=== PATIENT | male | born 1965 | race Caucasian/White ===

== ENCOUNTER 2021-09-19 19:20 | Emergency (ER) | payer MEDICAID, SELFPAY ==
[2021-09-19 19:58] VITALS: BP 167/89; PULSE 63; RESP 18; TEMP 36.6; O2SAT 95
--- NOTE | 2021-09-19 20:08 | CTR_ITS ---
PROCEDURE INFORMATION: Exam: CT Head Without Contrast Exam date and time: 09/19/2021 8:55 PM Age: 56 years old Clinical indication: Pain; Headache; Additional info: AMS TECHNIQUE: Imaging protocol: Computed tomography of the head without contrast. Radiation optimization: All CT scans at this facility use at least one of these dose optimization techniques: automated exposure control; mA and/or kV adjustment per patient size (includes targeted exams where dose is matched to clinical indication); or iterative reconstruction. COMPARISON: No relevant prior studies available. RADIATION DOSE METRICS: Total DLP (mGy-cm): 1202.58 FINDINGS: Brain: Normal. No hemorrhage. Unremarkable white matter. No mass effect. Cerebral ventricles: No ventriculomegaly. Paranasal sinuses: Visualized sinuses are unremarkable. No fluid levels. Mastoid air cells: Visualized mastoid air cells are well aerated. Bones/joints: Unremarkable. No acute fracture. Soft tissues: Unremarkable. CT/CT head wo con* [id number] IMPRESSION: No acute intracranial abnormality.
--- NOTE | 2021-09-19 22:28 | W.ED.GENADLT ---
HPI - General Adult General: Chief complaint: General Medical Stated complaint: MEMORY LOSS Time Seen by Provider: 09/19/21 22:28 History of Present Illness: 56-year-old male patient comes in today with concerns of falling asleep while at the dinner table at the substance treatment center, [facility]. Patient is alert and talking within the emergency department. Patient ambulates without difficulty. Patient's speech is slightly slurred. Patient denies use of other medications besides what he is prescribed. Associated symptoms: Deny chest pain, dyspnea or headache(s) Review of Systems General: Reports: 10 or more systems reviewed and unremarkable except in HPI and below Card: Denies: chest pain Resp: Denies: dyspnea Neuro: Denies: headache(s) Physical Exam Const: COMMON NORMALS: alert HENMT: COMMON NORMALS: normocephalic HEAD & SCALP: normocephalic Neck/C-Spine: COMMON NORMALS: full ROM Resp: COMMON NORMALS: normal respiratory effort and clear to auscultation bilaterally AUSCULTATION: clear to auscultation bilaterally Cardio: COMMON NORMALS: regular rate and regular rhythm RATE: regular rate RHYTHM: regular rhythm Extremity: COMMON NORMALS: full ROM Neuro: SENSORIUM/ORIENTATION: Yes alert Course Vital Signs: Vital signs: Vital Signs Temperature 97.9 F 09/19/21 19:58 Pulse Rate 63 09/19/21 19:58 Respiratory Rate 18 09/19/21 19:58 Blood Pressure 167/89 09/19/21 19:58 Pulse Oximetry 95 09/19/21 19:58 [facility] - General Adult Medical Decision Making 56-year-old male patient comes in today for concerns of falling asleep at the table while eating at [facility]. On exam patient is alert and oriented x3. Patient moves all extremities. No focal neural deficits are noted. Respirations are even lungs are clear to auscultation. Vital signs are normal. Differential diagnosis includes intoxication, depression, substance use disorder. I suspect patient has used recently causing his altered behavior. Patient is more alert now and responsive and appropriate. Patient was discharged back to [facility]. Head CT done in the ER was unremarkable. Vital signs were normal. Lab Data Radiology Impressions Head CT 09/19/21 20:08 IMPRESSION: No acute intracranial abnormality. Discharge Plan Discharge Patient Disposition: Home Clinical Impression: Substance use disorder Condition: Stable Discharge Orders: Discharge ED (Routine); Ordered 09/19/21 Ordered By: Sunday Chiu Discharge Diet: Usual diet Discharge Activity: Increase activity as tolerated Patient Instructions: Polysubstance Use Disorder (ED) Activity Restrictions/Additional Instructions: Use only medications prescribed to you by your treatment facility. Home and rest. Drink plenty of fluids. Return to ER for new concerns Coding Level of Care Code ED Manufacturing Project Manager for Roseann Richard
[2021-09-19] MEDS: buprenorphine-naloxone 4-1 mg Film 1 EACH SUBLINGUAL (23:02)
[2021-09-19 23:05] VITALS: BP 154/77; PULSE 84; RESP 20; TEMP 36.5; O2SAT 94
== END 2021-09-19 23:05 | disposition home or self-care (01) ==
PROVIDERS: Emergency Provider Nurse Practitioner Family
DX: F19.10 Other psychoactive substance abuse, uncomplicated (principal)
CPT/HCPCS: 70450; 99284; J0573

== ENCOUNTER 2021-09-22 13:33 | Emergency (ER) | payer MEDICAID, SELFPAY ==
[2021-09-22 13:48] VITALS: BP 121/66; PULSE 71; RESP 16; TEMP 37.5; O2SAT 87; BMI 29.0
--- NOTE | 2021-09-22 13:59 | XRR_ITS ---
PROCEDURE INFORMATION: Exam: XR Chest Exam date and time: 09/22/2021 2:04 PM Age: 56 years old Clinical indication: Dyspnea and shortness of breath; Patient HX: Oxy sat 80% TECHNIQUE: Imaging protocol: Radiologic exam of the chest. Views: 1 view. Other technique: Frontal portable upright view of the chest. COMPARISON: No relevant prior studies available. FINDINGS: Lungs: The pulmonary vasculature is mildly congested. The lungs are clear bilaterally. Pleural spaces: No pleural effusion. No pneumothorax. Heart/Mediastinum: The heart is normal in size and contour. Bones/joints: No acute chest wall abnormality identified. XR/XR chest 1V portable [id number] IMPRESSION: Mild pulmonary vascular congestion.
--- NOTE | 2021-09-22 14:08 | CT_ITS ---
WS: [id number] CT CHEST ANGIOGRAPHY WITH REFORMATS HISTORY: prior meth use, possible pe TECHNIQUE: Contiguous axial images are obtained through the chest during arterial injection of intrav enous contrast. Images are reconstructed to evaluate the pulmonary arteries. MIP imaging also reviewe d. All CT scans at [facility] use at least one of these dose optimization techniques: automat ed exposure control; mA and/or kV adjustment per patient size (includes targeted exams where dose is matched to clinical indication); or iterative reconstruction. CONTRAST: Omnipaque 350; 95 mL IV. DLP: 526.27 mGy.cm COMPARISON: None available. Quality of this examination is limited by motion artifact. There are partial filling defects in the s egmental branches of the LEFT lower lobe. Some of this may be artifact secondary to breathing motion. Normal size thoracic aorta with mild atherosclerotic plaque and intimal thickening. There is extensive bilateral groundglass attenuation and ill-defined subcentimeter nodular opacificat ions. Some of these nodular opacifications are slightly spiculated the most significant nodular opaci fications in the RIGHT middle and RIGHT upper lobe. No effusions. RIGHT hilar lymph node measures 16 mm. There are smaller bilateral hilar lymph nodes. Small hiatal hernia. Hepatic steatosis. Mild thickening of the LEFT adrenal gland. CT/CT angio chest PE protcl [id number] IMPRESSION: 1. No central large pulmonary embolism. 2. Significant breathing artifact compromising this examination. 3. Subsegmental LEFT lower lobe nonocclusive emboli are suspected. Some of the se filling defects may impart be secondary to motion. 4. Indeterminate but enlarged RIGHT hilar lymph node measures 16 mm. 5. Diffuse extensive groundglass attenuation with a few spiculated small subce ntimeter opacifications greatest in the RIGHT upper and RIGHT middle lobes. Con health insurance agent diffuse pneumonitis. With the spiculated nodular opacifications septic em boli should be considered as a possible etiology.
--- NOTE | 2021-09-22 14:15 | W.ED.GENADLT ---
HPI - General Adult General: Chief complaint: Shortness of Breath/Dyspnea Stated complaint: Low O2 Time Seen by Provider: 09/22/21 13:59 History of Present Illness: Patient is a 56-year-old male with history of prior meth use, chronically on 3L of oxygen at home currently at [facility] presenting to the emergency room with concerns for low oxygen sat. [facility] to [facility] 87[facility] and was told to come to the emergency room. Patient tells me last month he was hospitalized at [place] for low oxygen level at which point time he had an oxygen reading in the 40s. Onset: unknown Duration:ongoing Location:[place] Severity:moderate Associated symptoms: Deny chest pain, dyspnea, nausea, rash, palpitations or vomiting Review of Systems Const: Denies: fever(s) or chills Eyes: Denies: change in vision ENMT: Denies: mouth pain Card: Denies: chest pain or palpitations Resp: Denies: dyspnea or non-productive cough GI: Denies: abdominal pain, nausea, vomiting or diarrhea : Denies: dysuria Musc: Denies: extremity pain Skin/Breast: Denies: rash or new lesions Neuro: Denies: weakness in extremities Psych: Reports: other (Normal mood) Angelo/Lymph: Denies: easy bruising PFSH ED PFSH: Medical History (Updated 09/22/21 @ 16:20 by Joaquín Al MD) Hypoxemia Methamphetamine abuse Social History (Updated 09/22/21 @ 17:25 by Joaquín Al MD) Smoking and tobacco status: current every day smoker Alcohol intake: former Physical Exam Const: COMMON NORMALS: alert HENMT: COMMON NORMALS: atraumatic HEAD & SCALP: atraumatic MOUTH: moist mucous membranes not abnormal Eye: COMMON NORMALS: EOMs intact bilaterally and conjunctivae normal CONJUNCTIVA: Yes conjunctivae normal Neck/C-Spine: COMMON NORMALS: full ROM and supple Resp: COMMON NORMALS: normal respiratory effort and clear to auscultation bilaterally AUSCULTATION: clear to auscultation bilaterally Cardio: COMMON NORMALS: regular rate RATE: regular rate GI: COMMON NORMALS: Soft to palpation and non-tender PALPATION: Yes Soft to palpation Extremity: COMMON NORMALS: full ROM Neuro: SENSORIUM/ORIENTATION: Yes alert MOTOR EXAM: No Abnormal motor strength present and Other motor observations present (no focal motor deficits) Psych: COMMON NORMALS: speech normal SPEECH: Yes normal speech MOOD & AFFECT: Yes euthymic mood Course Vital Signs: Vital signs: Vital Signs Temperature 99.5 F 09/22/21 13:48 Pulse Rate 76 09/22/21 15:27 Respiratory Rate 16 09/22/21 15:27 Blood Pressure 129/67 09/22/21 15:27 Pulse Oximetry 95 09/22/21 15:27 MDM - General Adult Medical Decision Making 56-year-old male with a history of prior meth use, currently on 3 L oxygen at baseline presenting to the emergency room for concerns of low O2 sat. Patient reports no respiratory distress. Patient is noted to be satting at 91 to 90% 2% on room air. Patient is noted have leukocytosis 19.6. Patient has a prior IV meth use. CTA chest showed possible nonocclusive pulmonary embolism. Patient received Lovenox. Given the elevated white count we will send blood cultures. Patient received vancomycin and cefepime for coverage empirically for septic pulmonary emboli Disposition: admisison Shortly after patient was admitted to the hospital, patient elects to leave AGAINST MEDICAL ADVICE. Patient tells me that he needs to go home and get a smoke. Patient refuses to stay in the hospital because we do not provide him with cigarettes. Patient tells me that he will come back after he has a smoke. Patient electing to leave AMA. Patient counseled regarding risks of leaving including severe morbidity, brain , hypoxia, arrythmia, , chest pain, or any other unwanted consequences of leaving against medical advice today. Patient verbalizes understanding of the risks and still wishes to leave AMA. Signed AMA paperwork. Patient advised that patient is welcome to return at any time. Was instructed that patient may come back if symptoms continue to persist and that emergent adverse conditions have not fully been ruled out. Patient is A&Ox3 and has capacity and is of sound mind to make decisions. Lab Data : 09/22/21 14:24 09/22/21 14:24 Radiology Impressions Chest X-Ray 09/22/21 13:59 IMPRESSION: Mild pulmonary vascular congestion. Chest CTA 09/22/21 14:08 IMPRESSION: 1. No central large pulmonary embolism. 2. Significant breathing artifact compromising this examination. 3. Subsegmental LEFT lower lobe nonocclusive emboli are suspected. Some of these filling defects may impart be secondary to motion. 4. Indeterminate but enlarged RIGHT hilar lymph node measures 16 mm. 5. Diffuse extensive groundglass attenuation with a few spiculated small subcentimeter opacifications greatest in the RIGHT upper and RIGHT middle lobes. Consider diffuse pneumonitis. With the spiculated nodular opacifications septic emboli should be considered as a possible etiology. Laboratory Results WBC 19.6 10^3/uL (4.0-10.0) H 09/22/21 14:24 RBC 4.60 10^6/uL (4.1-5.3) 09/22/21 14:24 Hgb 13.0 g/dL (11.7-16.6) 09/22/21 14:24 Hct 38.1 % (42.0-52.0) L 09/22/21 14:24 MCV 82.8 fl (80-94) 09/22/21 14:24 MCH 28.3 pg (28.0-34.0) 09/22/21 14:24 MCHC 34.1 g/dL (30.0-36.0) 09/22/21 14:24 RDW 15.8 % (12.1-15.1) H 09/22/21 14:24 Plt Count 432 10^3/cmm (130-400) H 09/22/21 14:24 MPV 8.6 fL (7.4-10.4) 09/22/21 14:24 Total Counted 100 (0-100) 09/22/21 14:24 Atypical Lymphs % 9.0 % (0-5) H 09/22/21 14:24 Absolute Neutrophils 13.7 10^3/cmm (1.4-6.5) H 09/22/21 14:24 Segmented Neutrophils 70 % 09/22/21 14:24 Abs Segm Neuts (Man) 13.7 10/cmm (1.6-7.1) H 09/22/21 14:24 Band Neutrophils 0.0 % 09/22/21 14:24 Abs Band Neuts (Man) 0.0 10^3/cmm (0.0-1.2) 09/22/21 14:24 Absolute Lymphocytes 4.9 10^3/cmm (1.2-3.4) H 09/22/21 14:24 Lymphocytes (Manual) 16 % 09/22/21 14:24 Monocytes (Manual) 4.0 % 09/22/21 14:24 Absolute Monocytes 0.8 10^3/cmm (0.1-0.6) H 09/22/21 14:24 Eosinophils (Manual) 1 % 09/22/21 14:24 Absolute Eosinophils 0.1 10^3/cmm (0.0-0.7) 09/22/21 14:24 Basophils (Manual) 0.0 % 09/22/21 14:24 Absolute Basophils 0.0 10^3/cmm (0.0-0.2) 09/22/21 14:24 Platelet Estimate Increased (Normal) 09/22/21 14:24 Sodium 137 mmol/L (136-145) 09/22/21 14:24 Potassium 4.4 mmol/L (3.5-5.1) 09/22/21 14:24 Chloride 99 mmol/L (98-107) 09/22/21 14:24 Carbon Dioxide 28 mmol/L (22-29) 09/22/21 14:24 Anion Gap 14.4 (5-19) 09/22/21 14:24 BUN 12 mg/dL (6-20) 09/22/21 14:24 Creatinine 0.8 mg/dL (0.7-1.2) 09/22/21 14:24 GFR Calculation 100.7 mL/min (90-130) 09/22/21 14:24 Glucose 105 mg/dL (65-115) 09/22/21 14:24 Calculated Osmolality 284 mOsm/kg (285-295) L 09/22/21 14:24 Calcium 8.7 mg/dL (8.5-10.5) 09/22/21 14:24 TSH 2.08 uIU/mL (0.27-4.20) 09/22/21 14:24 Urine Opiates Screen Negative ng/mL (Negative) 09/22/21 15:35 Ur Barbiturates Screen Negative ng/mL (Negative) 09/22/21 15:35 Ur Phencyclidine Scrn Negative ng/mL (Negative) 09/22/21 15:35 Ur Amphetamines Screen Negative ng/mL (Negative) 09/22/21 15:35 U Benzodiazepines Scrn Negative ng/mL (Negative) 09/22/21 15:35 Urine Cocaine Screen Negative ng/mL (Negative) 09/22/21 15:35 U Marijuana (THC) Screen Negative ng/mL (Negative) 09/22/21 15:35 Imaging Data Other Imaging: Radiologist's impression: [facility] [address] [place] [place] [address] CT Scan Report Signed Patient: Chriss Akers Unit #: [id number] : 1965 Age/Sex: 56 / M ADM Date: 09/22/21 Loc: ER Room/Bed: Attending Dr: Ordering Provider/Ordering MD: oJaquín Al MD Date of Service: 09/22/21 Procedure(s): CT angio chest PE protcl [id number] Accession Number(s): [id number] Report Number: [id number] WS: [id number] CT CHEST ANGIOGRAPHY WITH REFORMATS HISTORY: prior meth use, possible pe TECHNIQUE: Contiguous axial images are obtained through the chest during arterial injection of intravenous contrast. Images are reconstructed to evaluate the pulmonary arteries. MIP imaging also reviewed.? All CT scans at [facility] use at least one of these dose optimization techniques: automated exposure control; mA and/or kV adjustment per patient size (includes targeted exams where dose is matched to clinical indication); or iterative reconstruction. CONTRAST: Omnipaque 350; 95 mL IV. DLP: 526.27 mGy.cm COMPARISON: None available. Quality of this examination is limited by motion artifact. There are partial filling defects in the segmental branches of the LEFT lower lobe. Some of this may be artifact secondary to breathing motion. Normal size thoracic aorta with mild atherosclerotic plaque and intimal thickening. There is extensive bilateral groundglass attenuation and ill-defined subcentimeter nodular opacifications. Some of these nodular opacifications are slightly spiculated the most significant nodular opacifications in the RIGHT middle and RIGHT upper lobe. No effusions. RIGHT hilar lymph node measures 16 mm. There are smaller bilateral hilar lymph nodes. Small hiatal hernia. Hepatic steatosis. Mild thickening of the LEFT adrenal gland. CT/CT angio chest PE protcl [id number] IMPRESSION: ? 1.? No central large pulmonary embolism. 2.? Significant breathing artifact compromising this examination. 3.? Subsegmental LEFT lower lobe nonocclusive emboli are suspected. Some of these filling defects may impart be secondary to motion. 4.? Indeterminate but enlarged RIGHT hilar lymph node measures 16 mm. 5.? Diffuse extensive groundglass attenuation with a few spiculated small subcentimeter opacifications greatest in the RIGHT upper and RIGHT middle lobes. Consider diffuse pneumonitis. With the spiculated nodular opacifications septic emboli should be considered as a possible etiology. ? ? ? Dictated By: Codie Johnson DO Signed By: Codie Johnson DO Signed Date/Time: 09/22/21 1608 DD/ [address] [address] XRay Report Signed Patient: Chriss Akers Unit #: [id number] : 1965 Age/Sex: 56 / M ADM Date: 09/22/21 Loc: ER Room/Bed: Attending Dr: Ordering Provider/Ordering MD: Joaquín Al MD Date of Service: 09/22/21 Procedure(s): XR chest 1V portable [id number] Accession Number(s): [id number] Report Number: [id number] PROCEDURE INFORMATION: Exam: XR Chest Exam date and time: 09/22/2021 2:04 PM Age: 56 years old Clinical indication: Dyspnea and shortness of breath; Patient HX: Oxy sat 80% TECHNIQUE: Imaging protocol: Radiologic exam of the chest. Views: 1 view. Other technique: Frontal portable upright view of the chest. COMPARISON: No relevant prior studies available. FINDINGS: Lungs: The pulmonary vasculature is mildly congested. The lungs are clear bilaterally. Pleural spaces:? No pleural effusion. No pneumothorax. Heart/Mediastinum: The heart is normal in size and contour. Bones/joints: No acute chest wall abnormality identified. XR/XR chest 1V portable [id number] IMPRESSION: Mild pulmonary vascular congestion. ? Dictated By: Ganesh Caro MD Signed By: Ganesh Crao MD Signed Date/Time: 09/22/21 1503 DD/ 1404 Discharge Plan Discharge Clinical Impression: Hypoxemia, Pulmonary embolism Coding Level of Care Code ED Bank Clerk for Chg Fwd Exam Comprehensive
[2021-09-22 14:25] VITALS: O2SAT 95
[2021-09-22 14:41] LABS: Hematocrit 38.1 % (42.0-52.0); Mean Corpuscular HGB Conc 34.1 g/dL (30.0-36.0); Mean Corpuscular Hemoglobin 28.3 pg (28.0-34.0); Mean Corpuscular Volume 82.8 fl (80-94); Mean Platelet Volume 8.6 fL (7.4-10.4); Platelet Count 432 10^3/cmm (130-400); Red Cell Distribution Width 15.8 % (12.1-15.1); White Blood Count 19.6 10^3/uL (4.0-10.0)
[2021-09-22 14:57] LABS: Anion Gap 14.4 (5-19); Blood Urea Nitrogen 12 mg/dL (6-20); Calcium 8.7 mg/dL (8.5-10.5); Carbon Dioxide 28 mmol/L (22-29); Chloride 99 mmol/L (98-107); Glomerular Filtration Rate 100.7 mL/min (90-130); Glucose 105 mg/dL (65-115); Osmolality Calculated 284 mOsm/kg (285-295); Potassium 4.4 mmol/L (3.5-5.1); Sodium 137 mmol/L (136-145)
[2021-09-22] MEDS: iohexol 350 mg/mL 100 mL Btl IV (14:58)
[2021-09-22 15:27] VITALS: BP 129/67; PULSE 76; RESP 16; O2SAT 95
[2021-09-22 15:41] LABS: Absolute Eosinophils 0.1 10^3/cmm (0.0-0.7); Absolute Neutrophil 13.7 10^3/cmm (1.4-6.5); Absolute Segmented Neutrophil 13.7 10/cmm (1.6-7.1); Eosinophils 1 %; Lymphocytes 16 %; Lymphocytes Absolute 4.9 10^3/cmm (1.2-3.4); Monocytes Absolute 0.8 10^3/cmm (0.1-0.6); Platelet Estimate Increased (Normal); Segmented Neutrophils 70 %; Total Cells Counted 100 (0-100)
--- NOTE | 2021-09-22 16:10 | PM.MISC ---
Miscellaneous Note Purpose of Documentation: AMA Note: Chriss Akers is a 56 year old male with past medical history of substance use disorder presented to the hospital with hypoxemia. Work-up in ER showed pulmonary embolism with sepsis. Source unknown. Patient has bandemia elevated white count. He was given first dose of subcu Lovenox. He is currently from [facility] and was here with [facility] worker. I went to see patient bedside. But as soon as I told him that he would be getting admitted to the hospital patient stated that he could not stay and wanted to leave AMA. I went and discussed with Dr. Tejeda who spoke to patient. Patient initially was not told that he was going to be staying. Dr. Tejeda ER physician discussed with the patient and patient will be signing out AMA at this time. ER doc tried to reason with the patient but patient was absolutely adamant that he had to smoke and was going to leave AMA. He stated he will be back later to get admitted. He does understand that his oxygen is low and he has an infection going on and he understands that he would also if he left. Patient signed out AGAINST MEDICAL ADVICE.
--- NOTE | 2021-09-22 16:21 | PM.HP ---
Providers/Chief Complaint Chief Complaint: Low O2 History of Present Illness Chriss Akers is a 56 year old male Medications/Allergies Allergies Allergy/AdvReac Type Severity Reaction Status Date / Time No Known Allergies Allergy Verified 09/19/21 14:58 PFSH Acute PFSH: Medical History (Updated 09/22/21 @ 16:20 by Joaquín Al MD) Hypoxemia Methamphetamine abuse Social History (Updated 09/22/21 @ 16:20 by Joaquín Al MD) Smoking and tobacco status: former smoker Alcohol intake: former Substance/Drug Use: former Vitals/I&O/Wt Last Vital Signs Temp 99.5 F 09/22/21 13:48 Pulse 71 09/22/21 13:48 Resp 16 09/22/21 13:48 BP 121/66 09/22/21 13:48 Pulse Ox 95 09/22/21 14:25 Weight last 48 hrs Weight 81.647 kg Data : 09/22/21 14:24 09/22/21 14:24 Coding Level of Care Code Acute Mounter Flutes [employer] Piccolos for Roseann Richard
[2021-09-22 17:14] LABS: Amphetamines Screen Urine Negative (Negative); Barbiturates Screen Urine Negative (Negative); Benzodiazepines Screen Urine Negative (Negative); Cocaine Screen Urine Negative (Negative); Opiate Screen Urine Negative (Negative); PCP Screen Urine Negative (Negative); THC Screen Urine Negative (Negative)
[2021-09-22 17:24] LABS: Thyroid Stimulating Hormone 2.08 uIU/mL (0.27-4.20)
[2021-09-22 17:58] LABS: NT Pro B Type Natriuretic Pept 134 pg/mL (0-125); Procalcitonin 0.03 ng/mL (0-0.5)
--- NOTE | 2021-09-22 18:19 | P.HP_ITS ---
Providers/Chief Complaint Chief Complaint: Low O2 History of Present Illness Chriss Akers is a 56 year old male with past medical history of anxiety, depression, substance use disorder presented to the ER today with complaints that his oxygen was low. He is at [facility] at this time. He states he was in a different hospital at [facility] for a coma that he was in for 21 days. We will be obtaining records for that. He does have a history of COPD and is a smoker. Earlier today patient came in after being admitted decided to leave A. He then came back after smoking. He is getting readmitted now. He does endorse having a cough but not really bringing up any phlegm. Also reports having difficulty urinating at times as he is always had before. Other than this denies any chest pain, abdominal pain, constipation, diarrhea. He does complain some pain in his calves from time to time and shortness of breath from time to time as well. Otherwise review of systems is negative. Patient is 1/2 pack/day smoker, denies alcohol use, denies any other Drug use. ED course: On arrival blood pressure 129/67, respiratory 16, pulse 76, tem perature 99.5. Do note that patient is on propanolol 3 times daily. WBC count 19.6, placed on 3 L oxygen saturating 95%. On room air he was 88%. Patient noted to have pulmonary embolism nonconclusive. There is a high suspicion therefore he was placed on Lovenox. Blood cultures were obtained and he was given vancomycin and cefepime to cover for septic pulmonary emboli. Echo has been ordered. Medications/Allergies Home Medications Medication Instructions Recorded Confirmed Last Taken Type albuterol sulfate 90 mcg/actuation 2 puff INHALATION .Q4-6H PRN 09/22/21 09/22/21 Unknown History aerosol inhaler (ProAir HFA) aspirin 81 mg tablet,delayed 81 mg PO DAILY@06 09/22/21 09/22/21 09/22/21 History release baclofen 10 mg tablet 10 mg PO TID PRN 09/22/21 09/22/21 Unknown History benztropine 1 mg tablet 0.5 mg PO BID@06,09/22/21 09/22/21 09/22/21 History budesonide-formoterol HFA 80 2 puff INHALATION BID 09/22/21 09/22/21 Unknown History mcg-4.5 mcg/actuation aerosol inhaler (Symbicort) buprenorphine 2 mg-naloxone 0.5 mg See Rx Instructions .ROUTE .COMPLEX 09/22/21 09/22/21 09/22/21 History sublingual tablet diclofenac sodium 1 % topical gel 2 - 4 g TOPICAL BID PRN 09/22/21 09/22/21 Unknown History ergocalciferol (vitamin D2) 1,250 50,000 unit PO Q7D 09/22/21 09/22/21 09/18/21 History mcg (50,000 unit) capsule famotidine 40 mg tablet 40 mg PO DAILY@09/22/21 09/22/21 09/22/21 History gabapentin 400 mg capsule 400 mg PO TID@0600,1220,2100 09/22/21 09/22/21 09/22/21 History hydroxyzine HCl 25 mg tablet 25 mg PO Q6H PRN 09/22/21 09/22/21 09/22/21 History ibuprofen 800 mg tablet 800 mg PO DAILY@09/22/21 09/22/21 09/22/21 History nicotine (polacrilex) 4 mg buccal 16 mg PO PRN 09/22/21 09/22/21 09/22/21 History lozenge nicotine 21 mg/24 hr daily 1 patch TRANSDERMAL DAILY PRN 09/22/21 09/22/21 09/22/21 History transdermal patch ondansetron HCl 8 mg tablet 8 mg PO TID PRN 09/22/21 09/22/21 Unknown History penicillin V potassium 500 mg 500 mg PO QID 09/22/21 09/22/21 09/22/21 History tablet prazosin 2 mg capsule 2 mg PO BEDTIME@09/22/21 09/22/21 09/21/21 History propranolol 20 mg tablet 20 mg PO TID@0600,1220,2100 09/22/21 09/22/21 09/22/21 History Allergies Allergy/AdvReac Type Severity Reaction Status Date / Time No Known Allergies Allergy Verified 09/19/21 14:58 PFSH Acute PFSH: Medical History Hypoxemia Methamphetamine abuse Social History Smoking and tobacco status: current every day smoker Alcohol intake: former Vitals/I&O/Wt Last Vital Signs Temp 99.5 F 09/22/21 13:48 Pulse 76 09/22/21 15:27 Resp 16 09/22/21 15:27 BP 129/67 09/22/21 15:27 Pulse Ox 95 09/22/21 15:27 Weight last 48 hrs Weight 81.647 kg Physical Exam Narrative: General: Alert oriented x3, patient seen appearing quite hyper in the room. He would not sit down for even 1 minute. He kept walking around the room and getting up and sitting down over and over again. HEENT: Normocephalic, atraumatic, EOMI, breathing 3 L nasal cannula saturating 95%. Cardio: Regular rate rhythm, normal S1-S2, no murmurs Respiratory: Clear to auscultation bilaterally with diminished at bases, no crackles or gross rhonchi appreciated. GI: Abdomen soft, nontender, nondistended, bowel sounds +, obese rounded abdomen Behavior: Quite hyperactive. Rapid speech Extremities: Unable to check for peripheral pulses. Patient had his boots on. He would not sit still. Calves were mildly tender to palpation. Data : 09/22/21 14:24 09/22/21 14:24 A&P Assessment and plan (1) Hypoxemia: Status: Acute (2) Pulmonary embolism: Status: Acute (3) Leukocytosis: Status: Acute (4) Substance use disorder: Status: Acute (5) Hypoxemia: Status: Acute (6) Pulmonary embolism: Status: Acute Plan #Acute hypoxia secondary to pulmonary embolism #Sepsis secondary to unknown source #Difficulty urinating #Substance use disorder #COPD #Nicotine dependence #Leukocytosis and bandemia present - Initiate sepsis work-up, blood cultures, sputum gram stain culture, urine culture ? Check urine drug screen ? Cover with vancomycin and cefepime at this time ? Continue therapeutic Lovenox 80 twice daily ? Check echo ? Check venous Dopplers lower extremities to rule out DVT ? Continue Pulmicort 0.5 twice daily inhalation, DuoNeb every 4 hours as needed ? Nicotine patch and lozenges offered -Continue patient's Suboxone, hydroxyzine, gabapentin ? Continue rest of home medications. ? Monitor on telemetry I will request for records from [facility] for reviewing. Full code Due to prophylaxis: On therapeutic Lovenox Attestations Medical Necessity Statement*: He will cross 2 midnight stay for management and work-up of sepsis secondary to unknown source and management of pulmonary em bolism. Coding Level of Care Code Acute Irish Moss Operator for g Fwd Diagnoses Hypoxemia R09.02 Pulmonary embolism I26.99 Leukocytosis D72.829 Substance use disorder F19.90 Hypoxemia R09.02 Pulmonary embolism I26.99
--- NOTE | 2021-09-22 18:27 | USCV_ITS ---
Oswald Chriss Age: 56 Gender: M : 1965 Exam Date: 09/22/2021 21:35 Ordering Phys: Karo Christian MD Technologist: REHAN Exam Location[place] [facility] [place] Indication: pulmonary embolus. No history of cardiac intervention per patient BP: 148 / 80 HR: 86 Rhythm: Sinus Technical Quality: Adequate MEASUREMENTS (Male / Female) Normal Values 2D ECHO LV Diastolic Diameter PLAX 3.4 cm 4.2 - 5.9 / 3.9 - 5.3 cm LV Systolic Diameter PLAX 2.4 cm IVS Diastolic Thickness 1.8 cm 0.6 - 1.0 / 0.6 - 0.9 cm IVS Systolic Thickness 2.4 cm LVPW Diastolic Thickness 1.1 cm 0.6 - 1.0 / 0.6 - 0.9 cm LVPW Systolic Thickness 1.2 cm LVOT Diameter 2.2 cm LV Ejection Fraction 2D Teich 55.7 % LV Ejection Fraction MOD 2C 66.4 % LV Ejection Fraction 2C AL 68.3 % LA Diameter 3.4 cm LA Width 3.1 cm LA Height 4.3 cm RA Width 3.1 cm RA Height 4.3 cm Aorta at Sinotubular Diameter 2.8 cm IVC Diameter 1.6 cm M-MODE Aortic Annulus Diameter 3.3 cm LA Ao Ratio MM 1.1 MV E Point Septal Separation 0.3 cm DOPPLER AV Peak Velocity 175.0 cm/s LVOT Peak Velocity 145.0 cm/s AV Area Cont Eq vti 3.3 cm squared AV Area Cont Eq pk 3.1 cm squared MV Peak Velocity 136.0 cm/s MV Area PHT 3.6 cm squared Mitral E to A Ratio 1.1 MV E' Velocity 61.5 cm/s Mitral E to MV E' Ratio 11.4 Mitral E to LV E' Lateral Ratio 12.3 Mitral E to LV E' Septal Ratio 10.7 TR Peak Velocity 284.0 cm/s TR Peak Gradient 32.3 mmHg TV Peak E Velocity 51.0 cm/s Right Atrial Pressure 5.0 mmHg Pulmonary Artery Systolic Pressu 37.3 mmHg PV Peak Velocity 118.0 cm/s RV Acceleration Time 0.1 s RV Ejection Time 0.4 s RV AcT/ET 0.2 FINDINGS Left Ventricle Normal left ventricular size and systolic function, EF 69 %. Mild left ventricular hypertrophy. No regional wall motion abnormalities. Right Ventricle The right ventricle is normal in size and function. Right Atrium The right atrium is normal in size. Left Atrium Color-flow turbulence at the right atrial side of the interatrial septum, suggesting possible patent foramen ovale Mitral Valve No gross abnormalities noted Aortic Valve No gross abnormalities noted Tricuspid Valve Trace to mild tricuspid valve regurgitation. Pulmonic Valve No gross abnormalities noted Pericardium Normal pericardium without effusion. Aorta Normal ascending aorta dimension. IVC The inferior vena cava pulmonary and hepatic veins appear normal. CONCLUSIONS Normal left ventricular size and systolic function, EF 69 %. Mild left ventricular hypertrophy. No regional wall motion abnormalities. Possible patent foramen ovale with [id number]-pehwm shunt Trace to mild tricuspid valve regurgitation. Estimated pulmonary artery peak systolic pressure 37 mm of Hg. There are no intracardiac masses. There is no pericardial effusion. Consider AUTUMN, to better evaluate the interatrial septum and the PFO, if clinically indicated. Dr Shelly Gayle MD FACC (Electronically Signed) Final Date: 23 September 2021 08:16 S
--- NOTE | 2021-09-22 18:27 | USCV_ITS ---
Chriss Akers Age: 56 Gender: M : 1965 Exam Date: 09/22/2021 20:24 Ordering Phys: Karo Christian MD Technologist: REHAN [place] [facility] [place]: pulmonary embolus. No hx DVT per patient. HISTORY: pulmonary embolus. No hx DVT per patient. PROCEDURES: Venous duplex imaging was performed in bilateral lower extremities. The venous duplex Doppler examination of both lower extremities was performed in the standard fashion. The following venous structures were evaluated: common femoral vein, profunda vein, proximal portion of the greater saphenous vein, superficial femoral vein, and the popliteal vein. In addition, the posterior tibial and peroneal veins were evaluated. Serial compression, augmentation maneuvers, and spectral Doppler flow evaluation were performed. Bilaterally, the common femoral, superficial femoral, profunda femoral, popliteal, posterior tibial, greater saphenous veins, and the peroneal veoms were identified and interrogated in the standard fashion. These veins were found to be easily compressible with spontaneous blood flow. No evidence of thrombus noted. CONCLUSIONS No evidence of right lower extremity DVT. No evidence of left lower extremity DVT. Carl Rosario MD (Electronically Signed) Final Date: 23 September 2021 12:49 S
[2021-09-22 19:04] VITALS: BP 148/80; PULSE 86; RESP 18; TEMP 36.7; O2SAT 87
== END 2021-09-22 19:16 | disposition admitted as inpatient to this hospital (09) ==
PROVIDERS: Internal Medicine; Emergency Provider Emergency Medicine
DX: R09.02 Hypoxemia (principal); I26.99 Other pulmonary embolism without acute cor pulmonale; F17.210 Nicotine dependence, cigarettes, uncomplicated
CPT/HCPCS: 71045; 71275; 80048; 80306; 83880; 84145; 84443; 85007; 85027; 87086; 93306; 93970; 99285; Q9967

== ENCOUNTER 2021-09-22 17:26 | Inpatient (IN) | payer MEDICAID, SELFPAY ==
--- NOTE | 2021-09-22 17:48 | ED_ITS ---
HPI - General Adult General: Stated complaint: same reason Time Seen by Provider: 09/22/21 17:33 History of Present Illness: Patient is a 56-year-old male with a history of former meth use, chronic hypoxemia on 3 L oxygen presenting to the emergency room for concerns of hypoxemia. Earlier patient was seen evaluated emergency room was diagnosed with possible nonocclusive pulmonary embolism. In addition, patient was found to have leukocytosis with no prior for comparison. Patient de cided to go home so he could have a smoke. Patient's chose to sign out AMA earlier today and decided come back to the emergency room. Onset:unknown Duration:ongoing Location:home Severity:moderate Associated symptoms: Deny chest pain, dyspnea, nausea, rash, palpitations or vomiting Review of Systems Const: Denies: fever(s) or chills Eyes: Denies: change in vision ENMT: Denies: mouth pain Card: Denies: chest pain or palpitations Resp: Denies: dyspnea or non-productive cough GI: Denies: abdominal pain, nausea, vomiting or diarrhea : Denies: dysuria Musc: Denies: extremity pain Skin/Breast: Denies: rash or new lesions Neuro: Denies: weakness in extremities Psych: Reports: other (Normal mood) Angelo/Lymph: Denies: easy bruising PFSH ED PFSH: Medical History Hypoxemia Methamphetamine abuse Social History Smoking and tobacco status: current every day smoker Alcohol intake: former Physical Exam Const: COMMON NORMALS: alert HENMT: COMMON NORMALS: atraumatic HEAD & SCALP: atraumatic MOUTH: moist mucous membranes not abnormal Eye: COMMON NORMALS: EOMs intact bilaterally and conjunctivae normal CONJUNCTIVA: Yes conjunctivae normal Neck/C-Spine: COMMON NORMALS: full ROM and supple Resp: COMMON NORMALS: normal respiratory effort and clear to auscultation bilaterally AUSCULTATION: clear to auscultation bilaterally Cardio: COMMON NORMALS: regular rate RATE: regular rate GI: COMMON NORMALS: Soft to palpation and non-tender PALPATION: Yes Soft to palpation Extremity: COMMON NORMALS: full ROM Neuro: SENSORIUM/ORIENTATION: Yes alert MOTOR EXAM: No Abnormal motor strength present and Other motor observations present (no focal motor deficits) Psych: COMMON NORMALS: speech normal SPEECH: Yes normal speech MOOD & AFFECT: Yes euthymic mood MDM - General Adult Medical Decision Making 56-year-old male with a history of formal meth use, smoking, hypoxemia on 3 L oxygen presenting to the emergency room after he was diagnosed with nonocclusive segmental PE. Patient will be mated to hospital for further management this time. Patient is willing to stay this time. Discharge Plan Discharge Condition: Stable Prescriptions: No Action ibuprofen 800 mg tablet 800 mg PO DAILY@06 0RF Zofran 8 mg Tablet 8 mg PO TID PRN (Reason: Nausea And Vomiting) 0RF famotidine 40 mg tablet 40 mg PO DAILY@06 0RF gabapentin 400 mg Capsule 400 mg PO TID@0600,1220,2100 0RF penicillin V potassium 500 mg Tablet 500 mg PO QID 0RF Rx Instructions: @06,12,17,21 aspirin 81 mg tablet,delayed release (DR/EC) 81 mg PO DAILY@06 0RF baclofen 10 mg Tablet 10 mg PO TID PRN (Reason: Muscle Spasm) 0RF Rx Instructions: ON HOLD benztropine 1 mg Tablet 0.5 mg PO BID@,21 0RF nicotine 21 mg/24 hr Patch 24 Hour 1 patch TRANSDERMAL DAILY PRN (Reason: Smoking Cessation) 0RF hydroxyzine HCl 25 mg Tablet 25 mg PO Q6H PRN (Reason: Anxiety) 0RF ergocalciferol (vitamin D2) 1,250 mcg (50,000 unit) capsule 50,000 unit PO Q7D 0RF Rx Instructions: ON FRIDAYS ProAir HFA 90 mcg/actuation HFA aerosol inhaler 2 puff INHALATION .Q4-6H PRN (Reason: Shortness Of Breath) 0RF propranolol 20 mg Tablet 20 mg PO TID@0600,1220,2100 0RF prazosin 2 mg Capsule 2 mg PO BEDTIME@21 0RF buprenorphine-naloxone 2-0.5 mg Tablet, Sublingual See Rx Instructions .ROUTE .COMPLEX 0RF Rx Instructions: 1/2 TAB PO BID@,17 nicotine (polacrilex) 4 mg Lozenge 16 mg PO PRN 0RF Symbicort 80-4.5 mcg/actuation HFA aerosol inhaler 2 puff INHALATION BID 0RF Voltaren 1 % Gel 2 - 4 g TOPICAL BID PRN (Reason: Pain) 0RF Coding Level of Care Code ED Push Button Switch Assembler for Roseann Richard
--- NOTE | 2021-09-22 21:37 | PC.NURSE ---
Pt reports unable to recall if he took his home dose of suboxone 1-0.25 mg and if it is three times a day or two times a day. Pharmacy dose is 4-1 mg and unable to be cut into fourths. Dr. Vincent called to make aware. New order for suboxone 4-1 mg /2 film x1.
[2021-09-22] MEDS: gabapentin 400 mg Capsule PO (22:11)
[2021-09-22] MEDS: prazosin 1 mg Capsule 2 MG PO (22:11)
[2021-09-22] MEDS: benztropine 1 mg Tablet 0.5 MG PO (22:11)
[2021-09-22] MEDS: propranolol 20 mg Tablet PO (22:12)
[2021-09-22] MEDS: buprenorphine-naloxone 4-1 mg Film 0.5 EACH SUBLINGUAL (22:12)
[2021-09-22] MEDS: cefepime 1,000 MG in sodium chloride 0.9% (plus) 50 ML 100 MG IV (22:27)
--- NOTE | 2021-09-22 22:30 | PC.NURSE ---
When placing pt IV this shift pt became upset stating you're mean and you're a bitch show boating for your friend . This RN explained the IV was needed for IV antibiotics. Agreed for IV to be placed and medication to be given. Continues stating you're mean .
--- NOTE | 2021-09-22 23:30 | PC.NURSE ---
Pt noted to ambulating in the halls. Pt went into another's room and closed door. Pt exited room with RN redirecting. Pt educated that he cannot be going into other pt rooms or storage rooms. Pt continues to wander around in the [place]. Then removed fire extinguisher off of the wall. Security called to assist with redirecting pt to his room. Dr. Vincent made aware. New order for haldol 1 mg IM x1 now.
[2021-09-23] VITALS (8 sets, daily range): BP systolic 103–138; BP diastolic 65–89; PULSE 55–68; RESP 17–18; TEMP 36.6–36.9; O2SAT 88–98
[2021-09-23] MEDS: haloperidol inj 5 mg/mL INJ 1 mL 1 MG IM (00:23)
--- NOTE | 2021-09-23 00:23 | ECG_ITS ---
[facility] Test Date: 2021-09-23 Pat Name: Chriss Akers Department: Room: 279 Gender: Male It Desktop Support Specialist: : 1965 Requested By: Nicole Vincent Order Number: [id number] Tiburcio MD: Shelly Gayle M.D. Measurements Intervals [place] Rate: 63 P: 56 NM: 168 QRS: 65 QRSD: 95 T: 59 QT: 392 QTc: 402 Interpretive Statements SINUS RHYTHM POSSIBLE RIGHT VENTRICULAR CONDUCTION DELAY [RSR (QR) IN V1/V2] No previous ECG available for comparison Electronically Signed On 09-23-2021 23:44:50 CDT by Shelly Gayle M.D. [id number]
--- NOTE | 2021-09-23 00:28 | PC.NURSE ---
i reported low 02 88 to nurse
--- NOTE | 2021-09-23 00:32 | PC.NURSE ---
This RN applied oxygen to pt d/t sats 83% on room air. 2L NC and O2 sats increased to 91%. On 3L staying between 96%. Then pt removed his oxygen and began pacing around the room. This RN educated pt on the oxygen and the importance. Pt became agitated and yelled you don't have to hernandez me and you don't need to disrespect me like that . This RN apologized and educated pt. Pt stated you don't need to be so hernandez . Security at bedside as pt started gettting closer to this RN and yelling in the face. This RN stepped out of room. Pt continued to refuse oxygen at this time. rim roller operator, Graciela, at bedside.
--- NOTE | 2021-09-23 00:58 | PC.PHAR ---
Pharmacokinetic dosing service Date: 09/23/21 Time: 99 Objective: Patient: Chriss Akers Floor: 279-2 Age: 56 yo Serum creatinine: 0.8 mg/dL Height: 66.0 Inches Weight (kg): 85.275 Diagnosis: Relevant medical/social history: Cultures and sensitivities: Other labs: Assessment: IBW (kg): 63.80 Dosing wt(kg): 85.275 Estimated Creatinine clearance (ml/min): 95.3 CRCL method: Cockcroft and Gault using ibw(default). Drug selected: Vancomycin Loading dose (mg): 0 Vd (liters): 76.7 (factor used: 0.9 L/kg) Johann (hr-1): 0.083 Half life (hrs): 8.35 Recommended dose: 1500 mg Interval: 12 hrs Infusion time (hrs): 1.5 Predicted peak (mcg/mL): 29.2 Predicted trough (mcg/mL): 12.22 Total body weight is being used for vancomycin dosing. Renal function is stable [ ] /unstable [ ] Recommendations: Give Vancomycin 1500 mg q 12 hrs with an expected Cpeak of 29.2 mcg/ml and an expected Ctrough of 12.22 mcg/ml Renal dosing of other antibiotics (review renal dosing of other medications and list guidelines here): Thank you for the consult, will continue to follow. Signature: Myah Lopez [facility]
--- NOTE | 2021-09-23 03:51 | PC.NURSE ---
Pt exited his room without his shirt or gown and blood on his pants. gas torch brazier, Graciela, assisted pt back to his room where it was noted he pulled out his IV. Housekeeping made aware and pt cleansed. New IV started and tolerated well. Pt noted to have increased confusion. Pt turned off his own IV pump. Vancomycin restarted. Pharmacy made aware of late infusion. Noted to be okay d/t his first dose. After nurse exits room COMPUTER OPERATIONS MANAGER rounding and found pt standing at the end of his bed with his pants off. When asked what he was doing he stated can't you see, I'm using the bathroom . COMPUTER OPERATIONS MANAGER assisted pt into the restroom. Pt then proceeds to pull at IV tubing and broke it in half. Pt becoming a 1 on 1 for safety and to assist with keeping his oxygen in place. Dr. Vincent made aware.
[2021-09-23] MEDS: LORazepam 2 mg/mL INJ 1 mL 1 MG IVP ×2 (04:01→21:23)
[2021-09-23 04:06] LABS: Alanine Aminotransferase 9 U/L (0-41); Albumin Level 4.3 g/dL (3.5-5.2); Alkaline Phosphatase 103 IU/L (40-130); Anion Gap 14.9 (5-19); Aspartate Amino Transferase 11 U/L (0-40); Blood Urea Nitrogen 14 mg/dL (6-20); Calcium 9.4 mg/dL (8.5-10.5); Carbon Dioxide 27 mmol/L (22-29); Chloride 99 mmol/L (98-107); Globulin 2.6 g/dL (1.3-4.6); Glomerular Filtration Rate 117.5 mL/min (90-130); Glucose 97 mg/dL (65-115); Magnesium 2.2 mg/dL (1.7-2.3); Osmolality Calculated 284 mOsm/kg (285-295); Potassium 3.9 mmol/L (3.5-5.1); Sodium 137 mmol/L (136-145); Total Bilirubin 0.3 mg/dL (0.15-1.2); Total Protein 6.9 g/dL (6.6-8.7)
[2021-09-23 08:34] LABS: NT Pro B Type Natriuretic Pept 154 pg/mL (0-125)
[2021-09-23] MEDS: ibuprofen 800 mg tablet PO (09:46)
[2021-09-23] MEDS: benztropine 1 mg Tablet 0.5 MG PO ×2 (09:46→21:26)
[2021-09-23] MEDS: propranolol 20 mg Tablet PO ×3 (09:46→21:25)
[2021-09-23] MEDS: aspirin 81 mg EC Tablet PO (09:46)
[2021-09-23] MEDS: gabapentin 400 mg Capsule PO ×3 (09:46→21:25)
[2021-09-23] MEDS: cefepime 1,000 MG in sodium chloride 0.9% (plus) 50 ML 100 MG IV ×2 (09:47→21:27)
[2021-09-23 11:04] LABS: SARS Covid-2 Antigen Negative (Negative)
--- NOTE | 2021-09-23 11:18 | PM.PN ---
Subjective Subjective: This morning patient was very drowsy he received Haldol and Ativan because of his agitation last night, patient was walking with a wire extinguisher in his hand last night in the hallway He is requiring one-to-one supervision I am requesting records from [place] Requested COVID-19 test as well however antigen is negative He has been afebrile, I do not see any CBC from today Currently on 3 L of nasal cannula Vitals/I&O/Wt Last Vital Signs Temp 97.8 F 09/23/21 07:49 Pulse 62 09/23/21 07:49 Resp 17 09/23/21 07:49 BP 138/89 09/23/21 07:49 Pulse Ox 98 09/23/21 08:00 09/22/21 09/23/21 09/23/21 22:59 06:59 14:59 Intake Total 50 / 50 730 / 780 50 / 50 Balance 50 / 50 730 / 780 50 / 50 Weight last 48 hrs Weight 85.275 kg Physical Exam Narrative: Patient is very drowsy He is telling me that he is in [facility] I do not see any signs of stroke Pupils are dilated and symmetrical Able to follow commands to some extent Does not look dehydrated or fluid overload Abdomen is soft S1, S2 Currently on 3 L nasal cannula No active respiratory distress No signs of meningitis Data : 09/23/21 03:32 Micro: Microbiology 09/22/21 22:05 Blood Culture - Preliminary Blood SPECIMEN COLLECTED 09/22/21 22:10 Blood Culture - Preliminary Blood SPECIMEN COLLECTED A&P Assessment and plan (1) Hypoxemia: Status: Acute (2) Pulmonary embolism: Status: Acute (3) Leukocytosis: Status: Acute (4) Substance use disorder: Status: Acute (5) Hypoxemia: Status: Acute (6) Pulmonary embolism: Status: Acute Plan On admission there was concern for sepsis: He has been afebrile I do not have CBC from today Sepsis needs to be ruled out Continue IV antibiotics for now Hypoxia related to pulmonary embolism Currently on therapeutic Lovenox He is also getting treatment for possible community-acquired pneumonia Polysubstance abuse Check drug screen He gets Suboxone, will verify his medications We will follow-up with echo results Cultures are pending Delirium Likely related to polysubstance abuse and withdrawal He did receive Haldol and Ativan which made him drowsy this morning I am requesting records from [place] For now he is on Lovenox therapeutic regimen He can eat once he is more awake and alert He is full code He might need neuropsych evaluation Attestations Medical Necessity Statement*: Continue medical management Time Spent in Patient Care: 30 Coding Level of Care Code Acute Senior Informatica Etl Developer for Chg Fwd Diagnoses Hypoxemia R09.02 Pulmonary embolism I26.99 Leukocytosis D72.829 Substance use disorder F19.90 Hypoxemia R09.02 Pulmonary embolism I26.99
[2021-09-23] MEDS: enoxaparin 100 mg/mL Syringe 90 MG SUBCUT ×2 (11:28→21:35)
[2021-09-23 11:32] LABS: Basophils # 0.1 10^3/uL (0.0-0.1); Basophils % 0.8 %; Eosinophils # 0.4 10^3/uL (0.0-0.8); Eosinophils % 3.1 %; Hematocrit 36.2 % (42.0-52.0); Lymphocytes # 2.6 10^3/uL (0.8-4.8); Lymphocytes % 18.5 %; Mean Corpuscular HGB Conc 33.1 g/dL (30.0-36.0); Mean Corpuscular Hemoglobin 27.8 pg (28.0-34.0); Mean Platelet Volume 8.5 fL (7.4-10.4); Monocytes # 1.2 10^3/uL (0.2-0.9); Monocytes % 8.7 %; Neutrophils # 9.73 10^3/uL (1.8-7.7); Neutrophils % 68.5 %; Nucleated Red Blood Cells % 0 %; Platelet Count 362 10^3/cmm (130-400); Red Blood Count 4.31 10^6/uL (4.1-5.3); White Blood Count 14.2 10^3/uL (4.0-10.0)
[2021-09-23 12:15] LABS: Procalcitonin 0.03 ng/mL (0-0.5); Prolactin 60.33 ng/mL (4.0-15.2)
--- NOTE | 2021-09-23 12:24 | PC.OT ---
DISCHARGE OT ORDERS PER PHYSICIAN
--- NOTE | 2021-09-23 13:02 | PC.PT ---
Per Heart to Heart rounds, D/C PT orders.
[2021-09-23] MEDS: hyDROXYzine 25 mg Capsule PO (14:04)
[2021-09-23] MEDS: acetaminophen-codeine 300-30mg Tablet 1 TAB PO (15:21)
[2021-09-23] MEDS: buprenorphine-naloxone 4-1 mg Film 1 EACH SUBLINGUAL (18:06)
[2021-09-23 18:14] LABS: Amphetamines Screen Urine Negative (Negative); Barbiturates Screen Urine Negative (Negative); Benzodiazepines Screen Urine Negative (Negative); Cocaine Screen Urine Negative (Negative); Opiate Screen Urine Positive (Negative); PCP Screen Urine Negative (Negative); THC Screen Urine Negative (Negative)
--- NOTE | 2021-09-23 18:22 | CTR_ITS ---
PROCEDURE INFORMATION: Exam: CT Lumbar Spine Without Contrast Exam date and time: 09/23/2021 7:42 PM Age: 56 years old Clinical indication: Low back pain TECHNIQUE: Imaging protocol: Computed tomography of the lumbar spine without contrast. Radiation optimization: All CT scans at this facility use at least one of these dose optimization techniques: automated exposure control; mA and/or kV adjustment per patient size (includes targeted exams where dose is matched to clinical indication); or iterative reconstruction. COMPARISON: No relevant prior studies available. RADIATION DOSE METRICS: Total DLP (mGy-cm): 1575.3 FINDINGS: Bones/joints: No pars defect or acute fracture. Old minimal anterior wedging of T12. Alignment intact. Lobulated lytic mass in the left superior ilium having mostly thin sclerotic margins, an approximate length of 2.5 cm, greatest depth of 17 mm and greatest width of 10 mm; no expansion of the bone in the area of the mass or periosteal reaction along it. No mass in the other visualized bones. Discs/Spinal canal/Neural foramina: Narrowing of the T11-12 and L1-L2 discs. Calcification in a small left central focal disc protrusion at T11-12. Annular bulging at L1-L2 through L5-S1. No significant canal stenosis. No marked foraminal narrowing at any level. Liver: Left adrenal mass measuring about 2.2 cm in maximal diameter containing a density of 5 HU. No definite right adrenal mass. Stomach and bowel: Severe sigmoid diverticulosis. Vasculature: No aortic aneurysm. Atherosclerosis. Soft tissues: No acute finding. CT/CT lumbar spine wo con* [id number] IMPRESSION: 1. No acute bony disease. Old minimal T12 compression fracture. Multilevel degenerative disease detailed above. 2. Lobulated lytic mass in the left superior ilium, cause unclear. Consider a follow-up bone scan. 3. Severe sigmoid diverticulosis. 4. Approximately 2.2 cm left adrenal mass containing low density. No follow-up necessary. (Reference: Ta) COMMENTS: Consistent with the [employer]'s Incidental Findings Committee white paper (J Am Eloy Radiol 2017): Any incidental adrenal lesion less than 1 cm is likely benign. No follow-up imaging is recommended for these lesions per consensus recommendations based on imaging criteria. Further lab evaluation could be pursued if warranted based on clinical findings. REFERENCES: Ta PISANO, et al. Management of Incidental Adrenal Masses: A White Paper of the ACR Incidental Findings Committee. J Am Eloy Radiol. 2017;14(8):9430-6700.
[2021-09-23 20:08] LABS: Homocysteine 13.77
[2021-09-23] MEDS: OLANZapine 5 mg TABLET 2.5 MG PO (21:24)
[2021-09-24] VITALS (9 sets, daily range): BP systolic 117–142; BP diastolic 68–84; PULSE 52–68; RESP 18–20; TEMP 36.7–36.8; O2SAT 88–97
[2021-09-24 03:50] LABS: Basophils # 0.1 10^3/uL (0.0-0.1); Basophils % 0.9 %; Eosinophils # 0.6 10^3/uL (0.0-0.8); Eosinophils % 4.8 %; Hematocrit 36.8 % (42.0-52.0); Hemoglobin 11.7 g/dL (11.7-16.6); Lymphocytes # 3.5 10^3/uL (0.8-4.8); Mean Corpuscular HGB Conc 31.8 g/dL (30.0-36.0); Mean Corpuscular Hemoglobin 27.8 pg (28.0-34.0); Mean Corpuscular Volume 87.4 fl (80-94); Mean Platelet Volume 8.9 fL (7.4-10.4); Monocytes # 1.5 10^3/uL (0.2-0.9); Monocytes % 11.6 %; Neutrophils # 6.75 10^3/uL (1.8-7.7); Neutrophils % 54.1 %; Nucleated Red Blood Cells % 0 %; Platelet Count 369 10^3/cmm (130-400); Red Blood Count 4.21 10^6/uL (4.1-5.3); Red Cell Distribution Width 15.8 % (12.1-15.1); White Blood Count 12.5 10^3/uL (4.0-10.0)
[2021-09-24 04:09] LABS: Alanine Aminotransferase 9 U/L (0-41); Albumin Level 3.9 g/dL (3.5-5.2); Alkaline Phosphatase 90 IU/L (40-130); Anion Gap 13.1 (5-19); Aspartate Amino Transferase 11 U/L (0-40); Blood Urea Nitrogen 11 mg/dL (6-20); C Reactive Protein 94.4 mg/L (0.0-4.9); Calcium 8.6 mg/dL (8.5-10.5); Carbon Dioxide 27 mmol/L (22-29); Chloride 97 mmol/L (98-107); Globulin 3.1 g/dL (1.3-4.6); Glomerular Filtration Rate 117.5 mL/min (90-130); Glucose 123 mg/dL (65-115); Magnesium 2.1 mg/dL (1.7-2.3); Osmolality Calculated 277 mOsm/kg (285-295); Potassium 4.1 mmol/L (3.5-5.1); Sodium 133 mmol/L (136-145); Total Bilirubin 0.2 mg/dL (0.15-1.2)
[2021-09-24 04:13] LABS: Procalcitonin 0.03 ng/mL (0-0.5)
[2021-09-24] MEDS: benztropine 1 mg Tablet 0.5 MG PO ×2 (06:27→20:31)
[2021-09-24] MEDS: gabapentin 400 mg Capsule PO ×3 (06:27→20:30)
[2021-09-24] MEDS: ibuprofen 800 mg tablet PO (06:27)
[2021-09-24] MEDS: aspirin 81 mg EC Tablet PO (06:27)
[2021-09-24] MEDS: propranolol 20 mg Tablet PO ×3 (06:28→20:12)
[2021-09-24] MEDS: buprenorphine-naloxone 4-1 mg Film 1 EACH SUBLINGUAL ×2 (09:09→17:31)
[2021-09-24] MEDS: cefepime 1,000 MG in sodium chloride 0.9% (plus) 50 ML 100 MG IV ×2 (09:10→20:13)
[2021-09-24] MEDS: enoxaparin 100 mg/mL Syringe 90 MG SUBCUT ×2 (09:11→20:13)
--- NOTE | 2021-09-24 12:07 | P.PN_ITS ---
Subjective Subjective: Leukocytosis trending down T scan of lumbar area showed lytic lesion and compression fracture, I requested bone scan, this morning he wanted to leave AMA he was very frustrated with all the medical conditions that he was told this morning, with my second meeting he decided to stay in the hospital and finish his work-up Right now he is not showing typical signs of endocarditis My concern is related to underlying versus septic emboli I have added oxycodone 10 mg every 4 hours on top of his Suboxone [facility] might not be able to accept him because of his medical conditions which will create a big disposition challenge for us I requested COVID PCR, COVID antigen is negative Patient is getting PTSD stating that he was in [facility] and staying in the room is bringing up all the memories back, he is anxious to walk in the hallway however because of COVID PCR pending results, he is not able to do so for safety of our staff and other patients Vitals/I&O/Wt Last Vital Signs Temp 98.1 F 09/24/21 11:27 Pulse 64 09/24/21 11:27 Resp 18 09/24/21 11:27 BP 121/74 09/24/21 11:27 Pulse Ox 93 09/24/21 11:27 09/23/21 09/24/21 09/24/21 22:59 06:59 14:59 Intake Total 780 / 1550 730 / 2280 530 / 530 Balance 780 / 1550 730 / 2280 530 / 530 Weight last 48 hrs Weight 85.275 kg Physical Exam Narrative: Patient is not showing any signs of meningitis or encephalitis Tender spine No signs of cauda equina No signs of focal deficit Neuro, PERRLA Awake and alert Looks euvolemic S1, S2 Saturating well on room air Skin tattoos Seems anxious, Data : 09/24/21 03:23 09/24/21 03:23 Micro: Microbiology 09/22/21 22:05 Blood Culture - Preliminary Blood NEGATIVE TO DATE 09/22/21 22:10 Blood Culture - Preliminary Blood NEGATIVE TO DATE A&P Assessment and plan (1) Hypoxemia: Status: Acute (2) Pulmonary embolism: Status: Acute (3) Leukocytosis: Status: Acute (4) Substance use disorder: Status: Acute (5) Hypoxemia: Status: Acute (6) Lytic bone lesion of hip: Status: Acute (7) Compression fracture: Status: Acute Plan I I have reviewed records from [facility] He was at [facility] for about 5 to 6 days in behavioral health unit for suicidal ideation polysubstance abuse he was positive for methamphetamine c ocaine, opioids This time his drug screen has been negative Acute pulmonary embolism currently on therapeutic Lovenox which I am planning to switch to Eliquis at the time of discharge No signs of right heart strain He has been afebrile, leukocytosis trending down He has lytic lesion of the ischium, T12 compression fracture noted Does not have typical features of endocarditis, rule out malignancy with bone scan today Is lytic lesion could be just degenerative changes which are being picked up on CT scan Polysubstance abuse, [facility] I would not change his Suboxone dose however because of his compression fracture and lytic lesion I would add oxycodone for now Is very anxious, he wants to leave AMA I requested Dr. Jack to see him as well He does understand that if he leaves AMA he is putting himself at risk of worsening of his health Acute hypoxia: Resolved currently doing well on room air Agitation and anxiety related to polysubstance abuse Full code COVID PCR is pending Attestations Medical Necessity Statement*: Continue medical management Time Spent in Patient Care: 35 Coding Level of Care Code Acute Organizational Consultant for Roseann Richard Diagnoses Hypoxemia R09.02 Pulmonary embolism I26.99 Leukocytosis D72.829 Substance use disorder F19.90 Hypoxemia R09.02 Lytic bone lesion of hip M89.8X5 Compression fracture
[2021-09-24 12:36] LABS: Vancomycin Trough 10.9 ug/mL (10-15)
--- NOTE | 2021-09-24 12:55 | P.NPUHP_ITS ---
Providers/Chief Complaint Admitting Physician: Brown Maxwell MD Chief Complaint: same reason HPI NPU History of Present Illness Chriss Akers is a 56 year old male who presented to the emergency department with the following report: Stated complaint: same reason Time Seen by Provider: 09/22/21 17:33 History of Present Illness: Patient is a 56-year-old male with a history of former meth use, chronic hypoxemia on 3 L oxygen presenting to the emergency room for concerns of hypoxemia. Earlier patient was seen evaluated emergency room was diagnosed with possible nonocclusive pulmonary embolism. In addition, patient was found to have leukocytosis with no prior for comparison. Patient decided to go home so he could have a smoke. Patient's chose to sign out AMA earlier today and decided come back to the emergency room. Onset:unknown Duration:ongoing Location:home Severity:moderate Associated symptoms: Deny chest pain, dyspnea, nausea, rash, palpitations or vomiting. He reports that he presents secondary to breathing issues and suicidal ideation. He reports he just recently left the [facility] which he was in [facility] times for 10 years each. He reports he has been psychiatrically hospitalized a few times and denies receiving outpatient services. He reports a pack of cigarettes a day, denies alcohol, reports marijuana occasionally, endorses methamphetamine and denies any other illicit drug use. He has never been to a rehab and received a DUI in 1998. He reports he was at [facility] when he started having issues with his breathing and increased suicidal ideation which is how he presents to day. He reports he wants to leave as he feels information is being kept from him in regards to his health and what is going on. We discussed at length about addressing his medical issues and the safety concern that is presented given he is expressing suicidal ideation recently given there has been no change in his health conditions since he was admitted. 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 Psychiatric History: As above. Substance Abuse History: As above Family History: He denies mental health issues on either side of the family, addiction issues on his father?s side of the family and a suicide completion from his mother?s side of the family. Developmental History: He denies any issues with his or , learned to walk and talk and met his developmental standards on time, and denies any need for speech therapy, learning support, emotional support or special education classes. Psychosocial History: He reports his parents were together when he was born and remained together. He has 2 sisters and 2 brothers who are products of the same union. He described his childhood as great and denies any emotional, physical or sexual abuse. He reports truancy issues and was put in placement. He denies any other traumatic events. The highest grade he achieved was 11 th and he got his GED. He endorses being heterosexual with his longest relationship being 6 to 7 years. He has been once and , has 4 biological children, has never been in the and endorses being a voodoo. He currently lives at [facility]. Legal History: He reports he has been in skilled nursing 10 times and [facility] 3 times at least. Medical History: Please see treatment team note for full details. Meds NPU Home Medications Medication Instructions Recorded Confirmed Last Taken Type albuterol sulfate 90 mcg/actuation 2 puff INHALATION .Q4-6H PRN 09/22/21 09/23/21 Unknown History aerosol inhaler (ProAir HFA) aspirin 81 mg tablet,delayed 81 mg PO DAILY@06 09/22/21 09/23/21 09/22/21 History release baclofen 10 mg tablet 10 mg PO TID PRN 09/22/21 09/23/21 Unknown History benztropine 1 mg tablet 0.5 mg PO BID@06,09/22/21 09/23/21 09/22/21 History budesonide-formoterol HFA 80 2 puff INHALATION BID 09/22/21 09/23/21 Unknown History mcg-4.5 mcg/actuation aerosol inhaler (Symbicort) buprenorphine 2 mg-naloxone 0.5 mg See Rx Instructions .ROUTE .COMPLEX 09/22/21 09/23/21 09/22/21 History sublingual tablet diclofenac sodium 1 % topical gel 2 - 4 g TOPICAL BID PRN 09/22/21 09/23/21 Unknown History ergocalciferol (vitamin D2) 1,250 50,000 unit PO Q7D 09/22/21 09/23/21 09/18/21 History mcg (50,000 unit) capsule famotidine 40 mg tablet 40 mg PO DAILY@06 09/22/21 09/23/21 09/22/21 History gabapentin 400 mg capsule 400 mg PO TID@0600,1220,2100 09/22/21 09/23/21 09/22/21 History hydroxyzine HCl 25 mg tablet 25 mg PO Q6H PRN 09/22/21 09/23/21 09/22/21 History ibuprofen 800 mg tablet 800 mg PO DAILY@06 09/22/21 09/23/21 09/22/21 History nicotine (polacrilex) 4 mg buccal 16 mg PO PRN 09/22/21 09/23/21 09/22/21 History lozenge nicotine 21 mg/24 hr daily 1 patch TRANSDERMAL DAILY PRN 09/22/21 09/23/21 09/22/21 History transdermal patch ondansetron HCl 8 mg tablet 8 mg PO TID PRN 09/22/21 09/23/21 Unknown History penicillin V potassium 500 mg 500 mg PO QID 09/22/21 09/23/21 09/22/21 History tablet prazosin 2 mg capsule 2 mg PO BEDTIME@09/22/21 09/23/21 09/21/21 History propranolol 20 mg tablet 20 mg PO TID@0600,1220,2100 09/22/21 09/23/21 09/22/21 History Allergies Allergy/AdvReac Type Severity Reaction Status Date / Time No Known Allergies Allergy Verified 09/23/21 07:16 PFS NPU PFSH: Medical History Hypoxemia Methamphetamine abuse Social History Smoking and tobacco status: current every day smoker Alcohol intake: former Mental Status Exam MSE Comments: Cooperative with exam in no acute distress. Speech was normal rate and volume. Mood described as depressed, affect is congruent. Thought proce ss, organized. Thought content: patient denies suicidal or homicidal ideation, endorses paranoia but no delusions noted, and endorses auditory and visual hallucinations. Attention and concentration are intact and memory appeared reliable but none were formally tested. He is alert and oriented three times. Insight and judgment are limited. Impulse control is limited. Vitals/I&O/Wt Last Vital Signs Temp 98.1 F 09/24/21 11:27 Pulse 64 09/24/21 11:27 Resp 18 09/24/21 11:27 BP 121/74 09/24/21 11:27 Pulse Ox 93 09/24/21 11:27 09/23/21 09/24/21 09/24/21 22:59 06:59 14:59 Intake Total 780 / 1550 730 / 2280 530 / 530 Balance 780 / 1550 730 / 2280 530 / 530 Weight last 48 hrs Weight 85.275 kg Data NPU : 09/25/21 07:49 09/25/21 07:49 Micro: Microbiology 09/22/21 22:05 Blood Culture - Preliminary Blood NEGATIVE TO DATE 09/22/21 22:10 Blood Culture - Preliminary Blood NEGATIVE TO DATE Microbiology 09/22/21 22:05 Blood Blood Culture - Preliminary NEGATIVE TO DATE 09/22/21 22:10 Blood Blood Culture - Preliminary NEGATIVE TO DATE A&P Assessment and plan (1) Compression fracture: Status: Acute (2) Lytic bone lesion of hip: Status: Acute (3) Hypoxemia: Status: Acute (4) Pulmonary embolism: Status: Acute (5) Leukocytosis: Status: Acute (6) Substance use disorder: Status: Acute (7) Hypoxemia: Status: Acute (8) Pulmonary embolism: Status: Acute (9) Methamphetamine use disorder, severe: Status: Acute (10) Adjustment disorder with mixed disturbance of emotions and conduct: Status: Acute (11) Depression: Status: Acute Plan This is a 56-year-old white male with a long history of addiction, institutionalization and recent suicidality as he identified that he was starting to feel strange at the inpatient rehab he was attending. 1. Continue current medication. Patient seems to be overly impacted by the opiates? Likely need to be decreased. 2. Encourage sober living treatment after discharge at the highest level of care to which he is willing to commit, hopefully returning to [facility]. 3. He may need to come to the NPU for a couple of days prior to discharge depending on when he is medically cleared. 4. Given his suicidal statements if he refuses treatment or attempt to leave he should be placed on a 96-hour hold. Attestations NPU Medical Necessity Statement*: Inpatient hospitalization is medically necessary and the clinically appropriate intervention at this time. We will monitor medication to make changes as indicated. Patient will be in the hospital for over two midnights. Likely length of stay 3 to 5 days. Coding Level of Care Code Acute Fuel System Maintenance Supervisor for Chg Fwd Diagnoses Compression fracture Lytic bone lesion of hip M89.8X5 Hypoxemia R09.02 Pulmonary embolism I26.99 Leukocytosis D72.829 Substance use disorder F19.90 Hypoxemia R09.02 Pulmonary embolism I26.99 Methamphetamine use disorder, severe F15.20 Adjustment disorder with mixed disturbance of emotions and conduct F43.25 Depression F32.A
--- NOTE | 2021-09-24 14:45 | PC.NURSE ---
pt initially refused all meds unless it was suboxone. pt currently accepted the gabapentin and propranolol.
[2021-09-24 17:52] LABS: Quest SARS-CoV-2 RNA NOT DETECTED (NOT DETECTED)
[2021-09-24] MEDS: OLANZapine 5 mg TABLET 2.5 MG PO (20:12)
[2021-09-24] MEDS: LORazepam 2 mg/mL INJ 1 mL 1 MG IVP (20:12)
[2021-09-24] MEDS: oxyCODONE 5 mg IR Tab/Cap 10 MG PO (20:12)
--- NOTE | 2021-09-24 21:27 | PC.NURSE ---
Patient resting in bed with eyes closed presently with even, non-labored respirations observed. Patient remains 1:1 due to impulsive behaviour and wandering the halls with 1:1 at side. Will continue to monitor.
[2021-09-25] VITALS (8 sets, daily range): BP systolic 125–144; BP diastolic 73–82; PULSE 51–65; RESP 13–20; TEMP 36.6–36.9; O2SAT 90–93; BMI 28.4
--- NOTE | 2021-09-25 00:43 | PC.NURSE ---
Patient resting after two previous nights without sleep wandering the halls. No disruptive behaviour this night. Will continue to monitor.
[2021-09-25] MEDS: benztropine 1 mg Tablet 0.5 MG PO ×2 (04:36→20:16)
[2021-09-25] MEDS: propranolol 20 mg Tablet PO ×3 (04:36→20:17)
[2021-09-25] MEDS: ibuprofen 800 mg tablet PO (04:37)
[2021-09-25] MEDS: gabapentin 400 mg Capsule PO ×3 (04:37→20:17)
[2021-09-25] MEDS: aspirin 81 mg EC Tablet PO (04:37)
[2021-09-25] MEDS: oxyCODONE 5 mg IR Tab/Cap 10 MG PO ×2 (04:40→15:59)
--- NOTE | 2021-09-25 04:50 | PC.NURSE ---
Patient awake at this time. Mostly cooperative asking for coffee which was provided. Patient rested well this night. Requested pain medication which was administered as ordered and documented. Will continue to flavia.
[2021-09-25 08:04] LABS: Basophils # 0.1 10^3/uL (0.0-0.1); Basophils % 1.3 %; Eosinophils # 0.6 10^3/uL (0.0-0.8); Eosinophils % 5.4 %; Hematocrit 40.1 % (42.0-52.0); Lymphocytes # 3.8 10^3/uL (0.8-4.8); Lymphocytes % 34.1 %; Mean Corpuscular HGB Conc 32.4 g/dL (30.0-36.0); Mean Corpuscular Hemoglobin 27.8 pg (28.0-34.0); Mean Corpuscular Volume 85.9 fl (80-94); Monocytes # 1.3 10^3/uL (0.2-0.9); Monocytes % 11.9 %; Neutrophils # 5.21 10^3/uL (1.8-7.7); Neutrophils % 46.8 %; Nucleated Red Blood Cells % 0 %; Platelet Count 415 10^3/cmm (130-400); Red Blood Count 4.67 10^6/uL (4.1-5.3); Red Cell Distribution Width 15.4 % (12.1-15.1); White Blood Count 11.1 10^3/uL (4.0-10.0)
--- NOTE | 2021-09-25 08:13 | NM_ITS ---
WS: [id number] NUCLEAR MEDICINE WHOLE BODY BONE SCAN HISTORY: Lytic lesion seen on recent CT in the LEFT ilium. COMPARISON: Lumbar spine CT 09/23/2021 TECHNIQUE: The patient was injected with 27.4 mCi of Technetium 99m HDP and serial whole-body scintig tiffany have been performed with anterior and posterior images. The LEFT ilium is normal. No evidence for increased uptake or photopenic defect. The spine and ribs a re normal. Normal soft tissue uptake and renal uptake. There are mild areas of increased uptake withi n the AC joints and involving the knees, ankles and feet from osteoarthritis. RIGHT knee arthroplasty . Increased uptake in the maxilla and mandible probably due to odontogenic disease. NM/NM bone scan whole body* [id number] IMPRESSION: 1. No evidence for metastatic bone disease. The LEFT ilium is negative. No inc reased uptake to correspond to the lytic lesion on recent lumbar spine CT. 2. Multi joint osteoarthritis.
[2021-09-25 08:26] LABS: Alanine Aminotransferase 13 U/L (0-41); Albumin Level 4.3 g/dL (3.5-5.2); Alkaline Phosphatase 104 IU/L (40-130); Anion Gap 13.2 (5-19); Aspartate Amino Transferase 17 U/L (0-40); Blood Urea Nitrogen 9 mg/dL (6-20); Calcium 9.2 mg/dL (8.5-10.5); Carbon Dioxide 30 mmol/L (22-29); Chloride 97 mmol/L (98-107); Glomerular Filtration Rate 100.7 mL/min (90-130); Glucose 129 mg/dL (65-115); Magnesium 2.3 mg/dL (1.7-2.3); Osmolality Calculated 282 mOsm/kg (285-295); Potassium 4.2 mmol/L (3.5-5.1); Sodium 136 mmol/L (136-145); Total Bilirubin 0.2 mg/dL (0.15-1.2); Total Protein 7.3 g/dL (6.6-8.7)
[2021-09-25] MEDS: buprenorphine-naloxone 4-1 mg Film 1 EACH SUBLINGUAL ×2 (09:34→18:04)
[2021-09-25] MEDS: enoxaparin 100 mg/mL Syringe 90 MG SUBCUT (09:35)
--- NOTE | 2021-09-25 12:39 | PM.PN ---
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 antibiotics Vitals/I&O/Wt Last Vital Signs Temp 97.9 F 09/25/21 11:08 Pulse 51 L 09/25/21 11:08 Resp 13 09/25/21 11:08 BP 125/79 09/25/21 11:08 Pulse Ox 90 09/25/21 11:08 09/24/21 09/25/21 09/25/21 22:59 06:59 14:59 Intake Total 410 / 1420 360 / 360 Balance 410 / 1420 360 / 360 Physical Exam Narrative: Patient is on room air No active complaints Akathisia Nonfocal neuro exam Multiple skin tattoos No audible stridor or wheezing Euvolemic Pleasant and cooperative Soft abdomen No new focal deficit He is awake alert oriented to time place and person Data : 09/25/21 07:49 09/25/21 07:49 A&P Assessment and plan (1) Depression: Status: Acute (2) Adjustment disorder with mixed disturbance of emotions and conduct: Status: Acute (3) Methamphetamine use disorder, severe: Status: Acute (4) Compression fracture: Status: Acute (5) Lytic bone lesion of hip: Status: Acute (6) Hypoxemia: Status: Acute (7) Pulmonary embolism: Status: Acute (8) Leukocytosis: Status: Acute (9) Substance use disorder: Status: Acute (10) Hypoxemia: Status: Acute (11) Pulmonary embolism: Status: Acute Plan Acute hypoxia related to pulm embolism Resolved Currently on room air No signs of endocarditis He has PFO No signs of stroke No signs of DVT Leukocytosis improved, he remained afebrile Lytic lesion on his spine on CT scan, requested bone scan to rule out infectious nidus versus metastatic lesion I will switch him to Eliquis today No signs of right heart strain Hemodynamically stable He does show signs of akathisia Appreciate Dr. Jack's recommendation If [facility] not able to accept him back he will go to Neuropsych Unit on doxycycline, Augmentin 10-day regimen and Eliquis 10 twice daily for 7 days and then 5 mg twice daily onwards Full code COVID PCR negative He will need repeat CT scan of his chest after 3 months Attestations Medical Necessity Statement*: Awaiting bone scan, might go to NPU today Time Spent in Patient Care: 30 Coding Level of Care Code Acute Automotive Customer Experience Advisor for Chg Fwd Diagnoses Depression F32.A Adjustment disorder with mixed disturbance of emotions and conduct F43.25 Methamphetamine use disorder, severe F15.20 Compression fracture Lytic bone lesion of hip M89.8X5 Hypoxemia R09.02 Pulmonary embolism I26.99 Leukocytosis D72.829 Substance use disorder F19.90 Hypoxemia R09.02 Pulmonary embolism I26.99
[2021-09-25] MEDS: acetaminophen 325 mg Tablet 650 MG PO (15:58)
[2021-09-25] MEDS: nicotine 4 mg lozenge MUCOUS MEM ×3 (15:59→20:18)
[2021-09-25] MEDS: haloperidol 5 mg Tablet PO (16:12)
[2021-09-25 16:23] LABS: Anti-Nuclear Antibody Screen NEGATIVE (NEGATIVE)
--- NOTE | 2021-09-25 17:03 | P.NPUPN_ITS ---
Subjective NPU Subjective: Patient presents today reporting that he called [facility] directly in the did not indicate that he could not return which was not my understanding based on what the transferring physician from [facility] had learned. We discussed that we will likely have to wait till Tuesday to get clarity on this issue. Additionally we discussed the fact that his opiate load will need to be decreased regardless to return to [facility] and for his own wellbeing. At this point he did not have any resistance to a plan for stabilizing him on the neuropsychiatric unit and either returning him to [facility] that is possible or exploring other options with the treatment team on Tuesday. Mental Status Exam MSE Comments: This is an overweight white male in hospital scrubs with limited grooming and eye contact. No abnormal movements except for psychomotor retardation. Cooperative with exam in no acute distress. Speech was slightly decreased rate and volume. Mood described as okay today, affect is congruent. Thought process, organized. Thought content: patient denies suicidal or homicidal ideation, he endorses paranoia but no delusions noted, and he endorses auditory and visual hallucinations. Attention and concentration are intact and memory appeared reliable but none were formally tested. He is alert and oriented three times. Insight and judgment are limited. Impulse control is limited. Vitals/I&O/Wt Last Vital Signs Temp 98.4 F 09/25/21 15:28 Pulse 52 L 09/25/21 15:28 Resp 16 09/25/21 15:59 BP 128/82 09/25/21 15:28 Pulse Ox 93 09/25/21 15:59 09/25/21 09/25/21 09/25/21 06:59 14:59 22:59 Intake Total 360 / 360 Balance 360 / 360 Weight last 48 hrs Weight 79.832 kg Data NPU : 09/25/21 07:49 09/25/21 07:49 A&P Assessment and plan (1) Depression: Status: Acute (2) Adjustment disorder with mixed disturbance of emotions and conduct: Status: Acute (3) Methamphetamine use disorder, severe: Status: Acute Plan This is a 56-year-old white male with a long history of addiction, institutionalization and recent suicidality as he identified that he was star ting to feel strange at the inpatient rehab he was attending. 1.? Continue current medication.? Patient seems to be overly impacted by the opiates? Likely need to be decreased. Will discuss with hospitalist in the morning. 2. Encourage individual, group and milieu therapy. 3. Continue every 15-minute checks for safety. 4.? Encourage sober living treatment after discharge at the highest level of care to which he is willing to commit, hopefully returning to [facility]. 5.? Given his suicidal statements if he refuses treatment or attempt to leave he should be placed on a 96-hour hold. Attestations NPU Medical Necessity Statement*: Inpatient hospitalization is medically necessary and the clinically appropriate intervention at this time. We will monitor medication to make changes as indicated. Patient will be in the hospital for over two midnights. Likely length of stay 3 to 5 days. Coding Level of Care Code Acute Table Keeper for Roseann Richard Diagnoses Depression F32.A Adjustment disorder with mixed disturbance of emotions and conduct F43.25 Methamphetamine use disorder, severe F15.20
[2021-09-25] MEDS: doxycycline 100 mg Tablet PO (18:03)
[2021-09-25] MEDS: amoxicillin-clav 875-125 mg Tablet 1 TAB PO (18:03)
[2021-09-25] MEDS: diphenhydrAMINE 50 mg Capsule PO (18:04)
[2021-09-25] MEDS: apixaban 5 mg Tablet 10 MG PO (20:16)
[2021-09-25] MEDS: OLANZapine 5 mg TABLET 2.5 MG PO (20:17)
[2021-09-26] VITALS (8 sets, daily range): BP systolic 116–166; BP diastolic 69–94; PULSE 55–82; RESP 16–20; TEMP 36.4–36.9; O2SAT 90–96
[2021-09-26] MEDS: propranolol 20 mg Tablet PO ×3 (06:11→20:09)
[2021-09-26] MEDS: gabapentin 400 mg Capsule PO ×3 (06:11→20:09)
[2021-09-26] MEDS: benztropine 1 mg Tablet 0.5 MG PO ×2 (06:11→20:09)
[2021-09-26] MEDS: OLANZapine 5 mg ODT PO ×2 (06:16→18:43)
[2021-09-26] MEDS: nicotine 4 mg lozenge MUCOUS MEM ×7 (06:16→19:51)
[2021-09-26] MEDS: oxyCODONE 5 mg IR Tab/Cap 10 MG PO ×2 (06:19→14:09)
[2021-09-26 08:11] LABS: Basophils # 0.2 10^3/uL (0.0-0.1); Basophils % 1.4 %; Eosinophils # 0.8 10^3/uL (0.0-0.8); Eosinophils % 6.7 %; Hematocrit 41.4 % (42.0-52.0); Hemoglobin 13.8 g/dL (11.7-16.6); Lymphocytes # 3.4 10^3/uL (0.8-4.8); Lymphocytes % 29.3 %; Mean Corpuscular HGB Conc 33.3 g/dL (30.0-36.0); Mean Corpuscular Hemoglobin 27.5 pg (28.0-34.0); Mean Corpuscular Volume 82.6 fl (80-94); Mean Platelet Volume 8.9 fL (7.4-10.4); Monocytes # 1.3 10^3/uL (0.2-0.9); Monocytes % 11.2 %; Neutrophils # 5.94 10^3/uL (1.8-7.7); Nucleated Red Blood Cells % 0 %; Platelet Count 498 10^3/cmm (130-400); Red Blood Count 5.01 10^6/uL (4.1-5.3); Red Cell Distribution Width 15.1 % (12.1-15.1); White Blood Count 11.6 10^3/uL (4.0-10.0)
[2021-09-26] MEDS: doxycycline 100 mg Tablet PO ×2 (08:12→17:23)
[2021-09-26] MEDS: apixaban 5 mg Tablet 10 MG PO ×2 (08:12→20:09)
[2021-09-26] MEDS: amoxicillin-clav 875-125 mg Tablet 1 TAB PO ×2 (08:12→17:23)
[2021-09-26] MEDS: baclofen 10 mg Tablet PO ×2 (08:12→20:09)
[2021-09-26] MEDS: buprenorphine-naloxone 4-1 mg Film 1 EACH SUBLINGUAL ×2 (08:13→17:24)
[2021-09-26] MEDS: acetaminophen 325 mg Tablet 650 MG PO ×2 (09:12→17:23)
[2021-09-26] MEDS: hyDROXYzine 25 mg Capsule 50 MG PO ×2 (09:13→18:43)
--- NOTE | 2021-09-26 10:26 | P.NPUPN_ITS ---
Subjective NPU Subjective: Patient presents today reporting that he is optimistic that he will be able to return to currently but is in agreement that we need to get him stabilized prior to going. He reports that he does feel a little brighter today we discussed the impact of decreasing his opiate load. He reports that his recovery support at home and that he acknowledges that he might have been slightly overmedicated. We agreed to a plan to identify if he is able to be returned to [facility] on Tuesday versus exploring other discharge options Mental Status Exam MSE Comments: This is an overweight white male in hospital scrubs with limited grooming and eye contact.? No abnormal movements except for mild psychomotor retardation.? Cooperative with exam in no acute distress. Speech was slightly decreased rate and volume. Mood described as a little better, affect is congruent. Thought process, organized. Thought content: patient denies suicidal or homicidal ideation, he endorses decreasing paranoia but no delusions noted, and he endorses less prominent auditory and visual hallucinations. Attention and concentration are intact and memory appeared reliable but none were formally tested. He is alert and oriented three times. Insight and judgment are limited. Impulse control is limited. Vitals/I&O/Wt Last Vital Signs Temp 98.4 F 09/25/21 15:34 Pulse 55 L 09/25/21 20:07 Resp 16 09/26/21 06:19 BP 134/82 09/25/21 20:07 Pulse Ox 94 09/26/21 06:19 09/25/21 09/25/21 09/26/21 14:59 22:59 06:59 Intake Total 360 / 360 Balance 360 / 360 Weight last 48 hrs Weight 79.832 kg Data NPU : 09/25/21 07:49 09/25/21 07:49 A&P Assessment and plan (1) Depression: Status: Acute (2) Adjustment disorder with mixed disturbance of emotions and conduct: Status: Acute (3) Methamphetamine use disorder, severe: Status: Acute Plan This is a 56-year-old white male with a long history of addiction, institutionalization and recent suicidality as he identified that he was starting to feel strange at the inpatient rehab he was attending. 1.? Continue current medication.? Decreased opiates in half and will continue to monitor for ongoing need for treatment. 2.? Encourage individual, group and milieu therapy. 3.? Continue every 15-minute checks for safety. 4.? Encourage sober living treatment after discharge at the highest level of care to which he is willing to commit, hopefully returning to [facility]. Attestations NPU Medical Necessity Statement*: Inpatient hospitalization is medically necessary and the clinically appropriate intervention at this time. We will monitor medication to make changes as indicated. Likely length of stay 2-4 days. Coding Level of Care Code Acute Medical Coding Specialist for Roseann Emersond Diagnoses Depression F32.A Adjustment disorder with mixed disturbance of emotions and conduct F43.25 Methamphetamine use disorder, severe F15.20
[2021-09-26] MEDS: ipratropium-albuterol 3 mL Neb INHALATION (12:19)
--- NOTE | 2021-09-26 14:35 | PC.RESP ---
nursing called to evaluate pt sats. pt was 92% upon arrival, sitting up, no resp dx noted.
[2021-09-26] MEDS: OLANZapine 5 mg TABLET 2.5 MG PO (20:09)
[2021-09-27 01:55] VITALS: RESP 18; O2SAT 96
[2021-09-27] MEDS: OLANZapine 5 mg ODT PO ×2 (01:55→16:44)
[2021-09-27] MEDS: oxyCODONE 5 mg IR Tab/Cap 10 MG PO ×3 (01:55→20:49)
[2021-09-27 06:00] VITALS: BP 111/60; PULSE 60; RESP 18; TEMP 36.8; O2SAT 93
[2021-09-27] MEDS: propranolol 20 mg Tablet PO ×3 (06:15→20:10)
[2021-09-27] MEDS: benztropine 1 mg Tablet 0.5 MG PO ×2 (06:15→20:09)
[2021-09-27] MEDS: gabapentin 400 mg Capsule PO ×3 (06:15→20:10)
[2021-09-27] MEDS: acetaminophen 325 mg Tablet 650 MG PO ×3 (06:58→16:44)
--- NOTE | 2021-09-27 07:53 | P.NPUPN_ITS ---
Subjective NPU Subjective: Patient presents today responding quite well to the reduction in the opioid load he has been taking. His face is much less tense and he was very cordial and cooperative. We discussed his goal to return to [facility] and we will work with treatment team in the morning to get a better understanding of what their expectations were of him to he will be considered for readmission. He reported eating and sleeping little better and we continue to report that he would not make any other pain medicine interventions but we would refer him at discharge. Mental Status Exam MSE Comments: This is an overweight white male in hospital scrubs with limited grooming and eye contact.? No abnormal movements except for mild psychomotor retardation.? Cooperative with exam in no acute distress. Speech was slightly decreased rate and volume. Mood described as better, affect is congruent and brighter Thought process, organized. Thought content: patient denies suicidal or homicidal ideation, he endorses decreasing paranoia but no delusions noted, and he endorses less prominent auditory and visual hallucinations. Attention and concentration are intact and memory appeared reliable but none were formally tested. He is alert and oriented three times. Insight and judgment are limited. Impulse control is limited. Vitals/I&O/Wt Last Vital Signs Temp 97.6 F 09/26/21 19:31 Pulse 55 L 09/26/21 19:31 Resp 18 09/27/21 01:55 BP 116/69 09/26/21 19:31 Pulse Ox 96 09/27/21 01:55 Weight last 48 hrs Weight 89.086 kg Weight 79.832 kg Data NPU : 09/26/21 07:53 09/25/21 07:49 A&P Assessment and plan (1) Depression: Status: Acute (2) Adjustment disorder with mixed disturbance of emotions and conduct: Status: Acute (3) Methamphetamine use disorder, severe: Status: Acute (4) Compression fracture: Status: Acute Plan This is a 56-year-old white male with a long history of addiction, institutionalization and recent suicidality as he identified that he was starting to feel strange at the inpatient rehab he was attending. 1.? Continue current medication.? Decreased opiates in half and will continue to monitor for ongoing need for treatment. 2.? Encourage individual, group and milieu therapy. 3.? Continue every 15-minute checks for safety. 4.? Encourage sober living treatment after discharge at the highest level of care to which he is willing to commit, hopefully returning to [facility]. Attestations NPU Medical Necessity Statement*: Inpatient hospitalization is medically necessary and the clinically appropriate intervention at this time. We will monitor medication to make changes as indicated. Likely length of stay 1-3 days. Coding Level of Care Code Acute Quantity Surveyor for Roseann Fwd Diagnoses Depression F32.A Adjustment disorder with mixed disturbance of emotions and conduct F43.25 Methamphetamine use disorder, severe F15.20 Compression fracture
[2021-09-27] MEDS: nicotine 4 mg lozenge MUCOUS MEM ×7 (08:10→20:09)
[2021-09-27] MEDS: buprenorphine-naloxone 4-1 mg Film 1 EACH SUBLINGUAL ×2 (08:10→18:03)
[2021-09-27] MEDS: doxycycline 100 mg Tablet PO ×2 (08:10→18:03)
[2021-09-27] MEDS: baclofen 10 mg Tablet PO ×2 (08:10→16:44)
[2021-09-27] MEDS: amoxicillin-clav 875-125 mg Tablet 1 TAB PO ×2 (08:10→18:03)
--- NOTE | 2021-09-27 09:15 | PC.NURSE ---
PT DENIES PAIN, STATES HE TOOK HIS PAIN MEDS THIS AM. PT STATES HE SLEPT WELL. DENIES SI/HI AND AVH AT THIS TIME. 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 SUPPORT VOICED.
[2021-09-27 09:58] VITALS: RESP 14; O2SAT 92
[2021-09-27] MEDS: apixaban 5 mg Tablet 10 MG PO ×2 (11:34→20:10)
[2021-09-27 14:00] VITALS: BP 133/76; PULSE 79; RESP 18; TEMP 36.9; O2SAT 96
[2021-09-27 19:52] VITALS: BP 119/70; PULSE 68; RESP 18; TEMP 37; O2SAT 93
[2021-09-27] MEDS: OLANZapine 5 mg TABLET 2.5 MG PO (20:09)
[2021-09-27] MEDS: trazodone 50 mg Tablet PO (20:10)
[2021-09-27 20:49] VITALS: RESP 18
[2021-09-28] VITALS (10 sets, daily range): BP systolic 120–137; BP diastolic 79–83; PULSE 61–73; RESP 16–18; TEMP 36.9–37.1; O2SAT 91–97
[2021-09-28] MEDS: propranolol 20 mg Tablet PO ×3 (05:51→20:00)
[2021-09-28] MEDS: gabapentin 400 mg Capsule PO ×3 (05:51→20:00)
[2021-09-28] MEDS: oxyCODONE 5 mg IR Tab/Cap 10 MG PO ×3 (05:52→20:00)
[2021-09-28] MEDS: benztropine 1 mg Tablet 0.5 MG PO ×2 (05:52→20:00)
[2021-09-28] MEDS: nicotine 4 mg lozenge MUCOUS MEM ×5 (07:04→16:16)
[2021-09-28] MEDS: doxycycline 100 mg Tablet PO ×2 (08:40→17:53)
[2021-09-28] MEDS: amoxicillin-clav 875-125 mg Tablet 1 TAB PO ×2 (08:40→17:53)
[2021-09-28] MEDS: apixaban 5 mg Tablet 10 MG PO (08:40)
[2021-09-28] MEDS: buprenorphine-naloxone 4-1 mg Film 1 EACH SUBLINGUAL ×2 (08:41→17:53)
[2021-09-28] MEDS: ipratropium-albuterol 3 mL Neb INHALATION ×2 (10:43→15:57)
--- NOTE | 2021-09-28 16:19 | W.PM.NPUPNS ---
Subjective NPU Subjective: Patient presents today with patient having met for first time by this physician. He reports good motivation to return to [facility] and admitted needing to have his medication readjusted. He reports no side effects from the opioid reduction and reports his mood and energy have been improving. He reports no feelings of hopelessness. Staff reports patient has been redirectable. Mental Status Exam MSE Comments: This is an overweight white male in hospital scrubs with limited grooming and eye contact.? No abnormal movements noted today..? Cooperative with exam in no acute distress. Speech was normal in regards to rate and volume. Mood described as better, affect is congruent and brighter.Thought process: linear and organized. Thought content: patient denies suicidal or homicidal ideation,no delusional thinking and no paranoia, and he endorses less prominent auditory and visual hallucinations. Attention and concentration are intact and memory appeared reliable but none were formally tested. He is alert and oriented three times. Insight and judgment are limited. Impulse control is limited. Vitals/I&O/Wt Last Vital Signs Temp 98.8 F 09/28/21 14:00 Pulse 71 09/28/21 16:06 Resp 18 09/28/21 16:00 BP 120/80 09/28/21 14:00 Pulse Ox 97 09/28/21 16:00 Weight last 48 hrs Weight 89.086 kg Data NPU : 09/26/21 07:53 09/25/21 07:49 Micro: Microbiology 09/22/21 22:05 Blood Culture - Final Blood NO GROWTH AFTER 5 DAYS 09/22/21 22:10 Blood Culture - Final Blood NO GROWTH AFTER 5 DAYS Microbiology 09/22/21 22:05 Blood Blood Culture - Final NO GROWTH AFTER 5 DAYS 09/22/21 22:10 Blood Blood Culture - Final NO GROWTH AFTER 5 DAYS A&P Assessment and plan (1) Depression: Status: Acute (2) Adjustment disorder with mixed disturbance of emotions and conduct: Status: Acute (3) Methamphetamine use disorder, severe: Status: Acute (4) Compression fracture: Status: Acute (5) Lytic bone lesion of hip: Status: Acute (6) Hypoxemia: Status: Acute (7) Pulmonary embolism: Status: Acute (8) Leukocytosis: Status: Acute (9) Hypoxemia: Status: Acute (10) Pulmonary embolism: Status: Acute Plan This is a 56-year-old white male with a long history of addiction, institutionalization and recent suicidality as he identified that he was starting to feel strange at the inpatient rehab he was attending. 1.? Continue current medication.? Decreased opiates again with plan to have patient sent to [facility] for continuation of substance abuse treatment. D/C zyprexa 2.5mg routine. 2.? Encourage individual, group and milieu therapy. 3.? Continue every 15-minute checks for safety. 4.? Encourage sober living treatment after discharge at the highest level of care to which he is willing to commit, Attestations NPU Medical Necessity Statement*: Inpatient hospitalization is medically necessary and the clinically appropriate intervention at this time. We will monitor medication to make changes as indicated. Likely length of stay 1-3 days. Coding Level of Care Code Established Pt Acute Pad Machine Offbearer for Roseann Richard Patient Type Established History Problem Focused Exam Problem Focused Medical Decision Making Straight Forward Diagnoses Depression F32.A Adjustment disorder with mixed disturbance of emotions and conduct F43.25 Methamphetamine use disorder, severe F15.20 Compression fracture Lytic bone lesion of hip M89.8X5 Hypoxemia R09.02 Pulmonary embolism I26.99 Leukocytosis D72.829 Hypoxemia R09.02 Pulmonary embolism I26.99
[2021-09-28] MEDS: nicotine 2 mg Gum BUCCAL ×3 (18:21→22:53)
[2021-09-28] MEDS: diphenhydrAMINE 50 mg Capsule PO (20:02)
[2021-09-28] MEDS: OLANZapine 5 mg ODT PO (21:16)
[2021-09-28] MEDS: baclofen 10 mg Tablet PO (21:16)
[2021-09-29] MEDS: nicotine 2 mg Gum BUCCAL ×3 (04:32→10:24)
[2021-09-29] MEDS: gabapentin 400 mg Capsule PO ×3 (05:14→19:54)
[2021-09-29] MEDS: benztropine 1 mg Tablet 0.5 MG PO ×2 (05:14→19:55)
[2021-09-29] MEDS: propranolol 20 mg Tablet PO ×3 (05:15→19:54)
[2021-09-29 05:17] VITALS: RESP 20
[2021-09-29] MEDS: oxyCODONE 5 mg IR Tab/Cap 10 MG PO (05:17)
[2021-09-29 06:00] VITALS: BP 127/72; PULSE 67; RESP 20; TEMP 37; O2SAT 94
[2021-09-29] MEDS: calcium carbonate 500 mg Chew Tablet 1000 MG PO ×2 (06:10→12:58)
[2021-09-29] MEDS: baclofen 10 mg Tablet PO ×3 (08:09→22:03)
[2021-09-29] MEDS: doxycycline 100 mg Tablet PO ×2 (08:09→17:02)
[2021-09-29] MEDS: buprenorphine-naloxone 4-1 mg Film 1 EACH SUBLINGUAL ×2 (08:10→17:03)
[2021-09-29] MEDS: amoxicillin-clav 875-125 mg Tablet 1 TAB PO ×2 (08:10→17:02)
[2021-09-29] MEDS: acetaminophen 325 mg Tablet 650 MG PO (10:24)
[2021-09-29] MEDS: hyDROXYzine 25 mg Capsule PO (11:42)
[2021-09-29] MEDS: nicotine 4 mg lozenge MUCOUS MEM ×6 (12:41→23:56)
[2021-09-29 13:05] VITALS: BP 142/80; PULSE 80; RESP 17; TEMP 36.6; O2SAT 92
--- NOTE | 2021-09-29 18:12 | P.NPUPN_ITS ---
Subjective NPU Subjective: Patient presents today and reports that he is looking forward to transfer to the rehabilitation facility. He reports no cravings for opiates, although he received an opiate medication one time for pain. He was informed that he would require no pain medications with opiates in it for 24 hours prior to admission back to [facility]. He continues to be demanding to staff but redirectable. He reports no thoughts of hurting himself or others. He reports no feelings of hopelessness. ? Mental Status Exam MSE Comments: This is an overweight white male in hospital scrubs with limited grooming and eye contact.? No abnormal movements noted today..? Cooperative with exam in no acute distress. Speech was normal in regards to? rate and volume. Mood described as better, affect is congruent and brighter. Thought process: linear and organized. Thought content: patient denies suicidal or homicidal ideation,no delusional thinking and no paranoia, and no auditory or visual hallucinations. Attention and concentration are intact and memory appeared reliable but none were formally tested. He is alert and oriented three times. Insight and judgment are limited. Impulse control is limited. Vitals/I&O/Wt Last Vital Signs Temp 98 F 09/29/21 13:05 Pulse 80 09/29/21 13:05 Resp 17 09/29/21 13:05 BP 142/80 09/29/21 13:05 Pulse Ox 92 09/29/21 13:05 Data NPU : 09/26/21 07:53 09/25/21 07:49 A&P Assessment and plan (1) Depression: Status: Acute (2) Adjustment disorder with mixed disturbance of emotions and conduct: Status: Acute (3) Methamphetamine use disorder, severe: Status: Acute Plan This is a 56-year-old white male with a long history of addiction, institution alization and recent suicidality as he identified that he was starting to feel strange at the inpatient rehab he was attending. 1.? Continue current medication.? Discontinue opiates today other than suboxone with plan to have patient sent to [facility] for continuation of substance abuse treatment.? Discharge tommorow. 2.? Encourage individual, group and milieu therapy. 3.? Continue every 15-minute checks for safety. 4.? Encourage sober living treatment after discharge at the highest level of care to which he is willing to commit, Attestations NPU Medical Necessity Statement*: continued inpatient hospitalization for 1-2 days with likely discharge tommorow directly to [facility]. Coding Level of Care Code Established Pt Acute Marketing Research Analyst for Greyg Fwrichard Patient Type Established History Problem Focused Exam Problem Focused Medical Decision Making Straight Forward Diagnoses Depression F32.A Adjustment disorder with mixed disturbance of emotions and conduct F43.25 Methamphetamine use disorder, severe F15.20
[2021-09-29 20:00] VITALS: BP 118/61; PULSE 81; RESP 20; TEMP 37.1; O2SAT 96
[2021-09-29] MEDS: trazodone 50 mg Tablet PO (23:45)
[2021-09-29] MEDS: hyDROXYzine 25 mg Capsule 50 MG PO (23:55)
[2021-09-30 06:00] VITALS: BP 108/68; PULSE 53; RESP 18; TEMP 36.8; O2SAT 93
[2021-09-30] MEDS: propranolol 20 mg Tablet PO (06:55)
[2021-09-30] MEDS: nicotine 4 mg lozenge MUCOUS MEM ×2 (06:55→08:41)
[2021-09-30] MEDS: gabapentin 400 mg Capsule PO (06:55)
[2021-09-30] MEDS: benztropine 1 mg Tablet 0.5 MG PO (07:04)
--- NOTE | 2021-09-30 08:31 | PC.NURSE ---
IN HALLWAY CONTINUES TO YELL AND BE INTRUSIVE. DENIES SI/HI AND AVH AT THIS TIME. PT REPORTS PAIN 8/10 ALL OVER. PT STATES HE TOOK HIS PAIN MEDICATION, SO HE BELIEVES HIS PAIN IS IMPROVING. PT IS AWAITING DC TO GO TO [facility]. ALL QUESTIONS ANSWERED AND SUPPORT VOICED.
[2021-09-30 08:39] VITALS: BP 108/68; PULSE 53; RESP 18; TEMP 36.8; O2SAT 93
[2021-09-30] MEDS: doxycycline 100 mg Tablet PO (08:41)
[2021-09-30] MEDS: calcium carbonate 500 mg Chew Tablet 1000 MG PO (08:41)
[2021-09-30] MEDS: baclofen 10 mg Tablet PO (08:42)
[2021-09-30] MEDS: buprenorphine-naloxone 4-1 mg Film 1 EACH SUBLINGUAL (08:42)
[2021-09-30] MEDS: pantoprazole DR 40 mg Tablet PO (08:42)
[2021-09-30] MEDS: amoxicillin-clav 875-125 mg Tablet 1 TAB PO (08:42)
--- NOTE | 2021-09-30 09:58 | PC.NURSE ---
UP AT NURSES STATION, CONTINUES TO BE IMPULSIVE AND INTRUSIVE. PT YELLING AND CUSSING AT STAFF WANTING TO LEAVE WHEN IN FACT HE IS WAITING FOR A RIDE FROM [facility]. SUPPORT VOICED.
--- NOTE | 2021-09-30 11:14 | PC.NURSE ---
PT CONTINUES TO YELL AND COMPLAIN THAT STAFF DID NOT GIVE HIS PHONE BACK. PT DID NOT HAVE A PHONE INVENTORIED ON HIS PROPERTY LIST. PT WAS EXPLAINED THIS FACT SEVERAL TIMES. PT ADMIT FROM ER THEN MED SURG. NPU DIRECTOR IS PHYSICALLY GOING TO ER AND MED SURG TO SEE IF HIS PHONE WAS LEFT THERE. PT WAS NOTIFIED THAT DIRECTOR WAS LOOKING FOR HIS PHONE. PT REFUSED TO SIGN BELONGINGS LIST EVEN THOUGH PTS PHONE WAS NEVER INVENTORIED. PT STATES ALL HIS BELONGINGS ARE HERE EXCEPT FOR PHONE. THIS NURSE EDUCATED PT THAT THE NPU HAVE GIVEN HIM EVERYTHING HE CAME IN WITH TO OUR UNIT. THAT WE NEVER HAD A PHONE FOR HIM. PT CONTINUES TO WAIT FOR RIDE BUT HAS BEEN DISCHARGED FROM NPU AT THIS TIME. ALL DISCHARGE TEACHING COMPLETED, ALL QUESTIONS ANSWERED AND SUPPORT VOICED.
--- NOTE | 2021-09-30 11:27 | PC.NURSE ---
PT PHONE PT DID SIGN PROPERTY LIST STATING HE RECEIVED ALL HIS BELONGINGS. WHEN PT RIDE GOT HERE [facility] STAFF STATED HIS PHONE WAS AT THEIR FACILITY. PT CALMED AND LEFT FACILTIY AT 1127 AM
--- NOTE | 2021-09-30 15:10 | P.NPUDS_ITS ---
Diagnoses at Discharge Discharge Diagnosis (1) Depression: Status: Acute (2) Adjustment disorder with mixed disturbance of emotions and conduct: Status: Acute (3) Methamphetamine use disorder, severe: Status: Acute (4) Compression fracture: Status: Acute Permanent problem details: t12 (5) Lytic bone lesion of hip: Status: Acute (6) Hypoxemia: Status: Acute (7) Pulmonary embolism: Status: Acute (8) Leukocytosis: Status: Acute (9) Hypoxemia: Status: Inactive (10) Pulmonary embolism: Status: Inactive Reason for Visit Reason for Visit: altered mental status Brief History: Chriss Akers is a 56 year old male who presented to the emergency department with the following report: Stated complaint: same reason Time Seen by Provider: 09/22/21 17:33 History of Present Illness:?? Patient is a 56-year-old male with a history of former meth use, chronic hypoxemia on 3 L oxygen presenting to the emergency room for concerns of hyp oxemia.? Earlier patient was seen evaluated emergency room was diagnosed with possible nonocclusive pulmonary embolism.? In addition, patient was found to have leukocytosis with no prior for comparison.? Patient decided to go home so he could have a smoke.? Patient's chose to sign out AMA earlier today and decided come back to the emergency room. Onset:unknown Duration:ongoing Location:home Severity:moderate Associated symptoms: Deny chest pain, dyspnea, nausea, rash, palpitations or vomiting. He reports that he presents secondary to breathing issues and suicidal ideation. He reports he just recently left the prison which he was in 3 times for 10 years each. He reports he has been psychiatrically hospitalized a few times and denies receiving outpatient services. He reports a pack of cigarettes a day, denies alcohol, reports marijuana occasionally, endorses methamphetamine and denies any other illicit drug use. He has never been to a rehab and received a DUI in 1998. He reports he was at [facility] when he started having issues with his breathing and increased suicidal ideation which is how he presents today. He reports he wants to leave as he feels information is being kept from him in regards to his health and what is going on. We discussed at length about addressing his medical issues and the safety concern that is presented given he is expressing suicidal ideation recently given there has been no change in his health conditions since he was admitted. He reports he has not been on suboxone manager long term care and had an opiate use problem when he was younger. Psychiatric History: As above. Substance Abuse History: As above Family History: He denies mental health issues on either side of the family, addiction issues on his father?s side of the family and a suicide completion from his mother?s side of the family. Developmental History: He denies any issues with his or , learned to walk and talk and met his developmental standards on time, and denies any need for speech therapy, learning support, emotional support or special education classes. Psychosocial History: He reports his parents were together when he was born and remained together. He has 2 sisters and 2 brothers who are products of the same union. He described his childhood as great and denies any emotional, physical or sexual abuse. He reports truancy issues and was put in placement. He denies any other traumatic events. The highest grade he achieved was 11 th and he got his GED. He endorses being heterosexual with his longest relationship being 6 to 7 years. He has been once and , has 4 biological children, has never been in the and endorses being a denominational. He currently lives at [facility]. Legal History: He reports he has been in [facility] 10 times and prison 3 times at least. Medical History: Please see treatment team note for full details. Hospital Course Hospital Course During the hospitalization, patient had routine laboratory studies which were within normal limits except for few outliers. Additionally there was a general medical evaluation which was also within normal limits and revealed no new acute processes. Discharge Summary: At the time of discharge, lethality was denied and psychosis was resolving. Mood and anxiety were well managed. Patient endorsed a plan to avoid all drugs of abuse and follow-up with the aftercare recommendations of the treatment team. Patient was evaluated and deemed to be absent credible lethality, and had achieved the maximum benefit from an inpatient hospitalization, so was discharged. He was tapered off his medications on the NPU and showed improvement in regards to mental status with plan to return to the [facility] directly from NPU. Mental Status Exam MSE Comments: This is an overweight white male in hospital scrubs with limited grooming and eye contact.? No abnormal movements noted today..? Cooperative with exam in no acute distress. Speech was normal in regards to? rate and volume. Mood described as better, affect is congruent and brighter.? Thought process: linear and organized. Thought content: patient denies suicidal or homicidal ideation,no delusional thinking and no paranoia, and no auditory or visual hallucinations. ? Attention and concentration are intact and memory appeared reliable but none were formally tested. He is alert and oriented three times. Insight and judgment are limited. Impulse control is limited. Discharge Data Studies Completed and Pending: Completed Studies During Hospitalization Category Date Time Status CT lumbar spine w o con* [id number] Routi ne Cat Scan 09/23/21 18:22 Completed NM bone scan whol e body* [id number] Rout ine Nuc Med 09/25/21 08:13 Completed Radiology Impressions Lumbar Spine CT 09/23/21 18:22 IMPRESSION: 1. No acute bony disease. Old minimal T12 compression fracture. Multilevel degenerative disease detailed above. 2. Lobulated lytic mass in the left superior ilium, cause unclear. Consider a follow-up bone scan. 3. Severe sigmoid diverticulosis. 4. Approximately 2.2 cm left adrenal mass containing low density. No follow-up necessary. (Reference: Ta) COMMENTS: Consistent with the [employer]'s Incidental Findings Committee white paper (J Am Eloy Radiol 2017): Any incidental adrenal lesion less than 1 cm is likely benign. No follow-up imaging is recommended for these lesions per consensus recommendations based on imaging criteria. Further lab evaluation could be pursued if warranted based on clinical findings. REFERENCES: Ta PISANO, et al. Management of Incidental Adrenal Masses: A White Paper of the ACR Incidental Findings Committee. J Am Eloy Radiol. 2017;14(8):5764-3572. Bone Scan Nuclear Medicine 09/25/21 08:13 IMPRESSION: 1. No evidence for metastatic bone disease. The LEFT ilium is negative. No increased uptake to correspond to the lytic lesion on recent lumbar spine CT. 2. Multi joint osteoarthritis. Laboratory Results WBC 11.6 10^3/uL (4.0 -10.0) H 09/26/21 07:53 RBC 5.01 10^6/uL (4.1 -5.3) 09/26/21 07:53 Hgb 13.8 g/dL (11.7-1 6.6) 09/26/21 07:53 Hct 41.4 % (42.0-52.0 ) L 09/26/21 07:53 MCV 82.6 fl (80-94) 09/26/21 07:53 MCH 27.5 pg (28.0-34. 0) L 09/26/21 07:53 MCHC 33.3 g/dL (30.0-3 6.0) 09/26/21 07:53 RDW 15.1 % (12.1-15.1 ) 09/26/21 07:53 Plt Count 498 10^3/cmm (130 -400) H 09/26/21 07:53 MPV 8.9 fL (7.4-10.4) 09/26/21 07:53 Neut % (Auto) 51.0 % 09/26/21 07:53 Lymph % (Auto) 29.3 % 09/26/21 07:53 Redwood % (Auto) 11.2 % 09/26/21 07:53 Eos % (Auto) 6.7 % 09/26/21 07:53 Baso % (Auto) 1.4 % 09/26/21 07:53 Neut # (Auto) 5.94 10^3/uL (1.8 -7.7) 09/26/21 07:53 Lymph # (Auto) 3.4 10^3/uL (0.8- 4.8) 09/26/21 07:53 Redwood # (Auto) 1.3 10^3/uL (0.2- 0.9) H 09/26/21 07:53 Eos # (Auto) 0.8 10^3/uL (0.0- 0.8) 09/26/21 07:53 Baso # (Auto) 0.2 10^3/uL (0.0- 0.1) H 09/26/21 07:53 Nucleated RBC % (a uto) 0 % 09/26/21 07:53 Nucleated RBCs # 0.0 /100WBC 09/26/21 07:53 Sodium 136 mmol/L (136-1 45) 09/25/21 07:49 Potassium 4.2 mmol/L (3.5-5 .1) 09/25/21 07:49 Chloride 97 mmol/L (98-107 ) L 09/25/21 07:49 Carbon Dioxide 30 mmol/L (22-29) H 09/25/21 07:49 Anion Gap 13.2 (5-19) 09/25/21 07:49 BUN 9 mg/dL (6-20) 09/25/21 07:49 Creatinine 0.8 mg/dL (0.7-1. 2) 09/25/21 07:49 GFR Calculation 100.7 mL/min (90- 130) 09/25/21 07:49 Glucose 129 mg/dL (65-115 ) H 09/25/21 07:49 Calculated Osmolal ity 282 mOsm/kg (285- 295) L 09/25/21 07:49 Calcium 9.2 mg/dL (8.5-10 .5) 09/25/21 07:49 Magnesium 2.3 mg/dL (1.7-2. 3) 09/25/21 07:49 Total Bilirubin 0.2 mg/dL (0.15-1 .2) 09/25/21 07:49 AST 17 U/L (0-40) 09/25/21 07:49 ALT 13 U/L (0-41) 09/25/21 07:49 Alkaline Phosphata se 104 IU/L (40-130) 09/25/21 07:49 C-Reactive Protein 94.4 mg/L (0.0-4. 9) H 09/24/21 03:23 NT-Pro-B Natriuret Pep 154 pg/mL (0-125) H 09/23/21 03:32 Total Protein 7.3 g/dL (6.6-8.7 ) 09/25/21 07:49 Albumin 4.3 g/dL (3.5-5.2 ) 09/25/21 07:49 Globulin 3.0 g/dL (1.3-4.6 ) 09/25/21 07:49 Homocysteine 13.77 09/23/21 03:32 Procalcitonin 0.03 ng/mL (0-0.5 ) 09/24/21 03:23 Prolactin 60.33 ng/mL (4.0- 15.2) H 09/23/21 03:32 Vancomycin Trough 10.9 ug/mL (10-15 ) 09/24/21 11:42 Urine Opiates Scre en Positive ng/mL (N egative) H 09/23/21 16:15 Ur Barbiturates Sc reen Negative ng/mL (N egative) 09/23/21 16:15 Ur Phencyclidine S crn Negative ng/mL (N egative) 09/23/21 16:15 Ur Amphetamines Sc reen Negative ng/mL (N egative) 09/23/21 16:15 U Benzodiazepines Scrn Negative ng/mL (N egative) 09/23/21 16:15 Urine Cocaine Scre en Negative ng/mL (N egative) 09/23/21 16:15 U Marijuana (THC) Screen Negative ng/mL (N egative) 09/23/21 16:15 DANYA Screen Negative (NEGATI VE) 09/24/21 03:23 SARS-CoV-2 RNA (RT -PCR) Not detected (NO T DETECTED) 09/23/21 00:35 SARS-CoV-2 Ag (Rap id) Negative (Negati ve) 09/23/21 09:50 Vitals: Last Vital Signs Temp 98 F 09/29/21 13:05 Pulse 80 09/29/21 13:05 Resp 17 09/29/21 13:05 BP 142/80 09/29/21 13:05 Pulse Ox 92 09/29/21 13:05 Discharge Plan Discharge Patient Disposition: Home Condition: Stable Prescriptions: New amoxicillin-pot clavulanate 875-125 mg Tablet 1 tab PO BID Qty: 6 0RF gabapentin 400 mg Capsule 400 mg PO TID@0600,1220,2100 Qty: 90 0RF doxycycline monohydrate 100 mg Tablet 100 mg PO BID Qty: 6 0RF pantoprazole 40 mg Tablet,Delayed Release (Dr/Ec) 40 mg PO DAILY Qty: 30 1RF Continued ibuprofen 800 mg tablet 800 mg PO DAILY@06 0RF gabapentin 400 mg Capsule 400 mg PO TID@0600,1220,2100 0RF aspirin 81 mg tablet,delayed release (DR/EC) 81 mg PO DAILY@06 0RF baclofen 10 mg Tablet 10 mg PO TID PRN (Reason: Muscle Spasm) 0RF Rx Instructions: ON HOLD benztropine 1 mg Tablet 0.5 mg PO BID@,21 0RF nicotine 21 mg/24 hr Patch 24 Hour 1 patch TRANSDERMAL DAILY PRN (Reason: Smoking Cessation) 0RF hydroxyzine HCl 25 mg Tablet 25 mg PO Q6H PRN (Reason: Anxiety) 0RF ergocalciferol (vitamin D2) 1,250 mcg (50,000 unit) capsule 50,000 unit PO Q7D 0RF Rx Instructions: ON FRIDAYS albuterol sulfate [ProAir HFA] 90 mcg/actuation HFA aerosol inhaler 2 puff INHALATION .Q4-6H PRN (Reason: copd) 0RF propranolol 20 mg Tablet 20 mg PO TID@0600,1220,2100 0RF prazosin 2 mg Capsule 2 mg PO BEDTIME@21 0RF buprenorphine-naloxone 2-0.5 mg Tablet, Sublingual See Rx Instructions .ROUTE .COMPLEX 0RF Rx Instructions: 1/2 TAB PO BID@06,17 nicotine (polacrilex) 4 mg Lozenge 16 mg PO PRN 0RF budesonide-formoterol [Symbicort] 80-4.5 mcg/actuation HFA aerosol inhaler 2 puff INHALATION BID 0RF diclofenac sodium 1 % Gel 2 - 4 g TOPICAL BID PRN (Reason: Pain) 0RF Discontinued ondansetron HCl [Zofran] 8 mg Tablet 8 mg PO TID PRN (Reason: Nausea And Vomiting) 0RF famotidine 40 mg tablet 40 mg PO DAILY@06 0RF penicillin V potassium 500 mg Tablet 500 mg PO QID 0RF Rx Instructions: @06,12,17,21 Discharge Orders: Discharge Order (Routine); Ordered 09/30/21 Ordered By: Mohsen Moreno Referrals: [facility] [Other] [facility] [Outside] - 09/30/21 Discharge Diet: Usual diet Discharge Activity: Resume usual activity Patient Instructions: Pulmonary Embolism (DC), Depression (DC), Methamphetamine Use Disorder (DC), Opioid Safety Discharge Attestations NPU Time Spent in Discharge Care*: less than 30 min Coding Level of Care Code Established Pt Acute Chg FW DC note Patient Type Established History Problem Focused Exam Problem Focused Medical Decision Making Straight Forward Diagnoses Depression F32.A Adjustment disorder with mixed disturbance of emotions and conduct F43.25 Methamphetamine use disorder, severe F15.20 Compression fracture Lytic bone lesion of hip M89.8X5 Hypoxemia R09.02 Pulmonary embolism I26.99 Leukocytosis D72.829 Hypoxemia R09.02 Pulmonary embolism I26.99
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
== END 2021-09-30 11:19 | disposition home or self-care (01) | DRG 176 ==
LOC: ER 18:24 → MEDSURG 18:27 → NP 09-25 15:09
PROVIDERS: Internal Medicine; Student in an Organized Health Care Education/Training Program; Admitting Provider Internal Medicine; Emergency Provider Emergency Medicine; Visit Provider Internal Medicine
DX: I26.99 Other pulmonary embolism without acute cor pulmonale (principal); F15.20 Other stimulant dependence, uncomplicated; R45.851 Suicidal ideations; R09.02 Hypoxemia; Z99.81 Dependence on supplemental oxygen; F17.200 Nicotine dependence, unspecified, uncomplicated; F43.10 Post-traumatic stress disorder, unspecified; M89.9 Disorder of bone, unspecified; F43.25 Adjustment disorder with mixed disturbance of emotions and conduct; F32.A Depression, unspecified; S22.080S Wedge compression fracture of T11-T12 vertebra, sequela; X58.XXXS Exposure to other specified factors, sequela; Z79.82 Long term (current) use of aspirin; Z79.51 Long term (current) use of inhaled steroids
CPT/HCPCS: 36415; 72131; 78306; 80053; 80202; 80306; 83090; 83735; 83880; 84145; 84146; 85025; 86038; 86140; 87040; 87426; 87635; 93005; 94640; 96372; 97150; 97161; 97165; 99285; A9561; J0573; J0692; J1630; J1650; J2060; J3370; J7050; Q0163

== ENCOUNTER → 2021-12-10 16:30 | Outpatient (BNVA) | payer MEDICAID, SELFPAY | PROVIDERS: PCP Family Medicine; Visit Provider Family Medicine | DX: Z96.651 Presence of right artificial knee joint (principal); M54.9 Dorsalgia, unspecified; G89.29 Other chronic pain; M25.569 Pain in unspecified knee; F15.21 Other stimulant dependence, in remission; F43.25 Adjustment disorder with mixed disturbance of emotions and conduct; J44.9 Chronic obstructive pulmonary disease, unspecified; M21.612 Bunion of left foot; I26.99 Other pulmonary embolism without acute cor pulmonale; Z87.891 Personal history of nicotine dependence; F32.A Depression, unspecified; G47.00 Insomnia, unspecified | CPT/HCPCS: 80053; 80061; 85025 ==

== ENCOUNTER 2022-03-23 19:22 | Emergency (ER) | payer MEDICAID, SELFPAY ==
[2022-03-23 19:33] VITALS: BP 125/72; PULSE 81; RESP 16; TEMP 36.7; O2SAT 94
--- NOTE | 2022-03-23 20:19 | W.ED.DENTAL ---
HPI - Dental/Oral General: Chief complaint: Dental/Oral Stated complaint: tooth pain Time Seen by Provider: 03/23/22 19:28 History of Present Illness: Patient is in today for dental pain. He reports that 2 days ago he started having dental pain on his lower jaw tooth. He reports he has had pain off and on for a couple of weeks but he grinds his teeth really bad and thinks he may have fractured the tooth. He cannot get into dental until the end of April but he is on a cancellation list. He reports that the pain worsened today significantly. He denies any fever, chills, nausea, vomiting Review of Systems Const: Denies: chills or body aches ENMT: Reports: dental pain Card: Denies: chest pain or palpitations Resp: Denies: dyspnea, productive cough or non-productive cough GI: Denies: abdominal pain, nausea or vomiting : Denies: flank pain, difficulty urinating or dysuria PFSH ED PFSH: Medical History Bipolar disorder Cervicalgia Chronic recurrent major depressive disorder Heroin use disorder, severe, in early remission History of antisocial personality disorder Hypertension Hypertriglyceridemia Hypoxemia Insomnia Methamphetamine abuse Methamphetamine use disorder, moderate, in early remission Night terror Pain in a tooth or teeth Psychiatric care Pulmonary embolism Schizoaffective disorder, depressive type Tobacco use disorder Tooth abscess Surgical History History of knee replacement procedure of right knee History of umbilical hernia repair Family History Father CAD (coronary artery disease) Cancer stomach Stroke Mother Cancer lung Diabetes Denies family history of Clotting disorder Dementia Hyperlipidemia Chronic kidney disease (CKD) Anesthesia complication Bleeding disorder Lung disease Hypertension Social History Smoking and tobacco status: current some day smoker (vape, attempting to quit cigarettes) cigarettes [ Other cigarette details: 1PPD x 40yrs. 40PY, 1/4 PPD as of 02/02] and e-cigarettes E-Cigarette Details: vaporizer device Quit status (tobacco): has tried quititng Alcohol intake: former Desire information about alcohol rehabilitation?: No Counseling given: No Desire information about substance/drug rehabilitation?: No Counseling given: No Adopted: No Caregiver/support person: No Lives independently: Yes Household members: none Marital status: Single service: No Current occupational status: disabled History of recent travel: No Current gender identity: Male Special zhang needs: No Agree to transfusion: Yes Physical Exam Const: COMMON NORMALS: no acute distress, patient oriented x3 and alert HENMT: TEETH & GINGIVA: Yes abnormal tooth and associated gingiva, Yes gingiva abnormal edematous and tender and Yes poor dentition TEETH & GINGIVA IMAGES: 1. OTHER: Front lower right tooth with gingival erythema and edema and tenderness to palpation. No definitive drainable abscess appreciated. Patient has nicotine pouch held against the gingiva because he said it actually helps with the pressure. Neck/C-Spine: COMMON NORMALS: no JVD Resp: COMMON NORMALS: normal respiratory effort, No use of accessory muscles and clear to auscultation bilaterally AUSCULTATION: clear to auscultation bilaterally Cardio: COMMON NORMALS: no JVD, regular rate, regular rhythm, S1 normal heart sound present and S2 normal heart sound present RATE: regular rate RHYTHM: regular rhythm HEART SOUNDS: S1 normal heart sound present and S2 normal heart sound present Neuro: COMMON NORMALS: patient oriented x3, moves all extremities and no focal motor deficits SENSORIUM/ORIENTATION: Yes alert Course Vital Signs: Vital signs: Vital Signs Temperature 98.0 F 03/23/22 19:33 Pulse Rate 81 03/23/22 19:33 Respiratory Rate 16 03/23/22 19:33 Blood Pressure 125/72 03/23/22 19:33 Pulse Oximetry 94 03/23/22 19:33 MDM - Dental/Oral Medical Decision Making Dental pain versus dental abscess Cover patient for dental abscess with antibiotic and 1 dose of Toradol given in here today. Patient has tolerated Toradol in the past. Advised him of conservative management at home. Make sure that he keeps his follow-up appointment with dental. Return to the ER as needed for new or worsening symptoms. Discharge Plan Discharge Patient Disposition: Home Clinical Impression: Abscess, dental Condition: Stable Prescriptions: New amoxicillin 875 mg tablet 875 mg PO BID 10 Days Qty: 20 0RF No Action buprenorphine-naloxone 2-0.5 mg tablet, sublingual 1.5 tab sublingual DAILY amoxicillin 875 mg tablet 875 mg PO BID Qty: 20 0RF ibuprofen 600 mg tablet 600 mg PO Q8H PRN (Reason: pain) Qty: 30 0RF polyethylene glycol 3350 [Miralax] 17 gram powder in packet 17 g PO TID Qty: 24 1RF albuterol sulfate [ProAir HFA] 90 mcg/actuation HFA aerosol inhaler 2 puff INHALATION .Q4-6H PRN (Reason: copd) Qty: 8.5 1RF budesonide-formoterol [Symbicort] 80-4.5 mcg/actuation HFA aerosol inhaler 2 puff INHALATION BID Qty: 10.2 2RF buspirone 7.5 mg tablet 7.5 mg PO BID Qty: 60 1RF prazosin 2 mg capsule 2 mg PO BEDTIME@21 Qty: 30 1RF hydroxyzine HCl 25 mg tablet 25 mg PO Q6H PRN (Reason: Anxiety) Qty: 60 1RF bupropion HCl [Wellbutrin XL] 150 mg tablet extended release 24 hr 150 mg PO QAM Qty: 30 1RF benztropine 1 mg tablet 0.5 mg PO BID@06,21 Qty: 60 1RF nicotine (polacrilex) 4 mg lozenge 16 mg PO PRN Qty: 108 2RF risperidone 1 mg tablet 1.5 mg PO BID 30 Days Qty: 90 3RF atorvastatin [Lipitor] 40 mg tablet 40 mg PO DAILY Qty: 90 1RF pantoprazole 40 mg tablet,delayed release (DR/EC) 40 mg PO DAILY Qty: 30 1RF Eliquis 5 mg tablet 5 mg PO BID Qty: 180 1RF propranolol 20 mg tablet See Rx Instructions .ROUTE .COMPLEX Qty: 90 2RF Dose Instruction: TAKE ONE TABLET BY MOUTH THREE TIMES A DAY, ONE TABLET AT 6AM, ONE TABLET AT 12PM, ONE TABLET AT 9PM Rx Instructions: TAKE ONE TABLET BY MOUTH THREE TIMES A DAY, ONE TABLET AT 6AM, ONE TABLET AT 12PM, ONE TABLET AT 9PM diclofenac sodium 1 % Gel 2 - 4 g TOPICAL BID PRN (Reason: Pain) Discharge Orders: Discharge ED (Routine); Ordered 03/23/22 Ordered By: Birgit Martinez Referrals: Lew Guzman MD [Primary Care Provider] - Discharge Diet: Usual diet Discharge Activity: Resume usual activity Patient Instructions: Dental Abscess (ED) Activity Restrictions/Additional Instructions: Take antibiotics as directed. Follow-up with dental. Return to the ER as needed for new or worsening symptoms. I recommend not using the nicotine patch especially in the area of concern as this restricts blood flow to that area which is necessary for healing. Coding Level of Care Code ED Clinical Psychologist Licensed for Roseann Fwrichard Exam Detailed
[2022-03-23] MEDS: amoxicillin 500 mg Capsule 875 MG PO (20:32)
[2022-03-23] MEDS: ketorolac 30 mg/mL INJ IM (20:33)
== END 2022-03-23 20:38 | disposition home or self-care (01) ==
PROVIDERS: Emergency Provider Nurse Practitioner Family; PCP Family Medicine
DX: K04.7 Periapical abscess without sinus (principal); Z79.01 Long term (current) use of anticoagulants; F17.210 Nicotine dependence, cigarettes, uncomplicated; F17.290 Nicotine dependence, other tobacco product, uncomplicated; I10 Essential (primary) hypertension
CPT/HCPCS: 96372; 99284; J1885

== ENCOUNTER → 2022-04-05 13:38 | Outpatient (BNVA) | payer MEDICAID, SELFPAY | PROVIDERS: PCP Family Medicine; Visit Provider Psychiatry & Neurology Psychiatry | DX: F15.21 Other stimulant dependence, in remission (principal); F11.21 Opioid dependence, in remission | CPT/HCPCS: 80307 ==

== ENCOUNTER 2022-04-20 10:54 | Inpatient (IN) | payer MEDICAID, SELFPAY ==
[2022-04-20] VITALS (7 sets, daily range): BP systolic 124–155; BP diastolic 67–87; PULSE 58–78; RESP 16–20; TEMP 36.5–36.8; O2SAT 94–97; BMI 33.3
--- NOTE | 2022-04-20 11:20 | ED.C_ITS ---
HPI - Psych General: Chief Complaint: Psychiatric Symptoms Stated Complaint: SI Time Seen by Provider: 04/20/22 11:20 History of Present Illness: Mr. Akers is a 57-year-old gentleman with remote history of substance abuse, history of PE on anticoagulation, COPD, possibly schizoaffective disorder presented to the emergency department for suicidal ideation with a plan. He does have a history of depression and has been on medications however over the past few days reports that they do not seem to help. He feels depressed and increasingly hopeless. He walked downstairs earlier and saw a rope and thought of hanging himself. He does have a history of suicide attempt by hanging. Overall course of symptoms has worsened. Intensity is moderate to severe. He notes hopelessness and anxiety. No other specific changes in health, exacerbating, or alleviating factors identified. Onset (ago): day(s) Duration: getting worse History of same: Yes Relieving factors: none Exacerbating factors: none Associated psychiatric symptoms: depression and suicidal ideation If self harm: admits thoughts of self harm and has plan Review of Systems General: Reports: 10 or more systems reviewed and unremarkable except in HPI and below PFSH ED PFSH: Medical History Bipolar disorder Cervicalgia Chronic recurrent major depressive disorder Heroin use disorder, severe, in early remission History of antisocial personality disorder Hypertension Hypertriglyceridemia Hypoxemia Insomnia Methamphetamine abuse Methamphetamine use disorder, moderate, in early remission Night terror Pain in a tooth or teeth Psychiatric care Pulmonary embolism Schizoaffective disorder, depressive type Tobacco use disorder Tooth abscess Surgical History History of knee replacement procedure of right knee History of umbilical hernia repair Family History Father CAD (coronary artery disease) Cancer stomach Stroke Mother Cancer lung Diabetes Denies family history of Clotting disorder Dementia Hyperlipidemia Chronic kidney disease (CKD) Anesthesia complication Bleeding disorder Lung disease Hypertension Social History (Updated 04/28/22 @ 10:52 by Yashira Smith LPN) Smoking and tobacco status: current some day smoker (vape, attempting to quit cigarettes) cigarettes [ Other cigarette details: 1PPD x 40yrs. 40PY, 4 PPD as of 04/2022] and e-cigarettes E-Cigarette Details: vaporizer device Quit status (tobacco): has tried quititng Alcohol intake: former Desire information about alcohol rehabilitation?: No Counseling given: No Desire information about substance/drug rehabilitation?: No Counseling given: No Adopted: No Caregiver/support person: No Lives independently: Yes Household members: none Marital status: Single service: No Current occupational status: disabled History of recent travel: No Current gender identity: Male Special zhang needs: No Agree to transfusion: Yes Physical Exam Const: COMMON NORMALS: alert GENERAL APPEARANCE: cooperative and well developed HENMT: COMMON NORMALS: normocephalic and atraumatic HEAD & SCALP: normocephalic and atraumatic Eye: COMMON NORMALS: conjunctivae normal CONJUNCTIVA: Yes conjunctivae normal SCLERA: sclerae normal Neck/C-Spine: COMMON NORMALS: supple GENERAL: Yes trachea midline Resp: COMMON NORMALS: clear to auscultation bilaterally EFFORT & INSPECTION: Yes able to speak in complete sentences AUSCULTATION: clear to auscultation bilaterally Cardio: COMMON NORMALS: regular rate and regular rhythm RATE: regular rate RHYTHM: regular rhythm GI: COMMON NORMALS: Soft to palpation PALPATION: Yes Soft to palpation and No Tenderness to palpation present (GI) Extremity: GENERAL: Yes normal exam except as noted and No edema Neuro: COMMON NORMALS: moves all extremities SENSORIUM/ORIENTATION: Yes alert and No Orientation impaired Psych: COMMON NORMALS: mental status grossly normal and Normal thought process present MOOD & AFFECT: Yes depressed mood and Yes anxious THOUGHT PROCESS: Normal thought process present Course Vital Signs: Vital signs: Vital Signs Temperature 97.5 F L 04/23/22 14:31 Pulse Rate 64 04/23/22 14:31 Respiratory Rate 18 04/23/22 14:31 Blood Pressure 106/67 04/23/22 14:31 Pulse Oximetry 95 04/23/22 14:31 Oxygen Delivery Me thod 04/23/22 14:00 [facility] - Psych Medical Decision Making 57-year-old gentleman with history of depression and other psychiatric disorder presenting to the emergency department for worsening depression with suicidal ideation. He endorses a plan to hang himself. He feels hopeless and like he has a burden on others. Appears depressed on exam. He is nontoxic and cooperative. He is somewhat anxious and p.o. Ativan for anxiolysis given. EKG notable for sinus rhythm, normal axis and intervals, no STEMI. Labs with leukocytosis though in the absence of infectious symptoms this is nonspecific and likely not clinically significant, normal hemoglobin. Metabolic panel without derangement. TSH normal. Toxic ingestions and urine drug screen are negative. No evidence of urinary tract infection. Rapid viral testing negative. Given severity of symptoms as well as history and suicidal ideation with a plan patient requires inpatient management of psychiatric concerns. Based on ED evaluation at this point there is no obvious condition that would preclude the patient from inpatient management psychiatric concerns/symptoms. Initially we did not have inpatient adult psychiatric beds at our facility however a bed became available due to discharges and we will admit him to our facility. The results of ED evaluation were discussed with the patient including plan for admission due to requirement for level of care not available if discharged to prevent significant worsening/deterioration. Patient agreeable with plan. Discussed with psychiatry service who was agreeable to admit patient. Medical Records I reviewed the patient's medical records. Lab Data I reviewed the patient's lab results. 04/20/22 11:55 04/20/22 11:55 Laboratory Results WBC 15.1 10^3/uL (4.0-10.0) H 04/20/22 11:55 RBC 4.95 10^6/uL (4.1-5.3) 04/20/22 11:55 Hgb 13.9 g/dL (11.7-16.6) 04/20/22 11:55 Hct 42.0 % (42.0-52.0) 04/20/22 11:55 MCV 84.8 fl (80-94) 04/20/22 11:55 MCH 28.1 pg (28.0-34.0) 04/20/22 11:55 MCHC 33.1 g/dL (30.0-36.0) 04/20/22 11:55 RDW 13.7 % (12.1-15.1) 04/20/22 11:55 Plt Count 436 10^3/cmm (130-400) H 04/20/22 11:55 MPV 8.4 fL (7.4-10.4) 04/20/22 11:55 Neut % (Auto) 73.9 % 04/20/22 11:55 Lymph % (Auto) 15.0 % 04/20/22 11:55 [place] % (Auto) 7.2 % 04/20/22 11:55 Eos % (Auto) 2.4 % 04/20/22 11:55 Baso % (Auto) 1.0 % 04/20/22 11:55 Neut # (Auto) 11.13 10^3/uL (1.8-7.7) H 04/20/22 11:55 Lymph # (Auto) 2.3 10^3/uL (0.8-4.8) 04/20/22 11:55 [place] # (Auto) 1.1 10^3/uL (0.2-0.9) H 04/20/22 11:55 Eos # (Auto) 0.4 10^3/uL (0.0-0.8) 04/20/22 11:55 Baso # (Auto) 0.2 10^3/uL (0.0-0.1) H 04/20/22 11:55 Nucleated RBC % (auto) 0 % 04/20/22 11:55 Nucleated RBCs # 0.0 /100WBC 04/20/22 11:55 Sodium 136 mmol/L (136-145) 04/20/22 11:55 Potassium 4.5 mmol/L (3.5-5.1) 04/20/22 11:55 Chloride 99 mmol/L (98-107) 04/20/22 11:55 Carbon Dioxide 26 mmol/L (22-29) 04/20/22 11:55 Anion Gap 15.5 (5-19) 04/20/22 11:55 BUN 11 mg/dL (6-20) 04/20/22 11:55 Creatinine 0.8 mg/dL (0.7-1.2) 04/20/22 11:55 GFR Calculation 100.4 mL/min (90-130) 04/20/22 11:55 Glucose 109 mg/dL (65-115) 04/20/22 11:55 Calculated Osmolality 282 mOsm/kg (285-295) L 04/20/22 11:55 Calcium 9.3 mg/dL (8.5-10.5) 04/20/22 11:55 Total Bilirubin 0.2 mg/dL (0.15-1.2) 04/20/22 11:55 AST 15 U/L (0-40) 04/20/22 11:55 ALT 17 U/L (0-41) 04/20/22 11:55 Alkaline Phosphatase 129 U/L (40-130) 04/20/22 11:55 Total Protein 7.5 g/dL (6.6-8.7) 04/20/22 11:55 Albumin 4.6 g/dL (3.5-5.2) 04/20/22 11:55 Globulin 2.9 g/dL (1.3-4.6) 04/20/22 11:55 TSH 1.68 uIU/mL (0.27-4.20) 04/20/22 11:55 Urine Color Yellow (Yellow) 04/20/22 12:15 Urine Appearance Clear (CLEAR) 04/20/22 12:15 Urine pH 6 (5-7) 04/20/22 12:15 Ur Specific [place] 1.015 (1.005-1.030) 04/20/22 12:15 Urine Protein Neg (Negative) 04/20/22 12:15 Urine Glucose (UA) Norm (Normal) 04/20/22 12:15 Urine Ketones Negative (Negative) 04/20/22 12:15 Urine Blood Trace (Negative) H 04/20/22 12:15 Urine Nitrate Negative (Negative) 04/20/22 12:15 Urine Bilirubin Neg (Negative) 04/20/22 12:15 Urine Urobilinogen 1 mg/dL (Negative) H 04/20/22 12:15 Ur Leukocyte Esterase Negative (Negative) 04/20/22 12:15 Urine RBC 0-4 /hpf (0-2) H 04/20/22 12:15 Urine WBC 0-4 /hpf (0-5) H 04/20/22 12:15 Ur Squamous Epith Cells 0-4 /hpf (0-5) H 04/20/22 12:15 Amorphous Sediment Not Reportable 04/20/22 12:15 Urine Bacteria None /hpf (NONE) 04/20/22 12:15 Urine Mucus Trace /hpf 04/20/22 12:15 Salicylates < 0.3 mg/dL (3-10) L 04/20/22 11:55 Urine Opiates Screen Negative ng/mL (Negative) 04/20/22 12:15 Acetaminophen < 5.0 ug/mL (10-30) L 04/20/22 11:55 Ur Barbiturates Screen Negative ng/mL (Negative) 04/20/22 12:15 Ur Phencyclidine Scrn Negative ng/mL (Negative) 04/20/22 12:15 Ur Amphetamines Screen Negative ng/mL (Negative) 04/20/22 12:15 U Benzodiazepines Scrn Negative ng/mL (Negative) 04/20/22 12:15 Urine Cocaine Screen Negative ng/mL (Negative) 04/20/22 12:15 U Marijuana (THC) Screen Negative ng/mL (Negative) 04/20/22 12:15 Ethyl Alcohol < 10 mg/dL (0-10) 04/20/22 11:55 Influenza Type A Ag negative (Negative) 04/20/22 11:49 Influenza Type B Ag negative (Negative) 04/20/22 11:49 SARS-CoV-2 Ag (Rapid) negative (Negative) 04/20/22 11:49 Discharge Plan Discharge Patient Disposition: Admitted As Inpatient Admit Provider: Maximiliano Jack Clinical Impression: Suicidal ideation, Depression Condition: Stable Discharge Diet: Regular Discharge Activity: Resume usual activity Coding Level of Care Code ED Adult Remedial Education Instructor for Roseann Richard
[2022-04-20] MEDS: LORazepam 0.5 mg Tablet PO (11:56)
[2022-04-20 12:11] LABS: Basophils # 0.2 10^3/uL (0.0-0.1); Eosinophils # 0.4 10^3/uL (0.0-0.8); Eosinophils % 2.4 %; Hemoglobin 13.9 g/dL (11.7-16.6); Lymphocytes # 2.3 10^3/uL (0.8-4.8); Mean Corpuscular HGB Conc 33.1 g/dL (30.0-36.0); Mean Corpuscular Hemoglobin 28.1 pg (28.0-34.0); Mean Corpuscular Volume 84.8 fl (80-94); Mean Platelet Volume 8.4 fL (7.4-10.4); Monocytes # 1.1 10^3/uL (0.2-0.9); Monocytes % 7.2 %; Neutrophils # 11.13 10^3/uL (1.8-7.7); Neutrophils % 73.9 %; Nucleated Red Blood Cells % 0 %; Platelet Count 436 10^3/cmm (130-400); Red Blood Count 4.95 10^6/uL (4.1-5.3); Red Cell Distribution Width 13.7 % (12.1-15.1); White Blood Count 15.1 10^3/uL (4.0-10.0)
[2022-04-20 12:35] LABS: Alanine Aminotransferase 17 U/L (0-41); Albumin Level 4.6 g/dL (3.5-5.2); Alkaline Phosphatase 129 U/L (40-130); Anion Gap 15.5 (5-19); Aspartate Amino Transferase 15 U/L (0-40); Blood Urea Nitrogen 11 mg/dL (6-20); Calcium 9.3 mg/dL (8.5-10.5); Carbon Dioxide 26 mmol/L (22-29); Chloride 99 mmol/L (98-107); Globulin 2.9 g/dL (1.3-4.6); Glomerular Filtration Rate 100.4 mL/min (90-130); Glucose 109 mg/dL (65-115); Osmolality Calculated 282 mOsm/kg (285-295); Potassium 4.5 mmol/L (3.5-5.1); Sodium 136 mmol/L (136-145); Thyroid Stimulating Hormone 1.68 uIU/mL (0.27-4.20); Total Bilirubin 0.2 mg/dL (0.15-1.2); Total Protein 7.5 g/dL (6.6-8.7)
--- NOTE | 2022-04-20 12:35 | ECG_ITS ---
[facility] Test Date: 2022-04-20 Pat Name: Chriss Akers Department: Room: Gender: Male Storeperson: : 1965 Requested By: Allan Howard Order Number: [id number] Dey MD: Macario Wang M.D. Measurements Intervals [place] Rate: 55 P: 45 HI: 198 QRS: 62 QRSD: 97 T: 55 QT: 405 QTc: 390 Interpretive Statements SINUS BRADYCARDIA Compared to ECG 09/23/2021 01:01:26 Sinus rhythm no longer present Electronically Signed On 04-20-2022 18:09:03 CHINESE HERBALIST by Macario Wang M.D. [id number]
[2022-04-20 12:36] LABS: Acetaminophen < 5.0 ug/mL (10-30); Alcohol Level < 10 mg/dL (0-10); Salicylate < 0.3 mg/dL (3-10)
[2022-04-20 12:51] LABS: Amphetamines Screen Urine Negative (Negative); Barbiturates Screen Urine Negative (Negative); Benzodiazepines Screen Urine Negative (Negative); Cocaine Screen Urine Negative (Negative); Opiate Screen Urine Negative (Negative); PCP Screen Urine Negative (Negative); THC Screen Urine Negative (Negative)
[2022-04-20 13:02] LABS: Influenza A by IFA negative (Negative); Influenza B by IFA negative (Negative); SARS Covid-2 Antigen negative (Negative)
[2022-04-20 13:08] LABS: Add Urine Microscopic? YES; Bilirubin Urine Neg (Negative); Blood Urine Trace (Negative); Glucose Urine UA Norm (Normal); Ketones Urine Negative (Negative); Leukocyte Esterase Urine Negative (Negative); Nitrate Urine Negative (Negative); Protein Urine Neg (Negative); Specific Gravity, Urine 1.015 (1.005-1.030); Urine Appearance Clear (CLEAR); Urine Color Yellow (Yellow); Urobilinogen Urine 1 mg/dL (Negative); pH Urine 6 (5-7)
[2022-04-20 13:09] LABS: Mucus Urine TRACE /hpf; RBC Urine 0-4 /hpf (0-2); Squamous Epithelial Cell Urine 0-4 /hpf (0-5); WBC Urine 0-4 /hpf (0-5)
[2022-04-20 13:10] LABS: Add Urine Culture? No
[2022-04-20] MEDS: LORazepam 1 mg Tablet PO (14:43)
[2022-04-20] MEDS: nicotine 4 mg lozenge MUCOUS MEM ×2 (17:21→21:43)
[2022-04-20] MEDS: ibuprofen 600 mg Tablet PO (18:28)
[2022-04-20] MEDS: risperiDONE 1 mg Tablet 1.5 MG PO (18:28)
[2022-04-20] MEDS: apixaban 5 mg Tablet PO (18:28)
[2022-04-20] MEDS: benztropine 1 mg Tablet 0.5 MG PO (20:30)
[2022-04-20] MEDS: propranolol 20 mg Tablet PO (20:31)
[2022-04-20] MEDS: prazosin 1 mg Capsule 2 MG PO (20:31)
[2022-04-20] MEDS: trazodone 50 mg Tablet PO ×2 (20:31→21:43)
[2022-04-20] MEDS: albuterol 2.5 mg/3 mL Neb NEBULIZER (20:50)
[2022-04-20] MEDS: budesonide 0.5 mg/2 mL Neb INHALATION (20:51)
[2022-04-20] MEDS: cetylpyridinium Lozenge 1 EACH MUCOUS MEM (21:20)
[2022-04-21] VITALS (7 sets, daily range): BP systolic 119–144; BP diastolic 70–83; PULSE 61–75; RESP 18–20; TEMP 36.4–36.7; O2SAT 93–97
[2022-04-21] MEDS: nicotine 4 mg lozenge MUCOUS MEM ×7 (01:04→20:50)
--- NOTE | 2022-04-21 02:48 | PC.NURSE ---
at approximately 0100, pt woke up and attempted leave the unit, it appeared as if the he was sleep walking, RN discussed with pt it was early in the morning, he was calm and cooperative, and returned to sleep, no distress noted. charge nurse notified.
[2022-04-21] MEDS: benztropine 1 mg Tablet 0.5 MG PO ×3 (06:49→20:41)
[2022-04-21] MEDS: buPROPion XL (24 HR) 300 mg Tablet PO ×2 (06:50→07:56)
[2022-04-21] MEDS: risperiDONE 1 mg Tablet 1.5 MG PO ×2 (07:56→17:08)
[2022-04-21] MEDS: pantoprazole DR 40 mg Tablet PO (07:58)
[2022-04-21] MEDS: apixaban 5 mg Tablet PO ×2 (07:58→17:09)
[2022-04-21] MEDS: cetylpyridinium Lozenge 1 EACH MUCOUS MEM (07:58)
[2022-04-21] MEDS: atorvastatin 40 mg Tablet PO (07:59)
[2022-04-21] MEDS: polyethylene glycol 3350 Pkt 17 gm PO (08:00)
[2022-04-21] MEDS: propranolol 20 mg Tablet PO ×3 (08:00→20:42)
--- NOTE | 2022-04-21 08:10 | PC.NURSE ---
Alert and aware of surroundings. Denies SI/HI, AVH. Request medication early this morning. Meds given except Suboxone. No c/o pain or discomfort.
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
[2022-04-21] MEDS: buprenorphine-naloxone 4-1 mg Film 2 EACH SUBLINGUAL (09:10)
[2022-04-21] MEDS: albuterol 2.5 mg/3 mL Neb NEBULIZER ×3 (10:08→19:58)
[2022-04-21] MEDS: budesonide 0.5 mg/2 mL Neb INHALATION ×2 (10:09→19:38)
--- NOTE | 2022-04-21 10:10 | W.PM.NPUH&PS ---
Providers/Chief Complaint Admitting Physician: Maximiliano Jack MD Primary Care Provider: Lew Guzman MD Chief Complaint: SI HPI NPU History of Present Illness Chriss Akers is a 57 year old male who presented to the emergency department with the following report: Chief Complaint: Psychiatric Symptoms Stated Complaint: SI Time Seen by Provider: 04/20/22 11:20 History of Present Illness: Mr. Akers is a 57-year-old gentleman with remote history of substance abuse, history of PE on anticoagulation, COPD, possibly schizoaffective disorder presented to the emergency department for suicidal ideation with a plan. He does have a history of depression and has been on medications however over the past few days reports that they do not seem to help. He feels depressed and increasingly hopeless. He walked downstairs earlier and saw a rope and thought of hanging himself. He does have a history of suicide attempt by hanging. Overall course of symptoms has worsened. Intensity is moderate to severe. He notes hopelessness and anxiety. No other specific changes in health, exacerbating, or alleviating factors identified. Onset (ago): day(s) Duration: getting worse History of same: Yes Relieving factors: none Exacerbating factors: none Associated psychiatric symptoms: depression and suicidal ideation If self harm: admits thoughts of self harm and has plan. He was admitted to the neuropsychiatric unit for definitive treatment of those issues. He presents today much like he did the last hospitalization reporting fairly mundane issues being problematic. He is currently staying at [facility] and reports that things are okay there. He reports that he has some guys there that he can hang out with that are nice. And he gets along with other people. He reports that he feels like he is being easily stressed and overwhelmed. Reports is been impacted from losses that he has had. He reports that he is looking for employment but has not been successful. He reports that he was on his way to what he thought was a job he was getting only to be told that he did not even have an interview like he had believed. He reports that that really sent him reeling and he started getting caught up in his negative thoughts. He reports that he has been doing well from the standpoint of his recovery and that that has not been an issue. We discussed the risk benefits and alternatives of increasing his BuSpar to 10 mg p.o. 3 times daily and he understood and agreed to proceed as is documented in this note. We also discussed the possibility of increasing his Risperdal prior to discharge. An excerpt of his last inpatient note is included below for context and history. Per his 09/24/2021 [facility] inpatient psychiatric evaluation: History of Present Illness Chriss Akers is a 56 year old male who presented to the emergency department with the following report: Stated complaint: same reason Time Seen by Provider: 09/22/21 17:33 History of Present Illness:?? Patient is a 56-year-old male with a history of former meth use, chronic hypoxemia on 3 L oxygen presenting to the emergency room for concerns of hypoxemia.? Earlier patient was seen evaluated emergency room was diagnosed with possible nonocclusive pulmonary embolism.? In addition, patient was found to have leukocytosis with no prior for comparison.? Patient decided to go home so he could have a smoke.? Patient's chose to sign out AMA earlier today and decided come back to the emergency room. Onset:unknown Duration:ongoing Location:home Severity:moderate Associated symptoms: Deny chest pain, dyspnea, nausea, rash, palpitations or vomiting. He reports that he presents secondary to breathing issues and suicidal ideation. He reports he just recently left the group home which he was in 3 times for 10 years each. He reports he has been psychiatrically hospitalized a few times and denies receiving outpatient services. He reports a pack of cigarettes a day, denies alcohol, reports marijuana occasionally, endorses methamphetamine and denies any other illicit drug use. He has never been to a rehab and received a DUI in 1998. He reports he was at [facility] when he started having issues with his breathing and increased suicidal ideation which is how he presents today. He reports he wants to leave as he feels information is being kept from him in regards to his health and what is going on. We discussed at length about addressing his medical issues and the safety concern that is presented given he is expressing suicidal ideation recently given there has been no change in his health conditions since he was admitted. 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 Psychiatric History: As above. Substance Abuse History: As above Family History: He denies mental health issues on either side of the family, addiction issues on his father?s side of the family and a suicide completion from his mother?s side of the family. Developmental History: He denies any issues with his or , learned to walk and talk and met his developmental standards on time, and denies any need for speech therapy, learning support, emotional support or special education classes. Psychosocial History: He reports his parents were together when he was born and remained together. He has 2 sisters and 2 brothers who are products of the same union. He described his childhood as great and denies any emotional, physical or sexual abuse. He reports truancy issues and was put in placement. He denies any other traumatic events. The highest grade he achieved was 11 th and he got his GED. He endorses being heterosexual with his longest relationship being 6 to 7 years. He has been once and , has 4 biological children, has never been in the and endorses being a jewish. He currently lives at [facility]. Legal History: He reports he has been in half-way 10 times and group home 3 times at least. Medical History: Please see treatment team note for full details. Meds NPU Home Medications Medication Instructions Recorded Confirmed Last Taken Type diclofenac sodium 1 % topical gel 2 - 4 g topical BID PRN Pain 09/22/21 04/20/22 Unknown History atorvastatin 40 mg tablet (Lipitor) 40 mg PO DAILY #90 tabs 12/14/21 04/20/22 04/19/22 Rx apixaban 5 mg tablet (Eliquis) 5 mg PO BID #180 tabs 12/25/21 04/20/22 04/20/22 Rx budesonide-formoterol HFA 80 2 puff inhalation BID #10.2 grams 01/25/22 04/20/22 04/20/22 Rx mcg-4.5 mcg/actuation aerosol inhaler (Symbicort) nicotine (polacrilex) 4 mg buccal 16 mg PO PRN #108 ea 02/12/22 04/20/22 Unknown Rx lozenge risperidone 1 mg tablet 1.5 mg PO BID 30 days #90 tabs 02/12/22 04/20/22 04/20/22 Rx hydroxyzine HCl 25 mg tablet 25 mg PO Q6H PRN Anxiety #60 tabs 02/24/22 04/20/22 Unknown Rx ibuprofen 600 mg tablet 600 mg PO Q8H PRN pain #30 tabs 03/11/22 04/20/22 Unknown Rx albuterol sulfate 90 mcg/actuation 2 puff inhalation .Q4-6H PRN copd 03/26/22 04/20/22 Unknown Rx aerosol inhaler (ProAir HFA) #8.5 grams benztropine 1 mg tablet 0.5 mg PO BID@06,21 #60 tabs 04/05/22 04/20/22 04/20/22 Rx buprenorphine 8 mg-naloxone 2 mg 1 tab sublingual DAILY #30 tabs 04/05/22 04/20/22 04/20/22 Rx sublingual tablet buspirone 7.5 mg tablet 7.5 mg PO BID #60 tabs 04/05/22 04/20/22 04/20/22 Rx prazosin 2 mg capsule 2 mg PO BEDTIME@21 #30 caps 04/05/22 04/20/22 04/19/22 Rx bupropion HCl 300 mg 24 hr tablet, 300 mg PO QAM #30 tabs 04/14/22 04/20/22 04/20/22 Rx extended release (Wellbutrin XL) omeprazole 40 mg capsule,delayed 40 mg PO DAILY 04/20/22 04/20/22 04/20/22 History release polyethylene glycol 3350 17 gram 17 g PO TID PRN Constipation 04/20/22 04/20/22 Unknown History oral powder packet (Miralax) propranolol 20 mg tablet 20 mg PO TID 04/20/22 04/20/22 04/20/22 History Allergies Allergy/AdvReac Type Severity Reaction Status Date / Time No Known Allergies Allergy Verified 04/12/22 10:17 PFS NPU PFSH: Medical History Bipolar disorder Cervicalgia Chronic recurrent major depressive disorder Heroin use disorder, severe, in early remission History of antisocial personality disorder Hypertension Hypertriglyceridemia Hypoxemia Insomnia Methamphetamine abuse Methamphetamine use disorder, moderate, in early remission Night terror Pain in a tooth or teeth Psychiatric care Pulmonary embolism Schizoaffective disorder, depressive type Tobacco use disorder Tooth abscess Surgical History History of knee replacement procedure of right knee History of umbilical hernia repair Family History Father CAD (coronary artery disease) Cancer stomach Stroke Mother Cancer lung Diabetes Denies family history of Clotting disorder Dementia Hyperlipidemia Chronic kidney disease (CKD) Anesthesia complication Bleeding disorder Lung disease Hypertension Social History Smoking and tobacco status: current some day smoker (vape, attempting to quit cigarettes) cigarettes [ Other cigarette details: 1PPD x 40yrs. 40PY, 1/4 PPD as of 02/02] and e-cigarettes E-Cigarette Details: vaporizer device Quit status (tobacco): has tried quititng Alcohol intake: former Desire information about alcohol rehabilitation?: No Counseling given: No Desire information about substance/drug rehabilitation?: No Counseling given: No Adopted: No Caregiver/support person: No Lives independently: Yes Household members: none Marital status: Single service: No Current occupational status: disabled History of recent travel: No Current gender identity: Male Special zhang needs: No Agree to transfusion: Yes Mental Status Exam MSE Comments: This is an overweight older white male looking older than his stated age in hospital scrubs with adequate grooming and eye contact. No abnormal movements except for mild psychomotor retardation. Cooperative with exam in no acute distress. Speech was decreased rate and volume. Mood described as depressed and overwhelmed, affect is congruent. Thought process, organized. Thought content: patient denies current suicidal or homicidal ideation, endorses paranoia but no delusions noted, and endorses auditory and visual hallucinations, but did not appear to be attending to internal stimuli. Attention and concentration are intact and memory appeared mostly reliable but none were formally tested. He is alert and oriented three times. Insight and judgment are limited. Impulse control is limited. Vitals/I&O/Wt Last Vital Signs Temp 97.5 F L 04/21/22 06:00 Pulse 75 04/21/22 10:09 Resp 18 04/21/22 10:09 BP 128/83 04/21/22 06:00 Pulse Ox 96 04/21/22 10:09 O2 Del Method 04/21/22 10:09 Weight last 48 hrs Weight 90.718 kg Data NPU 04/20/22 11:55 04/20/22 11:55 A&P Assessment and plan (1) Compression fracture: (2) Lytic bone lesion of hip: (3) Hypoxemia: (4) Pulmonary embolism: (5) Leukocytosis: (6) Substance use disorder: (7) Hypoxemia: (8) Pulmonary embolism: (9) Methamphetamine use disorder, severe: (10) Adjustment disorder with mixed disturbance of emotions and conduct: (11) Depression: Plan This is a 57-year-old white male with a long history of addiction, institutionalization and recent suicidality recent inpatient hospitalization and recent rehab stint but currently struggling with psychosocial stressors. 1. Continue current medication. Increased BuSpar to 10 mg p.o. 3 times daily and consider increasing Risperdal. 2. Encourage, group and milieu therapies. 3. Continue every 15 minute checks for safety. 4. Encourage sober living treatment after discharge at the highest level of care to which he is willing to commit. Involuntary Hold Information 96 Hour Hold: 96 Hour Involuntary Admission: No Attestations NPU Medical Necessity Statement*: Inpatient hospitalization is medically necessary and the clinically appropriate intervention at this time. We will monitor medication to make changes as indicated. Patient will be in the hospital for over two midnights. Likely length of stay 3 to 5 days. Coding Level of Care Code Acute Code for [facility] Diagnoses Compression fracture Lytic bone lesion of hip M89.8X5 Hypoxemia R09.02 Pulmonary embolism I26.99 Leukocytosis D72.829 Substance use disorder F19.90 Hypoxemia R09.02 Pulmonary embolism I26.99 Methamphetamine use disorder, severe F15.20 Adjustment disorder with mixed disturbance of emotions and conduct F43.25 Depression F32.A
[2022-04-21] MEDS: pneumococcal (23 valent) SDV 0.5 mL IM (13:46)
[2022-04-21] MEDS: acetaminophen 325 mg Tablet 650 MG PO ×2 (16:07→20:42)
[2022-04-21] MEDS: BuSPIRONE 10 mg Tablet PO (17:09)
[2022-04-21] MEDS: prazosin 1 mg Capsule 2 MG PO (20:42)
[2022-04-21] MEDS: trazodone 50 mg Tablet PO ×2 (21:04→22:21)
[2022-04-22] MEDS: cetylpyridinium Lozenge 1 EACH MUCOUS MEM ×3 (01:26→20:32)
[2022-04-22] MEDS: buprenorphine-naloxone 4-1 mg Film 2 EACH SUBLINGUAL (08:38)
[2022-04-22] MEDS: pantoprazole DR 40 mg Tablet PO (08:39)
[2022-04-22] MEDS: BuSPIRONE 10 mg Tablet PO ×3 (08:39→20:34)
[2022-04-22] MEDS: risperiDONE 1 mg Tablet 1.5 MG PO (08:39)
[2022-04-22] MEDS: atorvastatin 40 mg Tablet PO (08:39)
[2022-04-22] MEDS: buPROPion XL (24 HR) 300 mg Tablet PO (08:39)
[2022-04-22] MEDS: benztropine 1 mg Tablet 0.5 MG PO ×2 (08:39→20:32)
[2022-04-22] MEDS: propranolol 20 mg Tablet PO ×3 (08:39→20:33)
[2022-04-22] MEDS: apixaban 5 mg Tablet PO ×2 (08:39→17:38)
[2022-04-22] MEDS: budesonide 0.5 mg/2 mL Neb INHALATION ×2 (08:52→19:42)
[2022-04-22] MEDS: albuterol 2.5 mg/3 mL Neb NEBULIZER ×3 (08:52→19:42)
[2022-04-22 08:54] VITALS: PULSE 74; RESP 18; O2SAT 94
[2022-04-22] MEDS: hyDROXYzine 25 mg Capsule 50 MG PO (09:09)
[2022-04-22] MEDS: OLANZapine 5 mg ODT PO (09:09)
[2022-04-22] MEDS: nicotine 4 mg lozenge MUCOUS MEM ×5 (09:18→21:10)
[2022-04-22 11:50] VITALS: PULSE 72; RESP 18; O2SAT 91
[2022-04-22 14:00] VITALS: BP 109/72; PULSE 63; RESP 18; TEMP 36.6; O2SAT 92
--- NOTE | 2022-04-22 15:19 | W.PM.NPUPNS ---
Subjective NPU Subjective: Patient presented today reporting that he was having depression and was just up and down. He cannot really articulate whether this was in essence mood swings or whether he felt it was depression. He had been alluding to leaving yesterday but that thinking appears to be fleeting. We discussed the risk benefits and alternatives of increasing his Risperdal to 2 mg p.o. twice daily, continuing his BuSpar to 10 mg p.o. 3 times daily and increasing his Wellbutrin to 450 mg p.o. every morning and he understood and agreed to proceed as is documented in this note. Mental Status Exam MSE Comments: This is an overweight older white male looking older than his stated age in hospital scrubs with adequate grooming and eye contact. No abnormal movements except for mild psychomotor retardation. Cooperative with exam in no acute distress. Speech was decreased rate and volume. Mood described as depressed, affect is euthymic. Thought process, organized. Thought content: patient denies current suicidal or homicidal ideation, endorses paranoia but no delusions noted, and endorses auditory and visual hallucinations, but did not appear to be attending to internal stimuli. Attention and concentration are intact and memory appeared mostly reliable but none were formally tested. He is alert and oriented three times. Insight and judgment are limited. Impulse control is limited. Vitals/I&O/Wt Last Vital Signs Temp 98 F 04/22/22 14:00 Pulse 63 04/22/22 14:00 Resp 18 04/22/22 14:00 BP 109/72 04/22/22 14:00 Pulse Ox 92 04/22/22 14:00 O2 Del Method 04/22/22 14:00 Data NPU 04/20/22 11:55 04/20/22 11:55 A&P Assessment and plan (1) Compression fracture: (2) Lytic bone lesion of hip: (3) Hypoxemia: (4) Pulmonary embolism: (5) Leukocytosis: (6) Substance use disorder: (7) Hypoxemia: (8) Pulmonary embolism: (9) Methamphetamine use disorder, severe: (10) Adjustment disorder with mixed disturbance of emotions and conduct: (11) Depression: Plan This is a 57-year-old white male with a long history of addiction, institutionalization and recent suicidality recent inpatient hospitalization and recent rehab stint but currently struggling with psychosocial stressors. 1. Continue current medication. Increased BuSpar to 10 mg p.o. 3 times daily, increase Wellbutrin XL to 450 mg p.o. daily and increase Risperdal to 2 mg p.o. twice daily. 2. Encourage, group and milieu therapies. 3. Continue every 15 minute checks for safety. 4. Encourage sober living treatment after discharge at the highest level of care to which he is willing to commit. 5. Some concerns for malingering versus cognitive limitations/intellectual disability. Involuntary Hold Information 96 Hour Hold: 96 Hour Involuntary Admission: No Attestations NPU Medical Necessity Statement*: Inpatient hospitalization is medically necessary and the clinically appropriate intervention at this time. We will monitor medication to make changes as indicated. Likely length of stay 2-4 days. Coding Level of Care Code [facility] Diagnoses Compression fracture Lytic bone lesion of hip M89.8X5 Hypoxemia R09.02 Pulmonary embolism I26.99 Leukocytosis D72.829 Substance use disorder F19.90 Hypoxemia R09.02 Pulmonary embolism I26.99 Methamphetamine use disorder, severe F15.20 Adjustment disorder with mixed disturbance of emotions and conduct F43.25 Depression F32.A
[2022-04-22] MEDS: risperiDONE 1 mg Tablet 2 MG PO (17:38)
[2022-04-22] MEDS: magnesium hydroxide 30 mL UDC PO (18:24)
[2022-04-22 19:44] VITALS: PULSE 60; RESP 16; O2SAT 95
[2022-04-22] MEDS: trazodone 50 mg Tablet PO (20:32)
[2022-04-22] MEDS: prazosin 1 mg Capsule 2 MG PO (20:33)
[2022-04-22 21:29] VITALS: BP 108/64; PULSE 64; RESP 18; TEMP 36.6; O2SAT 94
[2022-04-23] MEDS: nicotine 4 mg lozenge MUCOUS MEM ×4 (05:25→13:18)
[2022-04-23 06:00] VITALS: BP 130/79; PULSE 62; RESP 18; TEMP 36.8; O2SAT 96
[2022-04-23] MEDS: guaiFENesin-dextromethorphan UDC 10 mL PO (06:49)
[2022-04-23] MEDS: risperiDONE 1 mg Tablet 2 MG PO (08:30)
--- NOTE | 2022-04-23 08:30 | PC.NURSE ---
Pt receiving Eliquis. Discussed importance of monitoring for unusual bruising and bleeding. Pt reports he's noticed sometimes things take longer to stop bleeding. Pt encouraged to monitor this and report it to his physician. Pt verbalized his understanding.
[2022-04-23] MEDS: propranolol 20 mg Tablet PO ×2 (08:31→14:48)
[2022-04-23] MEDS: buPROPion XL (24 HR) 150 mg Tablet 450 MG PO (08:31)
[2022-04-23] MEDS: pantoprazole DR 40 mg Tablet PO (08:31)
[2022-04-23] MEDS: apixaban 5 mg Tablet PO (08:31)
[2022-04-23] MEDS: atorvastatin 40 mg Tablet PO (08:32)
[2022-04-23] MEDS: benztropine 1 mg Tablet 0.5 MG PO (08:32)
[2022-04-23] MEDS: buprenorphine-naloxone 4-1 mg Film 2 EACH SUBLINGUAL (08:32)
[2022-04-23] MEDS: BuSPIRONE 10 mg Tablet PO ×2 (08:36→14:48)
[2022-04-23] MEDS: budesonide 0.5 mg/2 mL Neb INHALATION (09:53)
[2022-04-23] MEDS: albuterol 2.5 mg/3 mL Neb NEBULIZER ×2 (09:53→11:46)
[2022-04-23 09:56] VITALS: PULSE 62; RESP 18; O2SAT 94
[2022-04-23 11:49] VITALS: PULSE 68; RESP 18; O2SAT 94
[2022-04-23 11:54] VITALS: PULSE 57
[2022-04-23] MEDS: ibuprofen 600 mg Tablet PO (12:28)
--- NOTE | 2022-04-23 13:58 | W.PM.NPUDCS ---
Diagnoses at Discharge Discharge Diagnosis (1) Compression fracture: Status: Acute Permanent problem details: t12 (2) Lytic bone lesion of hip: Status: Resolved (3) Hypoxemia: Status: Resolved (4) Pulmonary embolism: Status: Resolved (5) Leukocytosis: Status: Resolved (6) Substance use disorder: Status: Inactive (7) Hypoxemia: Status: Inactive (8) Pulmonary embolism: Status: Inactive (9) Methamphetamine use disorder, severe: Status: Resolved (10) Adjustment disorder with mixed disturbance of emotions and conduct: Status: Acute (11) Depression: Status: Acute Reason for Visit Reason for Visit: SI Brief History: History of Present Illness Chriss Akers is a 57 year old male who presented to the emergency department with the following report: Chief Complaint: Psychiatric Symptoms Stated Complaint: SI Time Seen by Provider: 04/20/22 11:20 History of Present Illness:?? Mr. Akers is a 57-year-old gentleman with remote history of substance abuse, history of PE on anticoagulation, COPD, possibly schizoaffective disorder presented to the emergency department for suicidal ideation with a plan.? He does have a history of depression and has been on medications however over the past few days reports that they do not seem to help.? He feels depressed and increasingly hopeless.? He walked downstairs earlier and saw a rope and thought of hanging himself.? He does have a history of suicide attempt by hanging.? Overall course of symptoms has worsened.? Intensity is moderate to severe.? He notes hopelessness and anxiety.? No other specific changes in health, exacerbating, or alleviating factors identified. Onset (ago): day(s) Duration: getting worse History of same: Yes Relieving factors: none Exacerbating factors: none Associated psychiatric symptoms: depression and suicidal ideation If self harm: admits thoughts of self harm and has plan. He was admitted to the neuropsychiatric unit for definitive treatment of those issues.? He presents today much like he did the last hospitalization reporting fairly mundane issues being problematic.? He is currently staying at [facility] and reports that things are okay there.? He reports that he has some guys there that he can hang out with that are nice.? And he gets along with other people.? He reports that he feels like he is being easily stressed and overwhelmed.? Reports is been impacted from losses that he has had.? He reports that he is looking for employment but has not been successful.? He reports that he was on his way to what he thought was a job he was getting only to be told that he did not even have an interview like he had believed.? He reports that that really sent him reeling and he started getting caught up in his negative thoughts.? He reports that he has been doing well from the standpoint of his recovery and that that has not been an issue.? We discussed the risk benefits and alternatives of increasing his BuSpar to 10 mg p.o. 3 times daily and he understood and agreed to proceed as is documented in this note.? We also discussed the possibility of increasing his Risperdal prior to discharge.? An excerpt of his last inpatient note is included below for context and history. Per his 09/24/2021 [facility] inpatient psychiatric evaluation: History of Present Illness Chriss Akers is a 56 year old male who presented to the emergency department with the following report: Stated complaint: same reason Time Seen by Provider: 09/22/21 17:33 History of Present Illness:?? Patient is a 56-year-old male with a history of former meth use, chronic hypoxemia on 3 L oxygen presenting to the emergency room for concerns of hypoxemia.? Earlier patient was seen evaluated emergency room was diagnosed with possible nonocclusive pulmonary embolism.? In addition, patient was found to have leukocytosis with no prior for comparison.? Patient decided to go home so he could have a smoke.? Patient's chose to sign out AMA earlier today and decided come back to the emergency room. Onset:unknown Duration:ongoing Location:home Severity:moderate Associated symptoms: Deny chest pain, dyspnea, nausea, rash, palpitations or vomiting. He reports that he presents secondary to breathing issues and suicidal ideation. He reports he just recently [facility] the [facility] which [facility] in [facility] times for 10 years each. He reports he has been psychiatrically hospitalized a few times and denies receiving outpatient services. He reports a pack of cigarettes a day, denies alcohol, reports marijuana occasionally, endorses methamphetamine and denies any other illicit drug use. He has never been to a rehab and received a DUI in 1998. He reports he was at [facility] when he started having issues with his breathing and increased suicidal ideation which is how he presents today. He reports he wants to leave as he feels information is being kept from him in regards to his health and what is going on. We discussed at length about addressing his medical issues and the safety concern that is presented given he is expressing suicidal ideation recently given there has been no change in his health conditions since he was admitted. He reports he has not been on suboxone pen[facility] and had an opiate use problem when he was younger. Psychiatric History: As above. Substance Abuse History: As above Family History: He denies mental health issues on either side of the family, addiction issues on his father?s side of the family and a suicide completion from his mother?s side of the family. Developmental History: He denies any issues with his or , learned to walk and talk and met his developmental standards on time, and denies any need for speech therapy, learning support, emotional support or special education classes. Psychosocial History: He reports his parents were together when he was born and remained together. He has 2 sisters and 2 brothers who are products of the same union. He described his childhood as great and denies any emotional, physical or sexual abuse. He reports truancy issues and was put in placement. He denies any other traumatic events. The highest grade he achieved was 11 th and he got his GED. He endorses being heterosexual with his longest relationship being 6 to 7 years. He has been once and , has 4 biological children, has never been in the and endorses being a anglican. He currently lives at [facility]. Legal History: He reports he has been in [facility] 10 times and [facility] 3 times at least. Medical History: Please see treatment team note for full details. Hospital Course Hospital Course He quickly acclimated to the individual, group and milieu therapies provided.? He reported having a setback that kind of led to him taking a step back. We increased his medications, specifically increasing BuSpar to 10 mg p.o. 3 times daily, Wellbutrin XL to 450 mg p.o. every morning and Risperdal to 2 mg p.o. twice daily. He had modest improvement and was able to contract for safety outside of the hospital prior to discharge.? During the hospitalization, patient had routine laboratory studies which were within normal limits except for few outliers.? Additionally there was a general medical evaluation which was also within normal limits and revealed no new acute processes. Discharge Summary: At the time of discharge, patient denied psychosis or lethality.? Mood and anxiety were well managed.? Patient endorsed a plan to avoid all drugs of abuse and follow-up with the aftercare recommendations of the treatment team.? Patient was evaluated and deemed to be absent credible lethality, and had achieved the maximum benefit from an inpatient hospitalization, so was discharged. Involuntary Hold Information 96 Hour Hold: 96 Hour Involuntary Admission: No Mental Status Exam MSE Comments: This is an overweight older white male looking older than his stated age in hospital scrubs with adequate grooming and eye contact. No abnormal movements except for mild psychomotor retardation. Cooperative with exam in no acute distress. Speech was more normal rate and volume. Mood described as better, affect is euthymic. Thought process, organized. Thought content: patient denies current suicidal or homicidal ideation, endorses being paranoia but no delusions noted, and denied auditory and visual hallucinations, and did not appear to be attending to internal stimuli. Attention and concentration are intact and memory appeared mostly reliable but none were formally tested. He is alert and oriented three times. Insight and judgment are limited, but improving. Impulse control is limited. Discharge Data Studies Completed and Pending: Laboratory Results WBC 15.1 10^3/uL (4.0 -10.0) H 04/20/22 11:55 RBC 4.95 10^6/uL (4.1 -5.3) 04/20/22 11:55 Hgb 13.9 g/dL (11.7-1 6.6) 04/20/22 11:55 Hct 42.0 % (42.0-52.0 ) 04/20/22 11:55 MCV 84.8 fl (80-94) 04/20/22 11:55 MCH 28.1 pg (28.0-34. 0) 04/20/22 11:55 MCHC 33.1 g/dL (30.0-3 6.0) 04/20/22 11:55 RDW 13.7 % (12.1-15.1 ) 04/20/22 11:55 Plt Count 436 10^3/cmm (130 -400) H 04/20/22 11:55 MPV 8.4 fL (7.4-10.4) 04/20/22 11:55 Neut % (Auto) 73.9 % 04/20/22 11:55 Lymph % (Auto) 15.0 % 04/20/22 11:55 Geary % (Auto) 7.2 % 04/20/22 11:55 Eos % (Auto) 2.4 % 04/20/22 11:55 Baso % (Auto) 1.0 % 04/20/22 11:55 Neut # (Auto) 11.13 10^3/uL (1. 8-7.7) H 04/20/22 11:55 Lymph # (Auto) 2.3 10^3/uL (0.8- 4.8) 04/20/22 11:55 Geary # (Auto) 1.1 10^3/uL (0.2- 0.9) H 04/20/22 11:55 Eos # (Auto) 0.4 10^3/uL (0.0- 0.8) 04/20/22 11:55 Baso # (Auto) 0.2 10^3/uL (0.0- 0.1) H 04/20/22 11:55 Nucleated RBC % (a uto) 0 % 04/20/22 11:55 Nucleated RBCs # 0.0 /100WBC 04/20/22 11:55 Sodium 136 mmol/L (136-1 45) 04/20/22 11:55 Potassium 4.5 mmol/L (3.5-5 .1) 04/20/22 11:55 Chloride 99 mmol/L (98-107 ) 04/20/22 11:55 Carbon Dioxide 26 mmol/L (22-29) 04/20/22 11:55 Anion Gap 15.5 (5-19) 04/20/22 11:55 BUN 11 mg/dL (6-20) 04/20/22 11:55 Creatinine 0.8 mg/dL (0.7-1. 2) 04/20/22 11:55 GFR Calculation 100.4 mL/min (90- 130) 04/20/22 11:55 Glucose 109 mg/dL (65-115 ) 04/20/22 11:55 Calculated Osmolal ity 282 mOsm/kg (285- 295) L 04/20/22 11:55 Calcium 9.3 mg/dL (8.5-10 .5) 04/20/22 11:55 Total Bilirubin 0.2 mg/dL (0.15-1 .2) 04/20/22 11:55 AST 15 U/L (0-40) 04/20/22 11:55 ALT 17 U/L (0-41) 04/20/22 11:55 Alkaline Phosphata se 129 U/L (40-130) 04/20/22 11:55 Total Protein 7.5 g/dL (6.6-8.7 ) 04/20/22 11:55 Albumin 4.6 g/dL (3.5-5.2 ) 04/20/22 11:55 Globulin 2.9 g/dL (1.3-4.6 ) 04/20/22 11:55 TSH 1.68 uIU/mL (0.27 -4.20) 04/20/22 11:55 Urine Color Yellow (Yellow) 04/20/22 12:15 Urine Appearance Clear (CLEAR) 04/20/22 12:15 Urine pH 6 (5-7) 04/20/22 12:15 Ur Specific Gravit y 1.015 (1.005-1.0 30) 04/20/22 12:15 Urine Protein Neg (Negative) 04/20/22 12:15 Urine Glucose (UA) Norm (Normal) 04/20/22 12:15 Urine Ketones Negative (Negati ve) 04/20/22 12:15 Urine Blood Trace (Negative) H 04/20/22 12:15 Urine Nitrate Negative (Negati ve) 04/20/22 12:15 Urine Bilirubin Neg (Negative) 04/20/22 12:15 Urine Urobilinogen 1 mg/dL (Negative ) H 04/20/22 12:15 Ur Leukocyte Angelita ase Negative (Negati ve) 04/20/22 12:15 Urine RBC 0-4 /hpf (0-2) H 04/20/22 12:15 Urine WBC 0-4 /hpf (0-5) H 04/20/22 12:15 Ur Squamous Epith Cells 0-4 /hpf (0-5) H 04/20/22 12:15 Amorphous Sediment Not Reportable 04/20/22 12:15 Urine Bacteria None /hpf (NONE) 04/20/22 12:15 Urine Mucus Trace /hpf 04/20/22 12:15 Salicylates < 0.3 mg/dL (3-10 ) L 04/20/22 11:55 Urine Opiates Scre en Negative ng/mL (N egative) 04/20/22 12:15 Acetaminophen < 5.0 ug/mL (10-3 0) L 04/20/22 11:55 Ur Barbiturates Sc reen Negative ng/mL (N egative) 04/20/22 12:15 Ur Phencyclidine S crn Negative ng/mL (N egative) 04/20/22 12:15 Ur Amphetamines Sc reen Negative ng/mL (N egative) 04/20/22 12:15 U Benzodiazepines Scrn Negative ng/mL (N egative) 04/20/22 12:15 Urine Cocaine Scre en Negative ng/mL (N egative) 04/20/22 12:15 U Marijuana (THC) Screen Negative ng/mL (N egative) 04/20/22 12:15 Ethyl Alcohol < 10 mg/dL (0-10) 04/20/22 11:55 Influenza Type A A g negative (Negati ve) 04/20/22 11:49 Influenza Type B A g negative (Negati ve) 04/20/22 11:49 SARS-CoV-2 Ag (Rap id) negative (Negati ve) 04/20/22 11:49 Vitals: Last Vital Signs Temp 98.3 F 04/23/22 06:00 Pulse 57 L 04/23/22 11:54 Resp 18 04/23/22 11:49 BP 130/79 04/23/22 06:00 Pulse Ox 94 04/23/22 11:49 O2 Del Method 04/23/22 11:49 Discharge Plan Discharge Patient Disposition: Home Condition: Stable Prescriptions: New bupropion HCl 150 mg Tablet Extended Release 24 Hr 450 mg PO DAILY@08 30 Days Qty: 90 1RF buspirone 10 mg Tablet 10 mg PO TID 30 Days Qty: 90 1RF risperidone 1 mg Tablet 2 mg PO BID 30 Days Qty: 120 1RF trazodone 50 mg Tablet 50 mg PO BEDTIME PRN (Reason: Sleep) 30 Days Qty: 30 1RF Continued buprenorphine-naloxone 8-2 mg tablet, sublingual 1 tab sublingual DAILY Qty: 30 1RF prazosin 2 mg capsule 2 mg PO BEDTIME@21 Qty: 30 2RF benztropine 1 mg tablet 0.5 mg PO BID@ Qty: 60 2RF ibuprofen 600 mg tablet 600 mg PO Q8H PRN (Reason: pain) Qty: 30 0RF hydroxyzine HCl 25 mg tablet 25 mg PO Q6H PRN (Reason: Anxiety) Qty: 60 1RF atorvastatin [Lipitor] 40 mg tablet 40 mg PO DAILY Qty: 90 1RF Eliquis 5 mg tablet 5 mg PO BID Qty: 180 1RF albuterol sulfate [ProAir HFA] 90 mcg/actuation HFA aerosol inhaler 2 puff INHALATION .Q4-6H PRN (Reason: copd) Qty: 8.5 1RF diclofenac sodium 1 % Gel 2 - 4 g TOPICAL BID PRN (Reason: Pain) Miralax 17 gram powder in packet 17 g PO TID PRN (Reason: Constipation) propranolol 20 mg tablet 20 mg PO TID omeprazole 40 mg Capsule,Delayed Release(Dr/Ec) 40 mg PO DAILY Discontinued buspirone 7.5 mg tablet 7.5 mg PO BID Qty: 60 2RF risperidone 1 mg tablet 1.5 mg PO BID 30 Days Qty: 90 3RF bupropion HCl [Wellbutrin XL] 300 mg tablet extended release 24 hr 300 mg PO QAM Qty: 30 2RF No Action divalproex [Depakote ER] 500 mg tablet extended release 24 hr 500 mg PO .HS Qty: 30 1RF budesonide-formoterol [Symbicort] 80-4.5 mcg/actuation HFA aerosol inhaler See Rx Instructions .ROUTE .COMPLEX Qty: 10.2 2RF Dose Instruction: INHALE 2 PUFFS TWO TIMES A DAY Rx Instructions: INHALE 2 PUFFS TWO TIMES A DAY nicotine (polacrilex) 4 mg lozenge See Rx Instructions .ROUTE .COMPLEX Qty: 144 2RF Dose Instruction: TAKE 4 LOZENGES BY MOUTH NEEDED Rx Instructions: TAKE 4 LOZENGES BY MOUTH NEEDED Discharge Orders: Discharge Order (Routine); Ordered 04/23/22 Ordered By: Maximiliano Jack Referrals: Brandon Costa MD [Physician] - 04/26/22 12:45 pm ( Follow up.) Lew Guzman MD [Primary Care Provider] - 04/28/22 10:45 am (Follow up) Discharge Diet: Regular Discharge Activity: Resume usual activity Patient Instructions: Bipolar Disorder (DC), Opioid Safety Discharge Attestations NPU Time Spent in Discharge Care*: less than 30 min Specific Discharge Activities: Specific discharge activities: educating patient, discussing with case management social worker/social workers/dc planners, documenting/other paperwork and evaluating patient/reviewing data Coding Level of Care Code Acute Chg FW DC note Diagnoses Compression fracture Lytic bone lesion of hip M89.8X5 Hypoxemia R09.02 Pulmonary embolism I26.99 Leukocytosis D72.829 Substance use disorder F19.90 Hypoxemia R09.02 Pulmonary embolism I26.99 Methamphetamine use disorder, severe F15.20 Adjustment disorder with mixed disturbance of emotions and conduct F43.25 Depression F32.A
[2022-04-23 14:00] VITALS: BP 106/67; PULSE 64; RESP 18; TEMP 36.4; O2SAT 95
[2022-04-23 14:31] VITALS: BP 106/67; PULSE 64; RESP 18; TEMP 36.4; O2SAT 95
== END 2022-04-23 14:54 | disposition home or self-care (01) | DRG 885 ==
LOC: ER 15:46 → NP 23:19
PROVIDERS: Physician Assistant; Admitting Provider Psychiatry & Neurology Psychiatry; Emergency Provider Emergency Medicine; PCP Family Medicine; Visit Provider Psychiatry & Neurology Psychiatry
DX: F25.1 Schizoaffective disorder, depressive type (principal); R45.851 Suicidal ideations; Z86.711 Personal history of pulmonary embolism; J44.9 Chronic obstructive pulmonary disease, unspecified; F11.91 Opioid use, unspecified, in remission; F15.10 Other stimulant abuse, uncomplicated; I10 Essential (primary) hypertension; E78.1 Pure hyperglyceridemia; F17.290 Nicotine dependence, other tobacco product, uncomplicated; F43.25 Adjustment disorder with mixed disturbance of emotions and conduct; Z79.01 Long term (current) use of anticoagulants; Z79.51 Long term (current) use of inhaled steroids
CPT/HCPCS: 36415; 80053; 80306; 80307; 81001; 84443; 85025; 87426; 87804; 90471; 90686; 90732; 93005; 94640; 97150; 97165; 99238; 99285; J0573; J7613; J7626

== ENCOUNTER → 2022-04-26 13:34 | Outpatient (BNVA) | payer MEDICAID, SELFPAY | PROVIDERS: PCP Family Medicine; Visit Provider Psychiatry & Neurology Psychiatry | DX: F15.21 Other stimulant dependence, in remission (principal); Z86.59 Personal history of other mental and behavioral disorders; F11.21 Opioid dependence, in remission; F25.1 Schizoaffective disorder, depressive type | CPT/HCPCS: 80307 ==

== ENCOUNTER 2022-05-10 17:04 | Emergency (ER) | payer MEDICAID, SELFPAY ==
[2022-05-10 17:28] VITALS: BP 141/80; PULSE 59; TEMP 37.2; O2SAT 96
--- NOTE | 2022-05-10 17:29 | PC.NURSE ---
pt stated after triage assessment that he has chest pain rating 8/10 that has been for several months.
[2022-05-10 18:29] LABS: Basophils # 0.2 10^3/uL (0.0-0.1); Basophils % 1.2 %; Eosinophils # 0.5 10^3/uL (0.0-0.8); Eosinophils % 3.7 %; Hematocrit 38.2 % (42.0-52.0); Hemoglobin 12.7 g/dL (11.7-16.6); Mean Corpuscular HGB Conc 33.2 g/dL (30.0-36.0); Mean Corpuscular Hemoglobin 28.3 pg (28.0-34.0); Mean Corpuscular Volume 85.3 fl (80-94); Mean Platelet Volume 8.6 fL (7.4-10.4); Neutrophils # 7.81 10^3/uL (1.8-7.7); Neutrophils % 62.7 %; Nucleated Red Blood Cells % 0 %; Platelet Count 448 10^3/cmm (130-400); Red Blood Count 4.48 10^6/uL (4.1-5.3); Red Cell Distribution Width 13.4 % (12.1-15.1); White Blood Count 12.5 10^3/uL (4.0-10.0)
--- NOTE | 2022-05-10 18:37 | W.ED.PSYCHS ---
HPI - Psych General: Chief Complaint: Psychiatric Symptoms Stated Complaint: MHE Time Seen by Provider: 05/10/22 17:57 Source: patient Mode of arrival: ambulatory Limitations: no limitations History of Present Illness: 57-year-old male has a history of schizoaffective disorder he states he has been hearing and seeing some things he states has been taking his meds he denies any suicidal or homicidal ideations. He does not appear to be under the influence currently. He is answering all my questions appropriately. Associated symptoms: Reports auditory hallucinations and visual hallucinations Review of Systems Const: Denies: fever(s), chills, body aches or change in appetite Eyes: Denies: blurry vision or eye discomfort ENMT: Denies: throat pain or dental pain Card: Denies: chest pain Resp: Denies: dyspnea GI: Denies: abdominal pain, nausea, vomiting or diarrhea : Denies: dysuria Musc: Denies: neck pain or back pain Skin/Breast: Denies: rash Neuro: Denies: headache(s) Psych: Reports: paranoia, visual hallucinations and auditory hallucinations Angelo/Lymph: Denies: easy bruising All/Imm: Denies: urticaria PFSH ED PFSH: Medical History Bipolar disorder Cervicalgia Chronic recurrent major depressive disorder Heroin use disorder, severe, in early remission History of antisocial personality disorder Hypertension Hypertriglyceridemia Hypoxemia Insomnia Methamphetamine abuse Methamphetamine use disorder, moderate, in early remission Night terror Pain in a tooth or teeth Psychiatric care Pulmonary embolism Schizoaffective disorder, depressive type Tobacco use disorder Tooth abscess Surgical History History of knee replacement procedure of right knee History of umbilical hernia repair Family History Father CAD (coronary artery disease) Cancer stomach Stroke Mother Cancer lung Diabetes Denies family history of Clotting disorder Dementia Hyperlipidemia Chronic kidney disease (CKD) Anesthesia complication Bleeding disorder Lung disease Hypertension Social History Smoking and tobacco status: current some day smoker (vape, attempting to quit cigarettes) cigarettes [ Other cigarette details: 1PPD x 40yrs. 40PY, 4 PPD as of 04/2022] and e-cigarettes E-Cigarette Details: vaporizer device Quit status (tobacco): has tried quititng Alcohol intake: former Desire information about alcohol rehabilitation?: No Counseling given: No Desire information about substance/drug rehabilitation?: No Counseling given: No Adopted: No Caregiver/support person: No Lives independently: Yes Household members: none Marital status: Single service: No Current occupational status: disabled Current gender identity: Male Special zhang needs: No Agree to transfusion: Yes Physical Exam Const: COMMON NORMALS: no acute distress, patient oriented x3 and healthy appearing HENMT: COMMON NORMALS: normocephalic and atraumatic HEAD & SCALP: normocephalic and atraumatic Eye: COMMON NORMALS: Equal, round and reactive pupils present and EOMs intact bilaterally PUPIL: Yes Equal, round and reactive pupils present Neck/C-Spine: COMMON NORMALS: full ROM and supple Chest: COMMONS NORMALS: normal inspection of the chest and normal palpation of entire chest wall Resp: COMMON NORMALS: normal respiratory effort, No retractions, No use of accessory muscles and clear to auscultation bilaterally AUSCULTATION: clear to auscultation bilaterally Cardio: COMMON NORMALS: regular rate, regular rhythm and No murmurs present (Cardio) RATE: regular rate RHYTHM: regular rhythm GI: COMMON NORMALS: Normal to inspection, nondistended, normoactive bowel sounds present, Soft to palpation, non-tender and no masses PALPATION: Yes Soft to palpation Extremity: COMMON NORMALS: normal to inspection and full ROM Neuro: COMMON NORMALS: patient oriented x3, moves all extremities and no focal motor deficits Psych: COMMON NORMALS: mental status grossly normal, Normal thought process present and cooperative THOUGHT PROCESS: Normal thought process present THOUGHT CONTENT: Yes Hallucination(s) present Skin: COMMON NORMALS: no rashes or lesions noted and no wounds GENERAL SKIN EXAM: no rashes or lesions noted Course Vital Signs: Vital signs: Vital Signs Temperature 99 F 05/10/22 17:28 Pulse Rate 59 L 05/10/22 17:28 Blood Pressure 141/80 05/10/22 17:28 Pulse Oximetry 96 05/10/22 17:28 Oxygen Delivery Me thod 05/10/22 17:28 MDM - Psych Medical Decision Making Patient presents with hallucinations he is well-appearing here he is able answer my questions appropriate does not seem acutely psychotic he is not suicidal homicidal I patient evaluated with Dr. Jack who feels he is stable for discharge patient is requesting discharge at this time he originally went to be admitted voluntarily but changed his mind I do not believe he is a threat to himself Dr. Jack agrees he is to follow-up with [facility] return if worsening. Lab Data 05/10/22 18:19 05/10/22 18:19 Laboratory Results WBC 12.5 10^3/uL (4.0-10.0) H 05/10/22 18:19 RBC 4.48 10^6/uL (4.1-5.3) 05/10/22 18:19 Hgb 12.7 g/dL (11.7-16.6) 05/10/22 18:19 Hct 38.2 % (42.0-52.0) L 05/10/22 18:19 MCV 85.3 fl (80-94) 05/10/22 18:19 MCH 28.3 pg (28.0-34.0) 05/10/22 18:19 MCHC 33.2 g/dL (30.0-36.0) 05/10/22 18:19 RDW 13.4 % (12.1-15.1) 05/10/22 18:19 Plt Count 448 10^3/cmm (130-400) H 05/10/22 18:19 MPV 8.6 fL (7.4-10.4) 05/10/22 18:19 Neut % (Auto) 62.7 % 05/10/22 18:19 Lymph % (Auto) 24.0 % 05/10/22 18:19 [place] % (Auto) 8.0 % 05/10/22 18:19 Eos % (Auto) 3.7 % 05/10/22 18:19 Baso % (Auto) 1.2 % 05/10/22 18:19 Neut # (Auto) 7.81 10^3/uL (1.8-7.7) H 05/10/22 18:19 Lymph # (Auto) 3.0 10^3/uL (0.8-4.8) 05/10/22 18:19 [place] # (Auto) 1.0 10^3/uL (0.2-0.9) H 05/10/22 18:19 Eos # (Auto) 0.5 10^3/uL (0.0-0.8) 05/10/22 18:19 Baso # (Auto) 0.2 10^3/uL (0.0-0.1) H 05/10/22 18:19 Nucleated RBC % (auto) 0 % 05/10/22 18:19 Nucleated RBCs # 0.0 /100WBC 05/10/22 18:19 PT 15.10 SECONDS (12.1-14.9) H 05/10/22 18:19 INR 1.15 (0.8-1.2) 05/10/22 18:19 Sodium 133 mmol/L (136-145) L 05/10/22 18:19 Potassium 4.6 mmol/L (3.5-5.1) 05/10/22 18:19 Chloride 95 mmol/L (98-107) L 05/10/22 18:19 Carbon Dioxide 27 mmol/L (22-29) 05/10/22 18:19 Anion Gap 15.6 (5-19) 05/10/22 18:19 BUN 15 mg/dL (6-20) 05/10/22 18:19 Creatinine 0.8 mg/dL (0.7-1.2) 05/10/22 18:19 GFR Calculation 100.4 mL/min (90-130) 05/10/22 18:19 Glucose 118 mg/dL (65-115) H 05/10/22 18:19 Calculated Osmolality 278 mOsm/kg (285-295) L 05/10/22 18:19 Calcium 9.4 mg/dL (8.5-10.5) 05/10/22 18:19 Total Bilirubin 0.4 mg/dL (0.15-1.2) 05/10/22 18:19 AST 13 U/L (0-40) 05/10/22 18:19 ALT 9 U/L (0-41) 05/10/22 18:19 Alkaline Phosphatase 125 U/L (40-130) 05/10/22 18:19 Total Protein 7.7 g/dL (6.6-8.7) 05/10/22 18:19 Albumin 4.3 g/dL (3.5-5.2) 05/10/22 18:19 Globulin 3.4 g/dL (1.3-4.6) 05/10/22 18:19 Salicylates 0.4 mg/dL (3-10) L 05/10/22 18:19 Urine Opiates Screen Negative ng/mL (Negative) 05/10/22 18:30 Acetaminophen < 5.0 ug/mL (10-30) L 05/10/22 18:19 Ur Barbiturates Screen Negative ng/mL (Negative) 05/10/22 18:30 Ur Phencyclidine Scrn Negative ng/mL (Negative) 05/10/22 18:30 Ur Amphetamines Screen Negative ng/mL (Negative) 05/10/22 18:30 U Benzodiazepines Scrn Negative ng/mL (Negative) 05/10/22 18:30 Urine Cocaine Screen Negative ng/mL (Negative) 05/10/22 18:30 U Marijuana (THC) Screen Negative ng/mL (Negative) 05/10/22 18:30 Ethyl Alcohol < 10 mg/dL (0-10) 05/10/22 18:19 Discharge Plan Discharge Patient Disposition: Home Clinical Impression: Hallucinations Condition: Stable Prescriptions: No Action buprenorphine-naloxone 8-2 mg tablet, sublingual 1 tab sublingual DAILY Qty: 30 1RF prazosin 2 mg capsule 2 mg PO BEDTIME@21 Qty: 30 2RF benztropine 1 mg tablet 0.5 mg PO BID@06,21 Qty: 60 2RF ibuprofen 600 mg tablet 600 mg PO Q8H PRN (Reason: pain) Qty: 30 0RF hydroxyzine HCl 25 mg tablet 25 mg PO Q6H PRN (Reason: Anxiety) Qty: 60 1RF divalproex [Depakote ER] 500 mg tablet extended release 24 hr 500 mg PO .HS Qty: 30 1RF atorvastatin [Lipitor] 40 mg tablet 40 mg PO DAILY Qty: 90 1RF Eliquis 5 mg tablet 5 mg PO BID Qty: 180 1RF albuterol sulfate [ProAir HFA] 90 mcg/actuation HFA aerosol inhaler 2 puff INHALATION .Q4-6H PRN (Reason: copd) Qty: 8.5 1RF budesonide-formoterol [Symbicort] 80-4.5 mcg/actuation HFA aerosol inhaler See Rx Instructions .ROUTE .COMPLEX Qty: 10.2 2RF Dose Instruction: INHALE 2 PUFFS TWO TIMES A DAY Rx Instructions: INHALE 2 PUFFS TWO TIMES A DAY nicotine (polacrilex) 4 mg lozenge See Rx Instructions .ROUTE .COMPLEX Qty: 144 2RF Dose Instruction: TAKE 4 LOZENGES BY MOUTH NEEDED Rx Instructions: TAKE 4 LOZENGES BY MOUTH NEEDED diclofenac sodium 1 % Gel 2 - 4 g TOPICAL BID PRN (Reason: Pain) Miralax 17 gram powder in packet 17 g PO TID PRN (Reason: Constipation) propranolol 20 mg tablet 20 mg PO TID omeprazole 40 mg Capsule,Delayed Release(Dr/Ec) 40 mg PO DAILY bupropion HCl 150 mg Tablet Extended Release 24 Hr 450 mg PO DAILY@08 30 Days Qty: 90 1RF buspirone 10 mg Tablet 10 mg PO TID 30 Days Qty: 90 1RF risperidone 1 mg Tablet 2 mg PO BID 30 Days Qty: 120 1RF trazodone 50 mg Tablet 50 mg PO BEDTIME PRN (Reason: Sleep) 30 Days Qty: 30 1RF Discharge Orders: Discharge ED (Routine); Ordered 05/10/22 Ordered By: Rolf Garcia Referrals: Lew Guzman MD [Primary Care Provider] - Discharge Diet: Advance as tolerated Discharge Activity: Resume usual activity Patient Instructions: Hallucinations (ED) Coding Level of Care Code ED [employer] for Roseann Richard
[2022-05-10 18:41] LABS: INR 1.15 (0.8-1.2)
[2022-05-10 18:47] LABS: Alanine Aminotransferase 9 U/L (0-41); Albumin Level 4.3 g/dL (3.5-5.2); Alkaline Phosphatase 125 U/L (40-130); Anion Gap 15.6 (5-19); Aspartate Amino Transferase 13 U/L (0-40); Blood Urea Nitrogen 15 mg/dL (6-20); Calcium 9.4 mg/dL (8.5-10.5); Carbon Dioxide 27 mmol/L (22-29); Chloride 95 mmol/L (98-107); Globulin 3.4 g/dL (1.3-4.6); Glomerular Filtration Rate 100.4 mL/min (90-130); Glucose 118 mg/dL (65-115); Osmolality Calculated 278 mOsm/kg (285-295); Potassium 4.6 mmol/L (3.5-5.1); Salicylate 0.4 mg/dL (3-10); Sodium 133 mmol/L (136-145); Total Bilirubin 0.4 mg/dL (0.15-1.2); Total Protein 7.7 g/dL (6.6-8.7)
[2022-05-10 18:48] LABS: Amphetamines Screen Urine Negative (Negative); Barbiturates Screen Urine Negative (Negative); Benzodiazepines Screen Urine Negative (Negative); Cocaine Screen Urine Negative (Negative); Opiate Screen Urine Negative (Negative); PCP Screen Urine Negative (Negative); THC Screen Urine Negative (Negative)
[2022-05-10 18:48] LABS: Acetaminophen < 5.0 ug/mL (10-30); Alcohol Level < 10 mg/dL (0-10)
[2022-05-10] MEDS: haloperidol 5 mg Tablet PO (18:53)
[2022-05-10] MEDS: LORazepam 1 mg Tablet PO (18:53)
== END 2022-05-10 20:52 | disposition home or self-care (01) ==
PROVIDERS: Emergency Provider Emergency Medicine; PCP Family Medicine
DX: R44.0 Auditory hallucinations (principal); R44.1 Visual hallucinations; Z79.01 Long term (current) use of anticoagulants; F17.210 Nicotine dependence, cigarettes, uncomplicated; F17.290 Nicotine dependence, other tobacco product, uncomplicated; I10 Essential (primary) hypertension
CPT/HCPCS: 36415; 80053; 80164; 80306; 80307; 85025; 85610; 99285

== ENCOUNTER 2022-05-10 22:11 | Inpatient (IN) | payer MEDICAID, SELFPAY ==
[2022-05-10 22:19] VITALS: BP 122/68; PULSE 73; RESP 16; TEMP 37.1; O2SAT 94; BMI 33.3
--- NOTE | 2022-05-10 22:35 | CTR_ITS ---
PROCEDURE INFORMATION: Exam: CT Head Without Contrast Exam date and time: 05/10/2022 11:25 PM Age: 57 years old Clinical indication: Altered mental status/memory loss; Confusion or disorientation; Patient HX: From assisted care facility for increasing confusion. History of schizoaffective disorder. ; Additional info: AMS TECHNIQUE: Imaging protocol: Computed tomography of the head without contrast. Radiation optimization: All CT scans at this facility use at least one of these dose optimization techniques: automated exposure control; mA and/or kV adjustment per patient size (includes targeted exams where dose is matched to clinical indication); or iterative reconstruction. REPORTING DATA: Count of CT and Cardiac NM exams in prior 12 months: This patient has received 3 known CTs and 0 known cardiac nuclear medicine studies in the 12 months prior to the current study. COMPARISON: CT head wo con* [id number] 09/19/2021 8:55 PM RADIATION DOSE METRICS: Total DLP (mGy-cm): 1077.28 FINDINGS: Brain: Normal. No hemorrhage. Unremarkable white matter. No mass effect. Cerebral ventricles: No ventriculomegaly. Paranasal sinuses: Mucosal thickening in the ethmoid and sphenoid sinuses. Mastoid air cells: Visualized mastoid air cells are well aerated. Bones/joints: Unremarkable. No acute fracture. Soft tissues: Unremarkable. CT/CT head wo con* [id number] IMPRESSION: No acute intracranial abnormality.
--- NOTE | 2022-05-10 22:47 | XRR_ITS ---
PROCEDURE INFORMATION: Exam: XR Chest Exam date and time: 05/10/2022 11:21 PM Age: 57 years old Clinical indication: Other: AMS TECHNIQUE: Imaging protocol: Radiologic exam of the chest. Views: 1 view. COMPARISON: CR XR chest 1V portable [id number] 09/22/2021 2:04 PM FINDINGS: Lungs: Unremarkable. No consolidation. Pleural spaces: Unremarkable. No pleural effusion. No pneumothorax. Heart/Mediastinum: Unremarkable. No cardiomegaly. Bones/joints: Unremarkable. XR/XR chest 1V portable [id number] IMPRESSION: No acute findings.
--- NOTE | 2022-05-10 23:56 | ED_ITS ---
HPI - Altered Mental Status General: Chief Complaint: Altered Mental Status Stated Complaint: AMS Time Seen by Provider: 05/10/22 22:46 Source: patient Mode of arrival: ambulatory Limitations: no limitations History of Present Illness: 57-year-old male seen earlier Present hallucinations he is in a sober living center is cleared by psych and he did not want to be admitted he went back to sober living center had brought him back up. He states that he has been talking to cats that are not there and is worsened hallucinations patient now does agree that he would be admitted and is able answer my questions appropriately but does have hallucinations here. Associated symptoms: Reports visual hallucinations Review of Systems Const: Denies: fever(s), chills, body aches or change in appetite Eyes: Denies: blurry vision or eye discomfort ENMT: Denies: throat pain or dental pain Card: Denies: chest pain Resp: Denies: dyspnea GI: Denies: abdominal pain, nausea, vomiting or diarrhea : Denies: dysuria Musc: Denies: neck pain or back pain Skin/Breast: Denies: rash Neuro: Denies: headache(s) Psych: Reports: visual hallucinations Angelo/Lymph: Denies: easy bruising All/Imm: Denies: urticaria PFSH ED PFSH: Medical History Bipolar disorder Cervicalgia Chronic recurrent major depressive disorder Heroin use disorder, severe, in early remission History of antisocial personality disorder Hypertension Hypertriglyceridemia Hypoxemia Insomnia Methamphetamine abuse Methamphetamine use disorder, moderate, in early remission Night terror Pain in a tooth or teeth Psychiatric care Pulmonary embolism Schizoaffective disorder, depressive type Tobacco use disorder Tooth abscess Surgical History History of knee replacement procedure of right knee History of umbilical hernia repair Family History Father CAD (coronary artery disease) Cancer stomach Stroke Mother Cancer lung Diabetes Denies family history of Clotting disorder Dementia Hyperlipidemia Chronic kidney disease (CKD) Anesthesia complication Bleeding disorder Lung disease Hypertension Social History Smoking and tobacco status: current some day smoker (vape, attempting to quit cigarettes) cigarettes [ Other cigarette details: 1PPD x 40yrs. 40PY, 4 PPD as of 04/2022] and e-cigarettes E-Cigarette Details: vaporizer device Quit status (tobacco): has tried quititng Alcohol intake: former Desire information about alcohol rehabilitation?: No Counseling given: No Desire information about substance/drug rehabilitation?: No Counseling given: No Adopted: No Caregiver/support person: No Lives independently: Yes Household members: none Marital status: Single service: No Current occupational status: disabled Current gender identity: Male Special zhang needs: No Agree to transfusion: Yes Physical Exam Const: COMMON NORMALS: no acute distress, average body habitus and patient oriented x3 HENMT: COMMON NORMALS: normocephalic HEAD & SCALP: normocephalic Eye: COMMON NORMALS: conjunctivae normal CONJUNCTIVA: Yes conjunctivae normal Neck/C-Spine: COMMON NORMALS: full ROM Chest: COMMONS NORMALS: normal inspection of the chest Resp: COMMON NORMALS: normal respiratory effort Cardio: COMMON NORMALS: regular rate and regular rhythm RATE: regular rate RHYTHM: regular rhythm GI: INSPECTION: Yes normal to inspection Extremity: COMMON NORMALS: normal to inspection Neuro: COMMON NORMALS: patient oriented x3 CRANIAL NERVES: Yes CN normal except as noted GAIT: Yes Normal gait present MOTOR EXAM: 5/5 motor strength present throughout Psych: COMMON NORMALS: speech normal SPEECH: Yes normal speech THOUGHT CONTENT: No Suicidality present, No Homicidality present and Yes Hallucination(s) present Skin: COMMON NORMALS: no rashes or lesions noted GENERAL SKIN EXAM: no rashes or lesions noted Course Vital Signs: Vital signs: Vital Signs Temperature 98.7 F 05/10/22 22:19 Pulse Rate 73 05/10/22 22:19 Respiratory Rate 16 05/10/22 22:19 Blood Pressure 122/68 05/10/22 22:19 Pulse Oximetry 94 05/10/22 22:19 Oxygen Delivery Me thod 05/10/22 22:19 MDM - Altered Mental Status Medical Decision Making Patient presents here with hallucinations he is now voluntarily wanting to be admitted he is seeing things patient placed on a 96-hour hold I spoke to Dr. Jack will admit at this time. He is medically cleared. Lab Data Radiology Impressions Head CT 05/10/22 22:35 IMPRESSION: No acute intracranial abnormality. Chest X-Ray 05/10/22 22:47 IMPRESSION: No acute findings. Laboratory Results Urine Color Yellow (Yellow) 05/10/22 22:47 Urine Appearance Clear (CLEAR) 05/10/22 22:47 Urine pH 7 (5-7) 05/10/22 22:47 Ur Specific [place] 1.010 (1.005-1.030) 05/10/22 22:47 Urine Protein Neg (Negative) 05/10/22 22:47 Urine Glucose (UA) Norm (Normal) 05/10/22 22:47 Urine Ketones Negative (Negative) 05/10/22 22:47 Urine Blood 2+ (Negative) H 05/10/22 22:47 Urine Nitrate Negative (Negative) 05/10/22 22:47 Urine Bilirubin Neg (Negative) 05/10/22 22:47 Urine Urobilinogen Norm mg/dL (Negative) 05/10/22 22:47 Ur Leukocyte Esterase Negative (Negative) 05/10/22 22:47 Amorphous Sediment Not Reportable 05/10/22 22:47 Discharge Plan Discharge Patient Disposition: Admitted As Inpatient Clinical Impression: Hallucinations Condition: Stable Prescriptions: No Action buprenorphine-naloxone 8-2 mg tablet, sublingual 1 tab sublingual DAILY Qty: 30 1RF prazosin 2 mg capsule 2 mg PO BEDTIME@21 Qty: 30 2RF benztropine 1 mg tablet 0.5 mg PO BID@06,21 Qty: 60 2RF ibuprofen 600 mg tablet 600 mg PO Q8H PRN (Reason: pain) Qty: 30 0RF hydroxyzine HCl 25 mg tablet 25 mg PO Q6H PRN (Reason: Anxiety) Qty: 60 1RF divalproex [Depakote ER] 500 mg tablet extended release 24 hr 500 mg PO .HS Qty: 30 1RF atorvastatin [Lipitor] 40 mg tablet 40 mg PO DAILY Qty: 90 1RF Eliquis 5 mg tablet 5 mg PO BID Qty: 180 1RF albuterol sulfate [ProAir HFA] 90 mcg/actuation HFA aerosol inhaler 2 puff INHALATION .Q4-6H PRN (Reason: copd) Qty: 8.5 1RF budesonide-formoterol [Symbicort] 80-4.5 mcg/actuation HFA aerosol inhaler See Rx Instructions .ROUTE .COMPLEX Qty: 10.2 2RF Dose Instruction: INHALE 2 PUFFS TWO TIMES A DAY Rx Instructions: INHALE 2 PUFFS TWO TIMES A DAY nicotine (polacrilex) 4 mg lozenge See Rx Instructions .ROUTE .COMPLEX Qty: 144 2RF Dose Instruction: TAKE 4 LOZENGES BY MOUTH NEEDED Rx Instructions: TAKE 4 LOZENGES BY MOUTH NEEDED diclofenac sodium 1 % Gel 2 - 4 g TOPICAL BID PRN (Reason: Pain) Miralax 17 gram powder in packet 17 g PO TID PRN (Reason: Constipation) propranolol 20 mg tablet 20 mg PO TID omeprazole 40 mg Capsule,Delayed Release(Dr/Ec) 40 mg PO DAILY bupropion HCl 150 mg Tablet Extended Release 24 Hr 450 mg PO DAILY@08 30 Days Qty: 90 1RF buspirone 10 mg Tablet 10 mg PO TID 30 Days Qty: 90 1RF risperidone 1 mg Tablet 2 mg PO BID 30 Days Qty: 120 1RF trazodone 50 mg Tablet 50 mg PO BEDTIME PRN (Reason: Sleep) 30 Days Qty: 30 1RF Referrals: Lew Guzman MD [Primary Care Provider] - Coding Level of Care Code ED [employer] for Roseann Richard
[2022-05-11 00:13] LABS: Add Urine Microscopic? YES; Bilirubin Urine Neg (Negative); Blood Urine 2+ (Negative); Glucose Urine UA Norm (Normal); Ketones Urine Negative (Negative); Leukocyte Esterase Urine Negative (Negative); Nitrate Urine Negative (Negative); Protein Urine Neg (Negative); Urine Appearance Clear (CLEAR); Urine Color Yellow (Yellow); Urobilinogen Urine Norm (Negative); pH Urine 7 (5-7)
[2022-05-11 00:24] LABS: RBC Urine 0-4 /hpf (0-2); Squamous Epithelial Cell Urine 0-4 /hpf (0-5); WBC Urine 0-4 /hpf (0-5)
--- NOTE | 2022-05-11 00:55 | PC.NURSE ---
Copy of 96 HH paper served to pt by this RN and Security. Rights reviewed with pt, all questions answered.
[2022-05-11 00:58] VITALS: BP 145/75; PULSE 58; RESP 18; TEMP 37; O2SAT 94
--- NOTE | 2022-05-11 01:00 | PC.NURSE ---
57yr.old male admitted to room#155-1. Arrived to unit via w/c accompanied by ED staff and security. Patient is involuntary and was given his rights in ED by household appliance installer. Reviewed involuntary status with patient again when he arrived to unit. All questions answered. Patient anxious during assessment. Denied thoughts of SI/HI. Did endorse AVH. Stated he was seeing life forms that keep popping up and telling him to just do it. Rates anxiety and depression at a 10/10. No c/o pain. Skin assessment completed with no issues noted and no contraband found. Unit rules and expectations reviewed and voiced understanding. Patient given food and escorted to room.
[2022-05-11] MEDS: OLANZapine 5 mg ODT PO (01:48)
[2022-05-11] MEDS: trazodone 50 mg Tablet PO (01:48)
--- NOTE | 2022-05-11 01:50 | PC.NURSE ---
Patient pacing halls and talking loudly. Patient then went to room and was noted to be moving table around in room loudly. Asked patient what he was doing and patient stated I got to get these animals rounded up. Attempted to orientate patient to reality but patient continued to be loud and was talking nonsensical. PRN zyprexa given for psychosis and trazodone given to promote rest.
[2022-05-11] MEDS: hyDROXYzine 25 mg Capsule 50 MG PO (04:37)
--- NOTE | 2022-05-11 04:37 | PC.NURSE ---
Patient continued to be up and down and attempting to wander in other patient's room. Redirected back to his room. Approximately 10 minutes later patient was found in another patient's room laying in an empty bed. Staff removed patient from room and reorientated him to his room. Patient stated he was sorry and was confused. Stated I thought that was my room. That's where I've been staying. Patient had stayed in that room previously on last hospitalization several weeks ago. Patient then approached nurse's station and stated he needed something to help with his nerves. Rated anxiety off the charts prn vistaril given at that time.
--- NOTE | 2022-05-11 05:33 | PC.NURSE ---
Resting quietly in bed with eyes closed at this time. No further behaviors noted.
[2022-05-11] MEDS: benztropine 1 mg Tablet 0.5 MG PO ×2 (06:44→20:23)
--- NOTE | 2022-05-11 07:30 | W.PM.NPUH&PS ---
Providers/Chief Complaint Admitting Physician: Maximiliano Jack MD Primary Care Provider: Lew Guzman MD Chief Complaint: AMS HPI NPU History of Present Illness Chriss Akers is a 57 year old male who presented to the emergency department with the following report: Chief Complaint: Altered Mental Status Stated Complaint: AMS Time Seen by Provider: 05/10/22 22:46 Source: patient Mode of arrival: ambulatory Limitations: no limitations History of Present Illness: 57-year-old male seen earlier Present hallucinations he is in a sober living center is cleared by psych and he did not want to be admitted he went back to sober living [facility] had brought him back up. He states that he has been talking to cats that are not there and is worsened hallucinations patient now does agree that he would be admitted and is able answer my questions appropriately but does have hallucinations here. Associated symptoms: Reports visual hallucinations He was admitted to the neuropsychiatric unit for definitive treatment of those issues. He presents today unlike previous admissions. Previously he has presented very goal-directed and with concerns for malingering often. Today he presents confused and a very poor historian. Much of his comments are partial thoughts merged with different partial thoughts that started 1 direction and ended in another and with almost no clarity as to what he is thinking or talking about. He will say something and then followed up with the you know what I need and there is $0.00 and what he is saying. Screen is negative and there are no clear signs of infection but he certainly appears delirious. He had been discharged from the emergency department initially and the level of confusion was noted at his supportive residence he situation leading to them sending him back with concerns of intoxication or something else. He reports taking his medication but it is unclear at this level of confusion if he could have been taking his medication appropriately or if he is getting enough assistance that that would have been the case. Per his 04/23/2022 [facility] inpatient discharge summary: Discharge Diagnosis (1) Compression fracture: Status: Acute Permanent problem details: t12 (2) Lytic bone lesion of hip: Status: Resolved (3) Hypoxemia: Status: Resolved (4) Pulmonary embolism: Status: Resolved (5) Leukocytosis: Status: Resolved (6) Substance use disorder: Status: Inactive (7) Hypoxemia: Status: Inactive (8) Pulmonary embolism: Status: Inactive (9) Methamphetamine use disorder, severe: Status: Resolved (10) Adjustment disorder with mixed disturbance of emotions and conduct: Status: Acute (11) Depression: Status: Acute Reason for Visit Reason for Visit: SI Brief History: History of Present Illness Chriss Akers is a 57 year old male who presented to the emergency department with the following report: Chief Complaint: Psychiatric Symptoms Stated Complaint: SI Time Seen by Provider: 04/20/22 11:20 History of Present Illness: Mr. Akers is a 57-year-old gentleman with remote history of substance abuse, history of PE on anticoagulation, COPD, possibly schizoaffective disorder presented to the emergency department for suicidal ideation with a plan. He does have a history of depression and has been on medications however over the past few days reports that they do not seem to help. He feels depressed and increasingly hopeless. He walked downstairs earlier and saw a rope and thought of hanging himself. He does have a history of suicide attempt by hanging. Overall course of symptoms has worsened. Intensity is moderate to severe. He notes hopelessness and anxiety. No other specific changes in health, exacerbating, or alleviating factors identified. Onset (ago): day(s) Duration: getting worse History of same: Yes Relieving factors: none Exacerbating factors: none Associated psychiatric symptoms: depression and suicidal ideation If self harm: admits thoughts of self harm and has plan. He was admitted to the neuropsychiatric unit for definitive treatment of those issues. He presents today much like he did the last hospitalization reporting fairly mundane issues being problematic. He is currently staying at [facility] and reports that things are okay there. He reports that he has some guys there that he can hang out with that are nice. And he gets along with other people. He reports that he feels like he is being easily stressed and overwhelmed. Reports is been impacted from losses that he has had. He reports that he is looking for employment but has not been successful. He reports that he was on his way to what he thought was a job he was getting only to be told that he did not even have an interview like he had believed. He reports that that really sent him reeling and he started getting caught up in his negative thoughts. He reports that he has been doing well from the standpoint of his recovery and that that has not been an issue. We discussed the risk benefits and alternatives of increasing his BuSpar to 10 mg p.o. 3 times daily and he understood and agreed to proceed as is documented in this note. We also discussed the possibility of increasing his Risperdal prior to discharge. An excerpt of his last inpatient note is included below for context and history. Per his 09/24/2021 [facility] inpatient psychiatric evaluation: History of Present Illness Chriss Akers is a 56 year old male who presented to the emergency department with the following report: Stated complaint: same reason Time Seen by Provider: 09/22/21 17:33 History of Present Illness: Patient is a 56-year-old male with a history of former meth use, chronic hypoxemia on 3 L oxygen presenting to the emergency room for concerns of hypoxemia. Earlier patient was seen evaluated emergency room was diagnosed with possible nonocclusive pulmonary embolism. In addition, patient was found to have leukocytosis with no prior for comparison. Patient decided to go home so he could have a smoke. Patient's chose to sign out AMA earlier today and decided come back to the emergency room. Onset:unknown Duration:ongoing Location:home Severity:moderate Associated symptoms: Deny chest pain, dyspnea, nausea, rash, palpitations or vomiting. He reports that he presents secondary to breathing issues and suicidal ideation. He reports he just recently left the senior care which he was in 3 times for 10 years each. He reports he has been psychiatrically hospitalized a few times and denies receiving outpatient services. He reports a pack of cigarettes a day, denies alcohol, reports marijuana occasionally, endorses methamphetamine and denies any other illicit drug use. He has never been to a rehab and received a DUI in 1998. He reports he was at [facility] when he started having issues with his breathing and increased suicidal ideation which is how he presents today. He reports he wants to leave as he feels information is being kept from him in regards to his health and what is going on. We discussed at length about addressing his medical issues and the safety concern that is presented given he is expressing suicidal ideation recently given there has been no change in his health conditions since he was admitted. He reports he has not been on suboxone mcc and had an opiate use problem when he was younger. Psychiatric History: As above. Substance Abuse History: As above Family History: He denies mental health issues on either side of the family, addiction issues on his father?s side of the family and a suicide completion from his mother?s side of the family. Developmental History: He denies any issues with his or , learned to walk and talk and met his developmental standards on time, and denies any need for speech therapy, learning support, emotional support or special education classes. Psychosocial History: He reports his parents were together when he was born and remained together. He has 2 sisters and 2 brothers who are products of the same union. He described his childhood as great and denies any emotional, physical or sexual abuse. He reports truancy issues and was put in placement. He denies any other traumatic events. The highest grade he achieved was 11 th and he got his GED. He endorses being heterosexual with his longest relationship being 6 to 7 years. He has been once and , has 4 biological children, has never been in the and endorses being a mosque. He currently lives at [facility]. Legal History: He reports he has been in [facility] 10 times and senior care 3 times at least. Medical History: Please see treatment team note for full details. Hospital Course Hospital Course He quickly acclimated to the individual, group and milieu therapies provided. He reported having a setback that kind of led to him taking a step back. We increased his medications, specifically increasing BuSpar to 10 mg p.o. 3 times daily, Wellbutrin XL to 450 mg p.o. every morning and Risperdal to 2 mg p.o. twice daily. He had modest improvement and was able to contract for safety outside of the hospital prior to discharge. During the hospitalization, patient had routine laboratory studies which were within normal limits except for few outliers. Additionally there was a general medical evaluation which was also within normal limits and revealed no new acute processes. Discharge Summary: At the time of discharge, patient denied psychosis or lethality. Mood and anxiety were well managed. Patient endorsed a plan to avoid all drugs of abuse and follow-up with the aftercare recommendations of the treatment team. Patient was evaluated and deemed to be absent credible lethality, and had achieved the maximum benefit from an inpatient hospitalization, so was discharged. Meds NPU Home Medications Medication Instructions Recorded Confirmed Last Taken Type diclofenac sodium 1 % topical gel 2 - 4 g topical BID PRN Pain 09/22/21 05/11/22 Unknown History atorvastatin 40 mg tablet (Lipitor) 40 mg PO DAILY #90 tabs 10/06/0205/11/22 04/19/22 Rx apixaban 5 mg tablet (Eliquis) 5 mg PO BID #180 tabs 12/25/21 05/11/22 04/20/22 Rx hydroxyzine HCl 25 mg tablet 25 mg PO Q6H PRN Anxiety #60 tabs 02/24/22 05/11/22 Unknown Rx ibuprofen 600 mg tablet 600 mg PO Q8H PRN pain #30 tabs 03/11/22 05/11/22 Unknown Rx benztropine 1 mg tablet 0.5 mg PO BID@ #60 tabs 04/05/22 05/11/22 04/20/22 Rx buprenorphine 8 mg-naloxone 2 mg 1 tab sublingual DAILY #30 tabs 04/05/22 05/11/22 04/20/22 Rx sublingual tablet prazosin 2 mg capsule 2 mg PO BEDTIME@21 #30 caps 04/05/22 05/11/22 04/19/22 Rx omeprazole 40 mg capsule,delayed 40 mg PO DAILY 04/20/22 05/11/22 04/20/22 History release polyethylene glycol 3350 17 gram 17 g PO TID PRN Constipation 04/20/22 05/11/22 Unknown History oral powder packet (Miralax) propranolol 20 mg tablet 20 mg PO TID 04/20/22 05/11/22 04/20/22 History bupropion HCl 150 mg 24 hr tablet, 450 mg PO DAILY@08 30 days #90 tabs 04/23/22 05/11/22 Unknown Rx extended release buspirone 10 mg tablet 10 mg PO TID 30 days #90 tabs 04/23/22 05/11/22 Unknown Rx risperidone 1 mg tablet 2 mg PO BID 30 days #120 tabs 04/23/22 05/11/22 Unknown Rx trazodone 50 mg tablet 50 mg PO BEDTIME PRN Sleep 30 days 04/23/22 05/11/22 Unknown Rx #30 tabs budesonide-formoterol HFA 80 See Rx Instructions .Route 04/26/22 05/11/22 Unknown Rx mcg-4.5 mcg/actuation aerosol .COMPLEX #10.2 grams inhaler (Symbicort) nicotine (polacrilex) 4 mg buccal See Rx Instructions .Route 04/26/22 05/11/22 Unknown Rx lozenge .COMPLEX #144 irvin albuterol sulfate 90 mcg/actuation 2 puff inhalation Q4H PRN 05/11/22 05/11/22 Unknown History aerosol inhaler Shortness Of Breath Or Wheezing Allergies Allergy/AdvReac Type Severity Reaction Status Date / Time No Known Allergies Allergy Verified 04/28/22 10:36 PFSH NPU PFSH: Medical History Bipolar disorder Cervicalgia Chronic recurrent major depressive disorder Heroin use disorder, severe, in early remission History of antisocial personality disorder Hypertension Hypertriglyceridemia Hypoxemia Insomnia Methamphetamine abuse Methamphetamine use disorder, moderate, in early remission Night terror Pain in a tooth or teeth Psychiatric care Pulmonary embolism Schizoaffective disorder, depressive type Tobacco use disorder Tooth abscess Surgical History History of knee replacement procedure of right knee History of umbilical hernia repair Family History Father CAD (coronary artery disease) Cancer stomach Stroke Mother Cancer lung Diabetes Denies family history of Clotting disorder Dementia Hyperlipidemia Chronic kidney disease (CKD) Anesthesia complication Bleeding disorder Lung disease Hypertension Social History Smoking and tobacco status: current some day smoker (vape, attempting to quit cigarettes) cigarettes [ Other cigarette details: 1PPD x 40yrs. 40PY, 4 PPD as of 04/2022] and e-cigarettes E-Cigarette Details: vaporizer device Quit status (tobacco): has tried quititng Alcohol intake: former Desire information about alcohol rehabilitation?: No Counseling given: No Desire information about substance/drug rehabilitation?: No Counseling given: No Adopted: No Caregiver/support person: No Lives independently: Yes Household members: none Marital status: Single service: No Current occupational status: disabled Current gender identity: Male Special zhang needs: No Agree to transfusion: Yes Mental Status Exam MSE Comments: This is an overweight older white male looking older than his stated age in hospital scrubs with adequate grooming and eye contact. No abnormal movements except for mild psychomotor retardation. Cooperative with exam in no acute distress. Speech was mostly normal rate and volume with mild slurring. Mood described as okay, affect is confused. Thought process, disorganized. Thought content: patient denies current suicidal or homicidal ideation, he did not answer questions regarding delusions or hallucinations but did not appear to have delusions and did not appear to be attending to internal stimuli. Attention and concentration are impaired and memory appeared unreliable but none were formally tested. He is alert and oriented and at times place. Insight and impulse control are impaired. Vitals/I&O/Wt Last Vital Signs Temp 98.6 F 05/11/22 00:58 Pulse 58 L 05/11/22 00:58 Resp 18 05/11/22 00:58 BP 145/75 05/11/22 00:58 Pulse Ox 94 05/11/22 00:58 O2 Del Method 05/11/22 00:58 Weight last 48 hrs Weight 90.718 kg Data NPU 05/12/22 18:58 05/12/22 18:58 A&P Assessment and plan (1) Compression fracture: (2) Lytic bone lesion of hip: (3) Hypoxemia: (4) Pulmonary embolism: (5) Leukocytosis: (6) Substance use disorder: (7) Hypoxemia: (8) Pulmonary embolism: (9) Methamphetamine use disorder, severe: (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 1. Continue current medication. 2. Encourage, group and milieu therapies. 3. Continue every 15 minute checks for safety. 4. Encourage sober living treatment after discharge at the highest level of care to which he is willing to commit. 5. Some previous concerns for malingering versus cognitive limitations/intellectual disability. But he seems somewhat delirious. We will evaluate. Involuntary Hold Information 96 Hour Hold: 96 Hour Involuntary Admission: Yes Attestations NPU Medical Necessity Statement*: Inpatient hospitalization is medically necessary and the clinically appropriate intervention at this time. We will monitor medication to make changes as indicated. Patient will be in the hospital for over two midnights. Likely length of stay 4-6 days. Coding Level of Care Code Acute Code for [facility] Fwd Diagnoses Compression fracture Lytic bone lesion of hip M89.8X5 Hypoxemia R09.02 Pulmonary embolism I26.99 Leukocytosis D72.829 Substance use disorder F19.90 Hypoxemia R09.02 Pulmonary embolism I26.99 Methamphetamine use disorder, severe F15.20 Adjustment disorder with mixed disturbance of emotions and conduct F43.25 Depression F32.A Altered mental status R41.82
[2022-05-11] MEDS: nicotine 4 mg lozenge MUCOUS MEM ×5 (08:00→20:22)
[2022-05-11] MEDS: buPROPion XL (24 HR) 150 mg Tablet 450 MG PO (08:40)
[2022-05-11] MEDS: BuSPIRONE 10 mg Tablet PO ×3 (08:42→20:23)
[2022-05-11] MEDS: risperiDONE 1 mg Tablet 2 MG PO ×2 (08:42→18:10)
[2022-05-11] MEDS: atorvastatin 40 mg Tablet PO (08:43)
[2022-05-11] MEDS: pantoprazole DR 40 mg Tablet PO (08:43)
[2022-05-11] MEDS: propranolol 20 mg Tablet PO ×3 (08:43→20:22)
[2022-05-11] MEDS: apixaban 5 mg Tablet PO ×2 (08:43→18:11)
[2022-05-11] MEDS: nicotine 2 mg Gum BUCCAL (10:53)
[2022-05-11] MEDS: buprenorphine-naloxone 4-1 mg Film 2 EACH SUBLINGUAL (13:09)
[2022-05-11 14:00] VITALS: BP 128/78; PULSE 64; RESP 17; TEMP 36.9; O2SAT 91
[2022-05-11 14:40] VITALS: PULSE 70; RESP 18; O2SAT 96
[2022-05-11 15:18] LABS: Basophils # 0.1 10^3/uL (0.0-0.1); Basophils % 1.3 %; Eosinophils # 0.4 10^3/uL (0.0-0.8); Eosinophils % 3.5 %; Hematocrit 40.7 % (42.0-52.0); Hemoglobin 13.4 g/dL (11.7-16.6); Lymphocytes # 3.2 10^3/uL (0.8-4.8); Mean Corpuscular HGB Conc 32.9 g/dL (30.0-36.0); Mean Corpuscular Hemoglobin 27.7 pg (28.0-34.0); Mean Corpuscular Volume 84.3 fl (80-94); Mean Platelet Volume 8.5 fL (7.4-10.4); Monocytes % 9.3 %; Neutrophils # 5.97 10^3/uL (1.8-7.7); Neutrophils % 55.5 %; Nucleated Red Blood Cells % 0 %; Platelet Count 495 10^3/cmm (130-400); Red Blood Count 4.83 10^6/uL (4.1-5.3); Red Cell Distribution Width 13.2 % (12.1-15.1); White Blood Count 10.8 10^3/uL (4.0-10.0)
[2022-05-11 15:43] LABS: Anion Gap 17.7 (5-19); Carbon Dioxide 26 mmol/L (22-29); Chloride 96 mmol/L (98-107); Potassium 4.7 mmol/L (3.5-5.1); Sodium 135 mmol/L (136-145)
[2022-05-11 19:56] VITALS: PULSE 70; RESP 18; O2SAT 93
[2022-05-11] MEDS: budesonide 0.5 mg/2 mL Neb INHALATION (19:56)
[2022-05-11 20:16] VITALS: BP 120/76; PULSE 83; RESP 20; TEMP 36.7; O2SAT 97
[2022-05-11] MEDS: prazosin 1 mg Capsule 2 MG PO (20:22)
[2022-05-12] MEDS: nicotine 4 mg lozenge MUCOUS MEM ×6 (02:03→19:27)
[2022-05-12 06:00] VITALS: BP 114/79; PULSE 72; RESP 18; TEMP 36.7; O2SAT 95
[2022-05-12] MEDS: benztropine 1 mg Tablet 0.5 MG PO ×2 (06:27→20:13)
[2022-05-12] MEDS: pantoprazole DR 40 mg Tablet PO (08:38)
[2022-05-12] MEDS: risperiDONE 1 mg Tablet 2 MG PO ×2 (08:38→17:23)
[2022-05-12] MEDS: buPROPion XL (24 HR) 150 mg Tablet 450 MG PO (08:38)
[2022-05-12] MEDS: BuSPIRONE 10 mg Tablet PO ×3 (08:38→20:13)
[2022-05-12] MEDS: atorvastatin 40 mg Tablet PO (08:38)
[2022-05-12] MEDS: propranolol 20 mg Tablet PO ×3 (08:39→20:13)
[2022-05-12] MEDS: apixaban 5 mg Tablet PO ×2 (08:39→17:23)
[2022-05-12] MEDS: buprenorphine-naloxone 4-1 mg Film 2 EACH SUBLINGUAL (08:39)
[2022-05-12] MEDS: polyethylene glycol 3350 Pkt 17 gm PO (10:16)
[2022-05-12] MEDS: hyDROXYzine 25 mg Capsule 50 MG PO ×2 (10:16→20:12)
[2022-05-12] MEDS: budesonide 0.5 mg/2 mL Neb INHALATION (10:28)
[2022-05-12 10:32] VITALS: PULSE 59; RESP 18; O2SAT 94
--- NOTE | 2022-05-12 12:53 | W.PM.NPUPNS ---
Subjective NPU Subjective: Patient presented today essentially unchanged from yesterday but continuing to seem odd and confused compared to his normal presentation. We discussed rechecking labs which he did not really seem to understand the concerns and continued to talk about leaving or running to the store and strange things identifying that he has 0 insight into the actual situation in which he finds himself. No new or clear complaints. Mental Status Exam MSE Comments: This is an overweight older white male looking older than his stated age in hospital scrubs with adequate grooming and eye contact. No abnormal movements except for mild psychomotor retardation. Cooperative with exam in no acute distress. Speech was mostly normal rate and volume with mild slurring. Mood described as okay, affect is confused. Thought process, disorganized. Thought content: patient denies current suicidal or homicidal ideation, he did not answer questions regarding delusions or hallucinations but did not appear to have delusions and did not appear to be attending to internal stimuli. Attention and concentration are impaired and memory appeared unreliable but none were formally tested. He is alert and oriented and at times place. Insight and impulse control are impaired. Vitals/I&O/Wt Last Vital Signs Temp 98.0 F 05/12/22 06:00 Pulse 72 05/12/22 06:00 Resp 18 05/12/22 06:00 BP 114/79 05/12/22 06:00 Pulse Ox 95 05/12/22 06:00 O2 Del Method 05/12/22 06:00 Data NPU 05/12/22 18:58 05/12/22 18:58 A&P Assessment and plan (1) Compression fracture: (2) Lytic bone lesion of hip: (3) Hypoxemia: (4) Pulmonary embolism: (5) Leukocytosis: (6) Substance use disorder: (7) Hypoxemia: (8) Pulmonary embolism: (9) Methamphetamine use disorder, severe: (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 1. Continue current medication. 2. Encourage, group and milieu therapies. 3. Continue every 15 minute checks for safety. 4. Encourage sober living treatment after discharge at the highest level of care to which he is willing to commit. 5. Some previous concerns for malingering versus cognitive limitations/intellectual disability. 6. He seems somewhat delirious. We will evaluate, recheck labs and consider hospitalist consult in the morning. Involuntary Hold Information 96 Hour Hold: 96 Hour Involuntary Admission: Yes Attestations NPU Medical Necessity Statement*: Inpatient hospitalization is medically necessary and the clinically appropriate intervention at this time. We will monitor medication to make changes as indicated. Likely length of stay 4-6 days. Coding Level of Care Code Acute Code for [facility] Fwd Diagnoses Compression fracture Lytic bone lesion of hip M89.8X5 Hypoxemia R09.02 Pulmonary embolism I26.99 Leukocytosis D72.829 Substance use disorder F19.90 Hypoxemia R09.02 Pulmonary embolism I26.99 Methamphetamine use disorder, severe F15.20 Adjustment disorder with mixed disturbance of emotions and conduct F43.25 Depression F32.A Altered mental status R41.82
[2022-05-12 14:00] VITALS: BP 130/62; PULSE 64; RESP 16; TEMP 36.4; O2SAT 94
[2022-05-12 16:51] LABS: Amphetamines Screen Urine Negative (Negative); Barbiturates Screen Urine Negative (Negative); Benzodiazepines Screen Urine Negative (Negative); Cocaine Screen Urine Negative (Negative); Opiate Screen Urine Negative (Negative); PCP Screen Urine Negative (Negative); THC Screen Urine Negative (Negative)
[2022-05-12] MEDS: OLANZapine 5 mg ODT PO (17:23)
[2022-05-12 19:09] LABS: Basophils # 0.2 10^3/uL (0.0-0.1); Basophils % 1.3 %; Eosinophils # 0.5 10^3/uL (0.0-0.8); Eosinophils % 4.5 %; Hematocrit 39.4 % (42.0-52.0); Lymphocytes # 3.7 10^3/uL (0.8-4.8); Lymphocytes % 32.9 %; Mean Corpuscular Hemoglobin 27.8 pg (28.0-34.0); Mean Corpuscular Volume 84.2 fl (80-94); Mean Platelet Volume 8.7 fL (7.4-10.4); Monocytes # 1.1 10^3/uL (0.2-0.9); Monocytes % 9.5 %; Neutrophils # 5.78 10^3/uL (1.8-7.7); Neutrophils % 51.4 %; Nucleated Red Blood Cells % 0 %; Platelet Count 482 10^3/cmm (130-400); Red Blood Count 4.68 10^6/uL (4.1-5.3); Red Cell Distribution Width 13.2 % (12.1-15.1); White Blood Count 11.3 10^3/uL (4.0-10.0)
[2022-05-12 19:25] LABS: Ammonia 28 umol/L (16-60)
[2022-05-12 19:26] LABS: Alanine Aminotransferase 9 U/L (0-41); Albumin Level 4.5 g/dL (3.5-5.2); Alkaline Phosphatase 119 U/L (40-130); Anion Gap 15.4 (5-19); Aspartate Amino Transferase 13 U/L (0-40); Blood Urea Nitrogen 14 mg/dL (6-20); Calcium 9.2 mg/dL (8.5-10.5); Carbon Dioxide 27 mmol/L (22-29); Chloride 95 mmol/L (98-107); Globulin 3.1 g/dL (1.3-4.6); Glomerular Filtration Rate 100.4 mL/min (90-130); Glucose 134 mg/dL (65-115); Osmolality Calculated 278 mOsm/kg (285-295); Potassium 4.4 mmol/L (3.5-5.1); Sodium 133 mmol/L (136-145); Total Bilirubin 0.3 mg/dL (0.15-1.2); Total Protein 7.6 g/dL (6.6-8.7)
[2022-05-12] MEDS: trazodone 50 mg Tablet PO (20:13)
[2022-05-12] MEDS: prazosin 1 mg Capsule 2 MG PO (20:14)
[2022-05-12 22:00] VITALS: BP 114/74; PULSE 70; RESP 16; TEMP 36.6; O2SAT 93
[2022-05-13 06:00] VITALS: BP 116/78; PULSE 62; RESP 16; TEMP 36.8; O2SAT 90
[2022-05-13] MEDS: ibuprofen 600 mg Tablet PO ×2 (06:06→12:12)
[2022-05-13] MEDS: benztropine 1 mg Tablet 0.5 MG PO ×2 (06:06→21:19)
[2022-05-13] MEDS: nicotine 4 mg lozenge MUCOUS MEM ×6 (06:07→20:25)
[2022-05-13 08:00] VITALS: PULSE 72; RESP 18; O2SAT 93
[2022-05-13] MEDS: budesonide 0.5 mg/2 mL Neb INHALATION (08:01)
[2022-05-13 08:06] VITALS: PULSE 78
[2022-05-13] MEDS: risperiDONE 1 mg Tablet 2 MG PO ×2 (09:07→17:46)
[2022-05-13] MEDS: buPROPion XL (24 HR) 150 mg Tablet 450 MG PO (09:08)
[2022-05-13] MEDS: pantoprazole DR 40 mg Tablet PO (09:08)
[2022-05-13] MEDS: apixaban 5 mg Tablet PO ×2 (09:08→17:45)
[2022-05-13] MEDS: propranolol 20 mg Tablet PO ×3 (09:08→21:19)
[2022-05-13] MEDS: atorvastatin 40 mg Tablet PO (09:09)
[2022-05-13] MEDS: BuSPIRONE 10 mg Tablet PO ×3 (09:09→21:19)
[2022-05-13] MEDS: buprenorphine-naloxone 4-1 mg Film 2 EACH SUBLINGUAL (09:10)
--- NOTE | 2022-05-13 13:32 | P.CONIM_ITS ---
Providers/Reason For Consult Consulting Physician/Specialty*: Dr Jack psychiatry Reason for Consult*: New AMS, possible delirium, leukocytosis Attending Physician: Maximiliano Jack MD Primary Care Provider: Lew Guzman MD History of Present Illness History of Present Illness Pleasant 57-year-old gentleman reporting worsening depression also recently has had some hallucinations he is currently admitted and managed on neuropsychiatric unit, with noted mild leukocytosis but concern arose regarding possibility of delirium contributing to his symptoms. On presentation he was noted to be acting almost like intoxicated, with mild speech slurring, and some confusional episodes where he was surprised after walking through a door that he was not in an elevator. He tells me he has been having chest congestion for about a week or 2 with cough productive of sticky yellow sputum. He tells me otherwise he has been okay on review of systems, but has had worsening depression. He does state that he has had hallucinations seeing a cat which was not there. He tells me that last time he used amphetamine was 6-7 months ago. He does not drink alcohol and does not use any other illicit drugs. He states one of his outpatient medications may have been changed recently but he does not remember which one. Review of Systems Const: Denies: fever(s), chills or body aches ENMT: Denies: throat pain Card: Denies: chest pain, edema or pre-syncope Resp: Reports: dyspnea, productive cough and change in phlegm color; Denies: hemoptysis GI: Denies: abdominal pain, nausea, vomiting, diarrhea, constipation, hematochezia or melena : Denies: flank pain, difficulty urinating, urinary frequency or hematuria Musc: Denies: back pain Skin/Breast: Denies: rash or new lesions Neuro: Denies: headache(s), numbness in extremities, weakness in extremities, dizziness or seizure-like activity Endo: Denies: polyuria All/Imm: Denies: urticaria Medications/Allergies Home Medications Medication Instructions Recorded Confirmed Last Taken Type diclofenac sodium 1 % topical gel 2 - 4 g topical BID PRN Pain 09/22/21 05/11/22 Unknown History atorvastatin 40 mg tablet (Lipitor) 40 mg PO DAILY #90 tabs 12/14/21 05/11/22 04/19/22 Rx apixaban 5 mg tablet (Eliquis) 5 mg PO BID #180 tabs 12/25/21 05/11/22 04/20/22 Rx hydroxyzine HCl 25 mg tablet 25 mg PO Q6H PRN Anxiety #60 tabs 02/24/22 05/11/22 Unknown Rx ibuprofen 600 mg tablet 600 mg PO Q8H PRN pain #30 tabs 03/11/22 05/11/22 Unknown Rx benztropine 1 mg tablet 0.5 mg PO BID@, #60 tabs 04/05/22 05/11/22 04/20/22 Rx buprenorphine 8 mg-naloxone 2 mg 1 tab sublingual DAILY #30 tabs 04/05/22 05/11/22 04/20/22 Rx sublingual tablet prazosin 2 mg capsule 2 mg PO BEDTIME@21 #30 caps 04/05/22 05/11/22 04/19/22 Rx omeprazole 40 mg capsule,delayed 40 mg PO DAILY 04/20/22 05/11/22 04/20/22 History release polyethylene glycol 3350 17 gram 17 g PO TID PRN Constipation 04/20/22 05/11/22 Unknown History oral powder packet (Miralax) propranolol 20 mg tablet 20 mg PO TID 04/20/22 05/11/22 04/20/22 History bupropion HCl 150 mg 24 hr tablet, 450 mg PO DAILY@08 30 days #90 tabs 04/23/22 05/11/22 Unknown Rx extended release buspirone 10 mg tablet 10 mg PO TID 30 days #90 tabs 04/23/22 05/11/22 Unknown Rx risperidone 1 mg tablet 2 mg PO BID 30 days #120 tabs 04/23/22 05/11/22 Unknown Rx trazodone 50 mg tablet 50 mg PO BEDTIME PRN Sleep 30 days 04/23/22 05/11/22 Unknown Rx #30 tabs budesonide-formoterol HFA 80 See Rx Instructions .Route 04/26/22 05/11/22 Unknown Rx mcg-4.5 mcg/actuation aerosol .COMPLEX #10.2 grams inhaler (Symbicort) nicotine (polacrilex) 4 mg buccal See Rx Instructions .Route 04/26/22 05/11/22 Unknown Rx lozenge .COMPLEX #144 irvin albuterol sulfate 90 mcg/actuation 2 puff inhalation Q4H PRN 05/11/22 05/11/22 Unknown History aerosol inhaler Shortness Of Breath Or Wheezing Allergies Allergy/AdvReac Type Severity Reaction Status Date / Time No Known Allergies Allergy Verified 04/28/22 10:36 Current Medications Generic Name Dose Route Start Last Admin Trade Name Freq PRN Reason Stop Dose Admin Apixaban 5 mg 05/11/22 09:00 05/13/22 09:08 Apixaban 5 Mg Tablet PO 5 mg BID EDDIE Administration Atorvastatin Calcium 40 mg 05/11/22 09:00 05/13/22 09:09 Atorvastatin 40 Mg Tablet PO 40 mg DAILY EDDIE Administration Benztropine Mesylate 0.5 mg 05/11/22 06:00 05/13/22 06:06 Benztropine 1 Mg Tablet PO 0.5 mg BID@ EDDIE Administration Budesonide 0.5 mg 05/11/22 08:00 05/13/22 08:01 Budesonide 0.5 Mg/2 Ml Neb INHALATION 0.5 mg BID.RESPIRATORY EDDIE Administration Buprenorphine/Naloxone 2 each 05/11/22 13:00 05/13/22 09:10 Buprenorphine-Naloxone 4-1 Mg Film SUBLINGUAL 2 each DAILY EDDIE Administration Bupropion HCl 450 mg 05/11/22 08:00 05/13/22 09:08 Bupropion Xl (24 Hr) 150 Mg Tablet PO 450 mg DAILY@08 EDDIE Administration Buspirone HCl 10 mg 05/11/22 09:00 05/13/22 09:09 Buspirone 10 Mg Tablet PO 10 mg TID EDDIE Administration Hydroxyzine Pamoate 50 mg 05/11/22 00:58 05/12/22 20:12 Hydroxyzine 25 Mg Capsule PO 50 mg Q6H PRN Administration ANXIETY Ibuprofen 600 mg 05/11/22 01:33 05/13/22 12:12 Ibuprofen 600 Mg Tablet PO 600 mg Q8H PRN Administration pain Nicotine Polacrilex 2 mg 05/11/22 00:58 05/11/22 10:53 Nicotine 2 Mg Gum BUCCAL 2 mg Q2H PRN Administration NICOTINE WITHDRAWAL Nicotine Polacrilex 4 mg 05/11/22 01:45 05/13/22 11:53 Nicotine 4 Mg Lozenge MUCOUS MEM 4 mg PRN PRN Administration NICOTINE CRAVINGS Olanzapine 5 mg 05/11/22 00:58 05/12/22 17:23 Olanzapine 5 Mg Odt PO 5 mg Q4H PRN Administration Agitation/Psychosis Pantoprazole Sodium 40 mg 05/11/22 09:00 05/13/22 09:[address] 40 Mg Tablet PO 40 mg DAILY EDDIE Administration Polyethylene Glycol 17 gm 05/11/22 01:33 05/12/22 10:16 Polyethylene Glycol 3350 Pkt 17 Gm PO 17 gm TID PRN Administration Constipation Prazosin HCl 2 mg 05/11/22 21:00 05/12/22 20:14 Prazosin 1 Mg Capsule PO 2 mg BEDTIME@21 EDDIE Administration Propranolol HCl 20 mg 05/11/22 09:00 05/13/22 09:08 Propranolol 20 Mg Tablet PO 20 mg TID EDDIE Administration Risperidone 2 mg 05/11/22 09:00 05/13/22 09:07 Risperidone 1 Mg Tablet PO 2 mg BID EDDIE Administration PFSH Acute PFSH: Medical History Bipolar disorder Cervicalgia Chronic recurrent major depressive disorder Heroin use disorder, severe, in early remission History of antisocial personality disorder Hypertension Hypertriglyceridemia Hypoxemia Insomnia Methamphetamine abuse Methamphetamine use disorder, moderate, in early remission Night terror Pain in a tooth or teeth Psychiatric care Pulmonary embolism Schizoaffective disorder, depressive type Tobacco use disorder Tooth abscess Surgical History History of knee replacement procedure of right knee History of umbilical hernia repair Family History Father CAD (coronary artery disease) Cancer stomach Stroke Mother Cancer lung Diabetes Denies family history of Clotting disorder Dementia Hyperlipidemia Chronic kidney disease (CKD) Anesthesia complication Bleeding disorder Lung disease Hypertension Social History Smoking and tobacco status: current some day smoker (vape, attempting to quit cigarettes) cigarettes [ Other cigarette details: 1PPD x 40yrs. 40PY, 4 PPD as of 04/2022] and e-cigarettes E-Cigarette Details: vaporizer device Quit status (tobacco): has tried quititng Alcohol intake: former Desire information about alcohol rehabilitation?: No Counseling given: No Desire information about substance/drug rehabilitation?: No Counseling given: No Adopted: No Caregiver/support person: No Lives independently: Yes Household members: none Marital status: Single service: No Current occupational status: disabled Current gender identity: Male Special zhang needs: No Agree to transfusion: Yes Vitals/I&O/Wt Last Vital Signs Temp 98.2 F 05/13/22 06:00 Pulse 78 05/13/22 08:06 Resp 18 05/13/22 08:00 BP 116/78 05/13/22 06:00 Pulse Ox 93 05/13/22 08:00 O2 Del Method 05/13/22 08:00 Physical Exam Narrative: Up ambulating shirtless in the room, brushing his teeth. Const: COMMON NORMALS: patient oriented x3 and alert GENERAL APPEARANCE: cooperative ORIENTATION/CONSCIOUSNESS: Yes awake HENMT: COMMON NORMALS: oropharynx normal Neck/C-Spine: COMMON NORMALS: no JVD Resp: COMMON NORMALS: normal respiratory effort and clear to auscultation bilaterally AUSCULTATION: clear to auscultation bilaterally Cardio: COMMON NORMALS: no JVD, regular rhythm, S1 normal heart sound present, S2 normal heart sound present and No murmurs present (Cardio) RHYTHM: regular rhythm HEART SOUNDS: S1 normal heart sound present and S2 normal heart sound present GI: COMMON NORMALS: Normal to inspection, nondistended, normoactive bowel so unds present, Soft to palpation and non-tender PALPATION: Yes Soft to pal pation Extremity: COMMON NORMALS: no joint enlargement and no pedal edema Neuro: COMMON NORMALS: patient oriented x3 and moves all extremities SENSORIUM/ORIENTATION: Yes alert Skin: COMMON NORMALS: no rashes or lesions noted NARRATIVE SKIN EXAM: Tattoo GENERAL SKIN EXAM: no rashes or lesions noted Data 05/12/22 18:58 05/12/22 18:58 A&P Assessment and plan (1) Depression: Continue management as per psychiatry. (2) Adjustment disorder with mixed disturbance of emotions and conduct: Continue management as per podiatry. (3) Altered mental status: Worsening depression, does have history of psychiatric illness, however, hallucinations, slurred speech, alteration are new and out of the usual for him. Concern for possible additional delirium. Discussed with psychiatry. Psychiatry and ER physician note reviewed. Noted leukocytosis 11.3, although this appears to be somewhat persistent. Chest x-ray on presentation unremarkable, as was UA. Requesting repeat UA, bladder scan. He does report a chest cold and congestion with cough productive of sticky yellow sputum which she has been going through. We will additionally assess with respiratory viral panel, and discussed with him also will request a sputum culture. Empirically started on doxycycline as discussed with him, however, doubt that this would cause alteration of mental status to the degree seen or cause hallucinations. I do not see any history of liver cirrhosis, he does not drink alcohol. We considered possibility of withdrawal from amphetamines as well, although he states has not had any in the last 6-7 months. This is not likely. UDS reviewed as well. Would consider possibility of medication effects including anticholinergic effect from benztropine, or benztropine adverse effect which itself can cause hallucinations. Consider decreasing the medication or weaning off and discontinuing if symptoms are persistent. Additionally would avoid further hydroxyzine and limit any other medications that may contribute to anticholinergic effect. (4) Hallucinations: As above (5) Leukocytosis: Possibly secondary to acute bronchitis. Respiratory viral panel, sputum cultures requested as above. Doxycycline empirically for now. Follow-up CBC requested. (6) Acute bronchitis: Respiratory viral panel, sputum cultures requested as above. Doxycycline empirically for now. Albuterol as needed. Encourage smoking cessation. Follow-up with PCP. (7) Methamphetamine use disorder, moderate, in early remission: Continue to encourage abstinence. Plan History of PE on anticoagulation Other chronic medical problems. Consult Attestations Medical Necessity Statement: Continue assessment and management for underlying psychiatric issue. Additional assessment of leukocytosis and possible contribution of delirium from secondary causes. Diagnoses Depression F32.A Adjustment disorder with mixed disturbance of emotions and conduct F43.25 Altered mental status R41.82 Hallucinations R44.3 Leukocytosis D72.829 Acute bronchitis J20.9 Methamphetamine use disorder, moderate, in early remission F15.21
[2022-05-13 14:00] VITALS: BP 108/73; PULSE 55; RESP 16; TEMP 36.7; O2SAT 96
--- NOTE | 2022-05-13 16:28 | P.NPUPN_ITS ---
Subjective NPU Subjective: Patient presented today reporting that he was feeling pretty good. He continued to have confusion and altered mental status. He did have his hospitalist consult and additional lab work was requested. We discussed that we would await and work with the hospitalist on possible explanations for his delirium. He participated in the conversation but was still somewhat confused about the situation. He was agreeable to remain and we discussed that his 96- hour hold is up on Tuesday. Mental Status Exam MSE Comments: This is an overweight older white male looking older than his stated age in hospital scrubs with adequate grooming and eye contact. No abnormal movements except for mild psychomotor retardation. Cooperative with exam in no acute distress. Speech was mostly normal rate and volume with mild slurring. Mood described as okay, affect is confused. Thought process, disorganized. Thought content: patient denies current suicidal or homicidal ideation, he did not answer questions regarding delusions or hallucinations but did not appear to have delusions and did not appear to be attending to internal stimuli. Attention and concentration are impaired and memory appeared unreliable but none were formally tested. He is alert and oriented and at times place. Insight and impulse control are impaired. Vitals/I&O/Wt Last Vital Signs Temp 98.1 F 05/13/22 14:00 Pulse 55 L 05/13/22 14:00 Resp 16 05/13/22 14:00 BP 108/73 05/13/22 14:00 Pulse Ox 96 05/13/22 14:00 O2 Del Method 05/13/22 08:00 Data NPU 05/12/22 18:58 05/12/22 18:58 A&P Assessment and plan (1) Compression fracture: (2) Lytic bone lesion of hip: (3) Hypoxemia: (4) Pulmonary embolism: (5) Leukocytosis: (6) Substance use disorder: (7) Hypoxemia: (8) Pulmonary embolism: (9) Methamphetamine use disorder, severe: (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 1. Continue current medication. 2. Encourage, group and milieu therapies. 3. Continue every 15 minute checks for safety. 4. Encourage sober living treatment after discharge at the highest level of care to which he is willing to commit. 5. Some previous concerns for malingering versus cognitive limitations/intellectual disability. 6. Appreciate hospitalist consult will monitor and make changes as indicated based on recommendations. Involuntary Hold Information 96 Hour Hold: 96 Hour Involuntary Admission: Yes Attestations NPU Medical Necessity Statement*: Inpatient hospitalization is medically necessary and the clinically appropriate intervention at this time. We will monitor medication to make changes as indicated. Likely length of stay 4-6 days. Coding Level of Care Code Acute Code for Chg Fwd Diagnoses Compression fracture Lytic bone lesion of hip M89.8X5 Hypoxemia R09.02 Pulmonary embolism I26.99 Leukocytosis D72.829 Substance use disorder F19.90 Hypoxemia R09.02 Pulmonary embolism I26.99 Methamphetamine use disorder, severe F15.20 Adjustment disorder with mixed disturbance of emotions and conduct F43.25 Depression F32.A Altered mental status R41.82
[2022-05-13] MEDS: doxycycline 100 mg Tablet PO (17:46)
[2022-05-13] MEDS: prazosin 1 mg Capsule 2 MG PO (21:19)
[2022-05-13 22:00] VITALS: BP 111/76; PULSE 63; RESP 16; TEMP 36.7; O2SAT 96
[2022-05-14] MEDS: OLANZapine 5 mg ODT PO ×3 (00:02→20:58)
[2022-05-14] MEDS: cetylpyridinium Lozenge 1 EACH MUCOUS MEM (03:05)
[2022-05-14] MEDS: guaiFENesin-dextromethorphan UDC 10 mL PO ×2 (03:05→20:59)
[2022-05-14] MEDS: trazodone 50 mg Tablet PO ×2 (03:05→20:57)
[2022-05-14 06:00] VITALS: RESP 18
[2022-05-14 08:00] VITALS: PULSE 81; RESP 16; O2SAT 94
[2022-05-14 08:39] LABS: Basophils # 0.1 10^3/uL (0.0-0.1); Basophils % 0.7 %; Eosinophils # 0.5 10^3/uL (0.0-0.8); Eosinophils % 2.5 %; Hematocrit 40.8 % (42.0-52.0); Hemoglobin 13.7 g/dL (11.7-16.6); Lymphocytes # 2.4 10^3/uL (0.8-4.8); Lymphocytes % 12.2 %; Mean Corpuscular HGB Conc 33.6 g/dL (30.0-36.0); Mean Corpuscular Hemoglobin 28.1 pg (28.0-34.0); Mean Corpuscular Volume 83.8 fl (80-94); Mean Platelet Volume 8.8 fL (7.4-10.4); Monocytes # 1.3 10^3/uL (0.2-0.9); Monocytes % 6.6 %; Neutrophils # 15.22 10^3/uL (1.8-7.7); Neutrophils % 77.6 %; Nucleated Red Blood Cells % 0 %; Platelet Count 484 10^3/cmm (130-400); Red Blood Count 4.87 10^6/uL (4.1-5.3); Red Cell Distribution Width 13.2 % (12.1-15.1); White Blood Count 19.6 10^3/uL (4.0-10.0)
[2022-05-14] MEDS: budesonide 0.5 mg/2 mL Neb INHALATION (08:46)
--- NOTE | 2022-05-14 10:54 | CT_ITS ---
WS: [id number] LDCT LUNG CANCER SCREENING HISTORY: lung cancer screening TECHNIQUE: Axial imaging performed from the apices to 1 cm below the costophrenic angles. Coronal and sagittal reformats are submitted with axial MIP series. All CT scans at [facility] use at least one of these dose optimization techniques: automated exposure control; mA and/or kV adjustment per patient size (includes targeted exams where dose is matched to clinical indication); or iterativ e reconstruction. DLP: 81.47 mGy.cm DIvol: Mean CTDIvol: 1.60 (mGy) COMPARISON: CT angiogram 09/22/2021 Diagnostic quality: Mild motion and breathing artifact. Lungs: Hyperinflated lungs. Mild chronic interstitial thickening in the periphery. Overall the aerati on has improved since 09/22/2021. Previously described nodules have nearly completely resolved. Patchy opacifications and nodularity at the RIGHT lung base persists but improved. Largest nodule measures 6 mm. Mild tree-in-bud airspace disease RIGHT lower lobe. No endobronchial lesions. Heart: Normal size heart with no pericardial effusion.. Other findings: Mild atherosclerosis aorta. No adenopathy. Small hiatal hernia. No adrenal mass. CT/CT lung screening [id number] IMPRESSION: LUNG-RADS: 3-Probably Benign FOLLOW UP: 6 Month LDCT OTHER FINDINGS (S MODIFIER): None.
[2022-05-14] MEDS: buPROPion XL (24 HR) 150 mg Tablet 450 MG PO (11:22)
[2022-05-14] MEDS: atorvastatin 40 mg Tablet PO (11:23)
[2022-05-14] MEDS: BuSPIRONE 10 mg Tablet PO ×3 (11:23→20:56)
[2022-05-14] MEDS: risperiDONE 1 mg Tablet 2 MG PO ×2 (11:23→17:53)
[2022-05-14] MEDS: doxycycline 100 mg Tablet PO ×2 (11:23→17:54)
[2022-05-14] MEDS: pantoprazole DR 40 mg Tablet PO (11:23)
[2022-05-14] MEDS: apixaban 5 mg Tablet PO ×2 (11:24→17:54)
[2022-05-14] MEDS: buprenorphine-naloxone 4-1 mg Film 2 EACH SUBLINGUAL (11:24)
[2022-05-14] MEDS: benztropine 1 mg Tablet 0.5 MG PO ×2 (11:25→20:58)
[2022-05-14] MEDS: propranolol 20 mg Tablet PO ×3 (11:41→20:56)
[2022-05-14] MEDS: nicotine 4 mg lozenge MUCOUS MEM ×4 (11:41→20:56)
[2022-05-14] MEDS: albuterol 2.5 mg/3 mL Neb INHALATION (12:02)
[2022-05-14 12:03] VITALS: PULSE 86; RESP 18; O2SAT 94
[2022-05-14 14:00] VITALS: BP 131/79; PULSE 76; RESP 18; TEMP 37; O2SAT 91
--- NOTE | 2022-05-14 15:13 | W.PM.NPUPNS ---
Subjective NPU Subjective: Patient presented today reporting that he is doing okay. He seems a little less confused as he did the day prior. But he continues to have some confusion and behavior divergent from previous couple of admissions. Hospitalist consult and follow-up labs continue to have elevated white count of unknown etiology. CT scan performed appears unremarkable without significant change from previous CT scans. We discussed that we will continue to evaluate the possibility of a primary medical condition creating this altered mental status but given addiction history very possible this is a sequela from methamphetamine use. Mental Status Exam MSE Comments: This is an overweight older white male looking older than his stated age in hospital scrubs with adequate grooming and eye contact. No abnormal movements except for mild psychomotor retardation. Cooperative with exam in no acute distress. Speech was mostly normal rate and volume with mild slurring/speaking like tongue is heavy. Mood described as okay, affect is confused. Thought process, disorganized. Thought content: patient denies current suicidal or homicidal ideation, he did not answer questions regarding delusions or hallucinations but did not appear to have delusions and did not appear to be attending to internal stimuli. Attention and concentration are improving some and memory appeared unreliable but none were formally tested. He is alert and oriented to self and at times place. Insight, judgment and impulse control are impaired. Vitals/I&O/Wt Last Vital Signs Temp 98.1 F 05/13/22 22:00 Pulse 63 05/13/22 22:00 Resp 18 05/14/22 06:00 BP 111/76 05/13/22 22:00 Pulse Ox 96 05/13/22 22:00 O2 Del Method 05/13/22 22:00 Data NPU 05/12/22 18:58 05/12/22 18:58 A&P Assessment and plan (1) Compression fracture: (2) Lytic bone lesion of hip: (3) Hypoxemia: (4) Pulmonary embolism: (5) Leukocytosis: (6) Substance use disorder: (7) Hypoxemia: (8) Pulmonary embolism: (9) Methamphetamine use disorder, severe: (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 1. Continue current medication. 2. Encourage, group and milieu therapies. 3. Continue every 15 minute checks for safety. 4. Encourage sober living treatment after discharge at the highest level of care to which he is willing to commit. 5. Some previous concerns for malingering versus cognitive limitations/intellectual disability. 6. Appreciate hospitalist consult will monitor and make changes as indicated based on recommendations. Involuntary Hold Information 96 Hour Hold: 96 Hour Involuntary Admission: Yes Attestations NPU Medical Necessity Statement*: Inpatient hospitalization is medically necessary and the clinically appropriate intervention at this time. We will monitor medication to make changes as indicated. Likely length of stay 4-6 days. Coding Level of Care Code Acute Code for g Fwd Diagnoses Compression fracture Lytic bone lesion of hip M89.8X5 Hypoxemia R09.02 Pulmonary embolism I26.99 Leukocytosis D72.829 Substance use disorder F19.90 Hypoxemia R09.02 Pulmonary embolism I26.99 Methamphetamine use disorder, severe F15.20 Adjustment disorder with mixed disturbance of emotions and conduct F43.25 Depression F32.A Altered mental status R41.82
--- NOTE | 2022-05-14 15:27 | PC.NURSE ---
PRN MED PT GIVEN 5MG ZYPREXA FOR STATED ANXIETY, WILL CONTINUE TO MONITOR.
[2022-05-14] MEDS: acetaminophen 325 mg Tablet 650 MG PO (16:32)
[2022-05-14] MEDS: hyDROXYzine 25 mg Capsule 50 MG PO ×2 (16:33→20:58)
[2022-05-14] MEDS: prazosin 1 mg Capsule 2 MG PO (20:56)
[2022-05-14] MEDS: ibuprofen 600 mg Tablet PO (20:57)
[2022-05-14 22:00] VITALS: BP 112/73; PULSE 73; RESP 15; TEMP 36.6; O2SAT 93
--- NOTE | 2022-05-14 22:48 | PM.PN ---
Subjective Subjective: Reports he is doing okay. No additional symptoms. He is coughing up phlegm chunks . Still having hallucinations. Vitals/I&O/Wt Last Vital Signs Temp 98.6 F 05/14/22 14:00 Pulse 76 05/14/22 14:00 Resp 18 05/14/22 14:00 BP 131/79 05/14/22 14:00 Pulse Ox 91 05/14/22 14:00 O2 Del Method 05/14/22 12:03 Weight last 48 hrs Weight 86.806 kg Physical Exam Const: COMMON NORMALS: patient oriented x3 and alert GENERAL APPEARANCE: cooperative ORIENTATION/CONSCIOUSNESS: Yes awake Neck/C-Spine: COMMON NORMALS: no JVD Cardio: COMMON NORMALS: no JVD Neuro: COMMON NORMALS: patient oriented x3 and moves all extremities SENSORIUM/ORIENTATION: Yes alert Data 05/14/22 08:04 05/12/22 18:58 Micro: Microbiology 05/12/22 15:11 Urine Culture - Preliminary Urine,Clean Catch A&P Assessment and plan (1) Depression: Continue management as per psychiatry. (2) Adjustment disorder with mixed disturbance of emotions and conduct: Continue management as per psychiatry. (3) Altered mental status: Leukocytosis with worsening today. Still pending UA. He denies trouble urinating. He is coughing up large amounts of phlegm. Continue doxycycline. Noted screening CT lung, mild chronic interstitial thickening in the periphery. Previously described nodules have nearly completely resolved. Patchy opacification and nodularity at the right lung base persists but improved. Largest nodule measures 6 mm. Mild tree-in-bud airspace disease right lower lobe. No endobronchial lesions. Aspiration precautions. We will ask speech therapy to assess him. Again doubt degree of possible pneumonia is responsible for his hallucinations. Would consider possibility of medication effects including anticholinergic effect from benztropine, or benztropine adverse effect which itself can cause hallucinations. Consider decreasing the medication or weaning off and discontinuing if symptoms are persistent. Additionally would avoid further hydroxyzine and limit any other medications that may contribute to anticholinergic effect. I do not see any history of liver cirrhosis, he does not drink alcohol. We considered possibility of withdrawal from amphetamines as well, although he states has not had any in the last 6-7 months. This is not likely. UDS reviewed as well. (4) Hallucinations: As above (5) Leukocytosis: As above. Follow-up CBC requested. Follow-up UA, urine culture. We will additionally request blood culture. (6) Acute bronchitis: Respiratory viral panel, sputum cultures requested as above. Doxycycline empirically for now. Albuterol as needed. Encourage smoking cessation. Follow-up with PCP. (7) Methamphetamine use disorder, moderate, in early remission: Continue to encourage abstinence. Plan History of PE on anticoagulation. Other chronic medical problems. Attestations Medical Necessity Statement*: Continue admission on neuropsychiatric unit. Diagnoses Depression F32.A Adjustment disorder with mixed disturbance of emotions and conduct F43.25 Altered mental status R41.82 Hallucinations R44.3 Leukocytosis D72.829 Acute bronchitis J20.9 Methamphetamine use disorder, moderate, in early remission F15.21
[2022-05-15 06:00] VITALS: RESP 18
[2022-05-15] MEDS: nicotine 4 mg lozenge MUCOUS MEM ×8 (06:47→21:05)
[2022-05-15] MEDS: budesonide 0.5 mg/2 mL Neb INHALATION ×2 (07:37→20:44)
[2022-05-15 07:38] VITALS: PULSE 62; RESP 16; O2SAT 95
[2022-05-15 08:34] LABS: Basophils # 0.1 10^3/uL (0.0-0.1); Basophils % 0.9 %; Eosinophils # 0.5 10^3/uL (0.0-0.8); Eosinophils % 3.2 %; Hematocrit 40.2 % (42.0-52.0); Hemoglobin 13.1 g/dL (11.7-16.6); Lymphocytes # 2.5 10^3/uL (0.8-4.8); Lymphocytes % 17.6 %; Mean Corpuscular HGB Conc 32.6 g/dL (30.0-36.0); Mean Corpuscular Hemoglobin 27.7 pg (28.0-34.0); Mean Platelet Volume 8.7 fL (7.4-10.4); Monocytes # 1.1 10^3/uL (0.2-0.9); Monocytes % 8.2 %; Neutrophils % 69.7 %; Nucleated Red Blood Cells % 0 %; Platelet Count 442 10^3/cmm (130-400); Red Blood Count 4.73 10^6/uL (4.1-5.3); Red Cell Distribution Width 13.2 % (12.1-15.1); White Blood Count 13.9 10^3/uL (4.0-10.0)
[2022-05-15] MEDS: buprenorphine-naloxone 4-1 mg Film 2 EACH SUBLINGUAL (08:44)
[2022-05-15] MEDS: buPROPion XL (24 HR) 150 mg Tablet 450 MG PO (08:44)
[2022-05-15] MEDS: apixaban 5 mg Tablet PO ×2 (08:45→17:43)
[2022-05-15] MEDS: pantoprazole DR 40 mg Tablet PO (08:45)
[2022-05-15] MEDS: risperiDONE 1 mg Tablet 2 MG PO ×2 (08:45→17:43)
[2022-05-15] MEDS: cetylpyridinium Lozenge 1 EACH MUCOUS MEM ×3 (08:45→20:07)
[2022-05-15] MEDS: atorvastatin 40 mg Tablet PO (08:45)
[2022-05-15] MEDS: guaiFENesin-dextromethorphan UDC 10 mL PO ×2 (08:45→18:13)
[2022-05-15] MEDS: propranolol 20 mg Tablet PO ×3 (08:45→20:22)
[2022-05-15] MEDS: doxycycline 100 mg Tablet PO ×2 (08:45→17:43)
[2022-05-15] MEDS: BuSPIRONE 10 mg Tablet PO ×3 (08:45→20:22)
[2022-05-15] MEDS: benztropine 1 mg Tablet 0.5 MG PO ×2 (08:46→20:23)
--- NOTE | 2022-05-15 09:32 | P.NPUPN_ITS ---
Subjective NPU Subjective: Patient presented today continuing to show slow and subtle improvement in his altered mental status. We discussed his continued elevated white count and agreed to recheck a UA. He is not having any symptoms that are significant in any area to explain the continued elevated white count. Hosp italist evaluation has also not identified any clear indicator for that or the altered mental status. He continues to deny any recent drug use but we discussed the fact that withdrawal from methamphetamine could cause this delirious picture. Otherwise she denies any changes or difficulties. Mental Status Exam MSE Comments: This is an overweight older white male looking older than his stated age in hospital scrubs with adequate grooming and eye contact. No abnormal movements except for mild psychomotor retardation. Cooperative with exam in no acute distress. Speech was mostly normal rate and volume with mild slurring/speaking like tongue is heavy that seems to be improving slowly ever so slightly. Mood described as okay, affect is less confused. Thought process, more organized. Thought content: patient denies current suicidal or homicidal ideation, there were no delusions reported or noted and he denied any auditory or visual hallucinations and did not appear to have delusions and did not appear to be attending to internal stimuli. Attention and concentration are improving some and memory seeming more reliable but none were formally tested. He is alert and oriented to self and at times place. Insight, judgment and impulse control are improving. Vitals/I&O/Wt Last Vital Signs Temp 97.8 F 05/14/22 22:00 Pulse 62 05/15/22 07:38 Resp 16 05/15/22 07:38 BP 112/73 05/14/22 22:00 Pulse Ox 95 05/15/22 07:38 O2 Del Method 05/15/22 07:38 Weight last 48 hrs Weight 86.806 kg Data NPU 05/15/22 08:15 05/12/22 18:58 Micro: Microbiology 05/15/22 08:19 Blood Culture - Preliminary Blood SPECIMEN COLLECTED 05/15/22 08:15 Blood Culture - Preliminary Blood SPECIMEN COLLECTED 05/12/22 15:11 Urine Culture - Preliminary Urine,Clean Catch Microbiology 05/15/22 08:19 Blood Blood Culture - Preliminary SPECIMEN COLLECTED 05/15/22 08:15 Blood Blood Culture - Preliminary SPECIMEN COLLECTED 05/12/22 15:11 Urine,Clean Catch Urine Culture - Preliminary A&P Assessment and plan (1) Compression fracture: (2) Lytic bone lesion of hip: (3) Hypoxemia: (4) Pulmonary embolism: (5) Leukocytosis: (6) Substance use disorder: (7) Hypoxemia: (8) Pulmonary embolism: (9) Methamphetamine use disorder, severe: (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 1. Continue current medication. 2. Encourage, group and milieu therapies. 3. Continue every 15 minute checks for safety. 4. Encourage sober living treatment after discharge at the highest level of care to which he is willing to commit. 5. Some previous concerns for malingering versus cognitive limitations/inte llectual disability. 6. Appreciate hospitalist consult will monitor and make changes as indicated based on recommendations. Involuntary Hold Information 96 Hour Hold: 96 Hour Involuntary Admission: Yes Attestations NPU Medical Necessity Statement*: Inpatient hospitalization is medically necessary and the clinically appropriate intervention at this time. We will monitor medication to make changes as indicated. Likely length of stay 4-6 days. Coding Level of Care Code Acute Code for [facility] Fwd Diagnoses Compression fracture Lytic bone lesion of hip M89.8X5 Hypoxemia R09.02 Pulmonary embolism I26.99 Leukocytosis D72.829 Substance use disorder F19.90 Hypoxemia R09.02 Pulmonary embolism I26.99 Methamphetamine use disorder, severe F15.20 Adjustment disorder with mixed disturbance of emotions and conduct F43.25 Depression F32.A Altered mental status R41.82
[2022-05-15 14:00] VITALS: BP 102/68; PULSE 66; RESP 17; TEMP 36.7; O2SAT 95
[2022-05-15] MEDS: acetaminophen 325 mg Tablet 650 MG PO (20:06)
[2022-05-15] MEDS: trazodone 50 mg Tablet PO (20:07)
[2022-05-15] MEDS: OLANZapine 5 mg ODT PO (20:07)
[2022-05-15] MEDS: prazosin 1 mg Capsule 2 MG PO (20:23)
[2022-05-15 20:27] VITALS: BP 118/75; PULSE 67; RESP 18; TEMP 37.2; O2SAT 94
[2022-05-15 20:45] VITALS: PULSE 67; RESP 18; O2SAT 94
--- NOTE | 2022-05-15 21:11 | P.PN_ITS ---
Subjective Subjective: Reports cough is improving by 40%. Still seeing things which are not there, sometimes feels like someone is walking by him, but when he turns around there is nobody there. Vitals/I&O/Wt Last Vital Signs Temp 98.9 F 05/15/22 20:27 Pulse 67 05/15/22 20:45 Resp 18 05/15/22 20:45 BP 118/75 05/15/22 20:27 Pulse Ox 94 05/15/22 20:45 O2 Del Method 05/15/22 20:45 Weight last 48 hrs Weight 86.806 kg Physical Exam Narrative: Up ambulating shirtless Const: COMMON NORMALS: patient oriented x3 and alert GENERAL APPEARANCE: cooperative ORIENTATION/CONSCIOUSNESS: Yes awake HENMT: COMMON NORMALS: oropharynx normal Neck/C-Spine: COMMON NORMALS: no JVD Resp: COMMON NORMALS: normal respiratory effort AUSCULTATION: other (Coarse breath sounds.) Cardio: COMMON NORMALS: no JVD, regular rhythm, S1 normal heart sound present, S2 normal heart sound present and No murmurs present (Cardio) RHYTHM: regular rhythm HEART SOUNDS: S1 normal heart sound present and S2 normal heart sound present GI: COMMON NORMALS: Normal to inspection, nondistended, normoactive bowel soun ds present, Soft to palpation and non-tender PALPATION: Yes Soft to palpation Extremity: COMMON NORMALS: no joint enlargement and no pedal edema Neuro: COMMON NORMALS: patient oriented x3 and moves all extremities SENSORIUM/ORIENTATION: Yes alert Skin: COMMON NORMALS: no rashes or lesions noted NARRATIVE SKIN EXAM: Tattoo GENERAL SKIN EXAM: no rashes or lesions noted Data 05/15/22 08:15 05/12/22 18:58 Micro: Microbiology 05/14/22 13:05 Gram Stain - Final Sputum - Expectorated Sputum Sputum Culture - Preliminary 05/12/22 15:11 Urine Culture - Final Urine,Clean Catch 05/15/22 08:19 Blood Culture - Preliminary Blood SPECIMEN COLLECTED 05/15/22 08:15 Blood Culture - Preliminary Blood SPECIMEN COLLECTED A&P Assessment and plan (1) Depression: Continue management as per psychiatry. (2) Adjustment disorder with mixed disturbance of emotions and conduct: Continue management as per psychiatry. (3) Altered mental status: Leukocytosis noted improved. Follow-up additional CBC. UA from admission reviewed, not suggestive of UTI. Repeat UA requested. He denies trouble urinating. Discussed swallow evaluation with speech, diet has been adjusted. Requesting barium swallow. Adequate medicine as he is coughing up large amounts of phlegm. Continue doxycycline. Discussed with him screening CT lung, mild chronic interstitial thickening in the periphery. Previously described nodules have nearly completely resolved. Patchy opacification and nodularity at the right lung base persists but improved. Largest nodule measures 6 mm. Mild tree-in-bud airspace disease right lower lobe. No endobronchial lesions. Should follow-up with PCP. Aspiration precautions. Again doubt degree of possible pneumonia is responsible for his hallucinations. Limit medications that may contribute to encephalopathy especially anticholinergic effect from benztropine, or benztropine adverse effect which itself can cause hallucinations. Consider decreasing the medication or weaning off and discontinuing if symptoms are persistent. Additionally would avoid further hydroxyzine and limit any other medications that may contribute to anticholinergic effect. I do not see any history of liver cirrhosis, he does not drink alcohol. We considered possibility of withdrawal from amphetamines as well, although he states has not had any in the last 6-7 months. This is not likely. UDS reviewed as well. (4) Hallucinations: As above (5) Leukocytosis: As above. Follow-up CBC requested. Follow-up UA, urine culture. We will additionally request blood culture. (6) Acute bronchitis: Sputum cultures requested as above. Doxycycline empirically for now. Albuterol as needed. Encourage smoking cessation. Follow-up with PCP. (7) Methamphetamine use disorder, moderate, in early remission: Continue to encourage abstinence. Plan History of PE on anticoagulation. Other chronic medical problems. Attestations Medical Necessity Statement*: Continue admission for asthma and management of bronchitis, possible aspiration pneumonia, acute encephalopathy, continued management with regards to psychiatric issues, medication adjustment. Diagnoses Depression F32.A Adjustment disorder with mixed disturbance of emotions and conduct F43.25 Altered mental status R41.82 Hallucinations R44.3 Leukocytosis D72.829 Acute bronchitis J20.9 Methamphetamine use disorder, moderate, in early remission F15.21
[2022-05-15] MEDS: guaiFENesin 600 mg Tablet PO (21:48)
[2022-05-16 05:56] VITALS: BP 131/76; PULSE 47; RESP 16; TEMP 36.9; O2SAT 92
[2022-05-16 08:00] VITALS: PULSE 71; RESP 16; O2SAT 95
[2022-05-16] MEDS: BuSPIRONE 10 mg Tablet PO ×3 (08:43→20:21)
[2022-05-16] MEDS: guaiFENesin 600 mg Tablet PO ×2 (08:43→17:56)
[2022-05-16] MEDS: doxycycline 100 mg Tablet PO ×2 (08:43→17:56)
[2022-05-16] MEDS: pantoprazole DR 40 mg Tablet PO (08:43)
[2022-05-16] MEDS: buPROPion XL (24 HR) 150 mg Tablet 450 MG PO (08:43)
[2022-05-16] MEDS: buprenorphine-naloxone 4-1 mg Film 2 EACH SUBLINGUAL (08:43)
[2022-05-16] MEDS: apixaban 5 mg Tablet PO ×2 (08:43→17:56)
[2022-05-16] MEDS: risperiDONE 1 mg Tablet 2 MG PO ×2 (08:43→17:56)
[2022-05-16] MEDS: propranolol 20 mg Tablet PO ×3 (08:43→20:21)
[2022-05-16] MEDS: nicotine 4 mg lozenge MUCOUS MEM ×6 (08:43→20:20)
[2022-05-16] MEDS: atorvastatin 40 mg Tablet PO (08:45)
[2022-05-16] MEDS: ibuprofen 600 mg Tablet PO (08:48)
[2022-05-16] MEDS: budesonide 0.5 mg/2 mL Neb INHALATION ×2 (09:29→20:27)
[2022-05-16 09:39] LABS: Basophils # 0.1 10^3/uL (0.0-0.1); Basophils % 1.1 %; Eosinophils # 0.5 10^3/uL (0.0-0.8); Eosinophils % 3.8 %; Hematocrit 39.4 % (42.0-52.0); Hemoglobin 12.7 g/dL (11.7-16.6); Lymphocytes # 2.4 10^3/uL (0.8-4.8); Lymphocytes % 20.2 %; Mean Corpuscular HGB Conc 32.2 g/dL (30.0-36.0); Mean Corpuscular Hemoglobin 27.9 pg (28.0-34.0); Mean Corpuscular Volume 86.4 fl (80-94); Mean Platelet Volume 8.7 fL (7.4-10.4); Monocytes # 0.8 10^3/uL (0.2-0.9); Neutrophils # 7.91 10^3/uL (1.8-7.7); Neutrophils % 67.5 %; Nucleated Red Blood Cells % 0 %; Platelet Count 421 10^3/cmm (130-400); Red Blood Count 4.56 10^6/uL (4.1-5.3); Red Cell Distribution Width 13.5 % (12.1-15.1); White Blood Count 11.7 10^3/uL (4.0-10.0)
--- NOTE | 2022-05-16 10:07 | W.PM.NPUPNS ---
Subjective NPU Subjective: Patient presented today reporting that he is doing fine. We continued to discuss his physical health and the investigations into his elevated white count. We discussed that his UA result which he apparently just turned in this morning are not in yet. He continues to report feeling a little better and is clearly not confused or disorganized as he was at admission. We discussed that we have no answer as to what caused it and he continued to deny drug use but we discussed that it is the most likely culprit given his history and presentation. Mental Status Exam MSE Comments: This is an overweight older white male looking older than his stated age in hospital scrubs with adequate grooming and eye contact. No abnormal movements except for mild psychomotor retardation. Cooperative with exam in no acute distress. Speech was mostly normal rate and volume with mild slurring/speaking like tongue is heavy that seems to be improving slowly ever so slightly. Mood described as a little better, affect is less confused. Thought process, more organized. Thought content: patient denies current suicidal or homicidal ideation, there were no delusions reported or noted and he denied any auditory or visual hallucinations and did not appear to have delusions and did not appear to be attending to internal stimuli. Attention and concentration are improving some and memory seeming more reliable but none were formally tested. He is alert and oriented to self and at times place. Insight, judgment and impulse control are improving. Vitals/I&O/Wt Last Vital Signs Temp 98.5 F 05/16/22 05:56 Pulse 71 05/16/22 08:00 Resp 16 05/16/22 08:00 BP 131/76 05/16/22 05:56 Pulse Ox 95 05/16/22 08:00 O2 Del Method 05/16/22 08:00 Weight last 48 hrs Weight 85.548 kg Weight 86.806 kg Data NPU 05/16/22 09:30 05/12/22 18:58 Micro: Microbiology 05/15/22 08:19 Blood Culture - Preliminary Blood NEGATIVE TO DATE 05/15/22 08:15 Blood Culture - Preliminary Blood NEGATIVE TO DATE 05/14/22 13:05 Gram Stain - Final Sputum - Expectorated Sputum Sputum Culture - Preliminary 05/12/22 15:11 Urine Culture - Final Urine,Clean Catch Microbiology 05/15/22 08:19 Blood Blood Culture - Preliminary NEGATIVE TO DATE 05/15/22 08:15 Blood Blood Culture - Preliminary NEGATIVE TO DATE 05/14/22 13:05 Sputum - Expectorated Sputum Gram Stain - Final 05/14/22 13:05 Sputum - Expectorated Sputum Sputum Culture - Preliminary 05/12/22 15:11 Urine,Clean Catch Urine Culture - Final A&P Assessment and plan (1) Compression fracture: (2) Lytic bone lesion of hip: (3) Hypoxemia: (4) Pulmonary embolism: (5) Leukocytosis: (6) Substance use disorder: (7) Hypoxemia: (8) Pulmonary embolism: (9) Methamphetamine use disorder, severe: (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 1. Continue current medication. 2. Encourage, group and milieu therapies. 3. Continue every 15 minute checks for safety. 4. Encourage sober living treatment after discharge at the highest level of care to which he is willing to commit. 5. Some previous concerns for malingering versus cognitive limitations/intellectual disability. 6. Appreciate hospitalist consult will monitor and make changes as indicated based on recommendations. Involuntary Hold Information 96 Hour Hold: 96 Hour Involuntary Admission: Yes Attestations NPU Medical Necessity Statement*: Inpatient hospitalization is medically necessary and the clinically appropriate intervention at this time. We will monitor medication to make changes as indicated. Likely length of stay 3-5 days. Coding Level of Care Code Acute Code for [facility] Fwd Diagnoses Compression fracture Lytic bone lesion of hip M89.8X5 Hypoxemia R09.02 Pulmonary embolism I26.99 Leukocytosis D72.829 Substance use disorder F19.90 Hypoxemia R09.02 Pulmonary embolism I26.99 Methamphetamine use disorder, severe F15.20 Adjustment disorder with mixed disturbance of emotions and conduct F43.25 Depression F32.A Altered mental status R41.82
[2022-05-16] MEDS: cetylpyridinium Lozenge 1 EACH MUCOUS MEM ×3 (10:14→18:11)
[2022-05-16] MEDS: guaiFENesin-dextromethorphan UDC 10 mL PO (10:14)
[2022-05-16] MEDS: magnesium hydroxide 30 mL UDC PO ×2 (10:30→18:42)
[2022-05-16 12:34] LABS: Add Urine Microscopic? NO; Charge for UA Resulting for Rev
[2022-05-16 12:37] LABS: Bilirubin Urine Neg (Negative); Blood Urine Neg (Negative); Glucose Urine UA Norm (Normal); Ketones Urine Negative (Negative); Leukocyte Esterase Urine Negative (Negative); Nitrate Urine Negative (Negative); Protein Urine Neg (Negative); Urine Appearance Clear (CLEAR); Urine Color Yellow (Yellow); Urobilinogen Urine Norm (Negative); pH Urine 7 (5-7)
[2022-05-16 13:36] VITALS: BP 108/67; PULSE 64; RESP 18; TEMP 36.4; O2SAT 95
[2022-05-16] MEDS: OLANZapine 5 mg ODT PO (17:00)
[2022-05-16] MEDS: haloperidol 5 mg Tablet PO (18:04)
--- NOTE | 2022-05-16 18:07 | PC.NURSE ---
PRN General Repair Mechanic Patient states he can't sit still for feeling like he's crawling out of his skin. Patient pacing hallway and won't leave nurses' station. Haldol 5mg PO administered.
[2022-05-16 20:00] VITALS: PULSE 57; RESP 18; O2SAT 98
[2022-05-16 20:15] VITALS: BP 116/77; PULSE 57; RESP 18; TEMP 36.6; O2SAT 98
[2022-05-16] MEDS: prazosin 1 mg Capsule 2 MG PO (20:21)
[2022-05-16] MEDS: trazodone 50 mg Tablet PO (20:43)
--- NOTE | 2022-05-16 20:45 | PC.NURSE ---
Patient requesting medication to promote rest. PRN trazodone given as ordered. Patient went to room after administration.
--- NOTE | 2022-05-17 03:50 | PC.NURSE ---
Patient has been resting quietly during night. No signs of distress noted.
[2022-05-17 06:00] VITALS: BP 138/79; PULSE 45; RESP 16; TEMP 36.8; O2SAT 94
--- NOTE | 2022-05-17 06:15 | PC.NURSE ---
Patient requested prn pain medication for c/o lower back pain. Tylenol given as ordered. Encouraged patient to go back to room and lay down until medication was effective.
[2022-05-17] MEDS: nicotine 4 mg lozenge MUCOUS MEM ×7 (06:18→19:49)
[2022-05-17] MEDS: acetaminophen 325 mg Tablet 650 MG PO ×2 (06:18→15:43)
[2022-05-17] MEDS: buPROPion XL (24 HR) 150 mg Tablet 450 MG PO (07:40)
[2022-05-17] MEDS: ibuprofen 600 mg Tablet PO (07:41)
[2022-05-17] MEDS: BuSPIRONE 10 mg Tablet PO ×3 (07:42→19:46)
[2022-05-17] MEDS: apixaban 5 mg Tablet PO ×2 (07:42→18:05)
[2022-05-17] MEDS: atorvastatin 40 mg Tablet PO (07:42)
[2022-05-17] MEDS: pantoprazole DR 40 mg Tablet PO (07:43)
[2022-05-17] MEDS: doxycycline 100 mg Tablet PO (07:43)
[2022-05-17] MEDS: buprenorphine-naloxone 4-1 mg Film 2 EACH SUBLINGUAL (07:43)
[2022-05-17] MEDS: propranolol 20 mg Tablet PO ×3 (07:43→19:46)
[2022-05-17] MEDS: risperiDONE 1 mg Tablet 2 MG PO ×2 (07:44→18:05)
[2022-05-17] MEDS: guaiFENesin 600 mg Tablet PO ×2 (07:44→18:05)
[2022-05-17] MEDS: magnesium hydroxide 30 mL UDC PO (07:48)
[2022-05-17 08:00] VITALS: PULSE 60; RESP 16; O2SAT 97
[2022-05-17] MEDS: budesonide 0.5 mg/2 mL Neb INHALATION (08:37)
--- NOTE | 2022-05-17 09:44 | PC.NURSE ---
PT STATES SEEING WHISPS OF PEOPLE IN HIS PERIPHERAL VISION. BUT THAT IS NORMAL DENIES AUDITORY OR SI/HI IDEATION.
[2022-05-17] MEDS: cetylpyridinium Lozenge 1 EACH MUCOUS MEM ×4 (10:56→19:46)
--- NOTE | 2022-05-17 11:50 | P.NPUPN_ITS ---
Subjective NPU Subjective: Patient presented today reporting that he is feeling better. He is also looking the part with less tongue-tied conversation. Staff reports and less confusion. We discussed his lab results which though continued white count elevation and no clear signs of inflammation or infection noted. He met with the hospitalist again today and expressed understanding their interpretation of his situation. He expressed interest in discharge and we discussed the possibility of discharge in the next 48 hours as we work with the social work team on the logistics. Mental Status Exam MSE Comments: This is an overweight older white male looking older than his stated age in hospital scrubs with adequate grooming and eye contact. No abnormal movements except for mild psychomotor retardation. Cooperative with exam in no acute distress. Speech was mostly normal rate and volume with mild slurring/speaking like tongue is heavy that seems to be improving. Mood described as better, affect is congruent and. Thought process, more organized. Thought content: patient denies current suicidal or homicidal ideation, there were no delusions reported or noted and he denied any auditory or visual hallucinations and did not appear to have delusions and did not appear to be attending to internal stimuli. Attention and concentration are improving and memory seeming more reliable but none were formally tested. He is alert and oriented x3. Insight, judgment and impulse control are improving. Vitals/I&O/Wt Last Vital Signs Temp 98.3 F 05/17/22 06:00 Pulse 60 05/17/22 08:00 Resp 16 05/17/22 08:00 BP 138/79 05/17/22 06:00 Pulse Ox 97 05/17/22 08:00 O2 Del Method 05/17/22 08:00 05/16/22 05/17/22 05/17/22 22:59 06:59 14:59 Intake Total 900 / 900 Balance 900 / 900 Weight last 48 hrs Weight 85.548 kg Data NPU 05/16/22 09:30 05/12/22 18:58 Micro: Microbiology 05/16/22 08:10 Urine Culture - Preliminary Urine,Clean Catch 05/14/22 13:05 Gram Stain - Final Sputum - Expectorated Sputum Sputum Culture - Final Strep agalactiae - (group b) 05/15/22 08:19 Blood Culture - Preliminary Blood NEGATIVE TO DATE 05/15/22 08:15 Blood Culture - Preliminary Blood NEGATIVE TO DATE Microbiology 05/16/22 08:10 Urine,Clean Catch Urine Culture - Preliminary 05/14/22 13:05 Sputum - Expectorated Sputum Gram Stain - Final 05/14/22 13:05 Sputum - Expectorated Sputum Sputum Culture - Final Strep agalactiae - (group b) 05/15/22 08:19 Blood Blood Culture - Preliminary NEGATIVE TO DATE 05/15/22 08:15 Blood Blood Culture - Preliminary NEGATIVE TO DATE A&P Assessment and plan (1) Compression fracture: (2) Lytic bone lesion of hip: (3) Hypoxemia: (4) Pulmonary embolism: (5) Leukocytosis: (6) Substance use disorder: (7) Hypoxemia: (8) Pulmonary embolism: (9) Methamphetamine use disorder, severe: (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 1. Continue current medication. 2. Encourage, group and milieu therapies. 3. Continue every 15 minute checks for safety. 4. Encourage sober living treatment after discharge at the highest level of care to which he is willing to commit. 5. Some previous concerns for malingering versus cognitive limitations/intellectual disability. 6. Appreciate hospitalist consult will monitor and make changes as indicated based on recommendations. Involuntary Hold Information 96 Hour Hold: 96 Hour Involuntary Admission: Yes Attestations NPU Medical Necessity Statement*: Inpatient hospitalization is medically necessary and the clinically appropriate intervention at this time. We will monitor medication to make changes as indicated. Likely length of stay 1-3 days. Coding Level of Care Code Acute Code for [facility] Fwd Diagnoses Compression fracture Lytic bone lesion of hip M89.8X5 Hypoxemia R09.02 Pulmonary embolism I26.99 Leukocytosis D72.829 Substance use disorder F19.90 Hypoxemia R09.02 Pulmonary embolism I26.99 Methamphetamine use disorder, severe F15.20 Adjustment disorder with mixed disturbance of emotions and conduct F43.25 Depression F32.A Altered mental status R41.82
[2022-05-17] MEDS: OLANZapine 5 mg ODT PO ×2 (12:10→16:32)
--- NOTE | 2022-05-17 12:44 | PC.NURSE ---
pt came to nurses station requesting medication for pain informed pt that it was to early to administer another dose of ibuprofen but that he had tylenol available to him. pt refused.
[2022-05-17 14:00] VITALS: BP 99/64; PULSE 64; RESP 12; TEMP 36.7; O2SAT 94
[2022-05-17] MEDS: bisacodyl 5 mg Tablet 10 MG PO (14:51)
[2022-05-17] MEDS: haloperidol 5 mg Tablet PO (14:51)
--- NOTE | 2022-05-17 14:52 | PC.NURSE ---
PRN Digital Account Manager: Patient visibly shaking and states he is having trouble sitting still and concentrating. Upon further inquiry he stated he is starting to feel overwhelmed about patients being moved beds due to behaviors. Other patients have been having multiple behaviors this morning and it is beginning to make him all the more anxious. Patient given zyprexa 5mg ODT at 1210. Patient received haldol at 1451 as he stated the zyprexa did not seem to be helping
--- NOTE | 2022-05-17 16:07 | PM.PN ---
Subjective Subjective: Patient was seen this morning, he is standing at the nurses station, asking for more food, he has to popcorn bags in hand, he tells me he is eating okay, no difficulty swallowing, no coughing, no shortness of breath, his only complaint is when he is going to go home Vitals/I&O/Wt Last Vital Signs Temp 98.3 F 05/17/22 06:00 Pulse 60 05/17/22 08:00 Resp 16 05/17/22 08:00 BP 138/79 05/17/22 06:00 Pulse Ox 97 05/17/22 08:00 O2 Del Method 05/17/22 08:00 05/17/22 05/17/22 05/17/22 06:59 14:59 22:59 Intake Total 900 / 900 Balance 900 / 900 Weight last 48 hrs Weight 85.548 kg Physical Exam Const: COMMON NORMALS: no acute distress Resp: COMMON NORMALS: normal respiratory effort, No retractions, No use of accessory muscles and clear to auscultation bilaterally AUSCULTATION: clear to auscultation bilaterally Cardio: COMMON NORMALS: regular rate, regular rhythm, S1 normal heart sound present and S2 normal heart sound present RATE: regular rate RHYTHM: regular rhythm HEART SOUNDS: S1 normal heart sound present and S2 normal heart sound present GI: COMMON NORMALS: Normal to inspection, nondistended, normoactive bowel sounds present and non-tender Extremity: COMMON NORMALS: no pedal edema Psych: COMMON NORMALS: mental status grossly normal Data 05/16/22 09:30 05/12/22 18:58 Micro: Microbiology 05/16/22 08:10 Urine Culture - Preliminary Urine,Clean Catch 05/14/22 13:05 Gram Stain - Final Sputum - Expectorated Sputum Sputum Culture - Final Strep agalactiae - (group b) A&P Assessment and plan (1) Depression: Continue management as per psychiatry. (2) Adjustment disorder with mixed disturbance of emotions and conduct: Continue management as per psychiatry. (3) Altered mental status: Resolved, doing significantly better according to nursing staff with medication adjustment Leukocytosis monitor, UA, urine culture negative so far Discussed swallow evaluation with speech, diet has been adjusted. No swallowing difficulties monitor Adequate medicine as he is coughing up large amounts of phlegm. Continue doxycycline. Discussed with him screening CT lung, mild chronic interstitial thickening in the periphery. Previously described nodules have nearly completely resolved. Patchy opacification and nodularity at the right lung base persists but improved. Largest nodule measures 6 mm. Mild tree-in-bud airspace disease right lower lobe. No endobronchial lesions. Should follow-up with PCP. Again doubt degree of possible pneumonia is responsible for his hallucinations. Limit medications that may contribute to encephalopathy especially anticholinergic effect from benztropine, or benztropine adverse effect which itself can cause hallucinations. Consider decreasing the medication or weaning off and discontinuing if symptoms are persistent. Additionally would avoid further hydroxyzine and limit any other medications that may contribute to anticholinergic effect. I do not see any history of liver cirrhosis, he does not drink alcohol. We considered possibility of withdrawal from amphetamines as well, although he states has not had any in the last 6-7 months. This is not likely. UDS reviewed as well. (4) Hallucinations: As above (5) Leukocytosis: As above. Follow-up CBC requested. Follow-up UA, urine culture. We will additionally request blood culture. (6) Acute bronchitis: Sputum cultures requested as above. Stop doxycycline. Albuterol as needed. Encourage smoking cessation. Follow-up with PCP. (7) Methamphetamine use disorder, moderate, in early remission: Continue to encourage abstinence. Plan History of PE on anticoagulation. Other chronic medical problems. Attestations Medical Necessity Statement*: Patient requires hospitalization for inpatient psychiatric admission Coding Level of Care Code Acute Code for g Fwd Diagnoses Depression F32.A Adjustment disorder with mixed disturbance of emotions and conduct F43.25 Altered mental status R41.82 Hallucinations R44.3 Leukocytosis D72.829 Acute bronchitis J20.9 Methamphetamine use disorder, moderate, in early remission F15.21
[2022-05-17] MEDS: prazosin 1 mg Capsule 2 MG PO (19:45)
[2022-05-17] MEDS: trazodone 50 mg Tablet PO (19:49)
--- NOTE | 2022-05-17 19:50 | PC.NURSE ---
Patient requesting PRN for sleep. Trazodone given as ordered. Patient returned to room.
[2022-05-17 20:00] VITALS: PULSE 63; RESP 16; O2SAT 94
[2022-05-17] MEDS: guaiFENesin-dextromethorphan UDC 10 mL PO (20:34)
[2022-05-17 21:03] VITALS: BP 108/66; PULSE 63; RESP 16; TEMP 36.9; O2SAT 94
--- NOTE | 2022-05-18 02:26 | PC.NURSE ---
Patient has been resting quietly this shift. No signs of distress noted.
[2022-05-18] MEDS: nicotine 4 mg lozenge MUCOUS MEM ×3 (07:06→13:30)
[2022-05-18] MEDS: ibuprofen 600 mg Tablet PO (07:06)
[2022-05-18] MEDS: buPROPion XL (24 HR) 150 mg Tablet 450 MG PO (08:51)
[2022-05-18] MEDS: buprenorphine-naloxone 4-1 mg Film 2 EACH SUBLINGUAL (08:51)
[2022-05-18] MEDS: apixaban 5 mg Tablet PO (08:52)
[2022-05-18] MEDS: pantoprazole DR 40 mg Tablet PO (08:52)
[2022-05-18] MEDS: risperiDONE 1 mg Tablet 2 MG PO (08:52)
[2022-05-18] MEDS: guaiFENesin 600 mg Tablet PO (08:52)
[2022-05-18] MEDS: BuSPIRONE 10 mg Tablet PO (08:52)
[2022-05-18] MEDS: propranolol 20 mg Tablet PO (08:52)
[2022-05-18] MEDS: atorvastatin 40 mg Tablet PO (09:03)
[2022-05-18 09:06] VITALS: PULSE 68; RESP 16; O2SAT 94
[2022-05-18] MEDS: budesonide 0.5 mg/2 mL Neb INHALATION (09:06)
[2022-05-18] MEDS: magnesium hydroxide 30 mL UDC PO (09:17)
--- NOTE | 2022-05-18 11:27 | W.PM.NPUDCS ---
Diagnoses at Discharge Discharge Diagnosis (1) Compression fracture: Status: Resolved Permanent problem details: t12 (2) Lytic bone lesion of hip: Status: Resolved (3) Hypoxemia: Status: Resolved (4) Pulmonary embolism: Status: Resolved (5) Leukocytosis: Status: Resolved (6) Substance use disorder: Status: Inactive (7) Hypoxemia: Status: Inactive (8) Pulmonary embolism: Status: Inactive (9) Methamphetamine use disorder, severe: Status: Resolved (10) Adjustment disorder with mixed disturbance of emotions and conduct: Status: Acute (11) Depression: Status: Acute (12) Altered mental status: Status: Resolved Reason for Visit Reason for Visit: AMS Brief History: History of Present Illness Chriss Akers is a 57 year old male who presented to the emergency department with the following report: Chief Complaint: Altered Mental Status Stated Complaint: AMS Time Seen by Provider: 05/10/22 22:46 Source: patient Mode of arrival: ambulatory Limitations: no limitations History of Present Illness:?? 57-year-old male seen earlier Present hallucinations he is in a sober living center is cleared by psych and he did not want to be admitted he went back to [facility] had brought him back up.? He states that he has been talking to cats that are not there and is worsened hallucinations patient now does agree that he would be admitted and is able answer my questions appropriately but does have hallucinations here. Associated symptoms: Reports visual hallucinations He was admitted to the neuropsychiatric unit for definitive treatment of those issues.? He presents today unlike previous admissions.? Previously he has presented very goal-directed and with concerns for malingering often.? Today he presents confused and a very poor historian.? Much of his comments are partial thoughts merged with different partial thoughts that started 1 direction and ended in another and with almost no clarity as to what he is thinking or talking about.? He will say something and then followed up with the you know what I need and there is $0.00 and what he is saying.? Screen is negative and there are no clear signs of infection but he certainly appears delirious.? He had been discharged from the emergency department initially and the level of confusion was noted at his supportive residence he situation leading to them sending him back with concerns of intoxication or something else.? He reports taking his medication but it is unclear at this level of confusion if he could have been taking his medication appropriately or if he is getting enough assistance that that would have been the case. Per his 04/23/2022 [facility] inpatient discharge summary: Discharge Diagnosis (1) Compression fracture: ? ? ? Status: Acute ? ? ? Permanent problem details: t12 (2) Lytic bone lesion of hip: ? ? ? Status: Resolved (3) Hypoxemia: ? ? ? Status: Resolved (4) Pulmonary embolism: ? ? ? Status: Resolved (5) Leukocytosis: ? ? ? Status: Resolved (6) Substance use disorder: ? ? ? Status: Inactive (7) Hypoxemia: ? ? ? Status: Inactive (8) Pulmonary embolism: ? ? ? Status: Inactive (9) Methamphetamine use disorder, severe: ? ? ? Status: Resolved (10) Adjustment disorder with mixed disturbance of emotions and conduct: ? ? ? Status: Acute (11) Depression: ? ? ? Status: Acute Reason for Visit Reason for Visit:?? SI? Brief History: History of Present Illness Chriss Akers is a 57 year old male who presented to the emergency department with the following report: Chief Complaint: Psychiatric Symptoms Stated Complaint: SI Time Seen by Provider: 04/20/22 11:20 History of Present Illness:?? Mr. Akers is a 57-year-old gentleman with remote history of substance abuse, history of PE on anticoagulation, COPD, possibly schizoaffective disorder presented to the emergency department for suicidal ideation with a plan.? He does have a history of depression and has been on medications however over the past few days reports that they do not seem to help.? He feels depressed and increasingly hopeless.? He walked downstairs earlier and saw a rope and thought of hanging himself.? He does have a history of suicide attempt by hanging.? Overall course of symptoms has worsened.? Intensity is moderate to severe.? He notes hopelessness and anxiety.? No other specific changes in health, exacerbating, or alleviating factors identified. Onset (ago): day(s) Duration: getting worse History of same: Yes Relieving factors: none Exacerbating factors: none Associated psychiatric symptoms: depression and suicidal ideation If self harm: admits thoughts of self harm and has plan. He was admitted to the neuropsychiatric unit for definitive treatment of those issues.? He presents today much like he did the last hospitalization reporting fairly mundane issues being problematic.? He is [place] staying at [place] and reports that things are okay there.? He reports that he has some guys there that he can hang out with that are nice.? And he gets along with other people.? He reports that he feels like he is being easily stressed and overwhelmed.? Reports is been impacted from losses that he has had.? He reports that he is looking for employment but has not been successful.? He reports that he was on his way to what he thought was a job he was getting only to be told that he did not even have an interview like he had believed.? He reports that that really sent him reeling and he started getting caught up in his negative thoughts.? He reports that he has been doing well from the standpoint of his recovery and that that has not been an issue.? We discussed the risk benefits and alternatives of increasing his BuSpar to 10 mg p.o. 3 times daily and he understood and agreed to proceed as is documented in this note.? We also discussed the possibility of increasing his Risperdal prior to discharge.? An excerpt of his last inpatient note is included below for context and history. Per his 09/24/2021 [facility] inpatient psychiatric evaluation: History of Present Illness Chriss Akers is a 56 year old male who presented to the emergency department with the following report: Stated complaint: same reason Time Seen by Provider: 09/22/21 17:33 History of Present Illness:?? Patient is a 56-year-old male with a history of former meth use, chronic hypoxemia on 3 L oxygen presenting to the emergency room for concerns of hypoxemia.? Earlier patient was seen evaluated emergency room was diagnosed with possible nonocclusive pulmonary embolism.? In addition, patient was found to have leukocytosis with no prior for comparison.? Patient decided to go home so he could have a smoke.? Patient's chose to sign out AMA earlier today and decided come back to the emergency room. Onset:unknown Duration:ongoing Location:home Severity:moderate Associated symptoms: Deny chest pain, dyspnea, nausea, rash, palpitations or vomiting. He reports that he presents secondary to breathing issues and suicidal ideation. He reports he just recently left the long term which he was in 3 times for 10 years each. He reports he has been psychiatrically hospitalized a few times and denies receiving outpatient services. He reports a pack of cigarettes a day, denies alcohol, reports marijuana occasionally, endorses methamphetamine and denies any other illicit drug use. He has never been to a rehab and received a DUI in 1998. He reports he was at [facility] when he started having issues with his breathing and increased suicidal ideation which is how he presents today. He reports he wants to leave as he feels information is being kept from him in regards to his health and what is going on. We discussed at length about addressing his medical issues and the safety concern that is presented given he is expressing suicidal ideation recently given there has been no change in his health conditions since he was admitted. He reports he has not been on suboxone correction and had an opiate use problem when he was younger. Psychiatric History: As above. Substance Abuse History: As above Family History: He denies mental health issues on either side of the family, addiction issues on his father?s side of the family and a suicide completion from his mother?s side of the family. Developmental History: He denies any issues with his or , learned to walk and talk and met his developmental standards on time, and denies any need for speech therapy, learning support, emotional support or special education classes. Psychosocial History: He reports his parents were together when he was born and remained together. He has 2 sisters and 2 brothers who are products of the same union. He described his childhood as great and denies any emotional, physical or sexual abuse. He reports truancy issues and was put in placement. He denies any other traumatic events. The highest grade he achieved was 11 th and he got his GED. He endorses being heterosexual with his longest relationship being 6 to 7 years. He has been once and , has 4 biological children, has never been in the and endorses being a christianity. He currently lives at [facility]. Legal History: He reports he has been in [facility] 10 times and long term 3 times at least. Medical History: Please see treatment team note for full details. Hospital Course Hospital Course He quickly acclimated to the individual, group and milieu therapies provided.? He reported having a setback that kind of led to him taking a step back.? We increased his medications, specifically increasing BuSpar to 10 mg p.o. 3 times daily, Wellbutrin XL to 450 mg p.o. every morning and Risperdal to 2 mg p.o. twice daily.? He had modest improvement and was able to contract for safety outside of the hospital prior to discharge.? During the hospitalization, patient had routine laboratory studies which were within normal limits except for few outliers.? Additionally there was a general medical evaluation which was also within normal limits and revealed no new acute processes. Discharge Summary: At the time of discharge, patient denied psychosis or lethality.? Mood and anxiety were well managed.? Patient endorsed a plan to avoid all drugs of abuse and follow-up with the aftercare recommendations of the treatment team.? Patient was evaluated and deemed to be absent credible lethality, and had achieved the maximum benefit from an inpatient hospitalization, so was discharged. Hospital Course Hospital Course He quickly acclimated to the individual, group and milieu therapies provided.? He presented with a slightly altered. Hospitalist consult to determine if his elevated white count had any nidus. Nothing was discovered. We continued his home medications and he had significant improvement and was able to contract for safety outside of the hospital prior to discharge.? During the hospitalization, patient had routine laboratory studies which were within normal limits except for few outliers with elevated white count was investigated by hospitalist.? Additionally there was a general medical evaluation which was also within normal limits and revealed no new acute processes. Discharge Summary: At the time of discharge, patient denied psychosis or lethality.? Mood and anxiety were well managed.? Patient endorsed a plan to avoid all drugs of abuse and follow-up with the aftercare recommendations of the treatment team.? Patient was evaluated and deemed to be absent credible lethality, and had achieved the maximum benefit from an inpatient hospitalization, so was discharged. Involuntary Hold Information 96 Hour Hold: 96 Hour Involuntary Admission: Yes Mental Status Exam MSE Comments: This is an overweight older white male looking older than his stated age in hospital scrubs with adequate grooming and eye contact. No abnormal movements except for mild psychomotor retardation. Cooperative with exam in no acute distress. Speech was mostly normal rate and volume with mild slurring/speaking like tongue is heavy that seems to be improving. Mood described as better, affect is congruent and. Thought process, more organized. Thought content: patient denies current suicidal or homicidal ideation, there were no delusions reported or noted and he denied any auditory or visual hallucinations and did not appear to have delusions and did not appear to be attending to internal stimuli. Attention and concentration are improving and memory seeming more reliable but none were formally tested. He is alert and oriented x3. Insight, judgment and impulse control are improving. Discharge Data Studies Completed and Pending: Completed Studies During Hospitalization Category Date Time Status CT head wo con* [id number] 0450 Stat Cat Scan 05/10/22 22:[address] lung screening [id number] Routine Exams 05/14/22 10:54 Completed CXRP [XR chest 1V portable [id number]] S tat Exams 05/10/22 22:47 Completed Pending at discharge Category Date Time Status Blood Culture AM LABS Lab 05/15/22 08:19 Results Radiology Impressions Head CT 05/10/22 22:35 IMPRESSION: No acute intracranial abnormality. Chest X-Ray 05/10/22 22:47 IMPRESSION: No acute findings. CT Lung 05/14/22 10:54 IMPRESSION: LUNG-RADS: 3-Probably Benign FOLLOW UP: 6 Month LDCT OTHER FINDINGS (S MODIFIER): None. Laboratory Results WBC 11.7 10^3/uL (4.0 -10.0) H 05/16/22 09:30 RBC 4.56 10^6/uL (4.1 -5.3) 05/16/22 09:30 Hgb 12.7 g/dL (11.7-1 6.6) 05/16/22 09:30 Hct 39.4 % (42.0-52.0 ) L 05/16/22 09:30 MCV 86.4 fl (80-94) 05/16/22 09:30 MCH 27.9 pg (28.0-34. 0) L 05/16/22 09:30 MCHC 32.2 g/dL (30.0-3 6.0) 05/16/22 09:30 RDW 13.5 % (12.1-15.1 ) 05/16/22 09:30 Plt Count 421 10^3/cmm (130 -400) H 05/16/22 09:30 MPV 8.7 fL (7.4-10.4) 05/16/22 09:30 Neut % (Auto) 67.5 % 05/16/22 09:30 Lymph % (Auto) 20.2 % 05/16/22 09:30 [place] % (Auto) 7.0 % 05/16/22 09:30 Eos % (Auto) 3.8 % 05/16/22 09:30 Baso % (Auto) 1.1 % 05/16/22 09:30 Neut # (Auto) 7.91 10^3/uL (1.8 -7.7) H 05/16/22 09:30 Lymph # (Auto) 2.4 10^3/uL (0.8- 4.8) 05/16/22 09:30 [place] # (Auto) 0.8 10^3/uL (0.2- 0.9) 05/16/22 09:30 Eos # (Auto) 0.5 10^3/uL (0.0- 0.8) 05/16/22 09:30 Baso # (Auto) 0.1 10^3/uL (0.0- 0.1) 05/16/22 09:30 Nucleated RBC % (a uto) 0 % 05/16/22 09:30 Nucleated RBCs # 0.0 /100WBC 05/16/22 09:30 Sodium 133 mmol/L (136-1 45) L 05/12/22 18:58 Potassium 4.4 mmol/L (3.5-5 .1) 05/12/22 18:58 Chloride 95 mmol/L (98-107 ) L 05/12/22 18:58 Carbon Dioxide 27 mmol/L (22-29) 05/12/22 18:58 Anion Gap 15.4 (5-19) 05/12/22 18:58 BUN 14 mg/dL (6-20) 05/12/22 18:58 Creatinine 0.8 mg/dL (0.7-1. 2) 05/12/22 18:58 GFR Calculation 100.4 mL/min (90- 130) 05/12/22 18:58 Glucose 134 mg/dL (65-115 ) H 05/12/22 18:58 Calculated Osmolal ity 278 mOsm/kg (285- 295) L 05/12/22 18:58 Calcium 9.2 mg/dL (8.5-10 .5) 05/12/22 18:58 Total Bilirubin 0.3 mg/dL (0.15-1 .2) 05/12/22 18:58 Total Bilirubin Cancelled 05/12/22 18:58 Direct Bilirubin 0.20 mg/dL (0.00- 0.30) 05/12/22 18:58 Direct Bilirubin Cancelled 05/12/22 18:58 AST 13 U/L (0-40) 05/12/22 18:58 AST Cancelled 05/12/22 18:58 ALT 9 U/L (0-41) 05/12/22 18:58 ALT Cancelled 05/12/22 18:58 Alkaline Phosphata se 119 U/L (40-130) 05/12/22 18:58 Alkaline Phosphata se Cancelled 05/12/22 18:58 Ammonia 28 umol/L (16-60) 05/12/22 18:58 Total Protein 7.6 g/dL (6.6-8.7 ) 05/12/22 18:58 Total Protein Cancelled 05/12/22 18:58 Albumin 4.5 g/dL (3.5-5.2 ) 05/12/22 18:58 Albumin Cancelled 05/12/22 18:58 Globulin 3.1 g/dL (1.3-4.6 ) 05/12/22 18:58 Globulin Cancelled 05/12/22 18:58 Urine Color Yellow (Yellow) 05/16/22 08:10 Urine Appearance Clear (CLEAR) 05/16/22 08:10 Urine pH 7 (5-7) 05/16/22 08:10 Ur Specific Gravit y 1.010 (1.005-1.0 30) 05/16/22 08:10 Urine Protein Neg (Negative) 05/16/22 08:10 Urine Glucose (UA) Norm (Normal) 05/16/22 08:10 Urine Ketones Negative (Negati ve) 05/16/22 08:10 Urine Blood Neg (Negative) 05/16/22 08:10 Urine Nitrate Negative (Negati ve) 05/16/22 08:10 Urine Bilirubin Neg (Negative) 05/16/22 08:10 Urine Urobilinogen Norm mg/dL (Negat elba) 05/16/22 08:10 Ur Leukocyte Angelita ase Negative (Negati ve) 05/16/22 08:10 Urine RBC 0-4 /hpf (0-2) H 05/10/22 22:47 Urine WBC 0-4 /hpf (0-5) H 05/10/22 22:47 Ur Squamous Epith Cells 0-4 /hpf (0-5) H 05/10/22 22:47 Amorphous Sediment Not Reportable 05/10/22 22:47 Urine Bacteria None /hpf (NONE) 05/10/22 22:47 Nasal Influ A H1 2 009 PCR Cancelled 05/14/22 13:05 Urine Opiates Scre en Negative ng/mL (N egative) 05/12/22 15:11 Ur Barbiturates Sc reen Negative ng/mL (N egative) 05/12/22 15:11 Ur Phencyclidine S crn Negative ng/mL (N egative) 05/12/22 15:11 Ur Amphetamines Sc reen Negative ng/mL (N egative) 05/12/22 15:11 U Benzodiazepines Scrn Negative ng/mL (N egative) 05/12/22 15:11 Urine Cocaine Scre en Negative ng/mL (N egative) 05/12/22 15:11 U Marijuana (THC) Screen Negative ng/mL (N egative) 05/12/22 15:11 Adenovirus (PCR) Cancelled 05/14/22 13:05 C. pneumoniae DNA (PCR) Cancelled 05/14/22 13:05 Coronavirus 229E ( PCR) Cancelled 05/14/22 13:05 Human Metapneumovi r PCR Cancelled 05/14/22 13:05 Influenza A (H1) P CR Cancelled 05/14/22 13:05 Influenza A (H3) P CR Cancelled 05/14/22 13:05 Influenza Type A ( PCR) Cancelled 05/14/22 13:05 Influenza Type B ( PCR) Cancelled 05/14/22 13:05 M. pneumoniae (PCR ) Cancelled 05/14/22 13:05 Parainfluenza 1 (P CR) Cancelled 05/14/22 13:05 Parainfluenza 2 (P CR) Cancelled 05/14/22 13:05 Parainfluenza 3 (P CR) Cancelled 05/14/22 13:05 Parainfluenza 4 (P CR) Cancelled 05/14/22 13:05 RSV Type A (PCR) Cancelled 05/14/22 13:05 RSV Type B (PCR) Cancelled 05/14/22 13:05 Entero/Rhino (PCR) Cancelled 05/14/22 13:05 SARS-CoV-2 (PCR) Cancelled 05/14/22 13:05 Vitals: Last Vital Signs Temp 98.5 F 05/17/22 21:03 Pulse 68 05/18/22 09:06 Resp 16 05/18/22 09:06 BP 108/66 05/17/22 21:03 Pulse Ox 94 05/18/22 09:06 O2 Del Method 05/18/22 09:06 Discharge Plan Discharge Patient Disposition: Home Condition: Stable Prescriptions: Continued buprenorphine-naloxone 8-2 mg tablet, sublingual 1 tab sublingual DAILY Qty: 30 1RF prazosin 2 mg capsule 2 mg PO BEDTIME@21 Qty: 30 2RF benztropine 1 mg tablet 0.5 mg PO BID@ Qty: 60 2RF ibuprofen 600 mg tablet 600 mg PO Q8H PRN (Reason: pain) Qty: 30 0RF hydroxyzine HCl 25 mg tablet 25 mg PO Q6H PRN (Reason: Anxiety) Qty: 60 1RF atorvastatin [Lipitor] 40 mg tablet 40 mg PO DAILY Qty: 90 1RF Eliquis 5 mg tablet 5 mg PO BID Qty: 180 1RF budesonide-formoterol [Symbicort] 80-4.5 mcg/actuation HFA aerosol inhaler See Rx Instructions .ROUTE .COMPLEX Qty: 10.2 2RF Dose Instruction: INHALE 2 PUFFS TWO TIMES A DAY Rx Instructions: INHALE 2 PUFFS TWO TIMES A DAY nicotine (polacrilex) 4 mg lozenge See Rx Instructions .ROUTE .COMPLEX Qty: 144 2RF Dose Instruction: TAKE 4 LOZENGES BY MOUTH NEEDED Rx Instructions: TAKE 4 LOZENGES BY MOUTH NEEDED diclofenac sodium 1 % Gel 2 - 4 g TOPICAL BID PRN (Reason: Pain) polyethylene glycol 3350 [Miralax] 17 gram powder in packet 17 g PO TID PRN (Reason: Constipation) propranolol 20 mg tablet 20 mg PO TID omeprazole 40 mg Capsule,Delayed Release(Dr/Ec) 40 mg PO DAILY bupropion HCl 150 mg Tablet Extended Release 24 Hr 450 mg PO DAILY@08 30 Days Qty: 90 1RF buspirone 10 mg Tablet 10 mg PO TID 30 Days Qty: 90 1RF risperidone 1 mg Tablet 2 mg PO BID 30 Days Qty: 120 1RF trazodone 50 mg Tablet 50 mg PO BEDTIME PRN (Reason: Sleep) 30 Days Qty: 30 1RF albuterol sulfate 90 mcg/actuation Hfa Aerosol Inhaler 2 puff INHALATION Q4H PRN (Reason: Shortness Of Breath Or Wheezing) No Action gabapentin 300 mg capsule 300 mg PO DAILY Qty: 30 0RF Discharge Orders: Discharge Order (Routine); Ordered 05/18/22 Ordered By: Maximiliano Jack Referrals: Brandon Costa MD [Physician] - 05/24/22 12:15 pm (Follow up) Lew Guzman MD [Primary Care Provider] - 05/24/22 3:15 pm (Follow up.) Discharge Diet: Regular Discharge Activity: Resume usual activity Patient Instructions: Bipolar Disorder (DC), Schizoaffective Disorder (DC), Leukocytosis (DC), Suicide Prevention (DC), Opioid Safety Discharge Attestations NPU Time Spent in Discharge Care*: less than 30 min Specific Discharge Activities: Specific discharge activities: educating patient, discussing with rehabilitation case coordinator/social workers/dc planners, documenting/other paperwork and evaluating patient/reviewing data Coding Level of Care Code Acute Chg FW DC note Diagnoses Compression fracture Lytic bone lesion of hip M89.8X5 Hypoxemia R09.02 Pulmonary embolism I26.99 Leukocytosis D72.829 Substance use disorder F19.90 Hypoxemia R09.02 Pulmonary embolism I26.99 Methamphetamine use disorder, severe F15.20 Adjustment disorder with mixed disturbance of emotions and conduct F43.25 Depression F32.A Altered mental status R41.82
[2022-05-18 11:38] VITALS: BP 108/66; PULSE 68; RESP 16; TEMP 36.9; O2SAT 94
== END 2022-05-18 13:34 | disposition home or self-care (01) | DRG 882 ==
LOC: ER 05-11 00:22 → NP 05-11 00:56
PROVIDERS: Internal Medicine; Admitting Provider Psychiatry & Neurology Psychiatry; Emergency Provider Emergency Medicine; PCP Family Medicine; Visit Provider Psychiatry & Neurology Psychiatry
DX: F43.25 Adjustment disorder with mixed disturbance of emotions and conduct (principal); F32.A Depression, unspecified; R44.1 Visual hallucinations; D72.829 Elevated white blood cell count, unspecified; I10 Essential (primary) hypertension; F17.221 Nicotine dependence, chewing tobacco, in remission; R47.81 Slurred speech; J20.9 Acute bronchitis, unspecified; F15.21 Other stimulant dependence, in remission; R91.8 Other nonspecific abnormal finding of lung field; Z86.711 Personal history of pulmonary embolism; Z79.01 Long term (current) use of anticoagulants; Z91.51 Personal history of suicidal behavior; Z76.5 Malingerer [conscious simulation]; Z79.899 Other long term (current) drug therapy
CPT/HCPCS: 36415; 70450; 71045; 71271; 80051; 80053; 80306; 81001; 81003; 82140; 82248; 85025; 87040; 87070; 87086; 87205; 92523; 92526; 92610; 94640; 97150; 97165; 99238; 99285; J0573; J7613; J7626

== ENCOUNTER 2022-05-27 19:12 | Emergency (ER) | payer MEDICAID, SELFPAY ==
[2022-05-27 19:48] VITALS: BP 159/92; PULSE 71; RESP 17; TEMP 36.8; O2SAT 94; BMI 33.3
--- NOTE | 2022-05-27 21:41 | XRR_ITS ---
PROCEDURE INFORMATION: Exam: XR Chest Exam date and time: 05/27/2022 9:52 PM Age: 57 years old Clinical indication: Cough and shortness of breath TECHNIQUE: Imaging protocol: Radiologic exam of the chest. Views: 2 views. COMPARISON: CT lung screening [id number] 05/14/2022 11:00 AM FINDINGS: Lungs: Unremarkable. No consolidation. Pleural spaces: Unremarkable. No pleural effusion. No pneumothorax. Heart/Mediastinum: Unremarkable. No cardiomegaly. Bones/joints: Unremarkable. XR/XR chest 2V* [id number] IMPRESSION: No acute findings.
--- NOTE | 2022-05-27 22:03 | ECG_ITS ---
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
[2022-05-27 22:27] LABS: Basophils # 0.2 10^3/uL (0.0-0.1); Basophils % 1.3 %; Eosinophils # 0.6 10^3/uL (0.0-0.8); Eosinophils % 5.2 %; Hemoglobin 12.4 g/dL (11.7-16.6); Lymphocytes # 3.6 10^3/uL (0.8-4.8); Lymphocytes % 30.1 %; Mean Corpuscular HGB Conc 32.6 g/dL (30.0-36.0); Mean Corpuscular Hemoglobin 27.6 pg (28.0-34.0); Mean Corpuscular Volume 84.6 fl (80-94); Mean Platelet Volume 8.3 fL (7.4-10.4); Monocytes # 0.9 10^3/uL (0.2-0.9); Monocytes % 7.3 %; Neutrophils # 6.64 10^3/uL (1.8-7.7); Neutrophils % 55.6 %; Nucleated Red Blood Cells % 0 %; Platelet Count 463 10^3/cmm (130-400); Red Blood Count 4.49 10^6/uL (4.1-5.3); Red Cell Distribution Width 13.3 % (12.1-15.1); White Blood Count 11.9 10^3/uL (4.0-10.0)
[2022-05-27 22:36] VITALS: BP 136/83; PULSE 65; RESP 16; O2SAT 93
[2022-05-27 22:39] LABS: Alanine Aminotransferase 10 U/L (0-41); Albumin Level 3.9 g/dL (3.5-5.2); Alkaline Phosphatase 100 U/L (40-130); Anion Gap 15.5 (5-19); Aspartate Amino Transferase 12 U/L (0-40); Blood Urea Nitrogen 14 mg/dL (6-20); Calcium 9.1 mg/dL (8.5-10.5); Carbon Dioxide 25 mmol/L (22-29); Chloride 103 mmol/L (98-107); Globulin 3.2 g/dL (1.3-4.6); Glomerular Filtration Rate 100.4 mL/min (90-130); Glucose 110 mg/dL (65-115); Osmolality Calculated 289 mOsm/kg (285-295); Potassium 4.5 mmol/L (3.5-5.1); Sodium 139 mmol/L (136-145); Total Bilirubin 0.2 mg/dL (0.15-1.2); Total Protein 7.1 g/dL (6.6-8.7)
[2022-05-27] MEDS: ketorolac 30 mg/mL INJ IM (22:45)
[2022-05-27 22:51] LABS: Add Urine Microscopic? NO; Charge for UA Resulting for Rev
--- NOTE | 2022-05-27 22:53 | PC.NURSE ---
Patient states he is not going to harm himself and does not want to stay overnight. States he has voices at times, but is not going to kill himself. Martinez EFFICIENCY ANALYST notified.
[2022-05-27 22:58] LABS: Bilirubin Urine Neg (Negative); Blood Urine Neg (Negative); Glucose Urine UA Norm (Normal); Ketones Urine Negative (Negative); Leukocyte Esterase Urine Negative (Negative); Nitrate Urine Negative (Negative); Protein Urine Neg (Negative); Urine Appearance Clear (CLEAR); Urine Color Yellow (Yellow); Urobilinogen Urine Norm (Negative); pH Urine 7 (5-7)
--- NOTE | 2022-05-27 23:00 | ED.C_ITS ---
Documented by User: Birgit Martinez, DIGITAL ADVISOR-C 05/28/22 02:36 HPI - Psych General: Chief Complaint: Psychiatric Symptoms Stated Complaint: disorientation; clammy; previous blood O2 issues Time Seen by Provider: 05/27/22 21:10 History of Present Illness: Patient initially tells me that he is here because he is anxious and upset. Patient reports that he was recently in the hospital and was doing better when he got out of the hospital but lately he has been more anxious and upset and hearing voices again. He reports that he hears voices frequently and other people do not see anybody talking to him. He reports that he has sleepwalking and he is afraid he is going to fall off the porch. With further questioning, he does report that the sleepwalking has been chronic and is not any worse. When asked if he had thoughts of harming himself or anybody else he stated that he does have thoughts of suicide and has had them a couple of times over the past week with the last one being on the way to the [facility]. Patient reports that he has thoughts of hanging himself with a rope. He reports that he has a history of a suicide attempt with a rope hanging himself 1 other time. He denies any thoughts of harming anybody else. With further questioning the patient stated that he originally decided to come to the [facility] because they checked his oxygen level at the [facility] and it was 91%. Patient reports that he was told to come to the hospital if his oxygen was low after he had his pulmonary embolism. He states that on the way t o the hospital he became sad thinking about how sick he has been as of late and that is when he became suicidal. 2 friends are here with patient from [facility]. They report they did not know that they were coming for any other reason besides his oxygen level was low. Associated symptoms: Reports auditory hallucinations, depression and suicidal ideation Review of Systems Const: Denies: fever(s), chills or body aches Eyes: Denies: change in vision or blurry vision Card: Denies: chest pain, palpitations, irregular heart rhythm, lightheadedness or syncope Resp: Denies: dyspnea, productive cough or non-productive cough GI: Denies: abdominal pain, nausea or vomiting : Denies: flank pain, dysuria, urinary frequency, urinary urgency or urinary hesitancy Musc: Denies: neck pain or back pain Psych: Reports: anxiety, depression, auditory hallucinations and suicidal i deation FORMERLY [facility], [facility] ED PFSH: Medical History Bipolar disorder Cervicalgia Chronic recurrent major depressive disorder Heroin use disorder, severe, in early remission History of antisocial personality disorder Hypertension Hypertriglyceridemia Hypoxemia Insomnia Methamphetamine abuse Methamphetamine use disorder, moderate, in early remission Night terror Pain in a tooth or teeth Psychiatric care Pulmonary embolism Schizoaffective disorder, depressive type Tobacco use disorder Tooth abscess Surgical History History of knee replacement procedure of right knee History of umbilical hernia repair Family History Father CAD (coronary artery disease) Cancer stomach Stroke Mother Cancer lung Diabetes Denies family history of Clotting disorder Dementia Hyperlipidemia Chronic kidney disease (CKD) Anesthesia complication Bleeding disorder Lung disease Hypertension Social History Smoking and tobacco status: current some day smoker (vape, attempting to quit cigarettes) cigarettes [ Other cigarette details: 1PPD x 40yrs. 40PY, 4 PPD as of 04/2022] and e-cigarettes E-Cigarette Details: vaporizer device Quit status (tobacco): has tried quititng Alcohol intake: former Desire information about alcohol rehabilitation?: No Counseling given: No Desire information about substance/drug rehabilitation?: No Counseling given: No Adopted: No Caregiver/support person: No Lives independently: Yes Household members: none Marital status: Single service: No Current occupational status: disabled Current gender identity: Male Special zhang needs: No Agree to transfusion: Yes Physical Exam Const: COMMON NORMALS: no acute distress, patient oriented x3 and alert GENERAL APPEARANCE: well kempt HENMT: TEETH & GINGIVA: Yes caries and Yes poor dentition Neck/C-Spine: COMMON NORMALS: no JVD Resp: COMMON NORMALS: normal respiratory effort, No use of accessory muscles and clear to auscultation bilaterally AUSCULTATION: clear to auscultation bilaterally Cardio: COMMON NORMALS: no JVD, regular rate, regular rhythm, S1 normal heart sound present and S2 normal heart sound present RATE: regular rate RHYTHM: regular rhythm HEART SOUNDS: S1 normal heart sound present and S2 normal heart sound present Neuro: COMMON NORMALS: patient oriented x3 SENSORIUM/ORIENTATION: Yes alert Psych: COMMON NORMALS: speech normal and activity/motor behavior normal APPEARANCE: Yes well kempt SPEECH: Yes normal speech OTHER: Patient is pleasant and cooperative. Affect brightens with interaction. Course Consultations: Consultation #1: Spoke with Dr. Jack regarding patient HPI, exam findings, current mental status and statements. Dr. Jack agrees that patient tends to fluctuate bet ween episodes of auditory hallucinations and intrusive thoughts. This is likely baseline for the patient. He agrees that it would be appropriate to discharge to home and follow-up outpatient with behavioral health care with the understanding to return to the ER with any new or worsening symptoms. Vital Signs: Vital signs: Vital Signs Temperature 98.3 F 05/27/22 19:48 Pulse Rate 67 05/27/22 23:08 Respiratory Rate 16 05/27/22 22:36 Blood Pressure 153/87 05/27/22 23:08 Pulse Oximetry 93 05/27/22 23:08 Oxygen Delivery Me thod 05/27/22 22:36 MDM - Psych Medical Decision Making Chest x-ray does not show any acute cardiopulmonary changes. Labs indicate a continued leukocytosis which may be secondary to a subacute infection from his poor dentition. I called and spoke with Dr. Jack regarding this patient. Dr. Jack knows the patient well. This patient seems to have chronic auditory hallucinations that come and go as well as chronic sleepwalking and chronic intrusive thoughts of suicide. The patient was initially coming for low oxygen but then on the way here forgot about the oxygen and became sad due to his chronic illnesses. Dr. Jack agrees that patient is likely at his baseline and safe to go home and follow-up with behavioral health care. As I got off of the phone with Dr. Jack the nurse came in and advised me that patient wanted me to be sure to note that he has no intention of killing himself. I went and spoke with the patient and he said that he does have thoughts of suicide but he is not going to kill himself right now. I discussed with the patient the conversation that Dr. Jack and I had. Patient is very agreeable with does wish to be discharged home for now and he states that he will follow-up with behavioral health care. Patient states that he will seek help should he become suicidal again. Patient is discharged to home in stable condition Lab Data 05/27/22 22:18 05/27/22 22:18 Radiology Impressions Chest X-Ray 05/27/22 21:41 IMPRESSION: No acute findings. Laboratory Results WBC 11.9 10^3/uL (4.0-10.0) H 05/27/22 22:18 RBC 4.49 10^6/uL (4.1-5.3) 05/27/22 22:18 Hgb 12.4 g/dL (11.7-16.6) 05/27/22 22:18 Hct 38.0 % (42.0-52.0) L 05/27/22 22:18 MCV 84.6 fl (80-94) 05/27/22 22:18 MCH 27.6 pg (28.0-34.0) L 05/27/22:18 MCHC 32.6 g/dL (30.0-36.0) 05/27/22 22:18 RDW 13.3 % (12.1-15.1) 05/27/22 22:18 Plt Count 463 10^3/cmm (130-400) H 05/27/22 22:18 MPV 8.3 fL (7.4-10.4) 05/27/22 22:18 Neut % (Auto) 55.6 % 05/27/22 22:18 Lymph % (Auto) 30.1 % 05/27/22 22:18 [place] % (Auto) 7.3 % 05/27/22 22:18 Eos % (Auto) 5.2 % 05/27/22 22:18 Baso % (Auto) 1.3 % 05/27/22 22:18 Neut # (Auto) 6.64 10^3/uL (1.8-7.7) 05/27/22 22:18 Lymph # (Auto) 3.6 10^3/uL (0.8-4.8) 05/27/22 22:18 [place] # (Auto) 0.9 10^3/uL (0.2-0.9) 05/27/22 22:18 Eos # (Auto) 0.6 10^3/uL (0.0-0.8) 05/27/22 22:18 Baso # (Auto) 0.2 10^3/uL (0.0-0.1) H 05/27/22 22:18 Nucleated RBC % (auto) 0 % 05/27/22 22:18 Nucleated RBCs # 0.0 /100WBC 05/27/22 22:18 Sodium 139 mmol/L (136-145) 05/27/22 22:18 Potassium 4.5 mmol/L (3.5-5.1) 05/27/22 22:18 Chloride 103 mmol/L (98-107) 05/27/22 22:18 Carbon Dioxide 25 mmol/L (22-29) 05/27/22 22:18 Anion Gap 15.5 (5-19) 05/27/22 22:18 BUN 14 mg/dL (6-20) 05/27/22 22:18 Creatinine 0.8 mg/dL (0.7-1.2) 05/27/22 22:18 GFR Calculation 100.4 mL/min (90-130) 05/27/22 22:18 Glucose 110 mg/dL (65-115) 05/27/22 22:18 Calculated Osmolality 289 mOsm/kg (285-295) 05/27/22 22:18 Calcium 9.1 mg/dL (8.5-10.5) 05/27/22 22:18 Total Bilirubin 0.2 mg/dL (0.15-1.2) 05/27/22 22:18 AST 12 U/L (0-40) 05/27/22 22:18 ALT 10 U/L (0-41) 05/27/22 22:18 Alkaline Phosphatase 100 U/L (40-130) 05/27/22 22:18 Total Protein 7.1 g/dL (6.6-8.7) 05/27/22 22:18 Albumin 3.9 g/dL (3.5-5.2) 05/27/22 22:18 Globulin 3.2 g/dL (1.3-4.6) 05/27/22 22:18 Urine Color Yellow (Yellow) 05/27/22 22:36 Urine Appearance Clear (CLEAR) 05/27/22 22:36 Urine pH 7 (5-7) 05/27/22 22:36 Ur Specific [place] 1.010 (1.005-1.030) 05/27/22 22:36 Urine Protein Neg (Negative) 05/27/22 22:36 Urine Glucose (UA) Norm (Normal) 05/27/22 22:36 Urine Ketones Negative (Negative) 05/27/22 22:36 Urine Blood Neg (Negative) 05/27/22 22:36 Urine Nitrate Negative (Negative) 05/27/22 22:36 Urine Bilirubin Neg (Negative) 05/27/22 22:36 Urine Urobilinogen Norm mg/dL (Negative) 05/27/22 22:36 Ur Leukocyte Esterase Negative (Negative) 05/27/22 22:36 Urine Opiates Screen Negative ng/mL (Negative) 05/27/22 22:36 Ur Barbiturates Screen Negative ng/mL (Negative) 05/27/22 22:36 Ur Phencyclidine Scrn Negative ng/mL (Negative) 05/27/22 22:36 Ur Amphetamines Screen Negative ng/mL (Negative) 05/27/22 22:36 U Benzodiazepines Scrn Negative ng/mL (Negative) 05/27/22 22:36 Urine Cocaine Screen Negative ng/mL (Negative) 05/27/22 22:36 U Marijuana (THC) Screen Negative ng/mL (Negative) 05/27/22 22:36 Discharge Plan Discharge Patient Disposition: Home Clinical Impression: Adjustment disorder with mixed disturbance of emotions and conduct, Auditory hallucinations Condition: Stable Prescriptions: No Action buprenorphine-naloxone 8-2 mg tablet, sublingual 1 tab sublingual DAILY Qty: 30 1RF prazosin 2 mg capsule 2 mg PO BEDTIME@21 Qty: 30 2RF benztropine 1 mg tablet 0.5 mg PO BID@06,21 Qty: 60 2RF ibuprofen 600 mg tablet 600 mg PO Q8H PRN (Reason: pain) Qty: 30 0RF gabapentin 300 mg capsule 300 mg PO DAILY Qty: 30 0RF hydroxyzine HCl 25 mg tablet 25 mg PO Q6H PRN (Reason: Anxiety) Qty: 60 1RF atorvastatin [Lipitor] 40 mg tablet 40 mg PO DAILY Qty: 90 1RF Eliquis 5 mg tablet 5 mg PO BID Qty: 180 1RF budesonide-formoterol [Symbicort] 80-4.5 mcg/actuation HFA aerosol inhaler See Rx Instructions .ROUTE .COMPLEX Qty: 10.2 2RF Dose Instruction: INHALE 2 PUFFS TWO TIMES A DAY Rx Instructions: INHALE 2 PUFFS TWO TIMES A DAY nicotine (polacrilex) 4 mg lozenge See Rx Instructions .ROUTE .COMPLEX Qty: 144 2RF Dose Instruction: TAKE 4 LOZENGES BY MOUTH NEEDED Rx Instructions: TAKE 4 LOZENGES BY MOUTH NEEDED diclofenac sodium 1 % Gel 2 - 4 g TOPICAL BID PRN (Reason: Pain) polyethylene glycol 3350 [Miralax] 17 gram powder in packet 17 g PO TID PRN (Reason: Constipation) propranolol 20 mg tablet 20 mg PO TID omeprazole 40 mg Capsule,Delayed Release(Dr/Ec) 40 mg PO DAILY bupropion HCl 150 mg Tablet Extended Release 24 Hr 450 mg PO DAILY@08 30 Days Qty: 90 1RF buspirone 10 mg Tablet 10 mg PO TID 30 Days Qty: 90 1RF risperidone 1 mg Tablet 2 mg PO BID 30 Days Qty: 120 1RF trazodone 50 mg Tablet 50 mg PO BEDTIME PRN (Reason: Sleep) 30 Days Qty: 30 1RF albuterol sulfate 90 mcg/actuation Hfa Aerosol Inhaler 2 puff INHALATION Q4H PRN (Reason: Shortness Of Breath Or Wheezing) Discharge Orders: Discharge ED (Routine); Ordered 05/27/22 Ordered By: Birgit Martinez Referrals: Lew Guzman MD [Primary Care Provider] - Discharge Diet: Usual diet Discharge Activity: Resume usual activity Activity Restrictions/Additional Instructions: Your chest x-ray of your lungs did not show any acute changes. Your oxygen level has been excellent while here. I recommend continued follow-up with your primary care provider. Continue following up with behavioral health care. Return to the ER should you have any new or worsening symptoms, thoughts of harming yourself or others again. 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 [employer] Documented by User: Fareed Shepherd, 05/28/22 07:04 HPI - Psych General: Chief Complaint: Psychiatric Symptoms Stated Complaint: disorientation; clammy; previous blood O2 issues Time Seen by Provider: 05/27/22 21:10 PFS ED PFSH: Medical History Bipolar disorder Cervicalgia Chronic recurrent major depressive disorder Heroin use disorder, severe, in early remission History of antisocial personality disorder Hypertension Hypertriglyceridemia Hypoxemia Insomnia Methamphetamine abuse Methamphetamine use disorder, moderate, in early remission Night terror Pain in a tooth or teeth Psychiatric care Pulmonary embolism Schizoaffective disorder, depressive type Tobacco use disorder Tooth abscess Surgical History History of knee replacement procedure of right knee History of umbilical hernia repair Family History Father CAD (coronary artery disease) Cancer stomach Stroke Mother Cancer lung Diabetes Denies family history of Clotting disorder Dementia Hyperlipidemia Chronic kidney disease (CKD) Anesthesia complication Bleeding disorder Lung disease Hypertension Social History Smoking and tobacco status: current some day smoker (vape, attempting to quit cigarettes) cigarettes [ Other cigarette details: 1PPD x 40yrs. 40PY, 4 PPD as of 04/2022] and e-cigarettes E-Cigarette Details: vaporizer device Quit status (tobacco): has tried quititng Alcohol intake: former Desire information about alcohol rehabilitation?: No Counseling given: No Desire information about substance/drug rehabilitation?: No Counseling given: No Adopted: No Caregiver/support person: No Lives independently: Yes Household members: none Marital status: Single service: No Current occupational status: disabled Current gender identity: Male Special zhang needs: No Agree to transfusion: Yes Course Vital Signs: Vital signs: Vital Signs Temperature 98.3 F 05/27/22 19:48 Pulse Rate 67 05/27/22 23:08 Respiratory Rate 16 05/27/22 22:36 Blood Pressure 153/87 05/27/22 23:08 Pulse Oximetry 93 05/27/22 23:08 Oxygen Delivery Me thod 05/27/22 22:36 MDM - Psych Medical Decision Making Chest x-ray does not show any acute cardiopulmonary changes. Labs indicate a continued leukocytosis which may be secondary to a subacute infection from his poor dentition. I called and spoke with Dr. Jack regarding this patient. Dr. Jack knows the patient well. This patient seems to have chronic auditory hallucinations that come and go as well as chronic sleepwalking and chronic intrusive thoughts of suicide. The patient was initially coming for low oxygen but then on the way here forgot about the oxygen and became sad due to his chronic illnesses. Dr. Jack agrees that patient is likely at his baseline and safe to go home and follow-up with behavioral health care. As I got off of the phone with Dr. Jack the nurse came in and advised me that patient wanted me to be sure to note that he has no intention of killing himself. I went and spoke with the patient and he said that he does have thoughts of suicide but he is not going to kill himself right now. I discussed with the patient the conversation that Dr. Jack and I had. Patient is very agreeable with does wish to be discharged home for now and he states that he will follow-up with behavioral health care. Patient states that he will seek help should he become suicidal again. Patient is discharged to home in stable condition Chart reviewed and patient discussed with midlevel. Agree with assessment and plan. Lab Data 05/27/22 22:18 05/27/22 22:18 Radiology Impressions Chest X-Ray 05/27/22 21:41 IMPRESSION: No acute findings. Laboratory Results WBC 11.9 10^3/uL (4.0-10.0) H 05/27/22 22:18 RBC 4.49 10^6/uL (4.1-5.3) 05/27/22 22:18 Hgb 12.4 g/dL (11.7-16.6) 05/27/22 22:18 Hct 38.0 % (42.0-52.0) L 05/27/22 22:18 MCV 84.6 fl (80-94) 05/27/22 22:18 MCH 27.6 pg (28.0-34.0) L 05/27/22 22:18 MCHC 32.6 g/dL (30.0-36.0) 05/27/22 22:18 RDW 13.3 % (12.1-15.1) 05/27/22 22:18 Plt Count 463 10^3/cmm (130-400) H 05/27/22 22:18 MPV 8.3 fL (7.4-10.4) 05/27/22 22:18 Neut % (Auto) 55.6 % 05/27/22 22:18 Lymph % (Auto) 30.1 % 05/27/22 22:18 [place] % (Auto) 7.3 % 05/27/22 22:18 Eos % (Auto) 5.2 % 05/27/22 22:18 Baso % (Auto) 1.3 % 05/27/22 22:18 Neut # (Auto) 6.64 10^3/uL (1.8-7.7) 05/27/22 22:18 Lymph # (Auto) 3.6 10^3/uL (0.8-4.8) 05/27/22 22:18 [place] # (Auto) 0.9 10^3/uL (0.2-0.9) 05/27/22 22:18 Eos # (Auto) 0.6 10^3/uL (0.0-0.8) 05/27/22 22:18 Baso # (Auto) 0.2 10^3/uL (0.0-0.1) H 05/27/22 22:18 Nucleated RBC % (auto) 0 % 05/27/22:18 Nucleated RBCs # 0.0 /100WBC 05/27/22 22:18 Sodium 139 mmol/L (136-145) 05/27/22 22:18 Potassium 4.5 mmol/L (3.5-5.1) 05/27/22 22:18 Chloride 103 mmol/L (98-107) 05/27/22 22:18 Carbon Dioxide 25 mmol/L (22-29) 05/27/22 22:18 Anion Gap 15.5 (5-19) 05/27/22 22:18 BUN 14 mg/dL (6-20) 05/27/22 22:18 Creatinine 0.8 mg/dL (0.7-1.2) 05/27/22 22:18 GFR Calculation 100.4 mL/min (90-130) 05/27/22 22:18 Glucose 110 mg/dL (65-115) 05/27/22 22:18 Calculated Osmolality 289 mOsm/kg (285-295) 05/27/22 22:18 Calcium 9.1 mg/dL (8.5-10.5) 05/27/22 22:18 Total Bilirubin 0.2 mg/dL (0.15-1.2) 05/27/22 22:18 AST 12 U/L (0-40) 05/27/22 22:18 ALT 10 U/L (0-41) 05/27/22 22:18 Alkaline Phosphatase 100 U/L (40-130) 05/27/22 22:18 Total Protein 7.1 g/dL (6.6-8.7) 05/27/22 22:18 Albumin 3.9 g/dL (3.5-5.2) 05/27/22 22:18 Globulin 3.2 g/dL (1.3-4.6) 05/27/22 22:18 Urine Color Yellow (Yellow) 05/27/22 22:36 Urine Appearance Clear (CLEAR) 05/27/22 22:36 Urine pH 7 (5-7) 05/27/22 22:36 Ur Specific [place] 1.010 (1.005-1.030) 05/27/22 22:36 Urine Protein Neg (Negative) 05/27/22 22:36 Urine Glucose (UA) Norm (Normal) 05/27/22 22:36 Urine Ketones Negative (Negative) 05/27/22 22:36 Urine Blood Neg (Negative) 05/27/22 22:36 Urine Nitrate Negative (Negative) 05/27/22 22:36 Urine Bilirubin Neg (Negative) 05/27/22 22:36 Urine Urobilinogen Norm mg/dL (Negative) 05/27/22 22:36 Ur Leukocyte Esterase Negative (Negative) 05/27/22 22:36 Urine Opiates Screen Negative ng/mL (Negative) 05/27/22 22:36 Ur Barbiturates Screen Negative ng/mL (Negative) 05/27/22 22:36 Ur Phencyclidine Scrn Negative ng/mL (Negative) 05/27/22 22:36 Ur Amphetamines Screen Negative ng/mL (Negative) 05/27/22 22:36 U Benzodiazepines Scrn Negative ng/mL (Negative) 05/27/22 22:36 Urine Cocaine Screen Negative ng/mL (Negative) 05/27/22 22:36 U Marijuana (THC) Screen Negative ng/mL (Negative) 05/27/22 22:36 Discharge Plan Discharge Patient Disposition: Home Clinical Impression: Adjustment disorder with mixed disturbance of emotions and conduct, Auditory hallucinations Condition: Stable Prescriptions: No Action buprenorphine-naloxone 8-2 mg tablet, sublingual 1 tab sublingual DAILY Qty: 30 1RF prazosin 2 mg capsule 2 mg PO BEDTIME@21 Qty: 30 2RF benztropine 1 mg tablet 0.5 mg PO BID@06,21 Qty: 60 2RF ibuprofen 600 mg tablet 600 mg PO Q8H PRN (Reason: pain) Qty: 30 0RF gabapentin 300 mg capsule 300 mg PO DAILY Qty: 30 0RF hydroxyzine HCl 25 mg tablet 25 mg PO Q6H PRN (Reason: Anxiety) Qty: 60 1RF atorvastatin [Lipitor] 40 mg tablet 40 mg PO DAILY Qty: 90 1RF Eliquis 5 mg tablet 5 mg PO BID Qty: 180 1RF budesonide-formoterol [Symbicort] 80-4.5 mcg/actuation HFA aerosol inhaler See Rx Instructions .ROUTE .COMPLEX Qty: 10.2 2RF Dose Instruction: INHALE 2 PUFFS TWO TIMES A DAY Rx Instructions: INHALE 2 PUFFS TWO TIMES A DAY nicotine (polacrilex) 4 mg lozenge See Rx Instructions .ROUTE .COMPLEX Qty: 144 2RF Dose Instruction: TAKE 4 LOZENGES BY MOUTH NEEDED Rx Instructions: TAKE 4 LOZENGES BY MOUTH NEEDED diclofenac sodium 1 % Gel 2 - 4 g TOPICAL BID PRN (Reason: Pain) polyethylene glycol 3350 [Miralax] 17 gram powder in packet 17 g PO TID PRN (Reason: Constipation) propranolol 20 mg tablet 20 mg PO TID omeprazole 40 mg Capsule,Delayed Release(Dr/Ec) 40 mg PO DAILY bupropion HCl 150 mg Tablet Extended Release 24 Hr 450 mg PO DAILY@08 30 Days Qty: 90 1RF buspirone 10 mg Tablet 10 mg PO TID 30 Days Qty: 90 1RF risperidone 1 mg Tablet 2 mg PO BID 30 Days Qty: 120 1RF trazodone 50 mg Tablet 50 mg PO BEDTIME PRN (Reason: Sleep) 30 Days Qty: 30 1RF albuterol sulfate 90 mcg/actuation Hfa Aerosol Inhaler 2 puff INHALATION Q4H PRN (Reason: Shortness Of Breath Or Wheezing) Discharge Orders: Discharge ED (Routine); Ordered 05/27/22 Ordered By: Birgit Martinez Referrals: Lew Guzman MD [Primary Care Provider] - Discharge Diet: Usual diet Discharge Activity: Resume usual activity Activity Restrictions/Additional Instructions: Your chest x-ray of your lungs did not show any acute changes. Your oxygen level has been excellent while here. I recommend continued follow-up with your primary care provider. Continue following up with behavioral health care. Return to the ER should you have any new or worsening symptoms, thoughts of harming yourself or others again. 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
[2022-05-27 23:08] VITALS: BP 153/87; PULSE 67; O2SAT 93
[2022-05-27 23:22] LABS: Amphetamines Screen Urine Negative (Negative); Barbiturates Screen Urine Negative (Negative); Benzodiazepines Screen Urine Negative (Negative); Cocaine Screen Urine Negative (Negative); Opiate Screen Urine Negative (Negative); PCP Screen Urine Negative (Negative); THC Screen Urine Negative (Negative)
== END 2022-05-27 23:09 | disposition home or self-care (01) ==
PROVIDERS: Emergency Provider Nurse Practitioner Family; PCP Family Medicine
DX: F43.25 Adjustment disorder with mixed disturbance of emotions and conduct (principal); R44.0 Auditory hallucinations; Z79.01 Long term (current) use of anticoagulants; F17.210 Nicotine dependence, cigarettes, uncomplicated; F17.290 Nicotine dependence, other tobacco product, uncomplicated; I10 Essential (primary) hypertension
CPT/HCPCS: 36415; 71046; 80053; 80306; 81003; 85025; 93005; 96372; 99285; J1885

== ENCOUNTER 2022-06-27 22:33 | Emergency (ER) | payer MEDICAID, SELFPAY ==
[2022-06-27 22:34] VITALS: BP 150/85; PULSE 73; RESP 17; TEMP 36.9; O2SAT 96; BMI 33.3
--- NOTE | 2022-06-27 23:23 | W.ED.GENADLT ---
HPI - General Adult General: Chief complaint: General Medical Stated complaint: Possible Allergic Reaction to Medicine Time Seen by Provider: 06/27/22 23:10 History of Present Illness: 57-year-old male patient comes in today with complaints of restlessness. Patient is unable go to sleep tonight due to his legs wanting to be erratic at times. Patient reports that he had used to be on Cogentin for this restlessness but believes he has been taken off the medicine. Review of the record notes that patient still has a prescription for Cogentin. Patient denies any other complaints. Patient reports no suicidal ideation or homicidal thoughts. Patient appears nontoxic. Associated symptoms: Deny chest pain, dyspnea, nausea, rash or vomiting Review of Systems General: Reports: 10 or more systems reviewed and unremarkable except in HPI and below Const: Denies: fever(s) Card: Denies: chest pain Resp: Denies: dyspnea GI: Denies: nausea or vomiting : Denies: difficulty urinating Skin/Breast: Denies: rash PFSH ED PFSH: Medical History Bipolar disorder Cervicalgia Chronic recurrent major depressive disorder Heroin use disorder, severe, in early remission History of antisocial personality disorder Hypertension Hypertriglyceridemia Hypoxemia Insomnia Methamphetamine abuse Methamphetamine use disorder, moderate, in early remission Night terror Pain in a tooth or teeth Psychiatric care Pulmonary embolism Schizoaffective disorder, depressive type Tobacco use disorder Tooth abscess Surgical History History of knee replacement procedure of right knee History of umbilical hernia repair Family History Father CAD (coronary artery disease) Cancer stomach Stroke Mother Cancer lung Diabetes Denies family history of Clotting disorder Dementia Hyperlipidemia Chronic kidney disease (CKD) Anesthesia complication Bleeding disorder Lung disease Hypertension Social History Smoking and tobacco status: current some day smoker (vape, attempting to quit cigarettes) cigarettes [ Other cigarette details: 1PPD x 40yrs. 40PY, 4 PPD as of 04/2022] and e-cigarettes E-Cigarette Details: vaporizer device Quit status (tobacco): has tried quititng Alcohol intake: former Desire information about alcohol rehabilitation?: No Counseling given: No Desire information about substance/drug rehabilitation?: No Counseling given: No Adopted: No Caregiver/support person: No Lives independently: Yes Household members: none Marital status: Single service: No Current occupational status: disabled Current gender identity: Male Special zhang needs: No Agree to transfusion: Yes Physical Exam Const: COMMON NORMALS: alert HENMT: COMMON NORMALS: normocephalic HEAD & SCALP: normocephalic Neck/C-Spine: COMMON NORMALS: full ROM Chest: COMMONS NORMALS: normal palpation of entire chest wall Resp: COMMON NORMALS: normal respiratory effort : COMMON NORMALS: Yes no CVA tenderness BLADDER/KIDNEY EXAM: Yes no CVA tenderness Back/Pelvis: COMMON NORMALS: no CVA tenderness Extremity: COMMON NORMALS: normal to inspection Neuro: SENSORIUM/ORIENTATION: Yes alert Course Vital Signs: Vital signs: Vital Signs Temperature 98.5 F 06/27/22 22:34 Pulse Rate 73 06/27/22 22:34 Respiratory Rate 17 06/27/22 22:34 Blood Pressure 150/85 06/27/22 22:34 Pulse Oximetry 96 06/27/22 22:34 Oxygen Delivery Me thod Room Air 06/27/22 22:34 MDM - General Adult Medical Decision Making 57-year-old male patient comes in today for complaints of breathlessness. Patient reports he is unable to rest due to his legs want to jerk at night. Patient believes it might be due to some of the medications he is on. Patient reports that he used to be on Cogentin to help alleviate the symptoms but believes he is not taking it at this time. Patient did not bring his medications with him for me to evaluate. Patient appears nontoxic. Patient appears no acute distress. Differential diagnosis includes but not limited to adverse drug effect, anxiety, restless leg syndrome. I am unable to evaluate whether patient has Cogentin for his routine medications as he does not have them with him. Patient does not have a recent list with him. Review of our record and has him taking Cogentin 1/2 mg twice a day still. I gave patient 1 mg of Ativan to help with his restlessness and recommended he follow-up with primary care to review his medications and consider other treatment options. Patient and caregiver both reported understanding. Discharge Plan Discharge Patient Disposition: Home Clinical Impression: Psychomotor restlessness Condition: Stable Prescriptions: No Action prazosin 2 mg capsule 2 mg PO BEDTIME@21 Qty: 30 2RF benztropine 1 mg tablet 0.5 mg PO BID@06,21 Qty: 60 2RF ibuprofen 600 mg tablet 600 mg PO Q8H PRN (Reason: pain) Qty: 30 0RF atorvastatin [Lipitor] 40 mg tablet 40 mg PO DAILY Qty: 90 1RF Eliquis 5 mg tablet 5 mg PO BID Qty: 180 1RF budesonide-formoterol [Symbicort] 80-4.5 mcg/actuation HFA aerosol inhaler See Rx Instructions .ROUTE .COMPLEX Qty: 10.2 2RF Dose Instruction: INHALE 2 PUFFS TWO TIMES A DAY Rx Instructions: INHALE 2 PUFFS TWO TIMES A DAY nicotine (polacrilex) 4 mg lozenge See Rx Instructions .ROUTE .COMPLEX Qty: 144 2RF Dose Instruction: TAKE 4 LOZENGES BY MOUTH NEEDED Rx Instructions: TAKE 4 LOZENGES BY MOUTH NEEDED hydroxyzine HCl 25 mg tablet 25 mg PO Q6H PRN (Reason: Anxiety) Qty: 60 1RF buprenorphine-naloxone 8-2 mg tablet, sublingual 1 tab sublingual DAILY Qty: 7 0RF gabapentin 300 mg capsule 300 mg PO DAILY Qty: 30 2RF omeprazole 40 mg capsule,delayed release(DR/EC) 40 mg PO DAILY Qty: 90 0RF diclofenac sodium 1 % Gel 2 - 4 g TOPICAL BID PRN (Reason: Pain) polyethylene glycol 3350 [Miralax] 17 gram powder in packet 17 g PO TID PRN (Reason: Constipation) propranolol 20 mg tablet 20 mg PO TID bupropion HCl 150 mg Tablet Extended Release 24 Hr 450 mg PO DAILY@08 30 Days Qty: 90 1RF buspirone 10 mg Tablet 10 mg PO TID 30 Days Qty: 90 1RF risperidone 1 mg Tablet 2 mg PO BID 30 Days Qty: 120 1RF trazodone 50 mg Tablet 50 mg PO BEDTIME PRN (Reason: Sleep) 30 Days Qty: 30 1RF albuterol sulfate 90 mcg/actuation Hfa Aerosol Inhaler 2 puff INHALATION Q4H PRN (Reason: Shortness Of Breath Or Wheezing) Discharge Orders: Discharge ED (Routine); Ordered 06/27/22 Ordered By: Sunday Chiu Referrals: Lew Guzman MD [Primary Care Provider] - Discharge Diet: Usual diet Discharge Activity: Increase activity as tolerated Patient Instructions: Polysubstance Use Disorder (ED) Activity Restrictions/Additional Instructions: Home and rest. Follow-up with primary care or specialist in the morning to review medications and consider adjustment to your medications. Coding Level of Care Code ED Recovery Coach for Roseann Richard
[2022-06-27] MEDS: LORazepam 1 mg Tablet PO (23:54)
[2022-06-28 00:17] VITALS: RESP 20
== END 2022-06-28 00:21 | disposition home or self-care (01) ==
PROVIDERS: Emergency Provider Nurse Practitioner Family; PCP Family Medicine
DX: R45.1 Restlessness and agitation (principal); Z79.01 Long term (current) use of anticoagulants; I10 Essential (primary) hypertension; F17.210 Nicotine dependence, cigarettes, uncomplicated; F17.290 Nicotine dependence, other tobacco product, uncomplicated
CPT/HCPCS: 99283

== ENCOUNTER 2022-06-28 01:12 | Emergency (ER) | payer MEDICAID, SELFPAY ==
[2022-06-28 01:18] VITALS: RESP 20; BMI 33.3
[2022-06-28] MEDS: diphenhydrAMINE 50 mg/mL SDV 1mL 100 MG IM (01:27)
--- NOTE | 2022-06-28 01:27 | W.ED.GENADLT ---
HPI - General Adult General: Chief complaint: General Medical Stated complaint: back issues Time Seen by Provider: 06/28/22 01:19 History of Present Illness: 57-year-old male patient returned this evening due to persistent restlessness in his legs. Patient was given 1 mg Ativan and discharged earlier but reports that it has not helped. Patient appears nontoxic. No obvious restlessness is noted to the legs. Patient denies any homicidal suicidal thoughts. Associated symptoms: Deny chest pain, dyspnea, nausea or rash Review of Systems General: Reports: 10 or more systems reviewed and unremarkable except in HPI and below Const: Denies: fever(s) ENMT: Denies: throat pain Card: Denies: chest pain Resp: Denies: dyspnea GI: Denies: nausea : Denies: difficulty urinating Musc: Denies: neck pain Skin/Breast: Denies: rash Neuro: Reports: involuntary movements, restless legs and other Psych: Reports: anxiety PFSH ED PFSH: Medical History Bipolar disorder Cervicalgia Chronic recurrent major depressive disorder Heroin use disorder, severe, in early remission History of antisocial personality disorder Hypertension Hypertriglyceridemia Hypoxemia Insomnia Methamphetamine abuse Methamphetamine use disorder, moderate, in early remission Night terror Pain in a tooth or teeth Psychiatric care Pulmonary embolism Schizoaffective disorder, depressive type Tobacco use disorder Tooth abscess Surgical History History of knee replacement procedure of right knee History of umbilical hernia repair Family History Father CAD (coronary artery disease) Cancer stomach Stroke Mother Cancer lung Diabetes Denies family history of Clotting disorder Dementia Hyperlipidemia Chronic kidney disease (CKD) Anesthesia complication Bleeding disorder Lung disease Hypertension Social History Smoking and tobacco status: current some day smoker (vape, attempting to quit cigarettes) cigarettes [ Other cigarette details: 1PPD x 40yrs. 40PY, 4 PPD as of 04/2022] and e-cigarettes E-Cigarette Details: vaporizer device Quit status (tobacco): has tried quititng Alcohol intake: former Desire information about alcohol rehabilitation?: No Counseling given: No Desire information about substance/drug rehabilitation?: No Counseling given: No Adopted: No Caregiver/support person: No Lives independently: Yes Household members: none Marital status: Single service: No Current occupational status: disabled Current gender identity: Male Special zhang needs: No Agree to transfusion: Yes Physical Exam Const: COMMON NORMALS: alert HENMT: COMMON NORMALS: normocephalic HEAD & SCALP: normocephalic Neck/C-Spine: COMMON NORMALS: full ROM Resp: COMMON NORMALS: normal respiratory effort and clear to auscultation bilaterally AUSCULTATION: clear to auscultation bilaterally Cardio: COMMON NORMALS: regular rate and regular rhythm RATE: regular rate RHYTHM: regular rhythm Back/Pelvis: COMMON NORMALS: thoracic and lumbar spine normal to inspection Extremity: COMMON NORMALS: normal to inspection Neuro: SENSORIUM/ORIENTATION: Yes alert Skin: COMMON NORMALS: turgor normal GENERAL SKIN EXAM: turgor normal Course Vital Signs: Vital signs: Vital Signs Respiratory Rate 20 H 06/28/22 01:18 [facility] - General Adult Medical Decision Making 57-year-old male patient comes in today for complaints of persistent restless legs. Patient is unable to rest and get comfortable due to his involuntary movement in his lower legs. On exam patient appears nontoxic. Patient appears in no acute distress. Respirations are even lungs and clear to auscultation. Patient moves all extremities well. No obvious involuntary movements were noted. Differential diagnosis includes but not limited to extrapyramidal symptoms, restless leg syndrome, malingering, anxiety. Patient was given 1 mg Ativan earlier with no reported effect. We will give 100 mg of Benadryl, and recommend follow-up with primary care in the morning for review of medications and consideration of other treatment. Discharge Plan Discharge Patient Disposition: Home Clinical Impression: Psychomotor restlessness Condition: Stable Prescriptions: No Action prazosin 2 mg capsule 2 mg PO BEDTIME@21 Qty: 30 2RF benztropine 1 mg tablet 0.5 mg PO BID@06,21 Qty: 60 2RF ibuprofen 600 mg tablet 600 mg PO Q8H PRN (Reason: pain) Qty: 30 0RF atorvastatin [Lipitor] 40 mg tablet 40 mg PO DAILY Qty: 90 1RF Eliquis 5 mg tablet 5 mg PO BID Qty: 180 1RF budesonide-formoterol [Symbicort] 80-4.5 mcg/actuation HFA aerosol inhaler See Rx Instructions .ROUTE .COMPLEX Qty: 10.2 2RF Dose Instruction: INHALE 2 PUFFS TWO TIMES A DAY Rx Instructions: INHALE 2 PUFFS TWO TIMES A DAY nicotine (polacrilex) 4 mg lozenge See Rx Instructions .ROUTE .COMPLEX Qty: 144 2RF Dose Instruction: TAKE 4 LOZENGES BY MOUTH NEEDED Rx Instructions: TAKE 4 LOZENGES BY MOUTH NEEDED hydroxyzine HCl 25 mg tablet 25 mg PO Q6H PRN (Reason: Anxiety) Qty: 60 1RF buprenorphine-naloxone 8-2 mg tablet, sublingual 1 tab sublingual DAILY Qty: 7 0RF gabapentin 300 mg capsule 300 mg PO DAILY Qty: 30 2RF omeprazole 40 mg capsule,delayed release(DR/EC) 40 mg PO DAILY Qty: 90 0RF diclofenac sodium 1 % Gel 2 - 4 g TOPICAL BID PRN (Reason: Pain) polyethylene glycol 3350 [Miralax] 17 gram powder in packet 17 g PO TID PRN (Reason: Constipation) propranolol 20 mg tablet 20 mg PO TID bupropion HCl 150 mg Tablet Extended Release 24 Hr 450 mg PO DAILY@08 30 Days Qty: 90 1RF buspirone 10 mg Tablet 10 mg PO TID 30 Days Qty: 90 1RF risperidone 1 mg Tablet 2 mg PO BID 30 Days Qty: 120 1RF trazodone 50 mg Tablet 50 mg PO BEDTIME PRN (Reason: Sleep) 30 Days Qty: 30 1RF albuterol sulfate 90 mcg/actuation Hfa Aerosol Inhaler 2 puff INHALATION Q4H PRN (Reason: Shortness Of Breath Or Wheezing) Discharge Orders: Discharge ED (Routine); Ordered 06/28/22 Ordered By: Sunday Chiu Referrals: Lew Guzman MD [Primary Care Provider] - Discharge Diet: Usual diet Discharge Activity: Increase activity as tolerated Patient Instructions: Extrapyramidal Symptoms (ED) Activity Restrictions/Additional Instructions: Follow-up with primary care in the morning to review medications and consideration of changes to medication. Return to the ER for new concerns. Coding Level of Care Code ED Building Rental Manager for Roseann Richard
[2022-06-28 02:06] VITALS: BP 121/76; PULSE 58; RESP 16; O2SAT 93
== END 2022-06-28 02:06 | disposition home or self-care (01) ==
PROVIDERS: Emergency Provider Nurse Practitioner Family; PCP Family Medicine
DX: R45.1 Restlessness and agitation (principal); Z79.01 Long term (current) use of anticoagulants; F17.290 Nicotine dependence, other tobacco product, uncomplicated; F17.210 Nicotine dependence, cigarettes, uncomplicated; I10 Essential (primary) hypertension
CPT/HCPCS: 96372; 99284; J1200

== ENCOUNTER 2022-07-03 00:12 | Emergency (ER) | payer MEDICAID, SELFPAY ==
[2022-07-03 00:15] VITALS: BP 158/96; PULSE 72; RESP 16; TEMP 36.6; O2SAT 99
[2022-07-03 02:01] VITALS: PULSE 72; RESP 16; O2SAT 97
[2022-07-03] MEDS: LORazepam 2 mg/mL INJ 1 mL 1 MG IM (02:54)
[2022-07-03 03:09] VITALS: BP 142/68; PULSE 77; RESP 16; O2SAT 96
--- NOTE | 2022-07-03 03:17 | ED_ITS ---
HPI - Back Pain/Injury General: Chief Complaint: Back Pain/Injury Stated Complaint: fall, lower back pain Time Seen by Provider: 07/03/22 01:33 Source: patient Mode of arrival: ambulatory Limitations: no limitations History of Present Illness: Patient presents to the emergency department today for evaluation treatment of complaints of low back pain with radiating right leg pain. Patient reports that he started having this discomfort after having a pilonidal cyst removed several weeks ago. He states he was here in the emergency department for the same symptoms around that time and indicated he was treated with medication. He reports that he had relief of his symptoms up until today since that treatment. He indicates he accidentally impacted his hip on the wall and started having spasming of his back with radiating pain into his leg. Patient denies any bowel or bladder dysfunction. He denies saddle paresthesia. He has been ambulatory and weightbearing on the extremity. Patient is on multiple chronic medications including chronic anticoagulation, gabapentin, and chronic mood stabilizing medications. He states he took some Tylenol earlier in the evening without much relief of symptoms. Chart review shows he was here about a week ago and was diagnosed with psychomotor agitation. Patient appears to have a history of restless legs. Review of Systems General: Reports: 10 or more systems reviewed and unremarkable except in HPI and below PFSH ED PFSH: Medical History Bipolar disorder Cervicalgia Chronic recurrent major depressive disorder Heroin use disorder, severe, in early remission History of antisocial personality disorder Hypertension Hypertriglyceridemia Hypoxemia Insomnia Methamphetamine abuse Methamphetamine use disorder, moderate, in early remission Night terror Pain in a tooth or teeth Psychiatric care Pulmonary embolism Schizoaffective disorder, depressive type Tobacco use disorder Tooth abscess Surgical History History of knee replacement procedure of right knee History of umbilical hernia repair Family History Father CAD (coronary artery disease) Cancer stomach Stroke Mother Cancer lung Diabetes Denies family history of Clotting disorder Dementia Hyperlipidemia Chronic kidney disease (CKD) Anesthesia complication Bleeding disorder Lung disease Hypertension Social History Smoking and tobacco status: current some day smoker (vape, attempting to quit cigarettes) cigarettes [ Other cigarette details: 1PPD x 40yrs. 40PY, 4 PPD as of 04/2022] and e-cigarettes E-Cigarette Details: vaporizer device Quit status (tobacco): has tried quititng Alcohol intake: former Desire information about alcohol rehabilitation?: No Counseling given: No Substance/Drug Use: former Date of last use: 05/2021 Desire information about substance/drug rehabilitation?: No Counseling given: No Adopted: No Caregiver/support person: No Lives independently: Yes Household members: none Marital status: Single service: No Current occupational status: disabled Current gender identity: Male Special zhang needs: No Agree to transfusion: Yes Physical Exam Const: COMMON NORMALS: no acute distress, patient oriented x3 and alert HENMT: COMMON NORMALS: normocephalic, atraumatic and hearing grossly normal bilaterally HEAD & SCALP: normocephalic and atraumatic Eye: COMMON NORMALS: Equal, round and reactive pupils present, EOMs intact bilaterally and conjunctivae normal CONJUNCTIVA: Yes conjunctivae normal PUPIL: Yes Equal, round and reactive pupils present Neck/C-Spine: COMMON NORMALS: full ROM and no JVD Lymph: LYMPHATIC: no lymphadenopathy noted Resp: COMMON NORMALS: normal respiratory effort, No retractions and No use of accessory muscles Cardio: COMMON NORMALS: no JVD and regular rate RATE: regular rate Extremity: NARRATIVE EXTREMITY EXAM: Patient is weightbearing and ambulatory in the examination room. He demonstrates ability to flex and extend the right hip and right knee. Neuro: COMMON NORMALS: patient oriented x3 SENSORIUM/ORIENTATION: Yes alert Psych: COMMON NORMALS: mental status grossly normal, Normal thought process present, cooperative and normal affect THOUGHT PROCESS: Normal thought process present Skin: COMMON NORMALS: no rashes or lesions noted and turgor normal GENERAL SKIN EXAM: no rashes or lesions noted and turgor normal Course Vital Signs: Vital signs: Vital Signs Temperature 97.9 F 07/03/22 00:15 Pulse Rate 77 07/03/22 03:09 Respiratory Rate 16 07/03/22 03:09 Blood Pressure 142/68 07/03/22 03:09 Pulse Oximetry 96 07/03/22 03:09 Oxygen Delivery Me thod Room Air 07/03/22 02:01 MDM - Back Pain/Injury Medical Decision Making Patient presents emergency department today for complaints of spasming of his right leg. Patient reports similar symptoms about a week ago and evaluation from that ER visit showed suspicion more for psychomotor agitation given his history of RLS. Patient's description of pain correlates with sciatic nerve pain only that it affects the right lower extremity unilaterally but, do agree that it does not fit the particular pattern of sciatic nerve pain resulting from low back issues. Patient reported that the medication he received last time seem to help and gave him relief of pain up until today. Patient received 1 mg of Ativan at his last evaluation and we will attempt the same today. 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 Unfortunately, patient cannot take NSAIDs due to his chronic anticoagulation. Due to his other medications I am quite hesitant about any muscle relaxers. Patient is already on gabapentin. We can try a capsaicin patch topically to areas of discomfort on his leg should they appear but, recommended he reach out to his primary care doctor on Tuesday to discuss recurrent issues with his leg as he may require adjustment or changing of some of his chronic medications to accommodate treatment of his complaints. Differential Diagnosis Likely lumbar radiculopathy, sciatica and strain of lumbar region Discharge Plan Discharge Patient Disposition: Home Clinical Impression: Psychomotor restlessness Condition: Stable Prescriptions: New capsaicin 0.025 % adhesive patch,medicated 1 patch topical DAILY PRN (Reason: pain) Qty: 10 0RF Rx Instructions: do not leave patch on for more than 8 hrs No Action prazosin 2 mg capsule 2 mg PO BEDTIME@21 Qty: 30 2RF ibuprofen 600 mg tablet 600 mg PO Q8H PRN (Reason: pain) Qty: 30 0RF benztropine 1 mg tablet 1 mg PO BID Qty: 14 0RF atorvastatin [Lipitor] 40 mg tablet 40 mg PO DAILY Qty: 90 1RF Eliquis 5 mg tablet 5 mg PO BID Qty: 180 1RF budesonide-formoterol [Symbicort] 80-4.5 mcg/actuation HFA aerosol inhaler See Rx Instructions .ROUTE .COMPLEX Qty: 10.2 2RF Dose Instruction: INHALE 2 PUFFS TWO TIMES A DAY Rx Instructions: INHALE 2 PUFFS TWO TIMES A DAY nicotine (polacrilex) 4 mg lozenge See Rx Instructions .ROUTE .COMPLEX Qty: 144 2RF Dose Instruction: TAKE 4 LOZENGES BY MOUTH NEEDED Rx Instructions: TAKE 4 LOZENGES BY MOUTH NEEDED hydroxyzine HCl 25 mg tablet 25 mg PO Q6H PRN (Reason: Anxiety) Qty: 60 1RF gabapentin 300 mg capsule 300 mg PO DAILY Qty: 30 2RF omeprazole 40 mg capsule,delayed release(DR/EC) 40 mg PO DAILY Qty: 90 0RF diclofenac sodium 1 % Gel 2 - 4 g TOPICAL BID PRN (Reason: Pain) polyethylene glycol 3350 [Miralax] 17 gram powder in packet 17 g PO TID PRN (Reason: Constipation) propranolol 20 mg tablet 20 mg PO TID bupropion HCl 150 mg Tablet Extended Release 24 Hr 450 mg PO DAILY@08 30 Days Qty: 90 1RF buspirone 10 mg Tablet 10 mg PO TID 30 Days Qty: 90 1RF risperidone 1 mg Tablet 2 mg PO BID 30 Days Qty: 120 1RF trazodone 50 mg Tablet 50 mg PO BEDTIME PRN (Reason: Sleep) 30 Days Qty: 30 1RF albuterol sulfate 90 mcg/actuation Hfa Aerosol Inhaler 2 puff INHALATION Q4H PRN (Reason: Shortness Of Breath Or Wheezing) Discharge Orders: Discharge ED (Routine); Ordered 07/03/22 Ordered By: Alcira Sutherland Referrals: Lew Guzman MD [Primary Care Provider] - Discharge Diet: Usual diet Discharge Activity: Increase activity as tolerated Patient Instructions: Sciatica (ED), Restless Legs Syndrome (ED) Activity Restrictions/Additional Instructions: Evaluation in your chart shows that you have been treated in the past with both Ativan and Benadryl. I would like to see if the Ativan provided here in the emergency department will work for your symptoms otherwise, you may take 50 mg of Benadryl at home. I encourage you to continue taking your gabapentin during this time. Unfortunately, due to the other medications you are taking you are unable to take NSAIDs such as Aleve, Toradol, naproxen, or Advil. Is also not recommended that you take a muscle relaxer. I have provided you a topical me dication for pain that you can apply over the area of discomfort. I recommend reaching out to your primary care doctor on Tuesday if you are still having some discomfort as they may need to alter or rearrange some medications you are currently taking in order for you to be able to tolerate others which may treat your symptoms for short amount of time for this discomfort. Coding Level of Care Code ED Special Weapons Unit Officer for Roseann Richard
== END 2022-07-03 03:11 | disposition home or self-care (01) ==
PROVIDERS: Emergency Provider Physician Assistant; PCP Family Medicine
DX: R45.1 Restlessness and agitation (principal); Z79.01 Long term (current) use of anticoagulants; F17.210 Nicotine dependence, cigarettes, uncomplicated; F17.290 Nicotine dependence, other tobacco product, uncomplicated; I10 Essential (primary) hypertension
CPT/HCPCS: 96372; 99284; J2060

== ENCOUNTER 2022-07-04 12:33 | Emergency (ER) | payer MEDICAID, SELFPAY ==
[2022-07-04 12:37] VITALS: BP 147/96; PULSE 64; RESP 16; TEMP 36.2; O2SAT 97; BMI 32.3
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
[2022-07-04 13:22] LABS: Basophils # 0.1 10^3/uL (0.0-0.1); Basophils % 0.8 %; Eosinophils # 0.4 10^3/uL (0.0-0.8); Eosinophils % 3.5 %; Hematocrit 39.5 % (42.0-52.0); Lymphocytes # 3.4 10^3/uL (0.8-4.8); Lymphocytes % 27.2 %; Mean Corpuscular HGB Conc 32.9 g/dL (30.0-36.0); Mean Corpuscular Hemoglobin 28.4 pg (28.0-34.0); Mean Corpuscular Volume 86.2 fl (80-94); Mean Platelet Volume 8.3 fL (7.4-10.4); Monocytes % 7.7 %; Neutrophils # 7.53 10^3/uL (1.8-7.7); Neutrophils % 60.5 %; Nucleated Red Blood Cells % 0 %; Platelet Count 372 10^3/cmm (130-400); Red Blood Count 4.58 10^6/uL (4.1-5.3); Red Cell Distribution Width 14.1 % (12.1-15.1); White Blood Count 12.4 10^3/uL (4.0-10.0)
[2022-07-04 14:09] LABS: Alanine Aminotransferase 11 U/L (0-41); Alkaline Phosphatase 92 U/L (40-130); Anion Gap 15.8 (5-19); Aspartate Amino Transferase 11 U/L (0-40); Blood Urea Nitrogen 6 mg/dL (6-20); Calcium 8.4 mg/dL (8.5-10.5); Carbon Dioxide 19 mmol/L (22-29); Chloride 94 mmol/L (98-107); Creatinine Clr Calc Pharmacy 125.7582; Globulin 2.7 g/dL (1.3-4.6); Glomerular Filtration Rate 117.1 mL/min (90-130); Glucose 119 mg/dL (65-115); Osmolality Calculated 259 mOsm/kg (285-295); Potassium 3.8 mmol/L (3.5-5.1); Sodium 125 mmol/L (136-145); Thyroid Stimulating Hormone 1.46 uIU/mL (0.27-4.20); Total Bilirubin 0.2 mg/dL (0.15-1.2); Total Protein 6.7 g/dL (6.6-8.7)
[2022-07-04 14:16] LABS: Acetaminophen < 5.0 ug/mL (10-30); Alcohol Level < 10 mg/dL (0-10); Salicylate < 0.3 mg/dL (3-10)
[2022-07-04 14:30] LABS: Amphetamines Screen Urine Negative (Negative); Barbiturates Screen Urine Negative (Negative); Benzodiazepines Screen Urine Negative (Negative); Cocaine Screen Urine Negative (Negative); Opiate Screen Urine Negative (Negative); PCP Screen Urine Negative (Negative); THC Screen Urine Negative (Negative)
[2022-07-04] MEDS: hyDROXYzine 25 mg Capsule PO (14:42)
[2022-07-04] MEDS: ketorolac 30 mg/mL INJ IM (14:46)
[2022-07-04] MEDS: acetaminophen 500 mg Tablet 1000 MG PO (14:46)
== END 2022-07-04 16:40 | disposition home or self-care (01) ==
PROVIDERS: Emergency Provider Emergency Medicine; PCP Family Medicine
DX: R45.851 Suicidal ideations (principal); F32.A Depression, unspecified; E86.0 Dehydration; Z79.01 Long term (current) use of anticoagulants; F17.210 Nicotine dependence, cigarettes, uncomplicated; F17.290 Nicotine dependence, other tobacco product, uncomplicated; I10 Essential (primary) hypertension
CPT/HCPCS: 36415; 80053; 80306; 80307; 84443; 85025; 96372; 99284; J1885

== ENCOUNTER → 2022-07-07 12:16 | Outpatient (BNVA) | payer MEDICAID, SELFPAY | PROVIDERS: PCP Family Medicine; Visit Provider Psychiatry & Neurology Psychiatry | DX: F15.21 Other stimulant dependence, in remission (principal); F11.21 Opioid dependence, in remission; Z79.899 Other long term (current) drug therapy | CPT/HCPCS: 80307 ==

== ENCOUNTER 2022-09-05 18:41 | Emergency (ER) | payer MEDICAID, SELFPAY ==
[2022-09-05 18:46] VITALS: BP 138/92; PULSE 68; RESP 16; O2SAT 95; BMI 30.7
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
[2022-09-05] MEDS: tetanus-dipt-pertussis 0.5 mL SDV IM (19:47)
[2022-09-05 19:48] VITALS: RESP 16
[2022-09-05] MEDS: oxyCODONE-APAP 5-325 mg Tablet 2 TAB PO (19:48)
== END 2022-09-05 20:02 | disposition home or self-care (01) ==
PROVIDERS: Emergency Provider Emergency Medicine; PCP Family Medicine
DX: S06.0X0A Concussion without loss of consciousness, initial encounter (principal); S00.01XA Abrasion of scalp, initial encounter; S40.212A Abrasion of left shoulder, initial encounter; S80.212A Abrasion, left knee, initial encounter; Z79.01 Long term (current) use of anticoagulants; F17.210 Nicotine dependence, cigarettes, uncomplicated; F17.290 Nicotine dependence, other tobacco product, uncomplicated; I10 Essential (primary) hypertension; V00.141A Fall from scooter (nonmotorized), initial encounter; Z23 Encounter for immunization
CPT/HCPCS: 90471; 90715; 99283

== ENCOUNTER 2022-09-06 13:00 | Emergency (ER) | payer MEDICAID, SELFPAY ==
[2022-09-06 13:04] VITALS: BP 111/69; PULSE 63; RESP 16; TEMP 36.6; O2SAT 96; BMI 30.7
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
--- NOTE | 2022-09-06 13:15 | XR_ITS ---
WS: [id number] Exam: [place] [id number] Date/Time of Exam: 09/06/2022 1:17 PM Reason For Exam: pain Findings: There are no fractures or bone anomalies. The bony elements are in adequate alignment. There are no soft tissue calcifications or infiltration. The joint spaces are smooth and intact. XR/[place] [id number] IMPRESSION: Negative left humerus.
[2022-09-06 13:19] VITALS: BP 111/69; PULSE 63; RESP 16; O2SAT 96
--- NOTE | 2022-09-06 13:30 | XR_ITS ---
WS: [id number] Exam: XR forearm LT 2V [id number] Date/Time of Exam: 09/06/2022 1:36 PM Reason For Exam: trauma No sign of acute forearm fracture. Soft tissues are unremarkable. XR/XR forearm LT 2V [id number] IMPRESSION: 1. No acute forearm fracture.
--- NOTE | 2022-09-06 13:30 | XR_ITS ---
WS: [id number] Exam: XR wrist LT min 3V* [id number] Date/Time of Exam: 09/06/2022 1:36 PM Reason For Exam: trauma There appears to be a comminuted fracture through the central portion of the scaphoid. No other acute fracture of the wrist is identified. XR/XR wrist LT min 3V* [id number] IMPRESSION: 1. Comminuted fracture through the central portion of the scaphoid.
--- NOTE | 2022-09-06 13:52 | XR_ITS ---
WS: [id number] Exam: XR wrist LT 1V [id number] Date/Time of Exam: 09/06/2022 1:56 PM Reason For Exam: wrist pain, SCAPHOID VIEW There is a comminuted fracture through the midportion of the scaphoid. No other fractures are identif ied. XR/XR wrist LT 1V [id number] IMPRESSION: 1. Scaphoid fracture as noted above.
[2022-09-06] MEDS: HYDROcodone-acetaminophen 5-325 mg Tablet 1 TAB PO (14:00)
--- NOTE | 2022-09-06 15:50 | PC.SOCIAL ---
Ortho Referral Referral sent to ortho at this time. Clinic to contact patient with appt date/time.
--- NOTE | 2022-09-09 09:04 | PC.SOCIAL ---
Addendum entered by Annmarie Alba 09/22/22 12:27: senior brand manager called [facility] to confirm that patients information had been received, it had been received and patient has been seen. Original Note: Ortho Referral Per ortho; patient needs to be sent to [facility]. Spoke with patient, he chose [facility]. Referral faxed to [facility] at this time.
== END 2022-09-06 14:11 | disposition home or self-care (01) ==
PROVIDERS: Emergency Provider Family Medicine; PCP Family Medicine
DX: S62.002A Unspecified fracture of navicular [scaphoid] bone of left wrist, initial encounter for closed fracture (principal); Z79.01 Long term (current) use of anticoagulants; F17.210 Nicotine dependence, cigarettes, uncomplicated; F17.290 Nicotine dependence, other tobacco product, uncomplicated; I10 Essential (primary) hypertension; V00.141A Fall from scooter (nonmotorized), initial encounter
CPT/HCPCS: 73060; 73090; 73100; 73110; 99283

== ENCOUNTER → 2022-09-08 13:48 | Outpatient (BNVA) | payer MEDICAID, SELFPAY | PROVIDERS: PCP Family Medicine; Visit Provider Psychiatry & Neurology Psychiatry | DX: F15.21 Other stimulant dependence, in remission (principal); Z79.899 Other long term (current) drug therapy | CPT/HCPCS: 80307 ==

== ENCOUNTER → 2022-10-01 10:57 | Outpatient (BNVA) | payer MEDICAID, SELFPAY | PROVIDERS: PCP Family Medicine; Visit Provider Psychiatry & Neurology Psychiatry | DX: F15.21 Other stimulant dependence, in remission (principal); F11.21 Opioid dependence, in remission; Z79.899 Other long term (current) drug therapy | CPT/HCPCS: 80307 ==

== ENCOUNTER → 2022-11-10 15:30 | Outpatient (BNVA) | payer MEDICAID, SELFPAY | PROVIDERS: PCP Family Medicine; Visit Provider Psychiatry & Neurology Psychiatry | DX: F15.21 Other stimulant dependence, in remission; F11.21 Opioid dependence, in remission; Z79.899 Other long term (current) drug therapy; F25.1 Schizoaffective disorder, depressive type | CPT/HCPCS: 80307 ==

== ENCOUNTER 2022-12-03 12:22 | Emergency (ER) | payer MEDICAID, SELFPAY ==
[2022-12-03 12:27] VITALS: BP 158/94; PULSE 90; RESP 18; TEMP 37.1; O2SAT 92; BMI 30.7
--- NOTE | 2022-12-03 17:44 | ED_ITS ---
HPI - SOB/Dyspnea General: Chief Complaint: Shortness of Breath/Dyspnea Stated Complaint: sob, confused, O2 dropped Time Seen by Provider: 12/03/22 17:43 History of Present Illness: HPI Narrative: 57-year-old male patient comes in today for 2 complaints. Patient reports irregularity in pulse oxygen readings at home and also low glucose. Patient appears nontoxic. Patient is alert and oriented. Patient does have a history of COPD and mental health disorder. Patient does report history of reflux which she takes omeprazole 40 mg daily. Review of medication record patient is also on atorvastatin for cholesterol, inhalers for COPD, and multiple psychiatric medications. Associated symptoms: Deny chest pain, fever(s), nausea or vomiting Review of Systems General: Reports: 10 or more systems reviewed and unremarkable except in HPI and below Const: Denies: fever(s) Card: Denies: chest pain Resp: Denies: dyspnea GI: Denies: nausea or vomiting : Denies: difficulty urinating Musc: Denies: neck pain or back pain Skin/Breast: Denies: rash Neuro: Denies: headache(s) Endo: Reports: other (Low blood glucose) PFSH ED PFSH: Medical History Bipolar disorder Cervicalgia Chronic recurrent major depressive disorder History of antisocial personality disorder Hypertension Hypertriglyceridemia Hypoxemia Insomnia Methamphetamine abuse Methamphetamine use disorder, moderate, in early remission Night terror Pain in a tooth or teeth Psychiatric care Pulmonary embolism Schizoaffective disorder, depressive type Tobacco use disorder Tooth abscess Surgical History History of knee replacement procedure of right knee History of umbilical hernia repair Family History Father CAD (coronary artery disease) Cancer stomach Stroke Mother Cancer lung Diabetes Denies family history of Clotting disorder Dementia Hyperlipidemia Chronic kidney disease (CKD) Anesthesia complication Bleeding disorder Lung disease Hypertension Social History (Updated 11/10/22 @ 10:27 by Yashira Smith LPN) Smoking and tobacco status: current some day smoker (vape, attempting to quit cigarettes) cigarettes [ Other cigarette details: 1/2PPD x 40yrs. 40PY, 4 PPD as of 04/2022--currently 5/day 11/10/22] and e-cigarettes E-Cigarette Details: vaporizer device Quit status (tobacco): has tried quititng Alcohol intake: former Desire information about alcohol rehabilitation?: No Counseling given: No Substance/Drug Use: former Date of last use: 05/2021 Desire information about substance/drug rehabilitation?: No Counseling given: No Adopted: No Caregiver/support person: No Lives independently: Yes Household members: none Marital status: Single service: No Current occupational status: disabled Current gender identity: Male Special zhang needs: No Agree to transfusion: Yes Physical Exam Const: COMMON NORMALS: alert HENMT: COMMON NORMALS: normocephalic HEAD & SCALP: normocephalic Neck/C-Spine: COMMON NORMALS: full ROM Resp: COMMON NORMALS: normal respiratory effort and clear to auscultation bilaterally AUSCULTATION: clear to auscultation bilaterally Cardio: COMMON NORMALS: regular rate RATE: regular rate GI: COMMON NORMALS: Soft to palpation PALPATION: Yes Soft to palpation : COMMON NORMALS: Yes no CVA tenderness BLADDER/KIDNEY EXAM: Yes no CVA tenderness Back/Pelvis: COMMON NORMALS: no CVA tenderness Extremity: COMMON NORMALS: full ROM Neuro: SENSORIUM/ORIENTATION: Yes alert Skin: COMMON NORMALS: turgor normal GENERAL SKIN EXAM: turgor normal Course Vital Signs: Vital signs: Vital Signs Temperature 98.7 F 12/03/22 12:27 Pulse Rate 90 12/03/22 12:27 Respiratory Rate 18 12/03/22 12:27 Blood Pressure 158/94 12/03/22 12:27 Pulse Oximetry 92 12/03/22 12:27 Oxygen Delivery Me thod Room Air 12/03/22 12:27 MDM - SOB/Dyspnea Medical Decision Making 57-year-old male patient came in today for concerns of irregular oxygen saturation and low blood sugar. On exam patient appears nontoxic. Patient appears no acute distress. Lungs are clear to auscultation. No edema is noted in the extremities. Abdomen soft nontender. Vital signs are normal. Differential diagnosis includes but not limited to exacerbation of COPD, GERD, hypoglycemia, pneumonia, anxiety about health. Patient's fingerstick blood glucose was 134. No signs of pneumonia or severe illness was noted. Believe the patient probably has some fluctuation in the blood sugar which might be some signs of early diabetes. Patient really needs to follow-up with his primary care for probably 2-hour fasting glucose test or other evaluation. I discussed this with patient who agreed to plan. Patient was stable and discharged home with recommendations for follow-up with primary care in 1 week. Lab Data Labs/Radiology: Laboratory Results POC Glucose 134 mg/dL (70-110) H 12/03/22 17:54 No radiology studies performed this visit Discharge Plan Discharge Patient Disposition: Home Clinical Impression: Hypoglycemia, Anxiety about health COPD (chronic obstructive pulmonary disease) Qualifiers: COPD type: unspecified COPD Qualified Code(s): J44.9 - Chronic obstructive pulmonary disease, unspecified GERD (gastroesophageal reflux disease) Qualifiers: Esophagitis presence: esophagitis presence not specified Qualified Code(s): K21.9 - Gastro-esophageal reflux disease without esophagitis Condition: Stable Prescriptions: New omeprazole 40 mg capsule,delayed release(DR/EC) 40 mg PO BID Qty: 60 0RF No Action memantine 5 mg tablet 5 mg PO BID Qty: 60 2RF benztropine 1 mg tablet 1 mg PO BID Qty: 60 2RF bupropion HCl 150 mg tablet extended release 24 hr 450 mg PO DAILY@08 30 Days Qty: 90 2RF buspirone 10 mg tablet 10 mg PO TID 30 Days Qty: 90 2RF prazosin 2 mg capsule 2 mg PO BEDTIME@21 Qty: 30 2RF risperidone 1 mg tablet 2 mg PO BID 30 Days Qty: 120 2RF trazodone 50 mg tablet 50 mg PO BEDTIME PRN (Reason: Sleep) 30 Days Qty: 30 2RF buprenorphine-naloxone 2-0.5 mg tablet, sublingual 2 tab sublingual BID Qty: 120 1RF atorvastatin [Lipitor] 40 mg tablet 40 mg PO DAILY Qty: 90 1RF diphenhydramine HCl 50 mg capsule 50 mg PO QID PRN (Reason: itching) Qty: 120 2RF omeprazole 40 mg capsule,delayed release(DR/EC) 40 mg PO DAILY Qty: 90 0RF nicotine (polacrilex) 4 mg lozenge See Rx Instructions .ROUTE .COMPLEX Qty: 144 2RF Dose Instruction: TAKE 4 LOZENGES BY MOUTH NEEDED Rx Instructions: TAKE 4 LOZENGES BY MOUTH NEEDED budesonide-formoterol [Symbicort] 80-4.5 mcg/actuation HFA aerosol inhaler See Rx Instructions .ROUTE .COMPLEX Qty: 10.2 2RF Dose Instruction: INHALE 2 PUFFS TWO TIMES A DAY Rx Instructions: INHALE 2 PUFFS TWO TIMES A DAY diclofenac sodium 1 % gel 4 g TOPICAL QID PRN (Reason: Pain) Qty: 100 1RF Rx Instructions: apply to R knee albuterol sulfate [Ventolin HFA] 90 mcg/actuation HFA aerosol inhaler See Rx Instructions .ROUTE .COMPLEX Qty: 8.5 2RF Dose Instruction: INHALE 2 PUFFS BY MOUTH EVERY 4 HOURS NEEDED FOR FOR SHORTNESS OF BREATH OR WHEEZING Rx Instructions: INHALE 2 PUFFS BY MOUTH EVERY 4 HOURS NEEDED FOR FOR SHORTNESS OF BREATH OR WHEEZING cetirizine 10 mg tablet 10 mg PO .qhs Qty: 30 3RF gabapentin 300 mg capsule 300 mg PO DAILY Qty: 30 2RF fluticasone propionate [Flonase Allergy Relief] 50 mcg/actuation spray,suspension 2 spray intranasal .qhs Qty: 16 1RF Rx Instructions: administer into each nostril polyethylene glycol 3350 [Miralax] 17 gram powder in packet 17 g PO TID PRN (Reason: Constipation) Discharge Orders: Discharge ED (Routine); Ordered 12/03/22 Ordered By: Sunday Chiu Referrals: Lew Guzman MD [Primary Care Provider] - Patient Instructions: Non-diabetic Hypoglycemia (ED) Activity Restrictions/Additional Instructions: Eat smaller more frequent meals in order to maintain blood sugar. Healthy diet and activity. Continue with routine medications. Increase omeprazole 40 mg to twice a day for reflux and improvement of appetite. Continue routine medications otherwise as prescribed. Follow-up with primary care in 5 to 7 days. Return to ED for new concerns or worsening symptoms such as high fever, severe chest pain, or shortness of breath. Coding Level of Care Code ED Hollow Handle Bench Worker for Roseann Richard
--- NOTE | 2022-12-03 17:48 | XRR_ITS ---
PROCEDURE INFORMATION: Exam: XR Chest Exam date and time: 12/03/2022 6:04 PM Age: 57 years old Clinical indication: Pain and condition or disease; Lung condition and disease and other: Chest pain; Copd; Angina; Additional info: Hypoxia TECHNIQUE: Imaging protocol: Radiologic exam of the chest. Views: 1 view. COMPARISON: CR XR chest 2V* [id number] 05/27/2022 9:52 PM FINDINGS: Lungs: No focal consolidation. Pleural spaces: Unremarkable. No pleural effusion. No pneumothorax. Heart/Mediastinum: Unremarkable. No cardiomegaly. Bones/joints: Unremarkable. Soft tissues: Lucency projecting over the mid and left hemidiaphragm may represent a loop of colon extending through a diaphragmatic hernia. If clinically indicated a chest CT may be obtained for further evaluation. No diaphragmatic hernia identified on the chest CT dated 05/14/2022. XR/XR chest 1V portable [id number] IMPRESSION: 1. No focal consolidation. 2. Lucency projecting over the mid and left hemidiaphragm may represent a loop of colon extending through a diaphragmatic hernia. If clinically indicated a chest CT may be obtained for further evaluation. No diaphragmatic hernia identified on the chest CT dated 05/14/2022.
[2022-12-03 17:58] LABS: Glucose Point of Care 134 mg/dL (70-110)
[2022-12-03] MEDS: LORazepam 0.5 mg Tablet PO (18:23)
[2022-12-03] MEDS: pantoprazole DR 40 mg Tablet PO (18:23)
--- NOTE | 2022-12-06 08:21 | PC.SOCIAL ---
PCP F/u Messaged clinic for PCP f/u at this time. Clinic to contact patient with appt date/time.
== END 2022-12-03 18:27 | disposition home or self-care (01) ==
PROVIDERS: Emergency Provider Nurse Practitioner Family; PCP Family Medicine
DX: E16.2 Hypoglycemia, unspecified (principal); F41.9 Anxiety disorder, unspecified; J44.9 Chronic obstructive pulmonary disease, unspecified; K21.9 Gastro-esophageal reflux disease without esophagitis; F17.210 Nicotine dependence, cigarettes, uncomplicated; F17.290 Nicotine dependence, other tobacco product, uncomplicated; I10 Essential (primary) hypertension
CPT/HCPCS: 36416; 71045; 82962; 99284

== ENCOUNTER 2022-12-06 19:41 | Emergency (ER) | payer MEDICAID, SELFPAY ==
[2022-12-06 20:06] VITALS: BMI 35.5
[2022-12-06 20:53] LABS: Basophils # 0.1 10^3/uL (0.0-0.1); Basophils % 0.8 %; Eosinophils # 0.3 10^3/uL (0.0-0.8); Eosinophils % 2.7 %; Hematocrit 40.1 % (37-53); Lymphocytes # 2.6 10^3/uL (0.8-4.8); Lymphocytes % 20.6 %; Mean Corpuscular HGB Conc 32.4 g/dL (30-55); Mean Corpuscular Hemoglobin 27.9 pg (27-33); Mean Corpuscular Volume 86.1 fl (82-101); Mean Platelet Volume 8.2 fL (7.4-10.4); Monocytes # 0.8 10^3/uL (0.2-0.9); Monocytes % 6.3 %; Neutrophils # 8.62 10^3/uL (1.8-7.7); Neutrophils % 69.3 %; Nucleated Red Blood Cells % 0 %; Platelet Count 364 10^3/cmm (157-399); Red Blood Count 4.66 10^6/uL (3.85-5.65); Red Cell Distribution Width 13.7 % (12.1-15.1); White Blood Count 12.46 10^3/uL (3.29-11.43)
--- NOTE | 2022-12-06 21:04 | ED_ITS ---
HPI - Altered Mental Status General: Chief Complaint: Altered Mental Status Stated Complaint: dizziness, anxiety Time Seen by Provider: 12/06/22 20:25 History of Present Illness: Patient's brought to the ER by his caregiver from had a long term house for altered mental status. Patient jumps in between topics saying his blood sugars out of control, his oxygen is low, he cannot wear his wrist brace way to take it off, proximal by his GERD, says I just forget and talk to the wall, caregiver says he was confused like this last time his blood O2 was low but also was on for sure if he took any extra medication. Patient is on multiple psychiatric medicines Review of Systems General: Reports: 10 or more systems reviewed and unremarkable except in HPI and below PFSH ED PFSH: Medical History Bipolar disorder Cervicalgia Chronic recurrent major depressive disorder History of antisocial personality disorder Hypertension Hypertriglyceridemia Hypoxemia Insomnia Methamphetamine abuse Methamphetamine use disorder, moderate, in early remission Night terror Pain in a tooth or teeth Psychiatric care Pulmonary embolism Schizoaffective disorder, depressive type Tobacco use disorder Tooth abscess Surgical History History of knee replacement procedure of right knee History of umbilical hernia repair Family History Father CAD (coronary artery disease) Cancer stomach Stroke Mother Cancer lung Diabetes Denies family history of Clotting disorder Dementia Hyperlipidemia Chronic kidney disease (CKD) Anesthesia complication Bleeding disorder Lung disease Hypertension Social History Smoking and tobacco status: current some day smoker (vape, attempting to quit cigarettes) cigarettes [ Other cigarette details: 1/2PPD x 40yrs. 40PY, 4 PPD as of 04/2022--currently 5/day 11/10/22] and e-cigarettes E-Cigarette Details: vaporizer device Quit status (tobacco): has tried quititng Alcohol intake: former Desire information about alcohol rehabilitation?: No Counseling given: No Substance/Drug Use: former Date of last use: 05/2021 Desire information about substance/drug rehabilitation?: No Counseling given: No Adopted: No Caregiver/support person: No Lives independently: Yes Household members: none Marital status: Single service: No Current occupational status: disabled Current gender identity: Male Special zhang needs: No Agree to transfusion: Yes Physical Exam Const: COMMON NORMALS: no acute distress, average body habitus, patient orien yael x3, no limitations, healthy appearing, alert and well nourished HENMT: COMMON NORMALS: normocephalic, atraumatic, hearing grossly normal bilat erally, external ears normal, Normal external nose present and moist oral mucous membranes HEAD & SCALP: normocephalic and atraumatic NOSE: Normal external nose present EXTERNAL EAR: Yes external ears normal Eye: COMMON NORMALS: Equal, round and reactive pupils present, EOMs intact bilaterally, conjunctivae normal and no scleral icterus CONJUNCTIVA: Yes conjunctivae normal PUPIL: Yes Equal, round and reactive pupils present Neck/C-Spine: COMMON NORMALS: full ROM, no lymphadenopathy, supple, no meningeal signs, no JVD and Thyroid normal THYROID: Thyroid normal Chest: COMMONS NORMALS: normal inspection of the chest and normal palpation of entire chest wall Resp: COMMON NORMALS: normal respiratory effort, No retractions and No use of accessory muscles Cardio: COMMON NORMALS: no JVD, regular rate, regular rhythm, S1 normal heart sound present, S2 normal heart sound present, No gallops present (Cardio), No clicks present (Cardio), No murmurs present (Cardio) and No rub (Cardio) RATE: regular rate RHYTHM: regular rhythm HEART SOUNDS: S1 normal heart sound present and S2 normal heart sound present GI: COMMON NORMALS: Normal to inspection, nondistended, normoactive bowel sounds present, Soft to palpation, non-tender, No hepatosplenomegaly present and no masses PALPATION: Yes Soft to palpation and Yes No hepatosplenomegaly present : COMMON NORMALS: Yes no CVA tenderness BLADDER/KIDNEY EXAM: Yes no CVA tenderness Back/Pelvis: COMMON NORMALS: no CVA tenderness Neuro: COMMON NORMALS: patient oriented x3 SENSORIUM/ORIENTATION: Yes alert MENINGEAL SIGNS: Yes no meningeal signs OTHER: Patient unable to stay on topic and complete coherent thought process and jumps around between thought processes randomly cannot stay focused to answer questions appropriately MDM - Altered Mental Status Medical Decision Making Patient was worked up in a standard psychiatric fashion including chest x-ray and head CT and looking for a reason for his altered mental status. All of which was essentially benign. Dr. Jack was consulted who knows this patient stated may be W[facility]icke's patient will be given thiamine IM and be admitted to [facility] for further evaluation and treatment. Differential Diagnosis Likely altered mental status; Unlikely alcoholic intoxication, delirium, dementia, hypoglycemia, hyponatremia, subarachnoid hemorrhage or sepsis Medical Records I reviewed the patient's medical records. Lab Data I reviewed the patient's lab results. 12/06/22 20:47 12/06/22 20:47 Radiology Impressions Chest X-Ray 12/06/22 21:29 IMPRESSION: No acute findings. Head CT 12/06/22 21:29 IMPRESSION: 1. No acute intracranial abnormality. 2. Mild right sphenoid sinus disease. Laboratory Results WBC 12.46 10^3/uL (3.29-11.43) H 12/06/22 20:47 RBC 4.66 10^6/uL (3.85-5.65) 12/06/22 20:47 Hgb 13.00 g/dL (11.27-16.99) 12/06/22 20:47 Hct 40.1 % (37-53) 12/06/22 20:47 MCV 86.1 fl (82-101) 12/06/22 20:47 MCH 27.9 pg (27-33) 12/06/22 20:47 MCHC 32.4 g/dL (30-55) 12/06/22 20:47 RDW 13.7 % (12.1-15.1) 12/06/22 20:47 Plt Count 364 10^3/cmm (157-399) 12/06/22 20:47 MPV 8.2 fL (7.4-10.4) 12/06/22 20:47 Neut % (Auto) 69.3 % 12/06/22 20:47 Lymph % (Auto) 20.6 % 12/06/22 20:47 [place] % (Auto) 6.3 % 12/06/22 20:47 Eos % (Auto) 2.7 % 12/06/22 20:47 Baso % (Auto) 0.8 % 12/06/22 20:47 Neut # (Auto) 8.62 10^3/uL (1.8-7.7) H 12/06/22 20:47 Lymph # (Auto) 2.6 10^3/uL (0.8-4.8) 12/06/22 20:47 [place] # (Auto) 0.8 10^3/uL (0.2-0.9) 12/06/22 20:47 Eos # (Auto) 0.3 10^3/uL (0.0-0.8) 12/06/22 20:47 Baso # (Auto) 0.1 10^3/uL (0.0-0.1) 12/06/22 20:47 Nucleated RBC % (auto) 0 % 12/06/22 20:47 Nucleated RBCs # 0.0 /100WBC 12/06/22 20:47 Sodium 134 mmol/L (136-145) L 12/06/22 20:47 Potassium 4.0 mmol/L (3.5-5.1) 12/06/22 20:47 Chloride 99 mmol/L (98-107) 12/06/22 20:47 Carbon Dioxide 23 mmol/L (22-29) 12/06/22 20:47 Anion Gap 16.0 (5-19) 12/06/22 20:47 BUN 11 mg/dL (6-20) 12/06/22 20:47 Creatinine 0.8 mg/dL (0.7-1.2) 12/06/22 20:47 GFR Calculation 100.4 mL/min (90-130) 12/06/22 20:47 Glucose 92 mg/dL (65-115) 12/06/22 20:47 Calculated Osmolality 277 mOsm/kg (285-295) L 12/06/22 20:47 Calcium 9.1 mg/dL (8.5-10.5) 12/06/22 20:47 Phosphorus 3.5 mg/dL (2.5-4.5) 12/06/22 20:47 Magnesium 2.1 mg/dL (1.7-2.3) 12/06/22 20:47 Total Bilirubin 0.2 mg/dL (0.15-1.2) 12/06/22 20:47 AST 15 U/L (0-40) 12/06/22 20:47 ALT 12 U/L (0-41) 12/06/22 20:47 Alkaline Phosphatase 104 U/L (40-130) 12/06/22 20:47 Total Protein 7.3 g/dL (6.6-8.7) 12/06/22 20:47 Albumin 4.2 g/dL (3.5-5.2) 12/06/22 20:47 Globulin 3.1 g/dL (1.3-4.6) 12/06/22 20:47 TSH 2.68 uIU/mL (0.27-4.20) 12/06/22 20:47 Urine Color Light yellow (Yellow) 12/06/22 20:54 Urine Appearance Clear (CLEAR) 12/06/22 20:54 Urine pH 6.5 (5-7) 12/06/22 20:54 Ur Specific [place] 1.005 (1.005-1.030) 12/06/22 20:54 Urine Protein Neg (Negative) 12/06/22 20:54 Urine Glucose (UA) Norm (Normal) 12/06/22 20:54 Urine Ketones Negative (Negative) 12/06/22 20:54 Urine Blood Neg (Negative) 12/06/22 20:54 Urine Nitrate Negative (Negative) 12/06/22 20:54 Urine Bilirubin Neg (Negative) 12/06/22 20:54 Urine Urobilinogen Norm mg/dL (Negative) 12/06/22 20:54 Ur Leukocyte Esterase Negative (Negative) 12/06/22 20:54 Salicylates 0.4 mg/dL (3-10) L 12/06/22 20:47 Urine Opiates Screen Negative ng/mL (Negative) 12/06/22 20:54 Acetaminophen < 5.0 ug/mL (10-30) L 12/06/22 20:47 Ur Barbiturates Screen Negative ng/mL (Negative) 12/06/22 20:54 Ur Phencyclidine Scrn Negative ng/mL (Negative) 12/06/22 20:54 Ur Amphetamines Screen Negative ng/mL (Negative) 12/06/22 20:54 U Benzodiazepines Scrn Negative ng/mL (Negative) 12/06/22 20:54 Urine Cocaine Screen Negative ng/mL (Negative) 12/06/22 20:54 U Marijuana (THC) Screen Negative ng/mL (Negative) 12/06/22 20:54 Ethyl Alcohol < 10 mg/dL (0-10) 12/06/22 20:47 No radiology studies performed this visit Discharge Plan Discharge Patient Disposition: Admitted As Inpatient Clinical Impression: Altered mental status Condition: Stable Coding Level of Care Code ED Sociology Professor for Roseann Richard
[2022-12-06 21:07] LABS: Add Urine Microscopic? NO; Charge for UA Resulting for Rev
[2022-12-06 21:20] LABS: Amphetamines Screen Urine Negative (Negative); Barbiturates Screen Urine Negative (Negative); Benzodiazepines Screen Urine Negative (Negative); Cocaine Screen Urine Negative (Negative); Opiate Screen Urine Negative (Negative); PCP Screen Urine Negative (Negative); THC Screen Urine Negative (Negative)
[2022-12-06 21:23] LABS: Bilirubin Urine Neg (Negative); Blood Urine Neg (Negative); Glucose Urine UA Norm (Normal); Ketones Urine Negative (Negative); Leukocyte Esterase Urine Negative (Negative); Nitrate Urine Negative (Negative); Protein Urine Neg (Negative); Specific Gravity, Urine 1.005 (1.005-1.030); Urine Appearance Clear (CLEAR); Urine Color Light yellow (Yellow); Urobilinogen Urine Norm (Negative); pH Urine 6.5 (5-7)
[2022-12-06 21:26] LABS: Acetaminophen < 5.0 ug/mL (10-30); Alanine Aminotransferase 12 U/L (0-41); Albumin Level 4.2 g/dL (3.5-5.2); Alcohol Level < 10 mg/dL (0-10); Alkaline Phosphatase 104 U/L (40-130); Aspartate Amino Transferase 15 U/L (0-40); Blood Urea Nitrogen 11 mg/dL (6-20); Calcium 9.1 mg/dL (8.5-10.5); Carbon Dioxide 23 mmol/L (22-29); Chloride 99 mmol/L (98-107); Globulin 3.1 g/dL (1.3-4.6); Glomerular Filtration Rate 100.4 mL/min (90-130); Glucose 92 mg/dL (65-115); Magnesium 2.1 mg/dL (1.7-2.3); Osmolality Calculated 277 mOsm/kg (285-295); Phosphorus 3.5 mg/dL (2.5-4.5); Salicylate 0.4 mg/dL (3-10); Sodium 134 mmol/L (136-145); Thyroid Stimulating Hormone 2.68 uIU/mL (0.27-4.20); Total Bilirubin 0.2 mg/dL (0.15-1.2); Total Protein 7.3 g/dL (6.6-8.7)
--- NOTE | 2022-12-06 21:29 | XRR_ITS ---
PROCEDURE INFORMATION: Exam: XR Chest Exam date and time: 12/06/2022 9:33 PM Age: 57 years old Clinical indication: Other: Anxiety; Additional info: AMS TECHNIQUE: Imaging protocol: Radiologic exam of the chest. Views: 1 view. COMPARISON: CR (CHEST, ) 12/03/2022 6:04 PM FINDINGS: Lungs: Unremarkable. No consolidation. Pleural spaces: Unremarkable. No pleural effusion. No pneumothorax. Heart/Mediastinum: Unremarkable. No cardiomegaly. Bones/joints: Unremarkable. XR/XR chest 1V portable [id number] IMPRESSION: No acute findings.
--- NOTE | 2022-12-06 21:29 | CTR_ITS ---
PROCEDURE INFORMATION: Exam: CT Head Without Contrast Exam date and time: 12/06/2022 9:45 PM Age: 57 years old Clinical indication: Altered mental status/memory loss; Additional info: AMS TECHNIQUE: Imaging protocol: Computed tomography of the head without contrast. Radiation optimization: All CT scans at this facility use at least one of these dose optimization techniques: automated exposure control; mA and/or kV adjustment per patient size (includes targeted exams where dose is matched to clinical indication); or iterative reconstruction. REPORTING DATA: Count of CT and Cardiac NM exams in prior 12 months: This patient has received 2 known CTs and 0 known cardiac nuclear medicine studies in the 12 months prior to the current study. COMPARISON: CT head wo con* [id number] 05/10/2022 11:25 PM RADIATION DOSE METRICS: Total DLP (mGy-cm): 2259.85 FINDINGS: Brain: No focal hemorrhage or midline shift is identified. Cerebral ventricles: No ventriculomegaly or evidence of acute hydrocephalus. Paranasal sinuses: At least mild right sphenoid sinus disease. Mastoid air cells: Visualized mastoid air cells are well aerated. Bones/joints: No displaced skull fracture is noted. Old-appearing nasal bone deformity. Soft tissues: Unremarkable. CT/CT head wo con* [id number] IMPRESSION: 1. No acute intracranial abnormality. 2. Mild right sphenoid sinus disease.
== END 2022-12-07 00:01 | disposition left against medical advice (07) ==
PROVIDERS: Emergency Provider Emergency Medicine; PCP Family Medicine
DX: R41.82 Altered mental status, unspecified (principal); F17.210 Nicotine dependence, cigarettes, uncomplicated; F17.290 Nicotine dependence, other tobacco product, uncomplicated; I10 Essential (primary) hypertension
CPT/HCPCS: 36415; 70450; 71045; 80053; 80306; 80307; 81003; 83735; 84100; 84443; 85025; 96372; 99284; J3411

== ENCOUNTER → 2022-12-09 08:59 | Outpatient (BNVA) | payer OTHER, SELFPAY | PROVIDERS: PCP Family Medicine; Visit Provider Psychiatry & Neurology Psychiatry | DX: F43.25 Adjustment disorder with mixed disturbance of emotions and conduct (principal); Z79.899 Other long term (current) drug therapy | CPT/HCPCS: 80061; 83036 ==

== ENCOUNTER 2022-12-22 10:08 | Emergency (ER) | payer MEDICAID, SELFPAY ==
[2022-12-22 10:11] VITALS: BP 148/92; PULSE 85; RESP 18; TEMP 36.9; O2SAT 92
--- NOTE | 2022-12-22 10:11 | ED.C_ITS ---
HPI - Psych General: Chief Complaint: Psychiatric Symptoms Stated Complaint: si Time Seen by Provider: 12/22/22 10:09 Source: patient and EMS Mode of arrival: EMS Limitations: no limitations History of Present Illness: 57-year-old male has a history of schizophrenia along with bipolar he states that he woke up this morning has been hearing voices he also states he is having thoughts of killing himself he states voices are telling him to kill himself he called EMS he states he wants to be admitted to the [facility] to get help. Denies any worsening proving factors. Associated symptoms: Reports auditory hallucinations, depression and suicidal ideation Review of Systems Const: Denies: fever(s) or chills Eyes: Denies: eye discomfort ENMT: Denies: throat pain or dental pain Card: Denies: chest pain Resp: Denies: dyspnea GI: Denies: abdominal pain, nausea, vomiting or diarrhea Musc: Denies: neck pain or back pain Skin/Breast: Denies: rash Neuro: Denies: headache(s) Psych: Reports: depression, auditory hallucinations and suicidal ideation [facility] ED PFSH: Medical History Bipolar disorder Cervicalgia Chronic recurrent major depressive disorder History of antisocial personality disorder Hypertension Hypertriglyceridemia Hypoxemia Insomnia Methamphetamine abuse Methamphetamine use disorder, moderate, in early remission Night terror Pain in a tooth or teeth Psychiatric care Pulmonary embolism Schizoaffective disorder, depressive type Tobacco use disorder Tooth abscess Surgical History History of knee replacement procedure of right knee History of umbilical hernia repair Family History Father CAD (coronary artery disease) Cancer stomach Stroke Mother Cancer lung Diabetes Sister Suicide Denies family history of Clotting disorder Dementia Hyperlipidemia Chronic kidney disease (CKD) Anesthesia complication Bleeding disorder Lung disease Hypertension Social History Smoking and tobacco status: current some day smoker (vape, attempting to quit cigarettes) cigarettes [ Other cigarette details: 1/2PPD x 40yrs. 40PY, 4 PPD as of 04/2022--currently 5/day 11/10/22] and e-cigarettes E-Cigarette Details: vaporizer device Quit status (tobacco): has tried quititng Second hand smoke exposure: Yes Smoking risk assessment/counseling performed?: Yes Alcohol intake: former Year of sobriety/quit date alcohol: 2022 Desire information about alcohol rehabilitation?: No Counseling given: No Substance/Drug Use: former Date of last use: 05/2021 Desire information about substance/drug rehabilitation?: No Counseling given: No Adopted: No Caregiver/support person: No Lives independently: Yes Household members: other Details: [facility] sober living Housing: Other Details: 6 other men Marital status: Number of children: 4 Highest education level completed: GED or Equivalent service: No Current occupational status: disabled Pets and animals: No Leisure activites: exercise, games and reading Sexually active: No Do you think of yourself as: Straight/Heterosexual Current gender identity: Male Angélica/Restorationist: Bahai Special angélica needs: No Agree to transfusion: Yes Financial difficulty paying for basics: Not Very Hard Physical Exam Const: COMMON NORMALS: no acute distress, patient oriented x3 and healthy appe [facility] HENMT: COMMON NORMALS: normocephalic and atraumatic HEAD & SCALP: normocephalic and atraumatic Neck/C-Spine: COMMON NORMALS: full ROM and supple Chest: COMMONS NORMALS: normal inspection of the chest Resp: COMMON NORMALS: normal respiratory effort Cardio: COMMON NORMALS: regular rate, regular rhythm and No murmurs present (Cardio) RATE: regular rate RHYTHM: regular rhythm GI: COMMON NORMALS: Soft to palpation PALPATION: Yes Soft to palpation Extremity: COMMON NORMALS: normal to inspection and full ROM Neuro: COMMON NORMALS: patient oriented x3, moves all extremities and no focal motor deficits Psych: COMMON NORMALS: mental status grossly normal and cooperative ATTITUDE: Yes paranoid MOOD & AFFECT: Yes depressed mood THOUGHT CONTENT: Yes Suicidality present Skin: COMMON NORMALS: no rashes or lesions noted and no wounds GENERAL SKIN EXAM: no rashes or lesions noted Course Vital Signs: Vital signs: Vital Signs Temperature 98.5 F 12/22/22 10:11 Pulse Rate 85 12/22/22 10:11 Respiratory Rate 18 12/22/22 10:11 Blood Pressure 148/92 12/22/22 10:11 Pulse Oximetry 92 12/22/22 10:11 [facility] - Psych Medical Decision Making Patient presents here with hallucination along with suicidal ideation patient was placed under 96-hour hold has been cooperative here blood works normal I spoke to psychiatrist will admit at this time. Medical Records I reviewed the patient's medical records. Lab Data I reviewed the patient's lab results. 12/22/22 10:20 12/22/22 10:20 Laboratory Results WBC 13.65 10^3/uL (3.29-11.43) H 12/22/22 10:20 RBC 4.99 10^6/uL (3.85-5.65) 12/22/22 10:20 Hgb 13.90 g/dL (11.27-16.99) 12/22/22 10:20 Hct 42.6 % (37-53) 12/22/22 10:20 MCV 85.4 fl (82-101) 12/22/22 10:20 MCH 27.9 pg (27-33) 12/22/22 10:20 MCHC 32.6 g/dL (30-55) 12/22/22 10:20 RDW 13.9 % (12.1-15.1) 12/22/22 10:20 Plt Count 494 10^3/cmm (157-399) H 12/22/22 10:20 MPV 7.9 fL (7.4-10.4) 12/22/22 10:20 Neut % (Auto) 79.1 % 12/22/22 10:20 Lymph % (Auto) 12.7 % 12/22/22 10:20 [place] % (Auto) 5.1 % 12/22/22 10:20 Eos % (Auto) 1.6 % 12/22/22 10:20 Baso % (Auto) 1.0 % 12/22/22 10:20 Neut # (Auto) 10.79 10^3/uL (1.8-7.7) H 12/22/22 10:20 Lymph # (Auto) 1.7 10^3/uL (0.8-4.8) 12/22/22 10:20 [place] # (Auto) 0.7 10^3/uL (0.2-0.9) 12/22/22 10:20 Eos # (Auto) 0.2 10^3/uL (0.0-0.8) 12/22/22 10:20 Baso # (Auto) 0.1 10^3/uL (0.0-0.1) 12/22/22 10:20 Nucleated RBC % (auto) 0 % 12/22/22 10:20 Nucleated RBCs # 0.0 /100WBC 12/22/22 10:20 Sodium 136 mmol/L (136-145) 12/22/22 10:20 Potassium 4.2 mmol/L (3.5-5.1) 12/22/22 10:20 Chloride 100 mmol/L (98-107) 12/22/22 10:20 Carbon Dioxide 26 mmol/L (22-29) 12/22/22 10:20 Anion Gap 14.2 (5-19) 12/22/22 10:20 BUN 8 mg/dL (6-20) 12/22/22 10:20 Creatinine 0.8 mg/dL (0.7-1.2) 12/22/22 10:20 GFR Calculation 100.4 mL/min (90-130) 12/22/22 10:20 Glucose 107 mg/dL (65-115) 12/22/22 10:20 Calculated Osmolality 281 mOsm/kg (285-295) L 12/22/22 10:20 Calcium 9.1 mg/dL (8.5-10.5) 12/22/22 10:20 Total Bilirubin 0.2 mg/dL (0.15-1.2) 12/22/22 10:20 AST 16 U/L (0-40) 12/22/22 10:20 ALT 16 U/L (0-41) 12/22/22 10:20 Alkaline Phosphatase 102 U/L (40-130) 12/22/22 10:20 Total Protein 7.3 g/dL (6.6-8.7) 12/22/22 10:20 Albumin 4.2 g/dL (3.5-5.2) 12/22/22 10:20 Globulin 3.1 g/dL (1.3-4.6) 12/22/22 10:20 Salicylates < 0.3 mg/dL (3-10) L 12/22/22 10:20 Acetaminophen < 5.0 ug/mL (10-30) L 12/22/22 10:20 Ethyl Alcohol < 10 mg/dL (0-10) 12/22/22 10:20 No radiology studies performed this visit Discharge Plan Discharge Patient Disposition: Admitted As Inpatient Clinical Impression: Suicidal ideation Condition: Stable Prescriptions: No Action memantine 5 mg tablet 5 mg PO BID Qty: 60 2RF benztropine 1 mg tablet 1 mg PO BID Qty: 60 2RF bupropion HCl 150 mg tablet extended release 24 hr 450 mg PO DAILY@08 30 Days Qty: 90 2RF buspirone 10 mg tablet 10 mg PO TID 30 Days Qty: 90 2RF prazosin 2 mg capsule 2 mg PO BEDTIME@21 Qty: 30 2RF risperidone 1 mg tablet 2 mg PO BID 30 Days Qty: 120 2RF trazodone 50 mg tablet 50 mg PO BEDTIME PRN (Reason: Sleep) 30 Days Qty: 30 2RF buprenorphine-naloxone 2-0.5 mg tablet, sublingual 2 tab sublingual BID Qty: 120 1RF diphenhydramine HCl 50 mg capsule 50 mg PO QID PRN (Reason: itching) Qty: 120 2RF nicotine (polacrilex) 4 mg lozenge See Rx Instructions .ROUTE .COMPLEX Qty: 144 2RF Dose Instruction: TAKE 4 LOZENGES BY MOUTH NEEDED Rx Instructions: TAKE 4 LOZENGES BY MOUTH NEEDED diclofenac sodium 1 % gel 4 g TOPICAL QID PRN (Reason: Pain) Qty: 100 1RF Rx Instructions: apply to R knee fluticasone propionate [Flonase Allergy Relief] 50 mcg/actuation spray,suspension 2 spray intranasal .qhs Qty: 16 1RF Rx Instructions: administer into each nostril albuterol sulfate [Ventolin HFA] 90 mcg/actuation HFA aerosol inhaler See Rx Instructions .ROUTE .COMPLEX Qty: 8.5 2RF Dose Instruction: INHALE 2 PUFFS BY MOUTH EVERY 4 HOURS NEEDED FOR FOR SHORTNESS OF BREATH OR WHEEZING Rx Instructions: INHALE 2 PUFFS BY MOUTH EVERY 4 HOURS NEEDED FOR FOR SHORTNESS OF BREATH OR WHEEZING polyethylene glycol 3350 [Miralax] 17 gram powder in packet 17 g PO TID PRN (Reason: Constipation) cetirizine 10 mg tablet 10 mg PO BEDTIME omeprazole 40 mg capsule,delayed release(DR/EC) 40 mg PO QAM gabapentin 300 mg capsule 300 mg PO BEDTIME Symbicort 80-4.5 mcg/actuation HFA aerosol inhaler 2 inh inhalation BID Referrals: Lew Guzman MD [Primary Care Provider] - Coding Level of Care Code ED Seed Specialist for Roseann Richard
[2022-12-22 10:28] LABS: Basophils # 0.1 10^3/uL (0.0-0.1); Eosinophils # 0.2 10^3/uL (0.0-0.8); Eosinophils % 1.6 %; Hematocrit 42.6 % (37-53); Lymphocytes # 1.7 10^3/uL (0.8-4.8); Lymphocytes % 12.7 %; Mean Corpuscular HGB Conc 32.6 g/dL (30-55); Mean Corpuscular Hemoglobin 27.9 pg (27-33); Mean Corpuscular Volume 85.4 fl (82-101); Mean Platelet Volume 7.9 fL (7.4-10.4); Monocytes # 0.7 10^3/uL (0.2-0.9); Monocytes % 5.1 %; Neutrophils # 10.79 10^3/uL (1.8-7.7); Neutrophils % 79.1 %; Nucleated Red Blood Cells % 0 %; Platelet Count 494 10^3/cmm (157-399); Red Blood Count 4.99 10^6/uL (3.85-5.65); Red Cell Distribution Width 13.9 % (12.1-15.1); White Blood Count 13.65 10^3/uL (3.29-11.43)
[2022-12-22] MEDS: LORazepam 2 mg/mL INJ 1 mL IM (10:33)
[2022-12-22 10:47] LABS: Acetaminophen < 5.0 ug/mL (10-30); Alanine Aminotransferase 16 U/L (0-41); Albumin Level 4.2 g/dL (3.5-5.2); Alcohol Level < 10 mg/dL (0-10); Alkaline Phosphatase 102 U/L (40-130); Anion Gap 14.2 (5-19); Aspartate Amino Transferase 16 U/L (0-40); Blood Urea Nitrogen 8 mg/dL (6-20); Calcium 9.1 mg/dL (8.5-10.5); Carbon Dioxide 26 mmol/L (22-29); Chloride 100 mmol/L (98-107); Creatinine Clr Calc Pharmacy 108.4323; Globulin 3.1 g/dL (1.3-4.6); Glomerular Filtration Rate 100.4 mL/min (90-130); Glucose 107 mg/dL (65-115); Osmolality Calculated 281 mOsm/kg (285-295); Potassium 4.2 mmol/L (3.5-5.1); Salicylate < 0.3 mg/dL (3-10); Sodium 136 mmol/L (136-145); Total Bilirubin 0.2 mg/dL (0.15-1.2); Total Protein 7.3 g/dL (6.6-8.7)
[2022-12-22 12:07] VITALS: BP 154/87; PULSE 78; RESP 18; O2SAT 90
[2022-12-22 12:29] LABS: Amphetamines Screen Urine Negative (Negative); Barbiturates Screen Urine Negative (Negative); Benzodiazepines Screen Urine Negative (Negative); Cocaine Screen Urine Negative (Negative); Opiate Screen Urine Negative (Negative); PCP Screen Urine Negative (Negative); THC Screen Urine Negative (Negative)
[2022-12-22] MEDS: LORazepam 2 mg Tablet PO (15:02)
[2022-12-22] MEDS: nicotine 21 mg Patch 1 PATCH TRANSDERMA (16:26)
[2022-12-22 18:42] VITALS: BP 135/84; PULSE 74; RESP 18; O2SAT 91
== END 2022-12-22 19:09 | disposition admitted as inpatient to this hospital (09) ==
PROVIDERS: Emergency Medicine; Emergency Provider Family Medicine; PCP Family Medicine
DX: R45.851 Suicidal ideations (principal)
CPT/HCPCS: 36415; 80053; 80306; 80307; 85025; 96372; 99284; J2060

== ENCOUNTER → 2023-02-10 13:07 | Outpatient (BNVA) | payer MEDICAID, SELFPAY ==
[2022-12-23 16:16] VITALS: BP 154/93; BMI 30.6
== END ==
PROVIDERS: PCP Family Medicine; Visit Provider Psychiatry & Neurology Psychiatry
DX: F11.21 Opioid dependence, in remission (principal); F15.21 Other stimulant dependence, in remission; Z79.899 Other long term (current) drug therapy; F25.1 Schizoaffective disorder, depressive type; F51.4 Sleep terrors [night terrors]; F17.200 Nicotine dependence, unspecified, uncomplicated
CPT/HCPCS: 80307

== ENCOUNTER → 2023-04-07 08:05 | Outpatient (BNVA) | payer MEDICAID, SELFPAY ==
[2022-12-23 16:16] VITALS: BP 154/93; BMI 30.6
== END ==
PROVIDERS: PCP Family Medicine; Referring Provider Family Medicine; Visit Provider Psychiatry & Neurology Neurology
DX: G93.40 Encephalopathy, unspecified (principal); R55 Syncope and collapse; R41.3 Other amnesia
CPT/HCPCS: 99203

== ENCOUNTER 2023-04-15 14:01 | Outpatient (CLI) | payer MEDICAID, SELFPAY ==
[2022-12-23 16:16] VITALS: BP 154/93; BMI 30.6
--- NOTE | 2023-04-15 14:15 | USCV_ITS ---
Oswald Chriss Age: 58 Gender: M : 1965 Exam Date: 04/15/2023 14:53 Ordering Phys: Diaz Willis MD Technologist: CT Exam Location: [facility] [place]_ Indication: dizziness Risk Factors: Previous Vascular Surgery: Right Brachial BP: / Left Brachial BP: / Right Left Velocity (cm/s) Spectral Plaque Velocity (cm/s) Spectral Plaque Syst/Diast Broadening Syst/Diast Broadening 77.90/ 19.70 Prox CCA 75.00 / 19.40 63.50/ 13.70 Mid CCA 59.00 / 18.10 66.90/ 19.20 Distal CCA 50.00 / 17.40 42.70/ 16.30 Prox ICA 38.40 / 14.20 41.90/ 17.10 Mid ICA 44.10 / 19.90 60.40/ 18.80 Distal ICA 40.80 / 19.40 87.10 ECA 54.10 0.78 ICA/CCA 0.59 Antegrade Vertebral Antegrade 31.30/ 10.40 cm/s 30.30/ 10.90 cm/s Tri Subclavian Tri 74.30 97.00 FINDINGS Comparison: none available. No significant elevation of systolic or diastolic velocities. Waveforms are normal. No significant amount of calcified plaque or intimal thickening identified. CONCLUSIONS Normal carotid doppler ultrasound. Dr. Codie Johnson DO (Electronically Signed) Final Date: 15 April 2023 15:37 S
== END 2023-04-15 14:02 | disposition home or self-care (01) ==
LOC: RAD 14:01
PROVIDERS: PCP Family Medicine; Visit Provider Psychiatry & Neurology Neurology
DX: F03.90 Unspecified dementia, unspecified severity, without behavioral disturbance, psychotic disturbance, mood disturbance, and anxiety (principal); G04.90 Encephalitis and encephalomyelitis, unspecified; R55 Syncope and collapse; R42 Dizziness and giddiness
CPT/HCPCS: 93880

== ENCOUNTER → 2023-04-29 11:31 | Outpatient (BNVA) | payer MEDICAID, SELFPAY ==
[2023-05-26 09:32] VITALS: BP 154/93; BMI 30.6
== END ==
PROVIDERS: PCP Family Medicine; Visit Provider Psychiatry & Neurology Psychiatry
DX: Z79.899 Other long term (current) drug therapy (principal); F11.21 Opioid dependence, in remission; F15.21 Other stimulant dependence, in remission; Z86.59 Personal history of other mental and behavioral disorders; F25.1 Schizoaffective disorder, depressive type
CPT/HCPCS: 80307

== ENCOUNTER 2023-05-19 18:45 | Inpatient (IN) | payer MEDICAID, SELFPAY ==
[2022-12-23 16:16] VITALS: BP 154/93; BMI 30.6
[2023-05-19 18:49] VITALS: BP 135/84; PULSE 94; RESP 16; TEMP 36.6; O2SAT 95
--- NOTE | 2023-05-19 19:11 | ED.C_ITS ---
HPI - Psych 2 General: Chief Complaint: Psychiatric Symptoms Stated Complaint: SI Time Seen by Provider: 05/19/23 18:49 Source: patient Mode of arrival: ambulatory Limitations: no limitations History of Present Illness: 58-year-old male that has a history of m eth use bipolar and depression he states has been having increasing suicidal thoughts. He states he has a plan of hanging himself and just does not feel like living anymore. He states that he wants to get help. Associated symptoms: Reports depression and suicidal ideation Review of Systems 2 Const: Denies: fever(s), chills, body aches or change in appetite ENMT: Denies: throat pain or dental pain Card: Denies: chest pain Resp: Denies: dyspnea GI: Denies: abdominal pain, nausea, vomiting or diarrhea Musc: Denies: neck pain or back pain Skin/Breast: Denies: rash Neuro: Denies: headache(s) Psych: Reports: depression and suicidal ideation PFSH ED 2 PFSH: Medical History Tooth abscess Pain in a tooth or teeth Bipolar disorder Chronic recurrent major depressive disorder Hypertension Schizoaffective disorder, depressive type History of antisocial personality disorder Tobacco use disorder Psychiatric care Cervicalgia Hypertriglyceridemia Night terror Insomnia Methamphetamine use disorder, moderate, in early remission Pulmonary embolism Hypoxemia Methamphetamine abuse Surgical History History of umbilical hernia repair History of knee replacement procedure of right knee Family History Father CAD (coronary artery disease) Cancer stomach Stroke Mother Cancer lung Diabetes Sister Suicide Denies family history of Clotting disorder Dementia Hyperlipidemia Chronic kidney disease (CKD) Anesthesia complication Bleeding disorder Lung disease Hypertension Social History Smoking and tobacco/nicotine status: current every day tobacco/nicotine user (vape, attempting to quit cigarettes) cigarettes [ Other cigarette details: 3 cigs/day] Quit status (tobacco/nicotine): has tried quititng Second hand smoke exposure: Yes Alcohol intake: former Year of sobriety/quit date alcohol: 2022 Substance/Drug Use: former Date of last use: 05/2021 Adopted: No Caregiver/support person: No Lives independently: Yes Household members: other Details: [facility] Housing: Other Details: 6 other men Marital status: Number of children: 4 Highest education level completed: GED or Equivalent service: No Current occupational status: disabled Pets and animals: No Leisure activites: exercise, games and reading Sexually active: No Do you think of yourself as: Straight/Heterosexual Current gender identity: Male Angélica/Confucianism: Scientology Special angélica needs: No Agree to transfusion: Yes Physical Exam 2 Const: COMMON NORMALS: no acute distress, patient oriented x3 and healthy appearing HENMT: COMMON NORMALS: normocephalic and atraumatic HEAD & SCALP: n ormocephalic and atraumatic Neck/C-Spine: COMMON NORMALS: full ROM and supple Chest: COMMONS NORMALS: normal inspection of the chest Resp: COMMON NORMALS: normal respiratory effort Cardio: COMMON NORMALS: regular rate, regular rhythm and No murmurs present (Cardio) RATE: regular rate RHYTHM: regular rhythm Extremity: COMMON NORMALS: normal to inspection and full ROM Neuro: COMMON NORMALS: patient oriented x3, moves all extremities and no focal motor deficits Psych: COMMON NORMALS: mental status grossly normal, Normal thought process present and cooperative THOUGHT PROCESS: Normal thought process present T HOUGHT CONTENT: Yes Suicidality present Skin: COMMON NORMALS: no rashes or lesions noted and no wounds GENERAL SKIN EXAM: no rashes or lesions noted Course 2 Vital Signs: Vital signs: Vital Signs Temperature 97.9 F 05/19/23 18:49 Pulse Rate 94 05/19/23 18:49 Respiratory Rate 16 05/19/23 18:49 Blood Pressure 135/84 05/19/23 18:49 Pulse Oximetry 95 05/19/23 18:49 Oxygen Delivery Me thod Room Air 05/19/23 18:49 MDM - Psych Medical Decision Making Patient presents for suicidal ideations he is medically cleared spoke to Dr. Jack will admit at this time. Medical Records I reviewed the patient's medical records. Lab Data I reviewed the patient's lab results. 05/19/23 19:35 05/19/23 19:35 Laboratory Results WBC 10.54 10^3/uL (3.29-11.43) 05/19/23 19:35 RBC 5.41 10^6/uL (3.85-5.65) 05/19/23 19:35 Hgb 15.10 g/dL (11.27-16.99) 05/19/23 19:35 Hct 44.4 % (37-53) 05/19/23 19:35 MCV 82.1 fl (82-101) 05/19/23 19:35 MCH 27.9 pg (27-33) 05/19/23 19:35 MCHC 34.0 g/dL (30-55) 05/19/23 19:35 RDW 14.4 % (12.1-15.1) 05/19/23 19:35 Plt Count 401 10^3/cmm (157-399) H 05/19/23 19:35 MPV 8.6 fL (7.4-10.4) 05/19/23 19:35 Neut % (Auto) 66.6 % 05/19/23 19:35 Lymph % (Auto) 25.0 % 05/19/23 19:35 [place] % (Auto) 5.9 % 05/19/23 19:35 Eos % (Auto) 1.3 % 05/19/23 19:35 Baso % (Auto) 0.9 % 05/19/23 19:35 Neut # (Auto) 7.02 10^3/uL (1.8-7.7) 05/19/23 19:35 Lymph # (Auto) 2.6 10^3/uL (0.8-4.8) 05/19/23 19:35 [place] # (Auto) 0.6 10^3/uL (0.2-0.9) 05/19/23 19:35 Eos # (Auto) 0.1 10^3/uL (0.0-0.8) 05/19/23 19:35 Baso # (Auto) 0.1 10^3/uL (0.0-0.1) 05/19/23 19:35 Nucleated RBC % (auto) 0 % 05/19/23 19:35 Nucleated RBCs # 0.0 /100WBC 05/19/23 19:35 Sodium 139 mmol/L (136-145) 05/19/23 19:35 Potassium 3.8 mmol/L (3.5-5.1) 05/19/23 19:35 Chloride 107 mmol/L (98-107) 05/19/23 19:35 Carbon Dioxide 21 mmol/L (22-29) L 05/19/23 19:35 Anion Gap 14.8 (5-19) 05/19/23 19:35 BUN 10 mg/dL (6-20) 05/19/23 19:35 Creatinine 0.7 mg/dL (0.7-1.2) 05/19/23 19:35 GFR Calculation 116.7 mL/min (90-130) 05/19/23 19:35 Glucose 109 mg/dL (65-115) 05/19/23 19:35 Calculated Osmolality 288 mOsm/kg (285-295) 05/19/23 19:35 Calcium 9.2 mg/dL (8.5-10.5) 05/19/23 19:35 Total Bilirubin 0.2 mg/dL (0.15-1.2) 05/19/23 19:35 AST 11 U/L (0-40) 05/19/23 19:35 ALT 11 U/L (0-41) 05/19/23 19:35 Alkaline Phosphatase 119 U/L (40-130) 05/19/23 19:35 Total Protein 7.1 g/dL (6.6-8.7) 05/19/23 19:35 Albumin 4.2 g/dL (3.5-5.2) 05/19/23 19:35 Globulin 2.9 g/dL (1.3-4.6) 05/19/23 19:35 Salicylates 0.8 mg/dL (3-10) L 05/19/23 19:35 Urine Opiates Screen Negative ng/mL (Negative) 05/19/23 18:56 Acetaminophen < 5.0 ug/mL (10-30) L 05/19/23 19:35 Ur Barbiturates Screen Negative ng/mL (Negative) 05/19/23 18:56 Ur Phencyclidine Scrn Negative ng/mL (Negative) 05/19/23 18:56 Ur Amphetamines Screen Negative ng/mL (Negative) 05/19/23 18:56 U Benzodiazepines Scrn Negative ng/mL (Negative) 05/19/23 18:56 Urine Cocaine Screen Negative ng/mL (Negative) 05/19/23 18:56 U Marijuana (THC) Screen Positive ng/mL (Negative) H 05/19/23 18:56 Ethyl Alcohol < 10 mg/dL (0-10) 05/19/23 19:35 No radiology studies performed this visit Discharge Plan Discharge Patient Disposition: Admitted As Inpatient Clinical Impression: Suicidal ideation Condition: Stable Prescriptions: No Action buprenorphine-naloxone 2-0.5 mg tablet, sublingual 2 tab sublingual BID Qty: 120 2RF fluticasone propionate [Flonase Allergy Relief] 50 mcg/actuation spray,suspension 2 spray intranasal .qhs Qty: 16 1RF Rx Instructions: administer into each nostril albuterol sulfate [Ventolin HFA] 90 mcg/actuation HFA aerosol inhaler See Rx Instructions .ROUTE .COMPLEX Qty: 8.5 2RF Dose Instruction: INHALE 2 PUFFS BY MOUTH EVERY 4 HOURS NEEDED FOR FOR SHORTNESS OF BREATH OR WHEEZING Rx Instructions: INHALE 2 PUFFS BY MOUTH EVERY 4 HOURS NEEDED FOR FOR SHORTNESS OF BREATH OR WHEEZING omeprazole 40 mg capsule,delayed release(DR/EC) 40 mg PO QAM Qty: 90 0RF bupropion HCl 150 mg tablet extended release 24 hr 450 mg PO DAILY@08 30 Days Qty: 90 2RF nicotine (polacrilex) 4 mg lozenge See Rx Instructions .ROUTE .COMPLEX Qty: 144 4RF Dose Instruction: TAKE 4 LOZENGES BY MOUTH NEEDED Rx Instructions: TAKE 4 LOZENGES BY MOUTH NEEDED prazosin 2 mg capsule 2 mg PO BEDTIME@21 Qty: 30 2RF risperidone 1 mg tablet 2 mg PO BID 30 Days Qty: 120 2RF topiramate 100 mg tablet 100 mg PO DAILY Qty: 30 2RF trazodone 50 mg tablet 50 mg PO BEDTIME PRN (Reason: Sleep) 30 Days Qty: 30 2RF Symbicort 80-4.5 mcg/actuation HFA aerosol inhaler 2 inh inhalation BID Qty: 10.2 0RF polyethylene glycol 3350 [Miralax] 17 gram powder in packet 17 g PO TID PRN (Reason: Constipation) cetirizine 10 mg tablet 10 mg PO BEDTIME Referrals: Lew Guzman MD [Primary Care Provider] - Coding Level of Care Code ED Pressed Or Blown Glass Worker for Chg Jose Manuel
[2023-05-19] MEDS: LORazepam 1 mg Tablet PO (19:15)
[2023-05-19 19:41] LABS: Basophils # 0.1 10^3/uL (0.0-0.1); Basophils % 0.9 %; Eosinophils # 0.1 10^3/uL (0.0-0.8); Eosinophils % 1.3 %; Hematocrit 44.4 % (37-53); Lymphocytes # 2.6 10^3/uL (0.8-4.8); Mean Corpuscular Hemoglobin 27.9 pg (27-33); Mean Corpuscular Volume 82.1 fl (82-101); Mean Platelet Volume 8.6 fL (7.4-10.4); Monocytes # 0.6 10^3/uL (0.2-0.9); Monocytes % 5.9 %; Neutrophils # 7.02 10^3/uL (1.8-7.7); Neutrophils % 66.6 %; Nucleated Red Blood Cells % 0 %; Platelet Count 401 10^3/cmm (157-399); Red Blood Count 5.41 10^6/uL (3.85-5.65); Red Cell Distribution Width 14.4 % (12.1-15.1); White Blood Count 10.54 10^3/uL (3.29-11.43)
[2023-05-19 19:50] LABS: Amphetamines Screen Urine Negative (Negative); Barbiturates Screen Urine Negative (Negative); Benzodiazepines Screen Urine Negative (Negative); Cocaine Screen Urine Negative (Negative); Opiate Screen Urine Negative (Negative); PCP Screen Urine Negative (Negative); THC Screen Urine Positive (Negative)
[2023-05-19 20:07] LABS: Alanine Aminotransferase 11 U/L (0-41); Albumin Level 4.2 g/dL (3.5-5.2); Alkaline Phosphatase 119 U/L (40-130); Anion Gap 14.8 (5-19); Aspartate Amino Transferase 11 U/L (0-40); Blood Urea Nitrogen 10 mg/dL (6-20); Calcium 9.2 mg/dL (8.5-10.5); Carbon Dioxide 21 mmol/L (22-29); Chloride 107 mmol/L (98-107); Creatinine Clr Calc Pharmacy 118.2313; Globulin 2.9 g/dL (1.3-4.6); Glomerular Filtration Rate 116.7 mL/min (90-130); Glucose 109 mg/dL (65-115); Osmolality Calculated 288 mOsm/kg (285-295); Potassium 3.8 mmol/L (3.5-5.1); Salicylate 0.8 mg/dL (3-10); Sodium 139 mmol/L (136-145); Total Bilirubin 0.2 mg/dL (0.15-1.2); Total Protein 7.1 g/dL (6.6-8.7)
[2023-05-19 20:11] LABS: Acetaminophen < 5.0 ug/mL (10-30); Alcohol Level < 10 mg/dL (0-10)
--- NOTE | 2023-05-19 21:05 | PC.NURSE ---
Attempted to call report, nurse unavailable and they will call me back
--- NOTE | 2023-05-19 21:13 | PC.NURSE ---
Patient 96 Hour Involuntary Hold Patient Rights have been read to the patient and a copy of the same has been given to him. Assistant Offset Press Operator Moriah Murcia was present at bedside at the time of presentation of Rights.
[2023-05-19 21:17] VITALS: RESP 16; O2SAT 99
[2023-05-19 21:22] VITALS: BP 116/77; PULSE 73; RESP 18; TEMP 36.4; O2SAT 98
[2023-05-19] MEDS: OLANZapine 5 mg ODT PO (21:58)
[2023-05-19] MEDS: nicotine 4 mg lozenge MUCOUS MEM (21:58)
[2023-05-19] MEDS: trazodone 50 mg Tablet PO (21:58)
[2023-05-19] MEDS: risperiDONE 1 mg Tablet 2 MG PO (21:58)
--- NOTE | 2023-05-19 22:19 | PC.ADMIT ---
462 CR [id number] Admission Note: The patient,Chriss Akers,58 y/o, was given written information regarding hospital policies, unit procedures and contact persons. Patient's smoking status: current every day smoker. Vital Signs - 8 hr 05/19/23 18:49 05/19/23 21:17 05/19/23 21:22 Temperature 97.9 F 97.5 F L Pulse Rate 94 73 Respiratory Rate 16 16 18 Blood Pressure 135/84 116/77 Pulse Oximetry 95 99 98 Oxygen Delivery Method Room Air Room Air 05/19/23 22:00 Temperature Pulse Rate Respiratory Rate Blood Pressure Pulse Oximetry Oxygen Delivery Method Room Air ADMITTED FROM [facility] ER VIA WHEELCHAIR,SECURITY AND ER STAFF AT 2122. PT IS ON A 96 HOUR HOLD THAT ENDS ON 05/25/23 AT 1920. DENIES PAIN. STATES THEY GAVE ME ATIVAN IN ER,THEY TOLD ME I COULD HAVE MORE WHEN I GET HERE. SO CAN YOU GIVE ME SOME. PT EDUCATED THAT HE JUST RECEIVED A DOSE OF ATIVAN IN THE ER, RN CAN GIVE SOMETHING FOR ANXIETY BUT THE ORDERS NEED TO BE PLACED FIRST AND MEDICATIONS RECONCILED. PT REPORTS HAVING SUICIDAL THOUGHTS BUT STATES HE HAS NO CURRENT PLAN TO END HIS LIFE. DENIES HI AT THIS TIME. REPORTS SEEING THINGS THAT ARE NOT THERE AND HEARING VOICES. PT STATES THE VOICES ARE POSITVE AND AT TIMES THEY TELL HIM TO BEAT PEOPLE UP AT THE GAS STATION. PT APPEARS CONFUSED AND ANSWERS QUESTIONS WITH STATEMENTS THAT DO NOT MAKE SENSE. WHEN ASKED HOW LONG HE HAS BEEN USING DRUGS OR ALCHOHOL PT STATES FOR A LONG TIME AT LEAST 4 JARS. RN ASKED PT IF HE MEANT 4 YEARS PT THEN STATED OH I DON'T KNOW WHO IS PICKING ME UP BUT I THINK ITS BEEN 4 JARS. PT ALERT AND ORIENTATED TO SELF, DOES NOT KNOW THE DATE OR THAT IT IS NIGHT TIME. KEEPS ASKING FOR BREAKFAST. SKIN ASSESSMENT COMPLETED AND NO SKIN ISSUES WERE IDENTIFIED. PT REQUESTED TO TAKE A SHOWER. STAFF TO BATHROOM TO EDUCATE PT HOW TO USE THE SHOWER. PT STATES HE DOES NOT KNOW WHEN HIS LAST BM WAS BUT STATES HE KNOWS I'M NOT CONSTIPATED. PT REPORTS HE SEES DR. GARCIA AT [facility] FOR HIS SUBOXONE AND PSYCHIATRIC MEDICATIONS. REPORTS HE HAD A FLU SHOT LAST MONTH AND ALL THE COVID INJECTIONS PT ORIENTATED TO UNIT, SAFETY RULES AND GUIDELINES. VERBALIZED UNDERSTANDING. PT CONTINUES TO COME TO NURSES STATION REQUESTING HIS BELONGINGS, PT IS UNABLE TO PROCESS INFORMATION THAT IS GIVEN TO HIM. ALL QUESTIONS WERE ANSWERED AND SUPPORT WA VOICED.
[2023-05-20] MEDS: haloperidol 5 mg Tablet PO ×2 (00:01→20:17)
[2023-05-20] MEDS: hyDROXYzine 25 mg Capsule 50 MG PO ×3 (00:01→23:10)
[2023-05-20 06:00] VITALS: RESP 16
--- NOTE | 2023-05-20 06:31 | PC.NURSE ---
PT ADMITTED LAST NIGHT AT 2122. PT IMMEDIATELY CAME TO THIS RN REQUESTING MEDICATIONS, LIKE WHAT THEY GAVE ME DOWNSTAIRS, THAT ATIVAN. PT WAS EDUCATED THAT RN COULD GIVE PRN MEDICATIONS FOR ANXIETY AND SLEEP IF NEEDED. PT STATED YEAH GIVE ME WHATEVER YOU CAN. I THINK YOU WERE THE ONE DOWN STAIRS THAT GAVE ME ATIVAN. PT WAS INFORMED THAT THIS RN DID NOT GIVE HIM MEDICATIONS WHILE IN THE ER. PT REQUIRED SEVERAL PRN MEDICATIONS THIS SHIFT TO DECREASE ANXIETY AND TO ASSIST WITH SLEEP. PT RECEIVED PRN TRAZODONE, ZYDIS, HALDOL AND VISTARIL ORDERED PRIOR TO LAYING DOWN TO REST. PT WAS OBSERVED GOING INTO OTHER PT ROOMS AND CHECKING DOORS UNTIL ABOUT 2344. PT IS NOTED TO BE CONFUSED BUT IS ABLE TO BE VERBALLY REDIRECTED. PT LAID DOWN AT MIDNIGHT AND DID EVENTUALLY GO TO SLEEP. MEDICATIONS DEEMED EFFECTIVE AT THIS TIME. PT HAS SLEPT APPROXIMATELY 5-6 HOURS THIS SHIFT. PT CONTINUES TO REST WITH EYES CLOSED WITH NO DISTRESS NOTED AT THIS TIME.
--- NOTE | 2023-05-20 06:41 | PC.NURSE ---
Patient was up the majority of the night being intrusive and going into other patients rooms. Patient is finally resting. RR documented.
[2023-05-20] MEDS: risperiDONE 1 mg Tablet 2 MG PO ×2 (08:37→17:33)
[2023-05-20] MEDS: buPROPion XL (24 HR) 150 mg Tablet 450 MG PO (08:37)
[2023-05-20] MEDS: topiramate 100 mg Tablet PO (08:37)
[2023-05-20] MEDS: buprenorphine-naloxone 4-1 mg Film 1 EACH SUBLINGUAL ×2 (08:38→17:33)
[2023-05-20] MEDS: benztropine 1 mg Tablet PO ×2 (08:38→17:33)
[2023-05-20] MEDS: BuSPIRONE 10 mg Tablet PO ×2 (08:38→17:33)
[2023-05-20] MEDS: pantoprazole DR 40 mg Tablet PO (08:39)
[2023-05-20] MEDS: nicotine 4 mg lozenge MUCOUS MEM (09:20)
[2023-05-20 09:23] VITALS: PULSE 70; RESP 16; O2SAT 97
[2023-05-20] MEDS: budesonide 0.5 mg/2 mL Neb INHALATION (09:23)
[2023-05-20 14:00] VITALS: BP 103/71; PULSE 69; RESP 16; TEMP 36.9; O2SAT 97
--- NOTE | 2023-05-20 14:42 | W.PM.NPUH&PS ---
Providers/Chief Complaint Admitting Physician: Maximiliano Jack MD Primary Care Provider: Lew Guzman MD Chief Complaint: SI HPI NPU History of Present Illness Chriss Akers is a 58 year old male With a history of methamphetamine abuse, schizoaffective disorder bipolar type who presented to the emergency department with complaints of having suicidal thoughts with a plan to hang himself with reports that he does not feel like living any longer. Patient was admitted to the neuropsychiatric unit for further evaluation and treatment. He was unable to be questioned any further as he was asleep and was unwilling to wake up to speak any further. Previous records have been reviewed over the past few months from his outpatient providers who had reported that the patient had apparently been residing in a alf and had been having some problems recently with periods of intense confusion and agitation that appear to be associated with a drop in his oxygen saturation. There had been reports of continued problems with managing his dizziness. The patient on a recent visit with his psychiatric provider ,Dr. Rosario, had endorsed to Dr. Brooke that he had been feeling unsteady on April 29, 2023. the patient initially when arriving to the floor had endorsed having suicidal thoughts with no clear plan to end his life. He had also endorsed having auditory and visual hallucinations. Like previous evaluations noted in the last few months, the patient had also appeared initially when evaluated by nurses to have been answering questions with statements that did not make any sense. His urine drug screen was negative for amphetamines or alcohol. Inpatient psychiatric history: 1 previous inpatient psychiatric hospitalization reported Most recently in April 2022 per records. Current medications: Suboxone 4 mg twice a day, Wellbutrin XL 450 mg daily, prazosin 2 mg at night, Risperdal 2 mg twice a day, trazodone 50 mg at night Excerpt from D/C summary from NPU on 04/26/22 History of Present Illness Chriss Akers is a 57 year old male who presented to the emergency department with the following report: Chief Complaint: Altered Mental Status Stated Complaint: AMS Time Seen by Provider: 05/10/22 22:46 Source: patient Mode of arrival: ambulatory Limitations: no limitations History of Present Illness:??57-year-old male seen earlier Present hallucinations he is in a sober living center is cleared by psych and he did not want to be admitted he went back to sober living center had brought him back up.? He states that he has been talking to cats that are not there and is worsened hallucinations patient now does agree that he would be admitted and is able answer my questions appropriately but does have hallucinations here. Associated symptoms: Reports visual hallucinations He was admitted to the neuropsychiatric unit for definitive treatment of those issues.? He presents today unlike previous admissions.? Previously he has presented very goal-directed and with concerns for malingering often.? Today he presents confused and a very poor historian.? Much of his comments are partial thoughts merged with different partial thoughts that started 1 direction and ended in another and with almost no clarity as to what he is thinking or talking about.? He will say something and then followed up with the you know what I need and there is $0.00 and what he is saying.? Screen is negative and there are no clear signs of infection but he certainly appears delirious.? He had been discharged from the emergency department initially and the level of confusion was noted at his supportive residence he situation leading to them sending him back with concerns of intoxication or something else.? He reports taking his medication but it is unclear at this level of confusion if he could have been taking his medication appropriately or if he is getting enough assistance that that would have been the case. Per his 04/23/2022 [facility] inpatient discharge summary: Discharge Diagnosis (1) Compression fracture: ? ? ? Status: Acute ? ? ? Permanent problem details: t12 (2) Lytic bone lesion of hip: ? ? ? Status: Resolved (3) Hypoxemia: ? ? ? Status: Resolved (4) Pulmonary embolism: ? ? ? Status: Resolved (5) Leukocytosis: ? ? ? Status: Resolved (6) Substance use disorder: ? ? ? Status: Inactive (7) Hypoxemia: ? ? ? Status: Inactive (8) Pulmonary embolism: ? ? ? Status: Inactive (9) Methamphetamine use disorder, severe: ? ? ? Status: Resolved (10) Adjustment disorder with mixed disturbance of emotions and conduct: ? ? ? Status: Acute (11) Depression: ? ? ? Status: Acute Reason for Visit Reason for Visit:??SI? Brief History: History of Present Illness Chriss Akers is a 57 year old male who presented to the emergency department with the following report: Chief Complaint: Psychiatric Symptoms Stated Complaint: SI Time Seen by Provider: 04/20/22 11:20 History of Present Illness:??Mr. Akers is a 57-year-old gentleman with remote history of substance abuse, history of PE on anticoagulation, COPD, possibly schizoaffective disorder presented to the emergency department for suicidal ideation with a plan.? He does have a history of depression and has been on medications however over the past few days reports that they do not seem to help.? He feels depressed and increasingly hopeless.? He walked downstairs earlier and saw a rope and thought of hanging himself.? He does have a history of suicide attempt by hanging.? Overall course of symptoms has worsened.? Intensity is moderate to severe.? He notes hopelessness and anxiety.? No other specific changes in health, exacerbating, or alleviating factors identified. Onset (ago): day(s) Duration: getting worse History of same: Yes Relieving factors: none Exacerbating factors: none Associated psychiatric symptoms: depression and suicidal ideation If self harm: admits thoughts of self harm and has plan. He was admitted to the neuropsychiatric unit for definitive treatment of those issues.? He presents today much like he did the last hospitalization reporting fairly mundane issues being problematic.? He is currently staying at [facility] and reports that things are okay there.? He reports that he has some guys there that he can hang out with that are nice.? And he gets along with other people.? He reports that he feels like he is being easily stressed and overwhelmed.? Reports is been impacted from losses that he has had.? He reports that he is looking for employment but has not been successful.? He reports that he was on his way to what he thought was a job he was getting only to be told that he did not even have an interview like he had believed.? He reports that that really sent him reeling and he started getting caught up in his negative thoughts.? He reports that he has been doing well from the standpoint of his recovery and that that has not been an issue.? We discussed the risk benefits and alternatives of increasing his BuSpar to 10 mg p.o. 3 times daily and he understood and agreed to proceed as is documented in this note.? We also discussed the possibility of increasing his Risperdal prior to discharge.? An excerpt of his last inpatient note is included below for context and history. Per his 09/24/2021 [facility] inpatient psychiatric evaluation: History of Present Illness Chriss Akers is a 56 year old male who presented to the emergency department with the following report: Stated complaint: same reason Time Seen by Provider: 09/22/21 17:33 History of Present Illness:??Patient is a 56-year-old male with a history of former meth use, chronic hypoxemia on 3 L oxygen presenting to the emergency room for concerns of hypoxemia.? Earlier patient was seen evaluated emergency room was diagnosed with possible nonocclusive pulmonary embolism.? In addition, patient was found to have leukocytosis with no prior for comparison.? Patient decided to go home so he could have a smoke.? Patient's chose to sign out AMA earlier today and decided come back to the emergency room. Onset:unknown Duration:ongoing Location:home Severity:moderate Associated symptoms: Deny chest pain, dyspnea, nausea, rash, palpitations or vomiting. He reports that he presents secondary to breathing issues and suicidal ideation. He reports he just recently left the assisted which he was in 3 times for 10 years each. He reports he has been psychiatrically hospitalized a few times and denies receiving outpatient services. He reports a pack of cigarettes a day, denies alcohol, reports marijuana occasionally, endorses methamphetamine and denies any other illicit drug use. He has never been to a rehab and received a DUI in 1998. He reports he was at [facility] when he started having issues with his breathing and increased suicidal ideation which is how he presents today. He reports he wants to leave as he feels information is being kept from him in regards to his health and what is going on. We discussed at length about addressing his medical issues and the safety concern that is presented given he is expressing suicidal ideation recently given there has been no change in his health conditions since he was admitted. 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 Psychiatric History: As above. Substance Abuse History: As above Family History: He denies mental health issues on either side of the family, addiction issues on his father?s side of the family and a suicide completion from his mother?s side of the family. Developmental History: He denies any issues with his or , learned to walk and talk and met his developmental standards on time, and denies any need for speech therapy, learning support, emotional support or special education classes. Psychosocial History: He reports his parents were together when he was born and remained together. He has 2 sisters and 2 brothers who are products of the same union. He described his childhood as great and denies any emotional, physical or sexual abuse. He reports truancy issues and was put in placement. He denies any other traumatic events. The highest grade he achieved was 11 th and he got his GED. He endorses being heterosexual with his longest relationship being 6 to 7 years. He has been once and , has 4 biological children, has never been in the and endorses being a congregational. He currently lives at [facility]. Legal History: He reports he has been in residential 10 times and assisted 3 times at least. Medical History: Please see treatment team note for full details. Hospital Course Hospital Course He quickly acclimated to the individual, group and milieu therapies provided.? He reported having a setback that kind of led to him taking a step back.? We increased his medications, specifically increasing BuSpar to 10 mg p.o. 3 times daily, Wellbutrin XL to 450 mg p.o. every morning and Risperdal to 2 mg p.o. twice daily.? He had modest improvement and was able to contract for safety outside of the hospital prior to discharge.? During the hospitalization, patient had routine laboratory studies which were within normal limits except for few outliers.? Additionally there was a general medical evaluation which was also within normal limits and revealed no new acute processes. Discharge Summary: At the time of discharge, patient denied psychosis or lethality.? Mood and anxiety were well managed.? Patient endorsed a plan to avoid all drugs of abuse and follow-up with the aftercare recommendations of the treatment team.? Patient was evaluated and deemed to be absent credible lethality, and had achieved the maximum benefit from an inpatient hospitalization, so was discharged. Meds NPU Home Medications Medication Instructions Recorded Confirmed Last Taken Type albuterol sulfate 90 mcg/actuation See Rx Instructions .Route 12/17/22 05/19/23 Unknown Rx aerosol inhaler (Ventolin HFA) .COMPLEX #8.5 grams omeprazole 40 mg capsule,delayed 40 mg PO QAM #90 caps 02/22/23 05/19/23 Unknown Rx release bupropion HCl 150 mg 24 hr tablet, 450 mg (3 x 150 mg) PO DAILY@08 30 03/30/23 05/19/23 Unknown Rx extended release days #90 tabs prazosin 2 mg capsule 2 mg PO BEDTIME@21 #30 caps 04/05/23 05/19/23 Unknown Rx risperidone 1 mg tablet 2 mg (2 x 1 mg) PO BID 30 days 04/05/23 05/19/23 Unknown Rx #120 tabs topiramate 100 mg tablet 100 mg PO DAILY #30 tabs 04/05/23 05/19/23 Unknown Rx trazodone 50 mg tablet 50 mg PO BEDTIME PRN Sleep 30 days 04/05/23 05/19/23 Unknown Rx #30 tabs buprenorphine 2 mg-naloxone 0.5 mg 2 tab sublingual BID #120 tabs 04/29/23 05/19/23 Unknown Rx sublingual tablet budesonide-formoterol HFA 80 2 inh inhalation BID #10.2 grams 05/13/23 05/19/23 Unknown Rx mcg-4.5 mcg/actuation aerosol inhaler (Symbicort) benztropine 1 mg tablet 1 mg PO BID 05/19/23 05/19/23 Unknown History buspirone 10 mg tablet 10 mg PO TID 05/19/23 05/19/23 Unknown History Allergies Allergy/AdvReac Type Severity Reaction Status Date / Time No Known Allergies Allergy Verified 05/19/23 18:53 PFSH NPU PFSH: Medical History Tooth abscess Pain in a tooth or teeth Bipolar disorder Chronic recurrent major depressive disorder Hypertension Schizoaffective disorder, depressive type History of antisocial personality disorder Tobacco use disorder Psychiatric care Cervicalgia Hypertriglyceridemia Night terror Insomnia Methamphetamine use disorder, moderate, in early remission Pulmonary embolism Hypoxemia Methamphetamine abuse Surgical History History of umbilical hernia repair History of knee replacement procedure of right knee Family History Father CAD (coronary artery disease) Cancer stomach Stroke Mother Cancer lung Diabetes Sister Suicide Denies family history of Clotting disorder Dementia Hyperlipidemia Chronic kidney disease (CKD) Anesthesia complication Bleeding disorder Lung disease Hypertension Social History Smoking and tobacco/nicotine status: current every day tobacco/nicotine user (vape, attempting to quit cigarettes) cigarettes [ Other cigarette details: 3 cigs/day] Quit status (tobacco/nicotine): has tried quititng Second hand smoke exposure: Yes Alcohol intake: former Year of sobriety/quit date alcohol: 2022 Substance/Drug Use: former Date of last use: 05/2021 Adopted: No Caregiver/support person: No Lives independently: Yes Household members: other Details: [facility] sober living Housing: Other Details: 6 other men Marital status: Number of children: 4 Highest education level completed: GED or Equivalent service: No Current occupational status: disabled Pets and animals: No Leisure activites: exercise, games and reading Sexually active: No Do you think of yourself as: Straight/Heterosexual Current gender identity: Male Angélica/Mormon: Protestant Special angélica needs: No Agree to transfusion: Yes Mental Status Exam MSE Comments: This is an overweight older white male looking older than his stated age in hospital scrubs with adequate grooming and no eye contact. He was unable to remain awake with concern about clouding of consciousness. No abnormal movements except for severe psychomotor retardation. He was uncooperative with exam in no acute distress. Speech was nonexistent other than mild slurring. Mood not endorsed. His affect was flat. Thought process was disorganized. Thought content: patient denies current suicidal or homicidal ideation, he did not answer questions regarding delusions or hallucinations and was seen responding to internal stimuli earlier in the day. Attention and concentration are impaired and memory appeared unreliable but none were formally tested. His Insight and impulse control are impaired. His judgment is poor. Recent and remote memory was impaired. He was not oriented to place but briefly responded to name before falling back asleep. Vitals/I&O/Wt Last Vital Signs Temp 97.5 F L 05/19/23 21:22 Pulse 70 05/20/23 09:23 Resp 16 05/20/23 09:23 BP 116/77 05/19/23 21:22 Pulse Ox 97 05/20/23 09:23 O2 Del Method Room Air 05/20/23 09:23 Weight last 48 hrs Weight 81.647 kg Data NPU 05/19/23 19:35 05/19/23 19:35 A&P Assessment and plan (1) Schizoaffective disorder, depressive type: (2) Hypoxemia: (3) Substance use disorder: (4) Hypoxemia: (5) Pulmonary embolism: (6) Methamphetamine use disorder, severe: (7) Altered mental status: Plan This is a 57-year-old white male with a long history of addiction, current institutionalization at senior living per records with reports of suicidal ideation and hallucinations with concerns of altered mental status. 1. Restart current medication with likely reduction in buspar and wellbutrin at this time. 2. Encourage, group and milieu therapies. 3. Continue every 15 minute checks for safety. 4. Encourage sober living treatment after discharge at the highest level of care to which he is willing to commit. 5. Some previous concerns for malingering versus cognitive limitations/intellectual disability. 6. Appreciate hospitalist consult will monitor and make changes as indicated based on recommendations. Involuntary Hold Information 96 Hour Hold: 96 Hour Involuntary Admission: Yes 96 Hour Hold Ending Date: 05/25/23 96 Hour Hold Ending Time: 19:20 Attestations NPU Medical Necessity Statement*: Inpatient hospitalization is medically necessary and the clinically appropriate intervention at this time. We will monitor medication to make changes as indicated. Patient will be in the hospital for over two midnights. The patient's likely length of stay is 4-6 days. Coding Level of Care Code Acute Code for [facility] Diagnoses Schizoaffective disorder, depressive type F25.1 Hypoxemia R09.02 Substance use disorder F19.90 Pulmonary embolism I26.99 Methamphetamine use disorder, severe F15.20 Altered mental status R41.82
--- NOTE | 2023-05-20 14:46 | PC.OT ---
OT evaluation attempted with pt sleeping soundly; will attempt at later time.
[2023-05-20 19:43] VITALS: BP 106/70; PULSE 74; RESP 14; TEMP 37.1; O2SAT 92
[2023-05-20] MEDS: trazodone 50 mg Tablet PO ×2 (20:17→23:10)
[2023-05-20] MEDS: OLANZapine 5 mg ODT PO (20:17)
[2023-05-20] MEDS: prazosin 1 mg Capsule 2 MG PO (20:17)
--- NOTE | 2023-05-20 21:00 | PC.NURSE ---
IN DAY ROOM HAS BEEN PACING HALLS AND DEMANDING HE GET HIS MORNING MEDS NOW PLEASE. PT WAS EDUCATED THAT IT IS NIGHT TIME NOT DAY TIME. PT IS NOTED TO BE CONFUSED AND HAS BEEN REDIRECTED OUT OF SEVERAL PTS ROOMS ALREADY AT THE BEGINNING OF SHIFT. PT DENIES SI/HI AND AVH AT THIS TIME. DENIES PAIN. PT RATES ANXIETY 8/10 AND DEPRESSION 7/10. PT WAS GIVEN HALDOL 5MG ORDERED FOR ANXIETY AND ZYDIS 5 MG ORDERED FOR ANXIETY. PT STATES NONE OF THAT STUFF IS WORKING AND YOU KNOW IT. PT WAS GIVEN TRAZODONE 50 MG FOR INSOMNIA. PT IS NOTED TO BE AGITATED AND EASILY ANNOYED IF PT DOES NOT GET WHAT HE WANTS IMMEDIATELY. PT IS DIFFICULT TO REDIRECT AT TIMES DUE TO PT AGITATION. ALL QUESTIONS WERE ANSWERED AND SUPPORT WAS VOICED.
[2023-05-21 06:00] VITALS: BP 144/73; PULSE 54; RESP 16; TEMP 36.8; O2SAT 97
--- NOTE | 2023-05-21 06:20 | PC.NURSE ---
PT RECEIVED MULTIPLE PRN MEDICATIONS THIS SHIFT REQUESTED FOR SLEEP AND INCREASED ANXIETY. PT RECEIVED TRAZODONE TIMES TWO DOSES,HALDOL, ZYDIS AND VISTARIL. MEDICATIONS WERE EVENTUALLY EFFECTIVE WITH THE SECOND DOSE OF TRAZODONE AND VISTARIL ADMINISTRATION. PT WAS ABLE TO REST AND HAS SLEPT APPROXIMATELY 7 HOURS THIS SHIFT. PT DID GET UP ONCE IN THE SHIFT AND ATTEMPTED TO GO DOWN TO ROOM 170 BUT WAS REDIRECTED BY STAFF AND WENT BACK TO BED AND LAID DOWN. PT CURRENTLY RESTING WITH EYES CLOSED WITH NO DISTRESS NOTED AT THIS TIME.
[2023-05-21] MEDS: risperiDONE 1 mg Tablet 2 MG PO ×2 (08:31→17:22)
[2023-05-21] MEDS: pantoprazole DR 40 mg Tablet PO (08:32)
[2023-05-21] MEDS: benztropine 1 mg Tablet PO ×2 (08:32→17:22)
[2023-05-21] MEDS: topiramate 100 mg Tablet 50 MG PO (08:32)
[2023-05-21] MEDS: buPROPion XL (24 HR) 150 mg Tablet 300 MG PO (08:32)
[2023-05-21] MEDS: buprenorphine-naloxone 4-1 mg Film 1 EACH SUBLINGUAL ×2 (08:32→17:22)
[2023-05-21] MEDS: BuSPIRONE 10 mg Tablet PO ×2 (08:32→17:22)
--- NOTE | 2023-05-21 08:54 | PC.NURSE ---
Patient reports that he has some anxiety and depression and also some SI and HI. Patient is unable to give a reason for his feelings. Patient calm and cooperative
--- NOTE | 2023-05-21 11:38 | P.NPUPN_ITS ---
Subjective NPU 2 Subjective: Patient presented today reporting that he is feeling okay and better than yesterday. He spent most of his conversation and questions that were spontaneous focused on when he would be leaving. 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 He denied any issues with the medication or side effects. We discussed needing collateral information given him presenting as a fairly poor historian. Mental Status Exam 2 MSE Comments: This is an overweight older white male looking older than his stated age in hospital scrubs with adequate grooming and improving eye contact. No abnormal movements except for mild psychomotor retardation. Cooperative with exam in mild distress. Speech was decreased rate and volume with limited slurring that is possibly baseline. Mood described as better. Affect was slightly subdued. Thought process was linear. Thought content: patient denies current suicidal or homicidal ideation, there were no delusions reported but possible paranoia noted, he denied auditory or visual hallucinations and did not appear to be attending to internal stimuli. Attention and concentration appeared limited and memory appeared unreliable but none were formally tested. He is alert and oriented times person and place. His Insight and impulse control are impaired. His judgment is poor. Recent and remote memory was impaired. Vitals/I&O/Wt Last Vital Signs Temp 98.2 F 05/21/23 06:00 Pulse 54 L 05/21/23 06:00 Resp 16 05/21/23 06:00 BP 144/73 05/21/23 06:00 Pulse Ox 97 05/21/23 06:00 O2 Del Method Room Air 05/21/23 06:00 Weight last 48 hrs Weight 81.647 kg Data NPU 05/19/23 19:35 05/19/23 19:35 A&P Assessment and plan (1) Schizoaffective disorder, depressive type: (2) Hypoxemia: (3) Substance use disorder: (4) Hypoxemia: (5) Pulmonary embolism: (6) Methamphetamine use disorder, severe: (7) Altered mental status: Plan This is a 58-year-old white male with a long history of addiction, current institutionalization at intermediate per records with reports of suicidal ideation and hallucinations with concerns of altered mental status. 1. Restart recent medication with likely reduction in buspar and wellbutrin at this time. 2. Encourage, group and milieu therapies. 3. Continue every 15 minute checks for safety. 4. Encourage sober living treatment after discharge at the highest level of care to which he is willing to commit. 5. Some previous concerns for malingering versus cognitive limitations/intellectual disability. 6. Appreciate hospitalist consult will monitor and make changes as indicated based on recommendations. Involuntary Hold Information 2 96 Hour Hold: 96 Hour Involuntary Admission: Yes 96 Hour Hold Ending Date: 05/25/23 96 Hour Hold Ending Time: 19:20 Attestations NPU 2 Medical Necessity Statement*: Inpatient hospitalization is medically necessary and the clinically appropriate intervention at this time. We will monitor medication to make changes as indicated. The patient's likely length of stay is 3-5 days. Coding Level of Care Code Acute Code for [facility] Diagnoses Schizoaffective disorder, depressive type F25.1 Hypoxemia R09.02 Substance use disorder F19.90 Pulmonary embolism I26.99 Methamphetamine use disorder, severe F15.20 Altered mental status R41.82
[2023-05-21 14:00] VITALS: BP 106/72; PULSE 65; RESP 15; TEMP 37.1; O2SAT 96
[2023-05-21] MEDS: nicotine 4 mg lozenge MUCOUS MEM ×2 (15:53→18:27)
[2023-05-21] MEDS: prazosin 1 mg Capsule 2 MG PO (20:05)
[2023-05-21] MEDS: OLANZapine 5 mg ODT PO (20:05)
[2023-05-21] MEDS: trazodone 50 mg Tablet PO (20:05)
[2023-05-21] MEDS: hyDROXYzine 25 mg Capsule 50 MG PO (20:05)
[2023-05-21 20:38] VITALS: BP 147/53; PULSE 99; RESP 18; TEMP 36.8; O2SAT 95
--- NOTE | 2023-05-21 20:41 | PC.NURSE ---
IN DAY ROOM WATCHING TV WITH PEERS. DENIES SI/HI AND AVH AT THIS TIME. DENIES PAIN. PT RATES ANXIETY 10/21 AND DEPRESSION 09/20. PT REQUEST ANYTHING YOU CAN GIVE ME,MY ANXIETY IS BAD BAD. PT IS OBSERVED BEING IMPULSIVE AND INTRUSIVE AT TIMES. PT WAS GIVEN TRAZODONE 50 MG FOR SLEEP, VISTARIL 50 MG FOR ANXIETY AND ZYDIS 5 MG FOR CONTINUED ANXIETY DUE TO STATING THAT VISTARIL NEVER WORKS I NEED THE ONE THAT GOES UNDER MY TONGUE MAN, COME ON. PT HAS BEEN REDIRECTED MULTIPLE TIMES NOT TO GO INTO ROOMS AND STAY AWAY FROM THE NURSES STATION WHEN CONFIDENTIAL INFORMATION IS BEING SHARED. PT DOES COMPLY BUT STATES I JUST FORGET WHAT YOU TOLD ME. PT IS NOTED TO HAVE CONFUSION AND SHORT TERM MEMORY. ALL QUESTIONS ANSWERED AND SUPPORT WAS VOICED.
[2023-05-21 20:48] VITALS: PULSE 69; RESP 16; O2SAT 95
[2023-05-21] MEDS: budesonide 0.5 mg/2 mL Neb INHALATION (20:48)
--- NOTE | 2023-05-22 05:49 | PC.NURSE ---
PT REQUIRED PRN MEDICATIONS EARLIER IN THE SHIFT FOR REPORTS OF INCREASED ANXIETY AND INSOMNIA. PT RECEIVED VISTARIL, ZYDIS AND TRAZODONE ORDERED. MEDICATIONS ARE DEEMED EFFECTIVE AT THIS TIME. PT HAS HAD NO OTHER COMPLAINTS OF ANXIETY AND HAS SLEPT APPROXIMATELY 9-10 HOURS THIS SHIFT. PT CONTINUES TO REST WITH EYES CLOSED WITH NO DISTRESS NOTED AT THIS TIME.
[2023-05-22 06:00] VITALS: BP 130/82; PULSE 50; RESP 16; TEMP 36.8; O2SAT 96
[2023-05-22] MEDS: pantoprazole DR 40 mg Tablet PO (07:33)
[2023-05-22] MEDS: risperiDONE 1 mg Tablet 2 MG PO ×2 (07:33→17:59)
[2023-05-22] MEDS: topiramate 100 mg Tablet 50 MG PO (07:34)
[2023-05-22] MEDS: benztropine 1 mg Tablet PO ×2 (07:34→17:59)
[2023-05-22] MEDS: buPROPion XL (24 HR) 150 mg Tablet 300 MG PO (07:34)
[2023-05-22] MEDS: buprenorphine-naloxone 4-1 mg Film 1 EACH SUBLINGUAL ×2 (07:34→18:00)
[2023-05-22] MEDS: BuSPIRONE 10 mg Tablet PO ×2 (07:34→17:59)
--- NOTE | 2023-05-22 07:52 | P.NPUPN_ITS ---
Subjective NPU 2 Subjective: Patient presented today reporting that he is feeling fine. He continued to focus on when he might get out of here and denied having any problems. He reports that he imagines returning to the place he was before and denied any issues there. He reports that he will be fine when he leaves and denied any lethality. He denied any problems with his medication. Mental Status Exam 2 MSE Comments: This is an overweight older white male looking older than his stated age in hospital scrubs with adequate grooming and improving eye contact. No abnormal movements except for mild psychomotor retardation. Cooperative with exam in mild distress. Speech was decreased rate and volume with limited slurring that is possibly baseline. Mood described as better. Affect was slightly subdued. Thought process was linear with occasional moments of confusion. Thought content: patient denies current suicidal or homicidal ideation, there were no delusions reported but possible paranoia noted, he denied auditory or visual hallucinations and did not appear to be attending to internal stimuli. Attention and concentration appeared limited and memory appeared unreliable but none were formally tested. He is alert and oriented times person and place. His Insight and impulse control are impaired. His judgment is poor. Recent and remote memory was impaired. Vitals/I&O/Wt Last Vital Signs Temp 98.3 F 05/22/23 06:00 Pulse 50 L 05/22/23 06:00 Resp 16 05/22/23 06:00 BP 130/82 05/22/23 06:00 Pulse Ox 96 05/22/23 06:00 O2 Del Method Room Air 05/22/23 06:00 Weight last 48 hrs Weight 78.925 kg Data NPU 05/19/23 19:35 05/19/23 19:35 A&P Assessment and plan (1) Schizoaffective disorder, depressive type: (2) Hypoxemia: (3) Substance use disorder: (4) Hypoxemia: (5) Pulmonary embolism: (6) Methamphetamine use disorder, severe: (7) Altered mental status: Plan This is a 58-year-old white male with a long history of addiction, current institutionalization at correction per records with reports of suicidal ideation and hallucinations with concerns of altered mental status. 1. Restart recent medication with likely reduction in buspar and wellbutrin at this time. 2. Encourage, group and milieu therapies. 3. Continue every 15 minute checks for safety. 4. Encourage sober living treatment after discharge at the highest level of care to which he is willing to commit. 5. Some previous concerns for malingering versus cognitive limitations/intellectual disability. 6. Appreciate hospitalist consult will monitor and make changes as indicated based on recommendations. Involuntary Hold Information 2 96 Hour Hold: 96 Hour Involuntary Admission: Yes 96 Hour Hold Ending Date: 05/25/23 96 Hour Hold Ending Time: 19:20 Attestations NPU 2 Medical Necessity Statement*: Inpatient hospitalization is medically necessary and the clinically appropriate intervention at this time. We will monitor medication to make changes as indicated. The patient's likely length of stay is 2-4 days. Coding Level of Care Code Acute Code for g Fwd Diagnoses Schizoaffective disorder, depressive type F25.1 Hypoxemia R09.02 Substance use disorder F19.90 Pulmonary embolism I26.99 Methamphetamine use disorder, severe F15.20 Altered mental status R41.82
[2023-05-22 09:40] VITALS: PULSE 66; RESP 18; O2SAT 96
[2023-05-22] MEDS: budesonide 0.5 mg/2 mL Neb INHALATION ×2 (09:51→23:00)
[2023-05-22] MEDS: nicotine 4 mg lozenge MUCOUS MEM ×2 (11:19→15:41)
[2023-05-22 14:00] VITALS: BP 115/72; PULSE 72; RESP 16; TEMP 36.8; O2SAT 95
--- NOTE | 2023-05-22 16:37 | PC.NURSE ---
patient appears to be confused. Patient was looking underneath his roommates mattress for his shirt. Pt easily directable.
[2023-05-22] MEDS: hyDROXYzine 25 mg Capsule 50 MG PO (18:39)
[2023-05-22] MEDS: haloperidol 5 mg Tablet PO (19:54)
[2023-05-22] MEDS: prazosin 1 mg Capsule 2 MG PO (19:54)
[2023-05-22] MEDS: trazodone 50 mg Tablet PO (19:54)
[2023-05-22 20:01] VITALS: BP 140/85; PULSE 97; RESP 18; TEMP 36.5; O2SAT 97
[2023-05-22] MEDS: nicotine 2 mg Gum BUCCAL (21:12)
[2023-05-22 22:40] VITALS: PULSE 71; RESP 14; O2SAT 96
[2023-05-22] MEDS: albuterol 2.5 mg/3 mL Neb INHALATION (23:01)
[2023-05-23] MEDS: OLANZapine 5 mg ODT PO ×3 (02:04→20:55)
[2023-05-23 06:00] VITALS: BP 126/72; PULSE 104; RESP 18; TEMP 36.9; O2SAT 97
--- NOTE | 2023-05-23 07:58 | PC.NURSE ---
PT IN DAY ROOM WATCHING TV. PT HAD TO BE REDIRECTED AWAY FROM NURSES STATION DURING SHIFT CHANGE DUE TO STAYING AT WINDOW AND STATING I'M JUST LISTENING TO YOU. PT WAS EDUCATED THAT NURSES AND STAFF ARE DISCUSSING PTS AND HE NEEDS TO GO TO DAY ROOM. PT EVENTUALLY DID COMPLY. DENIES SI/HI AND VH AT THIS TIME. PT ENDORSES HEARING VOICES THAT ARE COMMANDING TELLING ME TO DO THINGS LIKE BEAT PEOPLE UP. WHEN ASKED PT IF HE WANTS TO HARM ANYONE PT STATES NO NOT YET. PT DENIES PAIN. PT IS OBSERVED HAVING AN ANXIOUS MOOD, RATES ANXIETY /10 AND DEPRESSION /. PT REQUESTS PRN MEDICATION THIS AM. MED NURSE NOTIFIED TO GIVE. ALL QUESTIONS ANSWERED AND SUPPORT WAS VOICED.
[2023-05-23] MEDS: buPROPion XL (24 HR) 150 mg Tablet 300 MG PO (08:18)
[2023-05-23] MEDS: buprenorphine-naloxone 4-1 mg Film 1 EACH SUBLINGUAL ×2 (08:18→16:57)
[2023-05-23] MEDS: topiramate 100 mg Tablet 50 MG PO (08:18)
[2023-05-23] MEDS: pantoprazole DR 40 mg Tablet PO (08:18)
[2023-05-23] MEDS: BuSPIRONE 10 mg Tablet PO ×2 (08:18→16:56)
[2023-05-23] MEDS: benztropine 1 mg Tablet PO ×2 (08:19→16:57)
[2023-05-23] MEDS: risperiDONE 1 mg Tablet 2 MG PO ×2 (08:19→16:56)
[2023-05-23 09:21] VITALS: PULSE 100; RESP 18; O2SAT 97
[2023-05-23] MEDS: albuterol 2.5 mg/3 mL Neb INHALATION (09:21)
[2023-05-23] MEDS: budesonide 0.5 mg/2 mL Neb INHALATION ×2 (09:21→20:57)
[2023-05-23] MEDS: hyDROXYzine 25 mg Capsule 50 MG PO ×2 (13:45→20:20)
[2023-05-23 14:00] VITALS: BP 127/87; PULSE 76; RESP 16; TEMP 36.6; O2SAT 96
[2023-05-23] MEDS: nicotine 2 mg Gum BUCCAL ×2 (16:56→20:43)
--- NOTE | 2023-05-23 18:50 | P.NPUPN_ITS ---
Subjective NPU 2 Subjective: Patient presented today reporting that he is feeling okay. He was focused on different nonessential items like wanting to smoke and things of that nature. We discussed with him the likely plan for discharge tomorrow which she was happy to hear. We discussed the fact that we had concerns about dementia and him needing ongoing neurology and psychiatric care to try to maximize his functionality. He denied any side effects to his medication Mental Status Exam 2 MSE Comments: This is an overweight older white male looking older than his stated age in hospital scrubs with adequate grooming and improving eye contact. No abnormal movements except for mild psychomotor retardation. Cooperative with exam in mild distress. Speech was decreased rate and volume with limited slurring that is possibly baseline. Mood described as better. Affect was slightly subdued. Thought process was linear with occasional moments of confusion. Thought content: patient denies current suicidal or homicidal ideation, there were no delusions reported but possible paranoia noted, he denied auditory or visual hallucinations and did not appear to be attending to internal stimuli. Attention and concentration appeared limited and memory appeared unreliable but none were formally tested. He is alert and oriented times person and place. His Insight and impulse control are impaired. His judgment is poor. Recent and remote memory was impaired. Vitals/I&O/Wt Last Vital Signs Temp 97.8 F 05/23/23 14:00 Pulse 76 05/23/23 14:00 Resp 16 05/23/23 14:00 BP 127/87 05/23/23 14:00 Pulse Ox 96 05/23/23 14:00 O2 Del Method Room Air 05/23/23 09:21 Weight last 48 hrs Weight 78.925 kg Data NPU 05/19/23 19:35 05/19/23 19:35 A&P Assessment and plan (1) Schizoaffective disorder, depressive type: (2) Hypoxemia: (3) Substance use disorder: (4) Hypoxemia: (5) Pulmonary embolism: (6) Methamphetamine use disorder, severe: (7) Altered mental status: Plan This is a 58-year-old white male with a long history of addiction, current institutionalization at intermediate per records with reports of suicidal ideation and hallucinations with concerns of altered mental status. 1. Restart recent medication with likely reduction in buspar and wellbutrin at this time. 2. Encourage, group and milieu therapies. 3. Continue every 15 minute checks for safety. 4. Encourage sober living treatment after discharge at the highest level of care to which he is willing to commit. 5. Patient appears to be at baseline and we discussed with his current residential supports a plan for discharge tomorrow. 6. Appreciate hospitalist consult will monitor and make changes as indicated based on recommendations. Involuntary Hold Information 2 96 Hour Hold: 96 Hour Involuntary Admission: Yes 96 Hour Hold Ending Date: 05/25/23 96 Hour Hold Ending Time: 19:20 Attestations NPU 2 Medical Necessity Statement*: Inpatient hospitalization is medically necessary and the clinically appropriate intervention at this time. We will monitor medication to make changes as indicated. The patient's likely length of stay is 1-3 days. Coding Level of Care Code Acute Code for [facility] Fwd Diagnoses Schizoaffective disorder, depressive type F25.1 Hypoxemia R09.02 Substance use disorder F19.90 Pulmonary embolism I26.99 Methamphetamine use disorder, severe F15.20 Altered mental status R41.82
[2023-05-23] MEDS: trazodone 50 mg Tablet PO (20:20)
[2023-05-23 20:24] VITALS: BP 132/84; PULSE 79; RESP 18; TEMP 36.8; O2SAT 97
[2023-05-23] MEDS: prazosin 1 mg Capsule 2 MG PO (20:33)
[2023-05-23 20:57] VITALS: PULSE 100; RESP 18; O2SAT 98
[2023-05-23] MEDS: diphenhydrAMINE 50 mg Capsule PO (22:12)
[2023-05-23] MEDS: haloperidol 5 mg Tablet PO (22:12)
[2023-05-23] MEDS: LORazepam 2 mg Tablet PO (22:12)
[2023-05-24 06:00] VITALS: RESP 16
[2023-05-24] MEDS: topiramate 100 mg Tablet 50 MG PO (08:30)
[2023-05-24] MEDS: BuSPIRONE 10 mg Tablet PO (08:30)
[2023-05-24] MEDS: risperiDONE 1 mg Tablet 2 MG PO (08:30)
[2023-05-24] MEDS: pantoprazole DR 40 mg Tablet PO (08:30)
[2023-05-24] MEDS: buPROPion XL (24 HR) 150 mg Tablet 300 MG PO (08:30)
[2023-05-24] MEDS: benztropine 1 mg Tablet PO (08:30)
[2023-05-24] MEDS: nicotine 2 mg Gum BUCCAL ×2 (08:31→14:39)
[2023-05-24] MEDS: buprenorphine-naloxone 4-1 mg Film 1 EACH SUBLINGUAL (08:31)
[2023-05-24 08:55] VITALS: PULSE 98; RESP 16; O2SAT 98
[2023-05-24] MEDS: budesonide 0.5 mg/2 mL Neb INHALATION (08:55)
--- NOTE | 2023-05-24 12:23 | P.NPUDS_ITS ---
Diagnoses at Discharge Discharge Diagnosis (1) Schizoaffective disorder, depressive type: Status: Acute (2) Hypoxemia: Status: Resolved (3) Substance use disorder: Status: Inactive (4) Pulmonary embolism: Status: Inactive (5) Methamphetamine use disorder, severe: Status: Resolved (6) Altered mental status: Status: Resolved Reason for Visit Reason for Visit: SI Brief History: History of Present Illness Chriss Akers is a 58 year old male With a history of methamphetamine abuse, schizoaffective disorder bipolar type who presented to the emergency department with complaints of having suicidal thoughts with a plan to hang himself with reports that he does not feel like living any longer. Patient was admitted to the neuropsychiatric unit for further evaluation and treatment. He was unable to be questioned any further as he was asleep and was unwilling to wake up to speak any further. Previous records have been reviewed over the past few months from his outpatient providers who had reported that the patient had apparently been residing in a correction and had been having some problems recently with periods of intense confusion and agitation that appear to be associated with a drop in his oxygen saturation. There had been reports of continued problems with managing his dizziness. The patient on a recent visit with his psychiatric provider ,Dr. Rosario, had endorsed to Dr. Brooke that he had been feeling unsteady on April 29, 2023. the patient initially when arriving to the floor had endorsed having suicidal thoughts with no clear plan to end his life. He had also endorsed having auditory and visual hallucinations. Like previous evaluations noted in the last few months, the patient had also appeared initially when evaluated by nurses to have been answering questions with statements that did not make any sense. His urine drug screen was negative for amphetamines or alcohol. Inpatient psychiatric history: 1 previous inpatient psychiatric ho spitalization reported Most recently in April 2022 per records. Current medications: Suboxone 4 mg twice a day, Wellbutrin XL 450 mg daily, prazosin 2 mg at night, Risperdal 2 mg twice a day, trazodone 50 mg at night Excerpt from D/C summary from [facility] on 04/26/22 History of Present Illness Chriss Akers is a 57 year old male who presented to the emergency department with the following report: Chief Complaint: Altered Mental Status Stated Complaint: AMS Time Seen by Provider: 05/10/22 22:46 Source: patient Mode of arrival: ambulatory Limitations: no limitations History of Present Illness: 57-year-old male seen earlier Present hallucinations he is in a sober living center is cleared by psych and he did not want to be admitted he went back to sober living center had brought him back up. He states that he has been talking to cats that are not there and is worsened hallucinations patient now does agree that he would be admitted and is able answer my questions appropriately but does have hallucinations here. Associated symptoms: Reports visual hallucinations He was admitted to the neuropsychiatric unit for definitive treatment of those issues. He presents today unlike previous admissions. Previously he has presented very goal-directed and with concerns for malingering often. Today he presents confused and a very poor historian. Much of his comments are partial thoughts merged with different partial thoughts that started 1 direction and ended in another and with almost no clarity as to what he is thinking or talking about. He will say something and then followed up with the you know what I need and there is $0.00 and what he is saying. Screen is negative and there are no clear signs of infection but he certainly appears delirious. He had been discharged from the emergency department initially and the level of confusion was noted at his supportive residence he situation leading to them sending him back with concerns of intoxication or something else. He reports taking his medication but it is unclear at this level of confusion if he could have been taking his medication appropriately or if he is getting enough assistance that that would have been the case. Per his 04/23/2022 [facility] inpatient discharge summary: Discharge Diagnosis (1) Compression fracture: Status: Acute Permanent problem details: t12 (2) Lytic bone lesion of hip: Status: Resolved (3) Hypoxemia: Status: Resolved (4) Pulmonary embolism: Status: Resolved (5) Leukocytosis: Status: Resolved (6) Substance use disorder: Status: Inactive (7) Hypoxemia: Status: Inactive (8) Pulmonary embolism: Status: Inactive (9) Methamphetamine use disorder, severe : Status: Resolved (10) Adjustment disorder with mixed dist urbance of emotions and conduct: Status: Acute (11) Depression: Status: Acute Reason for Visit Reason for Visit: SI Brief History: History of Present Illness Chriss Akers is a 57 year old male who presented to the emergency department with the following report: Chief Complaint: Psychiatric Symptoms Stated Complaint: SI Time Seen by Provider: 04/20/22 11:20 History of Present Illness: Mr. Akers is a 57-year-old gentleman with remote history of substance abuse, history of PE on anticoagulation, COPD, possibly schizoaffective disorder presented to the emergency department for suicidal ideation with a plan. He does have a history of depression and has been on medications however over the past few days reports that they do not seem to help. He feels depressed and increasingly hopeless. He walked downstairs earlier and saw a rope and thought of hanging himself. He does have a history of suicide attempt by hanging. Overall course of symptoms has worsened. Intens ity is moderate to severe. He notes hopelessness and anxiety. No other specific changes in health, exacerbating, or alleviating factors identified. Onset (ago): day(s) Duration: getting worse History of same: Yes Relieving factors: none Exacerbating factors: none Associated psychiatric symptoms: depression and suicidal ideation If self harm: admits thoughts of self harm and has plan. He was admitted to the neuropsychiatric unit for definitive treatment of those issues. He presents today much like he did the last hospitalization reporting fairly mundane issues being problematic. He is currently staying at [facility] and reports that things are okay there. He reports that he has some guys there that he can hang out with that are nice. And he gets along with other people. He reports that he feels like he is being easily stressed and overwhelmed. Reports is been impacted from losses that he has had. He reports that he is looking for employment but has not been successful. He reports that he was on his way to what he thought was a job he was getting only to be told that he did not even have an interview like he had believed. He reports that that really sent him reeling and he started getting caught up in his negative thoughts. He reports that he has been doing well from the standpoint of his recovery and that that has not been an issue. We discussed the risk benefits and alternatives of increasing his BuSpar to 10 mg p.o. 3 times daily and he understood and agreed to proceed as is documented in this note. We also discussed the possibility of increasing his Risperdal prior to discharge. An excerpt of his last inpatient note is included below for context and history. Per his 09/24/2021 [facility] inpatient psychiatric evaluation: History of Present Illness Chriss Akers is a 56 year old male who presented to the emergency department with the following report: Stated complaint: same reason Time Seen by Provider: 09/22/21 17:33 History of Present Illness: Patient is a 56-year-old male with a history of former meth use, chronic hypoxemia on 3 L oxygen presenting to the emergency room for concerns of hypoxemia. Earlier patient was seen evaluated emergency room was diagnosed with possible nonocclusive pulmonary embolism. In addition, patient was found to have leukocytosis with no prior for comparison. Patient decided to go home so he could have a smoke. Patient's chose to sign out AMA earlier today and decided come back to the emergency room. Onset:unknown Duration:ongoing Location:home Severity:moderate Associated symptoms: Deny chest pain, dyspnea, nausea, rash, palpitations or vomiting. He reports that he presents secondary to breathing issues and suicidal ideation. He reports he just recently left the long-term which he was in 3 times for 10 years each. He reports he has been psychiatrically hospitalized a few times and denies receiving outpatient services. He reports a pack of cigarettes a day, denies alcohol, reports marijuana occasionally, endorses methamphetamine and denies any other illicit drug use. He has never been to a rehab and received a DUI in 1998. He reports he was at [facility] when he started having issues with his breathing and increased suicidal ideation which is how he presents today. He reports he wants to leave as he feels information is being kept from him in regards to his health and what is going on. We discussed at length about addressing his medical issues and the safety concern that is presented given he is expressing suicidal ideation recently given there has been no change in his health conditions since he was admitted. 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 Psychiatric History: As above. Substance Abuse History: As above Family History: He denies mental health issues on either side of the family, addiction issues on his father?s side of the family and a suicide completion from his mother?s side of the family. Developmental History: He denies any issues with his or , learned to walk and talk and met his developmental standards on time, and denies any need for speech therapy, learning support, emotional support or special education classes. Psychosocial History: He reports his parents were together when he was born and remained together. He has 2 sisters and 2 brothers who are products of the same union. He described his childhood as great and denies any emotional, physical or sexual abuse. He reports truancy issues and was put in placement. He denies any other traumatic events. The highest grade he achieved was 11 th and he got his GED. He endorses being heterosexual with his longest relationship being 6 to 7 years. He has been once and , has 4 biological children, has never been in the and endorses being a hoahaoism. He currently lives at [facility]. Legal History: He reports he has been in group home 10 times and long-term 3 times at least. Medical History: Please see treatment team note for full details. Hospital Course Hospital Course He slowly acclimated to the individual, group and milieu therapies provided. He is staying with a supportive member of the community who endorses him having increased memory difficulties. We continued most of his medications but did decrease his Wellbutrin XL back to 300 mg p.o. every morning and his BuSpar back down to 10 mg p.o. twice daily. There do seem to be some continued difficulties with cognition. He worked with the social work team for appropriate aftercare and follow-up appointments. He had modest improvement and was able to contract for safety outside of the hospital prior to discharge. During the hospitalization, patient had routine laboratory studies which were within normal limits except for few outliers. Additionally there was a general medical evaluation which was also within normal limits and revealed no new acute processes. Discharge Summary: At the time of discharge, patient denied psychosis or lethality. Mood and anxiety were well managed. Patient endorsed a plan to avoid all drugs of abuse and follow-up with the aftercare recommendations of the treatment team. Patient was evaluated and deemed to be absent credible lethality, and had achieved the maximum benefit from an inpatient hospitalization, so was discharged. Involuntary Hold Information 96 Hour Hold: 96 Hour Involuntary Admission: Yes 96 Hour Hold Ending Date: 05/25/23 96 Hour Hold Ending Time: 19:20 Mental Status Exam MSE Comments: This is an overweight older white male looking older than his stated age in hospital scrubs with adequate grooming and improving eye contact. No abnormal movements except for mild psychomotor retardation. Cooperative with exam in mild distress. Speech was decreased rate and volume with limited slurring that is possibly baseline. Mood described as better. Affect was slightly subdued. Thought process was linear with occasional moments of confusion. Thought content: patient denies current suicidal or homicidal ideation, there were no delusions reported but possible paranoia noted, he denied auditory or visual hallucinations and did not appear to be attending to internal stimuli. Attention and concentration appeared limited and memory appeared unreliable but none were formally tested. He is alert and oriented times person and place. His Insight and impulse control are impaired. His judgment is poor. Recent and remote memory was impaired. Discharge Data Studies Completed and Pending: Laboratory Results WBC 10.54 10^3/uL (3. 29-11.43) 05/19/23 19:35 RBC 5.41 10^6/uL (3.8 5-5.65) 05/19/23 19:35 Hgb 15.10 g/dL (11.27 -16.99) 05/19/23 19:35 Hct 44.4 % (37-53) 05/19/23 19:35 MCV 82.1 fl (82-101) 05/19/23 19:35 MCH 27.9 pg (27-33) 05/19/23 19:35 MCHC 34.0 g/dL (30-55) 05/19/23 19:35 RDW 14.4 % (12.1-15.1 ) 05/19/23 19:35 Plt Count 401 10^3/cmm (157 -399) H 05/19/23 19:35 MPV 8.6 fL (7.4-10.4) 05/19/23 19:35 Neut % (Auto) 66.6 % 05/19/23 19:35 Lymph % (Auto) 25.0 % 05/19/23 19:35 Gila % (Auto) 5.9 % 05/19/23 19:35 Eos % (Auto) 1.3 % 05/19/23 19:35 Baso % (Auto) 0.9 % 05/19/23 19:35 Neut # (Auto) 7.02 10^3/uL (1.8 -7.7) 05/19/23 19:35 Lymph # (Auto) 2.6 10^3/uL (0.8- 4.8) 05/19/23 19:35 Gila # (Auto) 0.6 10^3/uL (0.2- 0.9) 05/19/23 19:35 Eos # (Auto) 0.1 10^3/uL (0.0- 0.8) 05/19/23 19:35 Baso # (Auto) 0.1 10^3/uL (0.0- 0.1) 05/19/23 19:35 Nucleated RBC % (a uto) 0 % 05/19/23 19:35 Nucleated RBCs # 0.0 /100WBC 05/19/23 19:35 Sodium 139 mmol/L (136-1 45) 05/19/23 19:35 Potassium 3.8 mmol/L (3.5-5 .1) 05/19/23 19:35 Chloride 107 mmol/L (98-10 7) 05/19/23 19:35 Carbon Dioxide 21 mmol/L (22-29) L 05/19/23 19:35 Anion Gap 14.8 (5-19) 05/19/23 19:35 BUN 10 mg/dL (6-20) 05/19/23 19:35 Creatinine 0.7 mg/dL (0.7-1. 2) 05/19/23 19:35 GFR Calculation 116.7 mL/min (90- 130) 05/19/23 19:35 Glucose 109 mg/dL (65-115 ) 05/19/23 19:35 Calculated Osmolal ity 288 mOsm/kg (285- 295) 05/19/23 19:35 Calcium 9.2 mg/dL (8.5-10 .5) 05/19/23 19:35 Total Bilirubin 0.2 mg/dL (0.15-1 .2) 05/19/23 19:35 AST 11 U/L (0-40) 05/19/23 19:35 ALT 11 U/L (0-41) 05/19/23 19:35 Alkaline Phosphata se 119 U/L (40-130) 05/19/23 19:35 Total Protein 7.1 g/dL (6.6-8.7 ) 05/19/23 19:35 Albumin 4.2 g/dL (3.5-5.2 ) 05/19/23 19:35 Globulin 2.9 g/dL (1.3-4.6 ) 05/19/23 19:35 Salicylates 0.8 mg/dL (3-10) L 05/19/23 19:35 Urine Opiates Scre en Negative ng/mL (N egative) 05/19/23 18:56 Acetaminophen < 5.0 ug/mL (10-3 0) L 05/19/23 19:35 Ur Barbiturates Sc reen Negative ng/mL (N egative) 05/19/23 18:56 Ur Phencyclidine S crn Negative ng/mL (N egative) 05/19/23 18:56 Ur Amphetamines Sc reen Negative ng/mL (N egative) 05/19/23 18:56 U Benzodiazepines Scrn Negative ng/mL (N egative) 05/19/23 18:56 Urine Cocaine Scre en Negative ng/mL (N egative) 05/19/23 18:56 U Marijuana (THC) Screen Positive ng/mL (N egative) H 05/19/23 18:56 Ethyl Alcohol < 10 mg/dL (0-10) 05/19/23 19:35 Vitals: Last Vital Signs Temp 98.3 F 05/23/23 20:24 Pulse 98 05/24/23 08:55 Resp 16 05/24/23 08:55 BP 132/84 05/23/23 20:24 Pulse Ox 98 05/24/23 08:55 O2 Del Method Room Air 05/24/23 08:55 Discharge Plan Discharge Patient Disposition: Home Condition: Stable Prescriptions: New buspirone 10 mg Tablet 10 mg PO BID 30 Days Qty: 60 1RF bupropion HCl 150 mg Tablet Extended Release 24 Hr 300 mg PO DAILY@08 30 Days Qty: 60 1RF Continued buprenorphine-naloxone 2-0.5 mg tablet, sublingual 2 tab sublingual BID Qty: 120 2RF albuterol sulfate [Ventolin HFA] 90 mcg/actuation HFA aerosol inhaler See Rx Instructions .ROUTE .COMPLEX Qty: 8.5 2RF Dose Instruction: INHALE 2 PUFFS BY MOUTH EVERY 4 HOURS NEEDED FOR FOR SHORTNESS OF BREATH OR WHEEZING Rx Instructions: INHALE 2 PUFFS BY MOUTH EVERY 4 HOURS NEEDED FOR FOR SHORTNESS OF BREATH OR WHEEZING omeprazole 40 mg capsule,delayed release(DR/EC) 40 mg PO QAM Qty: 90 0RF prazosin 2 mg capsule 2 mg PO BEDTIME@21 Qty: 30 2RF risperidone 1 mg tablet 2 mg PO BID 30 Days Qty: 120 2RF topiramate 100 mg tablet 100 mg PO DAILY Qty: 30 2RF trazodone 50 mg tablet 50 mg PO BEDTIME PRN (Reason: Sleep) 30 Days Qty: 30 2RF Symbicort 80-4.5 mcg/actuation HFA aerosol inhaler 2 inh inhalation BID Qty: 10.2 0RF benztropine 1 mg tablet 1 mg PO BID Discontinued bupropion HCl 150 mg tablet extended release 24 hr 450 mg PO DAILY@08 30 Days Qty: 90 2RF buspirone 10 mg tablet 10 mg PO TID Discharge Orders: Discharge Order (Routine); Ordered 05/24/23 Ordered By: Maximiliano Jack Referrals: [facility] [Outside] - 05/26/23 9:45 am (One time appointment with Ning. ) Diaz Willis MD [Physician] - 07/06/23 1:00 pm (Follow up) Brandon Costa MD [Physician] - 06/21/23 1:15 pm (Follow up.) Lew Guzman MD [Primary Care Provider] - 06/28/23 10:45 am (Follow up. ) Discharge Diet: Regular Discharge Activity: Resume usual activity Patient Instructions: Bupropion (By mouth) (Zyban, Wellbutrin XL, Wellbutrin SR, Wellbutrin), Depression (DC), Help Prevent Suicide (DC), Suicide Prevention (DC), Opioid Safety Discharge Attestations [facility]PU Time Spent in Discharge Care*: less than 30 min Specific Discharge Activities: Specific discharge activities: educating patient, discussing with case management coordinator/social workers/dc planners, documenting/other paperwork and evaluating patient/reviewing data Coding Level of Care Code Acute Code for Chg Fwd Diagnoses Schizoaffective disorder, depressive type F25.1 Hypoxemia R09.02 Substance use disorder F19.90 Pulmonary embolism I26.99 Methamphetamine use disorder, severe F15.20 Altered mental status R41.82
[2023-05-24 12:31] VITALS: PULSE 98; RESP 16; O2SAT 98
== END 2023-05-24 14:59 | disposition home or self-care (01) | DRG 885 ==
LOC: ER 20:16 → NP 21:02
PROVIDERS: Admitting Provider Psychiatry & Neurology Psychiatry; Emergency Provider Emergency Medicine; PCP Family Medicine; Visit Provider Psychiatry & Neurology Psychiatry
DX: F25.1 Schizoaffective disorder, depressive type (principal); F15.20 Other stimulant dependence, uncomplicated; R45.851 Suicidal ideations; I10 Essential (primary) hypertension; E78.1 Pure hyperglyceridemia; F51.4 Sleep terrors [night terrors]; G47.00 Insomnia, unspecified; Z86.711 Personal history of pulmonary embolism; Z79.01 Long term (current) use of anticoagulants; F17.210 Nicotine dependence, cigarettes, uncomplicated; J44.9 Chronic obstructive pulmonary disease, unspecified; R09.02 Hypoxemia; Z99.81 Dependence on supplemental oxygen; R41.82 Altered mental status, unspecified
CPT/HCPCS: 36415; 80053; 80306; 80307; 85025; 94640; 97150; 97165; 99285; J0573; J7613; J7626; Q0163

== ENCOUNTER → 2023-06-02 15:31 | Outpatient (BNVA) | payer MEDICAID, SELFPAY ==
[2023-05-26 09:32] VITALS: BP 154/93; BMI 30.6
== END ==
PROVIDERS: PCP Family Medicine; Visit Provider Psychiatry & Neurology Neurology
DX: G93.40 Encephalopathy, unspecified (principal); R41.3 Other amnesia; R55 Syncope and collapse; F03.90 Unspecified dementia, unspecified severity, without behavioral disturbance, psychotic disturbance, mood disturbance, and anxiety
CPT/HCPCS: 95816

== ENCOUNTER 2023-06-28 07:15 | Emergency (ER) | payer MEDICAID, SELFPAY ==
[2023-05-26 09:32] VITALS: BP 154/93; BMI 30.6
[2023-06-28 07:18] VITALS: BP 157/93; PULSE 79; RESP 18; TEMP 36.8; O2SAT 94; BMI 29.0
--- NOTE | 2023-06-28 07:26 | XR_ITS ---
WS: [id number] Exam: XR chest 1V portable [id number] Date/Time of Exam: 06/28/2023 7:40 AM Reason For Exam: ams Comparison 12/06/2022. Lungs are clear. Normal cardiomediastinal silhouette. Bony structures are intact. No pleural effusion s. IMPRESSION: 1. Negative chest.
--- NOTE | 2023-06-28 07:49 | ED_ITS ---
HPI - Altered Mental Status 2 General: Chief Complaint: Altered Mental Status Stated Complaint: AMS Time Seen by Provider: 06/28/23 07:26 History of Present Illness: Patient reports to the ER by EMS with complaints of visual and auditory hallucinations. Patient says they were called out last night and again this morning for the hallucinations. Patient has not noticed hallucinating and does not have any complaints at this time. Patient does have a history of schizoaffective disorder, bipolar, major depression anxiety, encephalopathy, short-term memory loss, history of methamphetamine use history of heroin use, patient has seen Dr. Willis neurology. Review of Systems 2 General: Reports: 10 or more systems reviewed and unremarkable except in HPI and below PFSH ED 2 PFSH: Medical History Tooth abscess Pain in a tooth or teeth Bipolar disorder Chronic recurrent major depressive disorder Hypertension Schizoaffective disorder, depressive type History of antisocial personality disorder Tobacco use disorder Psychiatric care Cervicalgia Hypertriglyceridemia Night terror Insomnia Methamphetamine use disorder, moderate, in early remission Pulmonary embolism Hypoxemia Methamphetamine abuse Surgical History History of umbilical hernia repair History of knee replacement procedure of right knee Family History Father CAD (coronary artery disease) Cancer stomach Stroke Mother Cancer lung Diabetes Sister Suicide Denies family history of Clotting disorder Dementia Hyperlipidemia Chronic kidney disease (CKD) Anesthesia complication Bleeding disorder Lung disease Hypertension Social History Smoking and tobacco/nicotine status: current every day tobacco/nicotine user cigarettes [ Other cigarette details: 3 cigs/day] Quit status (tobacco/nicotine): has tried quititng Second hand smoke exposure: Yes Alcohol intake: former Year of sobriety/quit date alcohol: 2022 Substance/Drug Use: former Date of last use: 05/2021 Adopted: No Caregiver/support person: No Lives independently: Yes Household members: other Details: [facility] sober living Housing: Other Details: 6 other men Marital status: Number of children: 4 Highest education level completed: GED or Equivalent service: No Current occupational status: disabled Pets and animals: No Leisure activites: exercise, games and reading Sexually active: No Do you think of yourself as: Straight/Heterosexual Current gender identity: Male Angélica/Latter Day: Latter Day Special angélica needs: No Agree to transfusion: Yes Physical Exam 2 Const: COMMON NORMALS: no acute distress, average body habitus, no limitations, healthy appearing, alert and well nourished HENMT: COMMON NORMALS: normocephalic, atraumatic, hearing grossly normal bilaterally, external ears normal, Normal external nose present, moist oral mucous membranes and oropharynx normal HEAD & SCALP: normocephalic and atraumatic NOSE: Normal external nose present EXTERNAL EAR: Yes external ears normal Neck/C-Spine: COMMON NORMALS: full ROM, no lymphadenopathy, supple, no meningeal signs, no JVD and Thyroid normal THYROID: Thyroid normal Chest: COMMONS NORMALS: normal inspection of the chest and normal palpation of entire chest wall Resp: COMMON NORMALS: normal respiratory effort, No retractions, No use of accessory muscles and clear to auscultation bilaterally AUSCULTATION: clear to auscultation bilaterally Cardio: COMMON NORMALS: no JVD, regular rate, regular rhythm, S1 normal heart sound present, S2 normal heart sound present, No gallops present (Cardio), No clicks present (Cardio), No murmurs present (Cardio) and No rub (Cardio) R ATE: regular rate RHYTHM: regular rhythm HEART SOUNDS: S1 normal heart sound present and S2 normal heart sound present GI: COMMON NORMALS: Normal to inspection, nondistended, normoactive bowel sounds present, Soft to palpation, non-tender, No hepatosplenomegaly present and no masses PALPATION: Yes Soft to palpation and Yes No hepatosplenomegaly present Neuro: SENSORIUM/ORIENTATION: Yes alert MENINGEAL SIGNS: Yes no meningeal signs Course 2 Vital Signs: Vital signs: Vital Signs Temperature 98.3 F 06/28/23 07:18 Pulse Rate 79 06/28/23 07:18 Respiratory Rate 18 06/28/23 07:18 Blood Pressure 157/93 06/28/23 07:18 Pulse Oximetry 94 06/28/23 07:18 Oxygen Delivery Me thod Room Air 06/28/23 07:18 MDM - Altered Mental Status Medical Decision Making Patient lab work performed included CBC CMP urinalysis urine drug screen, patient was positive for amphetamines and THC. Patient be discharged home to follow-up with his PCP for further evaluation and treatment. Patient should abstain from using methamphetamines. Differential Diagnosis Likely altered mental status; Unlikely alcoholic intoxication, delirium, dementia, hypoglycemia, hyponatremia, subarachnoid hemorrhage or sepsis Medical Records I reviewed the patient's medical records. Lab Data I reviewed the patient's lab results. 06/28/23 07:54 06/28/23 07:54 Laboratory Results WBC 9.41 10^3/uL (3.29-11.43) 06/28/23 07:54 RBC 4.63 10^6/uL (3.85-5.65) 06/28/23 07:54 Hgb 13.20 g/dL (11.27-16.99) 06/28/23 07:54 Hct 41.5 % (37-53) 06/28/23 07:54 MCV 89.6 fl (82-101) 06/28/23 07:54 MCH 28.5 pg (27-33) 06/28/23 07:54 MCHC 31.8 g/dL (30-55) 06/28/23 07:54 RDW 13.7 % (12.1-15.1) 06/28/23 07:54 Plt Count 367 10^3/cmm (157-399) 06/28/23 07:54 MPV 8.4 fL (7.4-10.4) 06/28/23 07:54 Neut % (Auto) 56.5 % 06/28/23 07:54 Lymph % (Auto) 27.9 % 06/28/23 07:54 Bucks % (Auto) 10.2 % 06/28/23 07:54 Eos % (Auto) 3.9 % 06/28/23 07:54 Baso % (Auto) 1.3 % 06/28/23 07:54 Neut # (Auto) 5.31 10^3/uL (1.8-7.7) 06/28/23 07:54 Lymph # (Auto) 2.6 10^3/uL (0.8-4.8) 06/28/23 07:54 Bucks # (Auto) 1.0 10^3/uL (0.2-0.9) H 06/28/23 07:54 Eos # (Auto) 0.4 10^3/uL (0.0-0.8) 06/28/23 07:54 Baso # (Auto) 0.1 10^3/uL (0.0-0.1) 06/28/23 07:54 Nucleated RBC % (auto) 0 % 06/28/23 07:54 Nucleated RBCs # 0.0 /100WBC 06/28/23 07:54 Sodium 137 mmol/L (136-145) 06/28/23 07:54 Potassium 3.6 mmol/L (3.5-5.1) 06/28/23 07:54 Chloride 104 mmol/L (98-107) 06/28/23 07:54 Carbon Dioxide 20 mmol/L (22-29) L 06/28/23 07:54 Anion Gap 16.6 (5-19) 06/28/23 07:54 BUN 20 mg/dL (6-20) 06/28/23 07:54 Creatinine 0.8 mg/dL (0.7-1.2) 06/28/23 07:54 GFR Calculation 100.0 mL/min (90-130) 06/28/23 07:54 Glucose 102 mg/dL (65-115) 06/28/23 07:54 Calculated Osmolality 287 mOsm/kg (285-295) 06/28/23 07:54 Calcium 9.4 mg/dL (8.5-10.5) 06/28/23 07:54 Total Bilirubin 0.6 mg/dL (0.15-1.2) 06/28/23 07:54 AST 19 U/L (0-40) 06/28/23 07:54 ALT 12 U/L (0-41) 06/28/23 07:54 Alkaline Phosphatase 113 U/L (40-130) 06/28/23 07:54 Total Protein 7.2 g/dL (6.6-8.7) 06/28/23 07:54 Albumin 4.1 g/dL (3.5-5.2) 06/28/23 07:54 Globulin 3.1 g/dL (1.3-4.6) 06/28/23 07:54 Urine Color Yellow (Yellow) 06/28/23 08:40 Urine Appearance Clear (CLEAR) 06/28/23 08:40 Urine pH 5 (5-7) 06/28/23 08:40 Ur Specific [place] 1.025 (1.005-1.030) 06/28/23 08:40 Urine Protein Neg (Negative) 06/28/23 08:40 Urine Glucose (UA) Norm (Normal) 06/28/23 08:40 Urine Ketones 1+ (Negative) H 06/28/23 08:40 Urine Blood 2+ (Negative) H 06/28/23 08:40 Urine Nitrate Negative (Negative) 06/28/23 08:40 Urine Bilirubin Neg (Negative) 06/28/23 08:40 Urine Urobilinogen Neg mg/dL (Negative) 06/28/23 08:40 Ur Leukocyte Esterase Negative (Negative) 06/28/23 08:40 Urine RBC Rare /hpf (0-2) 06/28/23 08:40 Urine WBC None /hpf (0-5) 06/28/23 08:40 Ur Squamous Epith Cells None /hpf (0-5) 06/28/23 08:40 Amorphous Sediment Not Reportable 06/28/23 08:40 Urine Bacteria None /hpf (NONE) 06/28/23 08:40 Urine Mucus 3+ /hpf 06/28/23 08:40 Urine Opiates Screen Negative ng/mL (Negative) 06/28/23 08:40 Ur Barbiturates Screen Negative ng/mL (Negative) 06/28/23 08:40 Ur Phencyclidine Scrn Negative ng/mL (Negative) 06/28/23 08:40 Ur Amphetamines Screen Positive ng/mL (Negative) H 06/28/23 08:40 U Benzodiazepines Scrn Negative ng/mL (Negative) 06/28/23 08:40 Urine Cocaine Screen Negative ng/mL (Negative) 06/28/23 08:40 U Marijuana (THC) Screen Positive ng/mL (Negative) H 06/28/23 08:40 All radiology interpretation(s) finalized by discharge Discharge Plan Discharge Patient Disposition: Home Clinical Impression: Methamphetamine use Altered mental status Qualifiers: Altered mental status type: transient alteration of awareness Qualified Code(s): R40.4 - Transient alteration of awareness Condition: Stable Prescriptions: No Action buprenorphine-naloxone 2-0.5 mg tablet, sublingual 2 tab sublingual BID Qty: 120 2RF albuterol sulfate [Ventolin HFA] 90 mcg/actuation HFA aerosol inhaler See Rx Instructions .ROUTE .COMPLEX Qty: 8.5 2RF Dose Instruction: INHALE 2 PUFFS BY MOUTH EVERY 4 HOURS NEEDED FOR FOR SHORTNESS OF BREATH OR WHEEZING Rx Instructions: INHALE 2 PUFFS BY MOUTH EVERY 4 HOURS NEEDED FOR FOR SHORTNESS OF BREATH OR WHEEZING omeprazole 40 mg capsule,delayed release(DR/EC) 40 mg PO QAM Qty: 90 0RF prazosin 2 mg capsule 2 mg PO BEDTIME@21 Qty: 30 2RF risperidone 1 mg tablet 2 mg PO BID 30 Days Qty: 120 2RF topiramate 100 mg tablet 100 mg PO DAILY Qty: 30 2RF trazodone 50 mg tablet 50 mg PO BEDTIME PRN (Reason: Sleep) 30 Days Qty: 30 2RF Symbicort 80-4.5 mcg/actuation HFA aerosol inhaler 2 inh inhalation BID Qty: 10.2 0RF benztropine 1 mg tablet 1 mg PO BID buspirone 10 mg Tablet 10 mg PO BID 30 Days Qty: 60 1RF bupropion HCl 150 mg Tablet Extended Release 24 Hr 300 mg PO DAILY@08 30 Days Qty: 60 1RF Discharge Orders: Discharge ED (Routine); Ordered 06/28/23 Ordered By: Palmer Becker Referrals: Lew Guzman MD [Primary Care Provider] - 1 week Patient Instructions: Methamphetamine Abuse, Altered Mental Status (ED) Activity Restrictions/Additional Instructions: Please abstain from using methamphetamine. Please follow-up with your family practice for further evaluation testing. Coding Level of Care Code ED Secondary Market Manager for Roseann Richard
--- NOTE | 2023-06-28 07:57 | ECG_ITS ---
[facility] Test Date: 2023-06-28 Pat Name: Chriss Akers Department: Room: Gender: Male Rubber Off: : 1965 Requested By: Palmer Becker Order Number: [id number] Dey MD: Macario Wang M.D. Measurements Intervals [place] Rate: 72 P: 31 [place]: 166 QRS: 64 QRSD: 100 T: 55 QT: 398 QTc: 436 Interpretive Statements SINUS RHYTHM Compared to ECG 05/27/2022 22:03:18 Sinus bradycardia no longer present Electronically Signed On 06-28-2023 12:28:18 CDT by Macario Wang M.D. [id number]
[2023-06-28 07:58] LABS: Basophils # 0.1 10^3/uL (0.0-0.1); Basophils % 1.3 %; Eosinophils # 0.4 10^3/uL (0.0-0.8); Eosinophils % 3.9 %; Hematocrit 41.5 % (37-53); Lymphocytes # 2.6 10^3/uL (0.8-4.8); Lymphocytes % 27.9 %; Mean Corpuscular HGB Conc 31.8 g/dL (30-55); Mean Corpuscular Hemoglobin 28.5 pg (27-33); Mean Corpuscular Volume 89.6 fl (82-101); Mean Platelet Volume 8.4 fL (7.4-10.4); Monocytes % 10.2 %; Neutrophils # 5.31 10^3/uL (1.8-7.7); Neutrophils % 56.5 %; Nucleated Red Blood Cells % 0 %; Platelet Count 367 10^3/cmm (157-399); Red Blood Count 4.63 10^6/uL (3.85-5.65); Red Cell Distribution Width 13.7 % (12.1-15.1); White Blood Count 9.41 10^3/uL (3.29-11.43)
[2023-06-28 08:17] LABS: Alanine Aminotransferase 12 U/L (0-41); Albumin Level 4.1 g/dL (3.5-5.2); Alkaline Phosphatase 113 U/L (40-130); Anion Gap 16.6 (5-19); Aspartate Amino Transferase 19 U/L (0-40); Blood Urea Nitrogen 20 mg/dL (6-20); Calcium 9.4 mg/dL (8.5-10.5); Carbon Dioxide 20 mmol/L (22-29); Chloride 104 mmol/L (98-107); Creatinine Clr Calc Pharmacy 103.4524; Globulin 3.1 g/dL (1.3-4.6); Glucose 102 mg/dL (65-115); Osmolality Calculated 287 mOsm/kg (285-295); Potassium 3.6 mmol/L (3.5-5.1); Sodium 137 mmol/L (136-145); Total Bilirubin 0.6 mg/dL (0.15-1.2); Total Protein 7.2 g/dL (6.6-8.7)
[2023-06-28 09:17] LABS: Glucose Urine UA Norm (Normal); Ketones Urine 1+ (Negative); Protein Urine Neg (Negative); Specific Gravity, Urine 1.025 (1.005-1.030); Urine Appearance Clear (CLEAR); Urine Color Yellow (Yellow); pH Urine 5 (5-7)
[2023-06-28 09:18] LABS: Add Urine Culture? No; Add Urine Microscopic? YES; Amphetamines Screen Urine Positive (Negative); Barbiturates Screen Urine Negative (Negative); Benzodiazepines Screen Urine Negative (Negative); Bilirubin Urine Neg (Negative); Blood Urine 2+ (Negative); Cocaine Screen Urine Negative (Negative); Leukocyte Esterase Urine Negative (Negative); Mucus Urine 3+ /hpf; Nitrate Urine Negative (Negative); Opiate Screen Urine Negative (Negative); PCP Screen Urine Negative (Negative); RBC Urine RARE /hpf (0-2); THC Screen Urine Positive (Negative); Urobilinogen Urine Neg (Negative)
== END 2023-06-28 09:37 | disposition home or self-care (01) ==
PROVIDERS: Emergency Provider Emergency Medicine; PCP Family Medicine
DX: R40.4 Transient alteration of awareness (principal); F15.90 Other stimulant use, unspecified, uncomplicated; F17.210 Nicotine dependence, cigarettes, uncomplicated; I10 Essential (primary) hypertension
CPT/HCPCS: 36415; 71045; 80053; 80306; 81001; 85025; 93005; 99285

== ENCOUNTER 2023-06-30 11:55 | Inpatient (IN) | payer MEDICAID, SELFPAY ==
[2023-05-26 09:32] VITALS: BP 154/93; BMI 30.6
[2023-06-30 12:14] VITALS: BP 107/88; PULSE 86; RESP 18; TEMP 36.7; O2SAT 96
--- NOTE | 2023-06-30 12:20 | W.ED.PSYCHS ---
HPI - Psych General: Chief Complaint: Psychiatric Symptoms Stated Complaint: SI Time Seen by Provider: 06/30/23 12:03 Source: patient Mode of arrival: ambulatory Limitations: no limitations History of Present Illness: 58-year-old male states he been having increasing depression over the last 4 to 5 days he has been having suicidal thoughts. He has been admitted here before he states that he feels like he may harm himself and voluntarily wants to be admitted to get help. He denies any worsening improving factors denies any specific plans. Associated symptoms: Reports depression and suicidal ideation Review of Systems Const: Denies: fever(s), chills, body aches or change in appetite ENMT: Denies: throat pain or dental pain Card: Denies: chest pain Resp: Denies: dyspnea GI: Denies: abdominal pain, nausea, vomiting or diarrhea Musc: Denies: neck pain or back pain Skin/Breast: Denies: rash Neuro: Denies: headache(s) Psych: Reports: depression and suicidal ideation [facility] ED PFSH: Medical History Tooth abscess Pain in a tooth or teeth Bipolar disorder Chronic recurrent major depressive disorder Hypertension Schizoaffective disorder, depressive type History of antisocial personality disorder Tobacco use disorder Psychiatric care Cervicalgia Hypertriglyceridemia Night terror Insomnia Methamphetamine use disorder, moderate, in early remission Pulmonary embolism Hypoxemia Methamphetamine abuse Surgical History History of umbilical hernia repair History of knee replacement procedure of right knee Family History Father CAD (coronary artery disease) Cancer stomach Stroke Mother Cancer lung Diabetes Sister Suicide Denies family history of Clotting disorder Dementia Hyperlipidemia Chronic kidney disease (CKD) Anesthesia complication Bleeding disorder Lung disease Hypertension Social History Smoking and tobacco/nicotine status: current every day tobacco/nicotine user cigarettes [ Other cigarette details: 3 cigs/day] Quit status (tobacco/nicotine): has tried quititng Second hand smoke exposure: Yes Alcohol intake: former Year of sobriety/quit date alcohol: 2022 Substance/Drug Use: former Date of last use: 05/2021 Adopted: No Caregiver/support person: No Lives independently: Yes Household members: other Details: [facility] Housing: Other Details: 6 other men Marital status: Number of children: 4 Highest education level completed: GED or Equivalent service: No Current occupational status: disabled Pets and animals: No Leisure activites: exercise, games and reading Sexually active: No Do you think of yourself as: Straight/Heterosexual Current gender identity: Male Angélica/Hoahaoism: Religious Special angélica needs: No Agree to transfusion: Yes Physical Exam Const: COMMON NORMALS: no acute distress, patient oriented x3 and healthy appearing HENMT: COMMON NORMALS: normocephalic and atraumatic HEAD & SCALP: normocephalic and atraumatic Eye: COMMON NORMALS: Equal, round and reactive pupils present and EOMs intact bilaterally PUPIL: Yes Equal, round and reactive pupils present Neck/C-Spine: COMMON NORMALS: full ROM and supple Chest: COMMONS NORMALS: normal inspection of the chest Resp: COMMON NORMALS: normal respiratory effort Cardio: COMMON NORMALS: regular rate, regular rhythm and No murmurs present (Cardio) RATE: regular rate RHYTHM: regular rhythm Extremity: COMMON NORMALS: normal to inspection and full ROM Neuro: COMMON NORMALS: patient oriented x3, moves all extremities and no focal motor deficits Psych: COMMON NORMALS: mental status grossly normal, Normal thought process present and cooperative MOOD & AFFECT: Yes depressed mood THOUGHT PROCESS: Normal thought process present THOUGHT CONTENT: Yes Suicidality present Skin: COMMON NORMALS: no rashes or lesions noted and no wounds GENERAL SKIN EXAM: no rashes or lesions noted Course Vital Signs: Vital signs: Vital Signs Temperature 98.1 F 06/30/23 12:14 Pulse Rate 86 06/30/23 12:14 Respiratory Rate 18 06/30/23 12:14 Blood Pressure 107/88 06/30/23 12:14 Pulse Oximetry 96 06/30/23 12:14 Oxygen Delivery Me thod Room Air 06/30/23 12:14 [facility] - Psych Medical Decision Making pt presents her with si he is voluntarily wanting help. He is medically cleared and will admit to psych [facility]. Medical Records I reviewed the patient's medical records. Lab Data I reviewed the patient's lab results. 06/30/23 12:41 06/30/23 12:41 No radiology studies performed this visit Discharge Plan Discharge Admit Provider: Mohsen Moreno Condition: Stable Coding Level of Care Code ED Field Artillery Officer for Roseann Richard
[2023-06-30 12:53] LABS: Basophils # 0.1 10^3/uL (0.0-0.1); Basophils % 0.9 %; Eosinophils # 0.2 10^3/uL (0.0-0.8); Eosinophils % 1.8 %; Hematocrit 39.3 % (37-53); Lymphocytes # 1.9 10^3/uL (0.8-4.8); Lymphocytes % 17.3 %; Mean Corpuscular HGB Conc 33.8 g/dL (30-55); Mean Corpuscular Hemoglobin 28.2 pg (27-33); Mean Corpuscular Volume 83.3 fl (82-101); Mean Platelet Volume 8.4 fL (7.4-10.4); Monocytes # 0.9 10^3/uL (0.2-0.9); Monocytes % 8.2 %; Neutrophils # 7.69 10^3/uL (1.8-7.7); Neutrophils % 71.4 %; Nucleated Red Blood Cells % 0 %; Platelet Count 416 10^3/cmm (157-399); Red Blood Count 4.72 10^6/uL (3.85-5.65); Red Cell Distribution Width 13.4 % (12.1-15.1); White Blood Count 10.76 10^3/uL (3.29-11.43)
[2023-06-30 12:59] LABS: Amphetamines Screen Urine Positive (Negative); Barbiturates Screen Urine Negative (Negative); Benzodiazepines Screen Urine Negative (Negative); Cocaine Screen Urine Negative (Negative); Opiate Screen Urine Negative (Negative); PCP Screen Urine Negative (Negative); THC Screen Urine Positive (Negative)
[2023-06-30 13:09] VITALS: BP 113/74; PULSE 71; RESP 20; TEMP 36.6; O2SAT 97
[2023-06-30 13:13] LABS: Alanine Aminotransferase 17 U/L (0-41); Alkaline Phosphatase 115 U/L (40-130); Anion Gap 16.8 (5-19); Aspartate Amino Transferase 15 U/L (0-40); Blood Urea Nitrogen 9 mg/dL (6-20); Calcium 8.6 mg/dL (8.5-10.5); Carbon Dioxide 22 mmol/L (22-29); Chloride 101 mmol/L (98-107); Globulin 3.1 g/dL (1.3-4.6); Glucose 108 mg/dL (65-115); Osmolality Calculated 281 mOsm/kg (285-295); Potassium 3.8 mmol/L (3.5-5.1); Sodium 136 mmol/L (136-145); Total Bilirubin 0.3 mg/dL (0.15-1.2); Total Protein 7.1 g/dL (6.6-8.7)
[2023-06-30 13:14] LABS: Acetaminophen < 5.0 ug/mL (10-30); Alcohol Level < 10 mg/dL (0-10); Salicylate < 0.3 mg/dL (3-10)
[2023-06-30 14:00] VITALS: BP 109/69; PULSE 81; RESP 20; TEMP 37; O2SAT 95
--- NOTE | 2023-06-30 14:13 | PC.NURSE ---
IN PT BELONGINGS LOCKED IN SAFE IS A GLASS MARIJUANA PIPE APPROVED TO KEEP BY ADMINISTRATION.
--- NOTE | 2023-06-30 14:30 | PC.NURSE ---
ADMIT NOTE PT CAME TO THE ER WITH COMPLAINTS OF SI. PT WAS POSITIVE FOR AMPHETAMINES AND THC. UPON ADMIT TO THE NPU PT IS COOPERATIVE WITH ASSESSMENT. PT THOUGHTS ARE DISORGANIZED. PT SEEMS CONFUSED DURING SOME ASSESSMENT QUESTIONS BUT IS ORIENTED TO PERSON PLACE AND TIME. PT WAS COOPERATIVE WITH ASSESSMENT.
[2023-06-30] MEDS: hyDROXYzine 25 mg Capsule 50 MG PO (15:01)
[2023-06-30 15:13] VITALS: BMI 27.2
[2023-06-30] MEDS: nicotine 2 mg Gum BUCCAL ×2 (16:01→18:33)
[2023-06-30] MEDS: OLANZapine 5 mg ODT PO (16:16)
[2023-06-30] MEDS: haloperidol 5 mg Tablet PO (17:37)
--- NOTE | 2023-06-30 17:50 | PC.NURSE ---
STAFF PERFORMED RANDOM ROOM CHECKS AT AROUND 1745. NO CONTRABAND WAS FOUND IN PT ROOM. PT WAS COOPERATIVE WITH ROOM CHECK.
[2023-06-30] MEDS: benztropine 1 mg Tablet PO (20:04)
[2023-06-30] MEDS: risperiDONE 1 mg Tablet 2 MG PO (20:04)
[2023-06-30] MEDS: BuSPIRONE 10 mg Tablet PO (20:04)
[2023-06-30] MEDS: trazodone 50 mg Tablet PO (20:04)
[2023-06-30] MEDS: buprenorphine-naloxone 4-1 mg Film 1 EACH SUBLINGUAL (20:04)
[2023-06-30] MEDS: prazosin 1 mg Capsule 2 MG PO (20:05)
[2023-06-30 20:08] VITALS: BP 111/76; PULSE 70; RESP 18; TEMP 36.8; O2SAT 96
[2023-07-01 06:00] VITALS: RESP 15
[2023-07-01] MEDS: buprenorphine-naloxone 4-1 mg Film 1 EACH SUBLINGUAL ×2 (09:49→21:25)
[2023-07-01] MEDS: benztropine 1 mg Tablet PO ×2 (09:49→21:26)
[2023-07-01] MEDS: risperiDONE 1 mg Tablet 2 MG PO ×2 (09:49→21:26)
[2023-07-01] MEDS: topiramate 100 mg Tablet PO (09:49)
[2023-07-01] MEDS: pantoprazole DR 40 mg Tablet PO (09:49)
[2023-07-01] MEDS: BuSPIRONE 10 mg Tablet PO ×3 (09:49→21:26)
[2023-07-01] MEDS: buPROPion XL (24 HR) 300 mg Tablet PO (09:50)
[2023-07-01] MEDS: nicotine 2 mg Gum BUCCAL ×2 (10:31→15:11)
[2023-07-01] MEDS: hyDROXYzine 25 mg Capsule 50 MG PO (11:49)
--- NOTE | 2023-07-01 11:50 | PC.NURSE ---
Patient reporting anxiety, administered 50mg Vistaril to patient. Patient returned to dayroom to eat lunch.
--- NOTE | 2023-07-01 12:18 | W.PM.NPUH&PS ---
Providers/Chief Complaint Admitting Physician: Mohsen Moreno MD Primary Care Provider: Lew Guzman MD Chief Complaint: SI HPI NPU History of Present Illness Chriss Akers is a 58 year old male who presented to the emergency department with the following report: Chief Complaint: Psychiatric Symptoms Stated Complaint: SI Time Seen by Provider: 06/30/23 12:03 Source: patient Mode of arrival: ambulatory Limitations: no limitations History of Present Illness: 58-year-old male states he been having increasing depression over the last 4 to 5 days he has been having suicidal thoughts. He has been admitted here before he states that he feels like he may harm himself and voluntarily wants to be admitted to get help. He denies any worsening improving factors denies any specific plans. Associated symptoms: Reports depression and suicidal ideation. He was admitted to the neuropsychiatric unit for definitive treatment of those issues. He presents today having relapsed on methamphetamine with a UDS positive for cannabis and amphetamines. While under the influence or under the recent use of methamphetamine he acted in a very aggressive way which led to his very supportive outpatient [facility] to the man that he get active addiction treatments prior to him being able to return and if he is unable to return to this benefactor he would be stuck with essentially nowhere to go. He identified that he is open to continuing his medication and doing anything from a treatment perspective to be able to return to his current living arrangement. He did endorse feeling really bad about his recent behaviors and choices and having thoughts to hurt himself. He was agreeable to restarting/continuing his current medications after discussion of the risks, benefits and alternatives he understood and agreed to proceed as is documented in this note. He endorsed feeling shaky and we discussed the risk benefits and alternatives of a trial of propranolol and he understood and agreed to proceed with that treatment. We discussed him working with the treatment team for an inpatient rehab which he endorsed having a full commitment to that recovery plan. An excerpt from his last discharge summary is included below given there were no substantive changes outside of this recent relapse. Per his 05/26/2023 [facility] inpatient psychiatric discharge summary: Discharge Diagnosis (1) Schizoaffective disorder, depressive type: Status: Acute (2) Hypoxemia: Status: Resolved (3) Substance use disorder: Status: Inactive (4) Pulmonary embolism: Status: Inactive (5) Methamphetamine use disorder, severe: Status: Resolved (6) Altered mental status: Status: Resolved Reason for Visit Reason for Visit: SI Brief History: History of Present Illness Chriss Akers is a 58 year old male With a history of methamphetamine abuse, schizoaffective disorder bipolar type who presented to the emergency department with complaints of having suicidal thoughts with a plan to hang himself with reports that he does not feel like living any longer. Patient was admitted to the neuropsychiatric unit for further evaluation and treatment. He was unable to be questioned any further as he was asleep and was unwilling to wake up to speak any further. Previous records have been reviewed over the past few months from his outpatient providers who had reported that the patient had apparently been residing in a halfway and had been having some problems recently with periods of intense confusion and agitation that appear to be associated with a drop in his oxygen saturation. There had been reports of continued problems with managing his dizziness. The patient on a recent visit with his psychiatric provider ,Dr. Rosario, had endorsed to Dr. Brooke that he had been feeling unsteady on April 29, 2023. the patient initially when arriving to the floor had endorsed having suicidal thoughts with no clear plan to end his life. He had also endorsed having auditory and visual hallucinations. Like previous evaluations noted in the last few months, the patient had also appeared initially when evaluated by nurses to have been answering questions with statements that did not make any sense. His urine drug screen was negative for amphetamines or alcohol. Inpatient psychiatric history: 1 previous inpatient psychiatric hospitalization reported Most recently in April 2022 per records. Current medications: Suboxone 4 mg twice a day, Wellbutrin XL 450 mg daily, prazosin 2 mg at night, Risperdal 2 mg twice a day, trazodone 50 mg at night Excerpt from D/C summary from NPU on 04/26/22 History of Present Illness Chriss Akers is a 57 year old male who presented to the emergency department with the following report: Chief Complaint: Altered Mental Status Stated Complaint: AMS Time Seen by Provider: 05/10/22 22:46 Source: patient Mode of arrival: ambulatory Limitations: no limitations History of Present Illness: 57-year-old male seen earlier Present hallucinations he is in a sober living center is cleared by psych and he did not want to be admitted he went back to sober living center had brought him back up. He states that he has been talking to cats that are not there and is worsened hallucinations patient now does agree that he would be admitted and is able answer my questions appropriately but does have hallucinations here. Associated symptoms: Reports visual hallucinations He was admitted to the neuropsychiatric unit for definitive treatment of those issues. He presents today unlike previous admissions. Previously he has presented very goal-directed and with concerns for malingering often. Today he presents confused and a very poor historian. Much of his comments are partial thoughts merged with different partial thoughts that started 1 direction and ended in another and with almost no clarity as to what he is thinking or talking about. He will say something and then followed up with the you know what I need and there is $0.00 and what he is saying. Screen is negative and there are no clear signs of infection but he certainly appears delirious. He had been discharged from the emergency department initially and the level of confusion was noted at his supportive residence he situation leading to them sending him back with concerns of intoxication or something else. He reports taking his medication but it is unclear at this level of confusion if he could have been taking his medication appropriately or if he is getting enough assistance that that would have been the case. Per his 04/23/2022 [facility] inpatient discharge summary: Discharge Diagnosis (1) Compression fracture: Status: Acute Permanent problem details: t12 (2) Lytic bone lesion of hip: Status: Resolved (3) Hypoxemia: Status: Resolved (4) Pulmonary embolism: Status: Resolved (5) Leukocytosis: Status: Resolved (6) Substance use disorder: Status: Inactive (7) Hypoxemia: Status: Inactive (8) Pulmonary embolism: Status: Inactive (9) Methamphetamine use disorder, severe: Status: Resolved (10) Adjustment disorder with mixed disturbance of emotions and conduct: Status: Acute (11) Depression: Status: Acute Reason for Visit Reason for Visit: SI Brief History: History of Present Illness Chriss Akers is a 57 year old male who presented to the emergency department with the following report: Chief Complaint: Psychiatric Symptoms Stated Complaint: SI Time Seen by Provider: 04/20/22 11:20 History of Present Illness: Mr. Akers is a 57-year-old gentleman with remote history of substance abuse, history of PE on anticoagulation, COPD, possibly schizoaffective disorder presented to the emergency department for suicidal ideation with a plan. He does have a history of depression and has been on medications however over the past few days reports that they do not seem to help. He feels depressed and increasingly hopeless. He walked downstairs earlier and saw a rope and thought of hanging himself. He does have a history of suicide attempt by hanging. Overall course of symptoms has worsened. Intensity is moderate to severe. He notes hopelessness and anxiety. No other specific changes in health, exacerbating, or alleviating factors identified. Onset (ago): day(s) Duration: getting worse History of same: Yes Relieving factors: none Exacerbating factors: none Associated psychiatric symptoms: depression and suicidal ideation If self harm: admits thoughts of self harm and has plan. He was admitted to the neuropsychiatric unit for definitive treatment of those issues. He presents today much like he did the last hospitalization reporting fairly mundane issues being problematic. He is currently staying at [facility] and reports that things are okay there. He reports that he has some guys there that he can hang out with that are nice. And he gets along with other people. He reports that he feels like he is being easily stressed and overwhelmed. Reports is been impacted from losses that he has had. He reports that he is looking for employment but has not been successful. He reports that he was on his way to what he thought was a job he was getting only to be told that he did not even have an interview like he had believed. He reports that that really sent him reeling and he started getting caught up in his negative thoughts. He reports that he has been doing well from the standpoint of his recovery and that that has not been an issue. We discussed the risk benefits and alternatives of increasing his BuSpar to 10 mg p.o. 3 times daily and he understood and agreed to proceed as is documented in this note. We also discussed the possibility of increasing his Risperdal prior to discharge. An excerpt of his last inpatient note is included below for context and history. Per his 09/24/2021 [facility] inpatient psychiatric evaluation: History of Present Illness Chriss Akers is a 56 year old male who presented to the emergency department with the following report: Stated complaint: same reason Time Seen by Provider: 09/22/21 17:33 History of Present Illness: Patient is a 56-year-old male with a history of former meth use, chronic hypoxemia on 3 L oxygen presenting to the emergency room for concerns of hypoxemia. Earlier patient was seen evaluated emergency room was diagnosed with possible nonocclusive pulmonary embolism. In addition, patient was found to have leukocytosis with no prior for comparison. Patient decided to go home so he could have a smoke. Patient's chose to sign out AMA earlier today and decided come back to the emergency room. Onset:unknown Duration:ongoing Location:home Severity:moderate Associated symptoms: Deny chest pain, dyspnea, nausea, rash, palpitations or vomiting. He reports that he presents secondary to breathing issues and suicidal ideation. He reports he just recently left the [facility] which he was in [facility] times for 10 years each. He reports he has been psychiatrically hospitalized a few times and denies receiving outpatient services. He reports a pack of cigarettes a day, denies alcohol, reports marijuana occasionally, endorses methamphetamine and denies any other illicit drug use. He has never been to a rehab and received a DUI in 1998. He reports he was at [facility] when he started having issues with his breathing and increased suicidal ideation which is how he presents today. He reports he wants to leave as he feels information is being kept from him in regards to his health and what is going on. We discussed at length about addressing his medical issues and the safety concern that is presented given he is expressing suicidal ideation recently given there has been no change in his health conditions since he was admitted. He reports he has not been on suboxone [facility]ci and had an opiate use problem when he was younger. Psychiatric History: As above. Substance Abuse History: As above Family History: He denies mental health issues on either side of the family, addiction issues on his father?s side of the family and a suicide completion from his mother?s side of the family. Developmental History: He denies any issues with his or , learned to walk and talk and met his developmental standards on time, and denies any need for speech therapy, learning support, emotional support or special education classes. Psychosocial History: He reports his parents were together when he was born and remained together. He has 2 sisters and 2 brothers who are products of the same union. He described his childhood as great and denies any emotional, physical or sexual abuse. He reports truancy issues and was put in placement. He denies any other traumatic events. The highest grade he achieved was 11 th and he got his GED. He endorses being heterosexual with his longest relationship being 6 to 7 years. He has been once and , has 4 biological children, has never been in the and endorses being a jewish. He currently lives at [facility]. Legal History: He reports he has been in senior living 10 times and [facility] 3 times at least. Medical History: Please see treatment team note for full details. Hospital Course He slowly acclimated to the individual, group and milieu therapies provided. He is staying with a supportive member of the community who endorses him having increased memory difficulties. We continued most of his medications but did decrease his Wellbutrin XL back to 300 mg p.o. every morning and his BuSpar back down to 10 mg p.o. twice daily. There do seem to be some continued difficulties with cognition. He worked with the social work team for appropriate aftercare and follow-up appointments. He had modest improvement and was able to contract for safety outside of the hospital prior to discharge. During the hospitalization, patient had routine laboratory studies which were within normal limits except for few outliers. Additionally there was a general medical evaluation which was also within normal limits and revealed no new acute processes. Discharge Summary: At the time of discharge, patient denied psychosis or lethality. Mood and anxiety were well managed. Patient endorsed a plan to avoid all drugs of abuse and follow-up with the aftercare recommendations of the treatment team. Patient was evaluated and deemed to be absent credible lethality, and had achieved the maximum benefit from an inpatient hospitalization, so was discharged. Meds NPU Home Medications Medication Instructions Recorded Confirmed Last Taken Type albuterol sulfate 90 mcg/actuation See Rx Instructions .Route 12/17/22 06/30/23 Unknown Rx aerosol inhaler (Ventolin HFA) .COMPLEX #8.5 grams omeprazole 40 mg capsule,delayed 40 mg PO QAM #90 caps 02/22/23 06/30/23 Unknown Rx release prazosin 2 mg capsule 2 mg PO BEDTIME@21 #30 caps 04/05/23 06/30/23 Unknown Rx risperidone 1 mg tablet 2 mg (2 x 1 mg) PO BID 30 days 04/05/23 06/30/23 Unknown Rx #120 tabs topiramate 100 mg tablet 100 mg PO DAILY #30 tabs 04/05/23 06/30/23 Unknown Rx buprenorphine 2 mg-naloxone 0.5 mg 2 tab sublingual BID #120 tabs 04/29/23 06/30/23 Unknown Rx sublingual tablet budesonide-formoterol HFA 80 2 inh inhalation BID #10.2 grams 05/13/23 06/30/23 Unknown Rx mcg-4.5 mcg/actuation aerosol inhaler (Symbicort) benztropine 1 mg tablet 1 mg PO BID 05/19/23 06/30/23 Unknown History bupropion HCl 150 mg 24 hr tablet, 300 mg (2 x 150 mg) PO DAILY@08 30 05/24/23 06/30/23 Unknown Rx extended release days #60 tabs buspirone 10 mg tablet 10 mg PO TID 06/30/23 06/30/23 Unknown History trazodone 50 mg tablet 50 mg PO BEDTIME PRN Insomnia 06/30/23 06/30/23 Unknown History Allergies Allergy/AdvReac Type Severity Reaction Status Date / Time No Known Allergies Allergy Verified 06/30/23 11:17 PFSH NPU PFSH: Medical History Tooth abscess Pain in a tooth or teeth Bipolar disorder Chronic recurrent major depressive disorder Hypertension Schizoaffective disorder, depressive type History of antisocial personality disorder Tobacco use disorder Psychiatric care Cervicalgia Hypertriglyceridemia Night terror Insomnia Methamphetamine use disorder, moderate, in early remission Pulmonary embolism Hypoxemia Methamphetamine abuse Surgical History History of umbilical hernia repair History of knee replacement procedure of right knee Family History Father CAD (coronary artery disease) Cancer stomach Stroke Mother Cancer lung Diabetes Sister Suicide Denies family history of Clotting disorder Dementia Hyperlipidemia Chronic kidney disease (CKD) Anesthesia complication Bleeding disorder Lung disease Hypertension Social History Smoking and tobacco/nicotine status: current every day tobacco/nicotine user cigarettes [ Other cigarette details: 3 cigs/day] Quit status (tobacco/nicotine): has tried quititng Second hand smoke exposure: Yes Alcohol intake: former Year of sobriety/quit date alcohol: 2022 Substance/Drug Use: former Date of last use: 05/2021 Adopted: No Caregiver/support person: No Lives independently: Yes Household members: other Details: [facility] Housing: Other Details: 6 other men Marital status: Number of children: 4 Highest education level completed: GED or Equivalent service: No Current occupational status: disabled Pets and animals: No Leisure activites: exercise, games and reading Sexually active: No Do you think of yourself as: Straight/Heterosexual Current gender identity: Male Angélica/Anglican: Muslim Special angélica needs: No Agree to transfusion: Yes Mental Status Exam MSE Comments: This is an overweight older white male looking older than his stated age in hospital scrubs with adequate grooming and eye contact. No abnormal movements except for mild psychomotor retardation. Cooperative with exam in no acute distress. Speech was nonexistent other than mild slurring. Mood described as feeling down. His affect was flat. Thought process was organized. Thought content: patient endorsed thoughts to hurt himself but denied homicidal ideation, there were no delusions reported or noted and he denied auditory or visual hallucinations currently. Attention and concentration appeared mostly intact and memory appeared mostly reliable but none were formally tested. He was alert and oriented to person and place. Insight appeared fair, judgment appeared poor and impulse control was limited. Vitals/I&O/Wt Last Vital Signs Temp 98.2 F 06/30/23 20:08 Pulse 70 06/30/23 20:08 Resp 15 07/01/23 06:00 BP 111/76 06/30/23 20:08 Pulse Ox 96 06/30/23 20:08 O2 Del Method Room Air 06/30/23 13:12 Weight last 48 hrs Weight 76.657 kg Data NPU 06/30/23 12:41 06/30/23 12:41 A&P Assessment and plan (1) Schizoaffective disorder, depressive type: (2) Hypoxemia: (3) Substance use disorder: (4) Hypoxemia: (5) Pulmonary embolism: (6) Methamphetamine use disorder, severe: (7) Altered mental status: Plan This is a 57-year-old white male with a long history of addiction, and psychosis/altered mental status and possible cognitive decline who relapsed on methamphetamine and is actively using cannabis who presents with recent aggressive behaviors after his relapse. 1. Continue current medications. 2. Encourage, group and milieu therapies. 3. Continue every 15 minute checks for safety. 4. Encourage sober living treatment after discharge at the highest level of care to which he is willing to commit. 5. Will work with social work team to identify inpatient rehab options. Involuntary Hold Information 96 Hour Hold: 96 Hour Involuntary Admission: No 96 Hour Hold Ending Date: 05/25/23 96 Hour Hold Ending Time: 19:20 Attestations NPU Medical Necessity Statement*: Inpatient hospitalization is medically necessary and the clinically appropriate intervention at this time. We will monitor medication to make changes as indicated. Patient will be in the hospital for over two midnights. The patient's likely length of stay is 4-6 days. Coding Level of Care Code Acute Code for [facility] Fwd Diagnoses Schizoaffective disorder, depressive type F25.1 Hypoxemia R09.02 Substance use disorder F19.90 Pulmonary embolism I26.99 Methamphetamine use disorder, severe F15.20 Altered mental status R41.82
[2023-07-01 14:00] VITALS: BP 126/83; PULSE 69; RESP 20; TEMP 36.8; O2SAT 97
[2023-07-01] MEDS: propranolol 20 mg Tablet 10 MG PO ×2 (14:10→21:26)
[2023-07-01 19:53] VITALS: BP 96/65; PULSE 60; RESP 17; TEMP 36.8; O2SAT 95
[2023-07-01] MEDS: prazosin 1 mg Capsule 2 MG PO (21:26)
[2023-07-01] MEDS: trazodone 50 mg Tablet PO (21:26)
[2023-07-02 06:00] VITALS: RESP 16
--- NOTE | 2023-07-02 08:13 | P.NPUPN_ITS ---
Subjective NPU 2 Subjective: Patient presented today reporting that he is doing okay. We discussed thinking that he had been doing better and avoiding drugs of abuse. He did not have any answer for what happened that led to him using again. He continued to endorse a commitment to attending a sober living treatment facility and doing what ever is necessary to return to his current place of residence. We discussed continuing to work with the social work team at the beginning of the week to explore the options. He denied any side effects to his medication. Mental Status Exam 2 MSE Comments: This is an overweight older white male looking older than his stated age in hospital scrubs with adequate grooming and eye contact. No abnormal movements except for mild psychomotor retardation. Cooperative with exam in no acute distress. Speech was nonexistent other than mild slurring. Mood described as feeling down. His affect was flat. Thought process was organized. Thought content: patient endorsed thoughts to hurt himself but denied homicidal ideation, there were no delusions reported or noted and he denied auditory or visual hallucinations currently. Attention and concentration appeared mostly intact and memory appeared mostly reliable but none were formally tested. He was alert and oriented to person and place. Insight appeared fair, judgment appeared poor and impulse control was limited. Vitals/I&O/Wt Last Vital Signs Temp 98.3 F 07/01/23 19:53 Pulse 60 07/01/23 19:53 Resp 16 07/02/23 06:00 BP 96/65 07/01/23 19:53 Pulse Ox 95 07/01/23 19:53 O2 Del Method Room Air 07/01/23 19:53 Weight last 48 hrs Weight 76.657 kg Data NPU 06/30/23 12:41 06/30/23 12:41 A&P Assessment and plan (1) Schizoaffective disorder, depressive type: (2) Hypoxemia: (3) Substance use disorder: (4) Hypoxemia: (5) Pulmonary embolism: (6) Methamphetamine use disorder, severe: (7) Altered mental status: Plan This is a 57-year-old white male with a long history of addiction, and psychosis/altered mental status and possible cognitive decline who relapsed on methamphetamine and is actively using cannabis who presents with recent aggressive behaviors after his relapse. 1. Continue current medications. 2. Encourage, group and milieu therapies. 3. Continue every 15 minute checks for safety. 4. Encourage sober living treatment after discharge at the highest level of care to which he is willing to commit. 5. Will work with social work team to identify inpatient rehab options. Involuntary Hold Information 2 96 Hour Hold: 96 Hour Involuntary Admission: No 96 Hour Hold Ending Date: 0 05/25/23 96 Hour Hold Ending Time: 19:20 Attestations NPU 2 Medical Necessity Statement*: Inpatient hospitalization is medically necessary and the clinically appropriate intervention at this time. We will monitor medication to make changes as indicated. The patient's likely length of stay is 3-5 days. Coding Level of Care Code Acute Code for [facility] Fwd Diagnoses Schizoaffective disorder, depressive type F25.1 Hypoxemia R09.02 Substance use disorder F19.90 Pulmonary embolism I26.99 Methamphetamine use disorder, severe F15.20 Altered mental status R41.82
[2023-07-02] MEDS: benztropine 1 mg Tablet PO ×2 (08:28→20:12)
[2023-07-02] MEDS: buPROPion XL (24 HR) 300 mg Tablet PO (08:28)
[2023-07-02] MEDS: topiramate 100 mg Tablet PO (08:28)
[2023-07-02] MEDS: pantoprazole DR 40 mg Tablet PO (08:28)
[2023-07-02] MEDS: BuSPIRONE 10 mg Tablet PO ×3 (08:28→20:12)
[2023-07-02] MEDS: risperiDONE 1 mg Tablet 2 MG PO ×2 (08:28→20:12)
[2023-07-02] MEDS: buprenorphine-naloxone 4-1 mg Film 1 EACH SUBLINGUAL ×2 (08:28→20:12)
[2023-07-02] MEDS: nicotine 4 mg lozenge MUCOUS MEM ×2 (08:28→09:48)
[2023-07-02 14:00] VITALS: BP 110/74; PULSE 62; RESP 20; TEMP 36.8; O2SAT 97
[2023-07-02 19:38] VITALS: BP 111/75; PULSE 72; RESP 20; TEMP 36.8; O2SAT 97
[2023-07-02] MEDS: trazodone 50 mg Tablet PO (20:12)
[2023-07-02] MEDS: prazosin 1 mg Capsule 2 MG PO (20:12)
[2023-07-03 06:00] VITALS: RESP 16
[2023-07-03] MEDS: buPROPion XL (24 HR) 300 mg Tablet PO (07:54)
[2023-07-03] MEDS: buprenorphine-naloxone 4-1 mg Film 1 EACH SUBLINGUAL ×2 (07:54→20:30)
[2023-07-03] MEDS: topiramate 100 mg Tablet PO (07:54)
[2023-07-03] MEDS: risperiDONE 1 mg Tablet 2 MG PO ×2 (07:54→20:30)
[2023-07-03] MEDS: pantoprazole DR 40 mg Tablet PO (07:54)
[2023-07-03] MEDS: BuSPIRONE 10 mg Tablet PO ×3 (07:54→20:30)
[2023-07-03] MEDS: nicotine 4 mg lozenge MUCOUS MEM ×3 (07:55→14:20)
[2023-07-03] MEDS: benztropine 1 mg Tablet PO ×2 (07:55→20:30)
[2023-07-03] MEDS: propranolol 20 mg Tablet 10 MG PO (07:55)
--- NOTE | 2023-07-03 11:08 | W.PM.NPUPNS ---
Subjective NPU Subjective: Patient presented today reporting that he is feeling okay. He did a lot of sleeping today and we discussed him trying to stay active so that his sleep during the day does not impact his sleep at night. He denied any new issues and we agreed that we would work with the social work team tomorrow looking at what rehab options are available. He denied any side effects of the medication. Mental Status Exam MSE Comments: This is an overweight older white male looking older than his stated age in hospital scrubs with adequate grooming and eye contact. No abnormal movements except for mild psychomotor retardation. Cooperative with exam in no acute distress. Speech was nonexistent other than mild slurring. Mood described as a little tired. His affect was subdued and flat. Thought process was organized. Thought content: patient endorsed thoughts to hurt himself but denied homicidal ideation, there were no delusions reported or noted and he denied auditory or visual hallucinations currently. Attention and concentration appeared mostly intact and memory appeared mostly reliable but none were formally tested. He was alert and oriented to person and place. Insight appeared fair, judgment appeared poor and impulse control was limited. Vitals/I&O/Wt Last Vital Signs Temp 98.2 F 07/02/23 19:38 Pulse 72 07/02/23 19:38 Resp 16 07/03/23 06:00 BP 111/75 07/02/23 19:38 Pulse Ox 97 07/02/23 19:38 O2 Del Method Room Air 07/02/23 19:38 Weight last 48 hrs Weight 77.474 kg Data NPU 06/30/23 12:41 06/30/23 12:41 A&P Assessment and plan (1) Schizoaffective disorder, depressive type: (2) Hypoxemia: (3) Substance use disorder: (4) Hypoxemia: (5) Pulmonary embolism: (6) Methamphetamine use disorder, severe: (7) Altered mental status: Plan This is a 57-year-old white male with a long history of addiction, and psychosis/altered mental status and possible cognitive decline who relapsed on methamphetamine and is actively using cannabis who presents with recent aggressive behaviors after his relapse. 1. Continue current medications. 2. Encourage, group and milieu therapies. 3. Continue every 15 minute checks for safety. 4. Encourage sober living treatment after discharge at the highest level of care to which he is willing to commit. 5. Will work with social work team to identify inpatient rehab options. Involuntary Hold Information 96 Hour Hold: 96 Hour Involuntary Admission: No 96 Hour Hold Ending Date: 05/25/23 96 Hour Hold Ending Time: 19:20 Attestations NPU Medical Necessity Statement*: Inpatient hospitalization is medically necessary and the clinically appropriate intervention at this time. We will monitor medication to make changes as indicated. The patient's likely length of stay is 2-4 days. Coding Level of Care Code Acute Code for [facility] Fwd Diagnoses Schizoaffective disorder, depressive type F25.1 Hypoxemia R09.02 Substance use disorder F19.90 Pulmonary embolism I26.99 Methamphetamine use disorder, severe F15.20 Altered mental status R41.82
[2023-07-03] MEDS: OLANZapine 5 mg ODT PO (11:30)
[2023-07-03 14:00] VITALS: BP 105/67; PULSE 65; RESP 20; TEMP 36.6; O2SAT 96
[2023-07-03 20:06] VITALS: BP 111/72; PULSE 67; RESP 17; TEMP 36.7; O2SAT 96
[2023-07-03] MEDS: prazosin 1 mg Capsule 2 MG PO (20:30)
[2023-07-03] MEDS: trazodone 50 mg Tablet PO (20:30)
[2023-07-04 06:00] VITALS: BP 107/73; PULSE 82; RESP 20; TEMP 36.7; O2SAT 96
[2023-07-04] MEDS: nicotine 4 mg lozenge MUCOUS MEM ×3 (06:24→19:47)
[2023-07-04] MEDS: pantoprazole DR 40 mg Tablet PO (08:44)
[2023-07-04] MEDS: buPROPion XL (24 HR) 300 mg Tablet PO (08:44)
[2023-07-04] MEDS: topiramate 100 mg Tablet PO (08:44)
[2023-07-04] MEDS: risperiDONE 1 mg Tablet 2 MG PO ×2 (08:44→21:00)
[2023-07-04] MEDS: BuSPIRONE 10 mg Tablet PO ×3 (08:44→21:07)
[2023-07-04] MEDS: buprenorphine-naloxone 4-1 mg Film 1 EACH SUBLINGUAL ×2 (08:44→21:09)
[2023-07-04] MEDS: benztropine 1 mg Tablet PO ×2 (08:44→21:07)
[2023-07-04 14:00] VITALS: BP 118/74; PULSE 60; RESP 15; TEMP 36.6; O2SAT 96
--- NOTE | 2023-07-04 16:12 | P.NPUPN_ITS ---
Subjective NPU 2 Subjective: Patient presented today mostly unchanged and denying any significant problems but having very limited functionality per staff reports and direct observation. We discussed discussion about his MICKEY evaluation which questions his ability to independently function and whether he would have the ability to get anything meaningful out of a rehab program. We discussed looking towards possible guardianship and placement. He denied any side effects of the medication. Mental Status Exam 2 MSE Comments: This is an overweight older white male looking older than his stated age in hospital scrubs with adequate grooming and eye contact. No abnormal movements except for mild psychomotor retardation. Cooperative with exam in no acute distress. Speech was limited and decreased rate and volume. Mood described as a little tired. His affect was subdued and flat. Thought process was organized. Thought content: patient endorsed thoughts to hurt himself but denied homicidal ideation, there were no delusions reported or noted and he denied auditory or visual hallucinations currently. Attention and concentration appeared mostly intact and memory appeared mostly reliable but none were formally tested. He was alert and oriented to person and place. Insight and judgment appear limited at best and impulse control was limited versus impaired. Vitals/I&O/Wt Last Vital Signs Temp 97.8 F 07/04/23 14:00 Pulse 60 07/04/23 14:00 Resp 15 07/04/23 14:00 BP 118/74 07/04/23 14:00 Pulse Ox 96 07/04/23 14:00 O2 Del Method Room Air 07/04/23 06:00 Weight last 48 hrs Weight 77.474 kg Data NPU 06/30/23 12:41 06/30/23 12:41 A&P Assessment and plan (1) Schizoaffective disorder, depressive type: (2) Hypoxemia: (3) Substance use disorder: (4) Hypoxemia: (5) Pulmonary embolism: (6) Methamphetamine use disorder, severe: (7) Altered mental status: Plan This is a 57-year-old white male with a long history of addiction, and psychosis/altered mental status and possible cognitive decline who relapsed on methamphetamine and is actively using cannabis who presents with recent aggressive behaviors after his relapse. 1. Continue current medications. 2. Encourage, group and milieu therapies. 3. Continue every 15 minute checks for safety. 4. Encourage sober living treatment after discharge at the highest level of care to which he is willing to commit. 5. [facility] 6. Given his poor functioning and diminished cognitive ability guardianship and likely placement is most appropriate intervention Involuntary Hold Information 2 96 Hour Hold: 96 Hour Involuntary Admission: No 96 Hour Hold Ending Date: 0 05/25/23 96 Hour Hold Ending Time: 19:20 Attestations NPU 2 Medical Necessity Statement*: Inpatient hospitalization is medically necessary and the clinically appropriate intervention at this time. We will monitor medication to make changes as indicated. The patient's likely length of stay is 7-10 days. Coding Level of Care Code Acute Code for [facility] Fwd Diagnoses Schizoaffective disorder, depressive type F25.1 Hypoxemia R09.02 Substance use disorder F19.90 Pulmonary embolism I26.99 Methamphetamine use disorder, severe F15.20 Altered mental status R41.82
--- NOTE | 2023-07-04 18:04 | PC.NURSE ---
room searched by staff, no contraband found at this time.
[2023-07-04 19:37] VITALS: BP 109/74; PULSE 88; RESP 18; TEMP 36.7; O2SAT 95
[2023-07-04] MEDS: hyDROXYzine 25 mg Capsule 50 MG PO (21:08)
[2023-07-04] MEDS: prazosin 1 mg Capsule 2 MG PO (21:08)
[2023-07-04] MEDS: propranolol 20 mg Tablet 10 MG PO (21:08)
[2023-07-04] MEDS: trazodone 50 mg Tablet PO (21:09)
[2023-07-04] MEDS: OLANZapine 5 mg ODT PO (21:09)
[2023-07-05 05:52] VITALS: RESP 14
--- NOTE | 2023-07-05 05:52 | PC.NURSE ---
Per charge nurse only collect respirations to allow patient rest for patient and staff safety.
[2023-07-05] MEDS: buPROPion XL (24 HR) 300 mg Tablet PO (08:03)
[2023-07-05] MEDS: BuSPIRONE 10 mg Tablet PO ×3 (08:03→20:57)
[2023-07-05] MEDS: topiramate 100 mg Tablet PO (08:03)
[2023-07-05] MEDS: buprenorphine-naloxone 4-1 mg Film 1 EACH SUBLINGUAL ×2 (08:03→20:58)
[2023-07-05] MEDS: pantoprazole DR 40 mg Tablet PO (08:03)
[2023-07-05] MEDS: benztropine 1 mg Tablet PO ×2 (08:03→20:57)
--- NOTE | 2023-07-05 08:30 | W.PM.NPUPNS ---
Subjective NPU Subjective: Patient presented today mostly unchanged and reporting that things are OK. We discussed that we are going to explore guardianship and stop looking a rehabs. He is having very limited functionality per staff reports and direct observation. We discussed applying for guardianship and looking at placement. He denied any side effects of the medication. Mental Status Exam MSE Comments: This is an overweight older white male looking older than his stated age in hospital scrubs with adequate grooming and eye contact. No abnormal movements except for mild psychomotor retardation. Cooperative with exam in no acute distress. Speech was limited and decreased rate and volume. Mood described as I do not know. His affect was subdued and flat. Thought process was organized. Thought content: patient endorsed thoughts to hurt himself but denied homicidal ideation, there were no delusions reported or noted and he denied auditory or visual hallucinations currently. Attention and concentration appeared mostly intact and memory appeared mostly reliable but none were formally tested. He was alert and oriented to person and place. Insight and judgment appear limited at best and impulse control was limited versus impaired. Vitals/I&O/Wt Last Vital Signs Temp 98.7 F 07/05/23 14:00 Pulse 78 07/05/23 14:00 Resp 16 07/05/23 14:00 BP 111/77 07/05/23 14:00 Pulse Ox 96 07/05/23 14:00 O2 Del Method Room Air 07/05/23 14:00 Data NPU 06/30/23 12:41 06/30/23 12:41 A&P Assessment and plan (1) Schizoaffective disorder, depressive type: (2) Hypoxemia: (3) Substance use disorder: (4) Hypoxemia: (5) Pulmonary embolism: (6) Methamphetamine use disorder, severe: (7) Altered mental status: Plan This is a 57-year-old white male with a long history of addiction, and psychosis/altered mental status and possible cognitive decline who relapsed on methamphetamine and is actively using cannabis who presents with recent aggressive behaviors after his relapse. 1. Continue current medications. 2. Encourage, group and milieu therapies. 3. Continue every 15 minute checks for safety. 4. Encourage sober living treatment after discharge at the highest level of care to which he is willing to commit. 5. Patient did extremely poorly on his [employer] evaluation of living skills (MICKEY) 6. Given his poor functioning and diminished cognitive ability guardianship and likely placement is most appropriate intervention Involuntary Hold Information 96 Hour Hold: 96 Hour Involuntary Admission: No 96 Hour Hold Ending Date: 05/25/23 96 Hour Hold Ending Time: 19:20 Attestations NPU Medical Necessity Statement*: Inpatient hospitalization is medically necessary and the clinically appropriate intervention at this time. We will monitor medication to make changes as indicated. The patient's likely length of stay is 7-10 days. Coding Level of Care Code Acute Code for [facility] Fwd Diagnoses Schizoaffective disorder, depressive type F25.1 Hypoxemia R09.02 Substance use disorder F19.90 Pulmonary embolism I26.99 Methamphetamine use disorder, severe F15.20 Altered mental status R41.82
[2023-07-05] MEDS: risperiDONE 1 mg Tablet 2 MG PO ×2 (08:55→20:57)
[2023-07-05] MEDS: nicotine 4 mg lozenge MUCOUS MEM ×3 (08:55→19:22)
[2023-07-05 14:00] VITALS: BP 111/77; PULSE 78; RESP 16; TEMP 37.1; O2SAT 96
--- NOTE | 2023-07-05 18:39 | PC.NURSE ---
Room check completed with no contraband recovered.
[2023-07-05 19:40] VITALS: BP 108/75; PULSE 86; RESP 20; TEMP 37.1; O2SAT 98
[2023-07-05] MEDS: hyDROXYzine 25 mg Capsule 50 MG PO (20:56)
[2023-07-05] MEDS: trazodone 50 mg Tablet PO (20:56)
[2023-07-05] MEDS: prazosin 1 mg Capsule 2 MG PO (20:56)
[2023-07-05] MEDS: OLANZapine 5 mg ODT PO (20:56)
[2023-07-05] MEDS: propranolol 20 mg Tablet 10 MG PO (20:57)
[2023-07-06] MEDS: trazodone 50 mg Tablet PO ×2 (01:29→20:46)
[2023-07-06] MEDS: haloperidol 5 mg Tablet PO (01:29)
[2023-07-06] MEDS: OLANZapine 5 mg ODT PO ×2 (03:27→22:54)
[2023-07-06 05:18] VITALS: BP 96/59; PULSE 75; RESP 18; TEMP 36.9; O2SAT 96
[2023-07-06] MEDS: benztropine 1 mg Tablet PO ×2 (08:26→20:46)
[2023-07-06] MEDS: hyDROXYzine 25 mg Capsule 50 MG PO (08:26)
[2023-07-06] MEDS: buPROPion XL (24 HR) 300 mg Tablet PO (08:26)
[2023-07-06] MEDS: risperiDONE 1 mg Tablet 2 MG PO ×2 (08:26→20:46)
[2023-07-06] MEDS: nicotine 4 mg lozenge MUCOUS MEM (08:27)
[2023-07-06] MEDS: pantoprazole DR 40 mg Tablet PO (08:27)
[2023-07-06] MEDS: propranolol 20 mg Tablet 10 MG PO ×2 (08:27→20:46)
[2023-07-06] MEDS: buprenorphine-naloxone 4-1 mg Film 1 EACH SUBLINGUAL ×2 (08:27→20:46)
[2023-07-06] MEDS: BuSPIRONE 10 mg Tablet PO ×3 (08:27→20:46)
[2023-07-06] MEDS: topiramate 100 mg Tablet PO (08:27)
--- NOTE | 2023-07-06 08:30 | P.NPUPN_ITS ---
Subjective NPU 2 Subjective: Patient presented today reporting that he is doing okay and continues to be at baseline with limited participation and treatment at any significant cognitive level. He is confused as to what room he is and so we put at the side to try to remind him where he is so he does not wandered people's rooms like he did today. Otherwise we did explain to him the current plan and he seems to understand at times but other times is unclear as he just reports wanting to return to his previous residence. Mental Status Exam 2 MSE Comments: This is an overweight older white male looking older than his stated age in hospital scrubs with adequate grooming and eye contact. No abnormal movements except for mild psychomotor retardation. Cooperative with exam in no acute distress. Speech was limited and decreased rate and volume. Mood described as I do not know. His affect was subdued and flat. Thought process was organized. Thought content: patient endorsed thoughts to hurt himself but denied homicidal ideation, there were no delusions reported or noted and he denied auditory or visual hallucinations currently. Attention and concentration appeared mostly intact and memory appeared mostly reliable but none were formally tested. He was alert and oriented to person and place. Insight and judgment appear limited at best and impulse control was limited versus impaired. Vitals/I&O/Wt Last Vital Signs Temp 98.2 F 07/06/23 20:41 Pulse 81 07/06/23 20:41 Resp 16 07/06/23 20:41 BP 96/65 07/06/23 20:41 Pulse Ox 96 07/06/23 20:41 O2 Del Method Room Air 07/06/23 05:18 Data NPU 06/30/23 12:41 06/30/23 12:41 A&P Assessment and plan (1) Schizoaffective disorder, depressive type: (2) Hypoxemia: (3) Substance use disorder: (4) Hypoxemia: (5) Pulmonary embolism: (6) Methamphetamine use disorder, severe: (7) Altered mental status: Plan This is a 57-year-old white male with a long history of addiction, and psychosis/altered mental status and possible cognitive decline who relapsed on methamphetamine and is actively using cannabis who presents with recent aggressive behaviors after his relapse. 1. Continue current medications. 2. Encourage, group and milieu therapies. 3. Continue every 15 minute checks for safety. 4. Encourage sober living treatment after discharge at the highest level of care to which he is willing to commit. 5. Patient did extremely poorly on his Kohan evaluation of living skills (MICKEY) 6. Given his poor functioning and diminished cognitive ability guardianship and likely placement is most appropriate intervention 7. Working on completing interrogatories. Involuntary Hold Information 2 96 Hour Hold: 96 Hour Involuntary Admission: No 96 Hour Hold Ending Date: 0 05/25/23 96 Hour Hold Ending Time: 19:20 Attestations NPU 2 Medical Necessity Statement*: Inpatient hospitalization is medically necessary and the clinically appropriate intervention at this time. We will monitor medication to make changes as indicated. The patient's likely length of stay is 7-10 days. Coding Level of Care Code Acute Code for [facility] Fwd Diagnoses Schizoaffective disorder, depressive type F25.1 Hypoxemia R09.02 Substance use disorder F19.90 Pulmonary embolism I26.99 Methamphetamine use disorder, severe F15.20 Altered mental status R41.82
--- NOTE | 2023-07-06 08:39 | PC.NURSE ---
PT IS OBSERVED GOING INTO DIFFERENT ROOMS THIS MORNING, VERBALLY REDIRECTED MULTIPLE TIMES. PT IS NOTED TO BE CONFUSED WITH DISORGANIZED THOUGHT PROCESS WITH THE ABILITY TO BE AGITATED AT TIMES WHEN REDIRECTED. PT IS GUARDED WITH STAFF, SPEECH IS ANIMATED AND GARBLED AT TIMES. DENIES PAIN. DENIES SI/HI AT THIS TIME. ENDORSES AVH, STATES I HEAR VOICES AND SEE STUFF ALL THE TIME. RN ASKED IF IT WAS NEGATIVE PT STATED NO ALL QUESTIONS ANSWERED AND SUPPORT WAS VOICED.
[2023-07-06 14:00] VITALS: BP 127/80; PULSE 65; RESP 17; TEMP 36.4; O2SAT 98
--- NOTE | 2023-07-06 17:15 | PC.NURSE ---
Pt stripped down naked and entered a female room trying to take a shower he stated. Staff quickly entered the room and wrapped a blanket around the pt and ETL SOFTWARE ENGINEER along with PLANNING INTERN escorted pt to his room to get dressed. Pt was very confused and kept asking staff what did I do? Contacted Sami Loyd, NPU Pricing Manager and Dr. Jack, currently moving all female pt's to [facility] to have male and female pt's seperated.
[2023-07-06 20:41] VITALS: BP 96/65; PULSE 81; RESP 16; TEMP 36.8; O2SAT 96
[2023-07-06] MEDS: prazosin 1 mg Capsule 2 MG PO (20:46)
--- NOTE | 2023-07-07 03:56 | PC.NURSE ---
Patient Behavior Patient down in 170 area and removed all of his clothes. Security and male present to encourage him to get get re-dressed.
[2023-07-07 06:00] VITALS: BP 106/71; PULSE 65; RESP 16; O2SAT 96
[2023-07-07] MEDS: topiramate 100 mg Tablet PO (08:12)
[2023-07-07] MEDS: buPROPion XL (24 HR) 300 mg Tablet PO (08:12)
[2023-07-07] MEDS: pantoprazole DR 40 mg Tablet PO (08:12)
[2023-07-07] MEDS: risperiDONE 1 mg Tablet 2 MG PO ×2 (08:12→20:10)
[2023-07-07] MEDS: benztropine 1 mg Tablet PO ×2 (08:12→20:09)
[2023-07-07] MEDS: buprenorphine-naloxone 4-1 mg Film 1 EACH SUBLINGUAL ×2 (08:12→20:09)
[2023-07-07] MEDS: nicotine 4 mg lozenge MUCOUS MEM ×2 (08:12→20:09)
[2023-07-07] MEDS: BuSPIRONE 10 mg Tablet PO ×3 (08:12→20:10)
--- NOTE | 2023-07-07 13:15 | P.NPUPN_ITS ---
Subjective NPU 2 Subjective: Patient presented today reporting things are going well. However further conversation and demonstrated the confusion and lack of purpose in the conversation reported per staff and noted on direct observation. Patient continued to walk around the unit minus significant purpose but reported no resistance to the plan for guardianship and placement. He denied any problems with his medications. Mental Status Exam 2 MSE Comments: This is an overweight older white male looking older than his stated age in hospital scrubs with adequate grooming and eye contact. No abnormal movements except for mild psychomotor retardation. Cooperative with exam in no acute distress. Speech was limited and decreased rate and volume. Mood described as OK. His affect was subdued and flat. Thought process was organized. Thought content: patient endorsed thoughts to hurt himself but denied homicidal ideation, there were no delusions reported or noted and he denied auditory or visual hallucinations currently. Attention and concentration appeared mostly intact and memory appeared mostly reliable but none were formally tested. He was alert and oriented to person and place. Insight and judgment appear limited at best and impulse control was limited versus impaired. Vitals/I&O/Wt Last Vital Signs Temp 98.2 F 07/06/23 20:41 Pulse 65 07/07/23 06:00 Resp 16 07/07/23 06:00 BP 106/71 07/07/23 06:00 Pulse Ox 96 07/07/23 06:00 O2 Del Method Room Air 07/06/23 05:18 Data NPU 06/30/23 12:41 06/30/23 12:41 A&P Assessment and plan (1) Schizoaffective disorder, depressive type: (2) Hypoxemia: (3) Substance use disorder: (4) Hypoxemia: (5) Pulmonary embolism: (6) Methamphetamine use disorder, severe: (7) Altered mental status: Plan This is a 57-year-old white male with a long history of addiction, and psychosis/altered mental status and possible cognitive decline who relapsed on methamphetamine and is actively using cannabis who presents with recent aggressive behaviors after his relapse. 1. Continue current medications. 2. Encourage, group and milieu therapies. 3. Continue every 15 minute checks for safety. 4. Encourage sober living treatment after discharge at the highest level of care to which he is willing to commit. 5. Patient did extremely poorly on his Kohan evaluation of living skills (MICKEY) 6. Given his poor functioning and diminished cognitive ability guardianship and likely placement is most appropriate intervention 7. Working on completing interrogatories. Involuntary Hold Information 2 96 Hour Hold: 96 Hour Involuntary Admission: No 96 Hour Hold Ending Date: 0 05/25/23 96 Hour Hold Ending Time: 19:20 Attestations NPU 2 Medical Necessity Statement*: Inpatient hospitalization is medically necessary and the clinically appropriate intervention at this time. We will monitor medication to make changes as indicated. The patient's likely length of stay is 7-10 days. Coding Level of Care Code Acute Code for [facility] Fwd Diagnoses Schizoaffective disorder, depressive type F25.1 Hypoxemia R09.02 Substance use disorder F19.90 Pulmonary embolism I26.99 Methamphetamine use disorder, severe F15.20 Altered mental status R41.82
[2023-07-07 14:00] VITALS: BP 94/59; PULSE 64; RESP 16; TEMP 36.7; O2SAT 97
[2023-07-07] MEDS: prazosin 1 mg Capsule 2 MG PO (20:09)
[2023-07-07] MEDS: trazodone 50 mg Tablet PO (20:10)
[2023-07-07] MEDS: propranolol 20 mg Tablet 10 MG PO (20:10)
[2023-07-07] MEDS: ziprasidone hcl 20 mg Capsule PO (20:52)
[2023-07-07 22:00] VITALS: BP 114/76; PULSE 69; RESP 17; TEMP 36.6; O2SAT 95
--- NOTE | 2023-07-07 23:50 | PC.NURSE ---
Patient behavior Patient continues to go in other patients rooms while they are sleeping. He tries the use bathrooms that he is not assigned to. Multiple attempts at redirecting patient for his safety. Name placed on door. Security spoke with patient.
[2023-07-08 06:00] VITALS: BP 132/81; PULSE 52; RESP 17; O2SAT 98
[2023-07-08] MEDS: risperiDONE 1 mg Tablet 2 MG PO ×2 (07:50→20:17)
[2023-07-08] MEDS: topiramate 100 mg Tablet PO (07:50)
[2023-07-08] MEDS: buPROPion XL (24 HR) 300 mg Tablet PO (07:50)
[2023-07-08] MEDS: buprenorphine-naloxone 4-1 mg Film 1 EACH SUBLINGUAL ×2 (07:50→20:17)
[2023-07-08] MEDS: pantoprazole DR 40 mg Tablet PO (07:50)
[2023-07-08] MEDS: benztropine 1 mg Tablet PO ×2 (07:51→20:17)
[2023-07-08] MEDS: methylphenidate 10 mg Tablet 5 MG PO ×2 (07:51→17:07)
[2023-07-08] MEDS: propranolol 20 mg Tablet 10 MG PO ×2 (07:51→20:17)
[2023-07-08] MEDS: BuSPIRONE 10 mg Tablet PO ×3 (07:51→20:17)
[2023-07-08] MEDS: OLANZapine 5 mg ODT PO (08:23)
[2023-07-08] MEDS: acetaminophen 325 mg Tablet 650 MG PO (08:38)
--- NOTE | 2023-07-08 10:02 | P.NPUPN_ITS ---
Subjective NPU 2 Subjective: Patient presented today reporting that he is doing okay. We discussed the risk benefits and alternatives of a trial of Ritalin 5 mg p.o. twice daily for executive functioning and he seemed to understand and agreed to proceed as is documented in this note. We discussed again considering a guardianship and may be having the lady that he lives with be his guardian given his challenging circumstances recently and poor functioning. He denied any side effects to medications. Mental Status Exam 2 MSE Comments: This is an overweight older white male looking older than his stated age in hospital scrubs with adequate grooming and eye contact. No abnormal movements except for mild psychomotor retardation. Cooperative with exam in no acute distress. Speech was limited and decreased rate and volume. Mood described as OK. His affect was subdued and flat. Thought process was organized. Thought content: patient endorsed thoughts to hurt himself but denied homicidal ideation, there were no delusions reported or noted and he denied auditory or visual hallucinations currently. Attention and concentration appeared mostly intact and memory appeared mostly reliable but none were formally tested. He was alert and oriented to person and place. Insight and judgment appear limited at best and impulse control was limited versus impaired. Vitals/I&O/Wt Last Vital Signs Temp 97.8 F 07/07/23 22:00 Pulse 52 L 07/08/23 06:00 Resp 17 07/08/23 06:00 BP 132/81 07/08/23 06:00 Pulse Ox 98 07/08/23 06:00 O2 Del Method Room Air 07/06/23 05:18 Data NPU 06/30/23 12:41 06/30/23 12:41 A&P Assessment and plan (1) Schizoaffective disorder, depressive type: (2) Hypoxemia: (3) Substance use disorder: (4) Hypoxemia: (5) Pulmonary embolism: (6) Methamphetamine use disorder, severe: (7) Altered mental status: Plan This is a 57-year-old white male with a long history of addiction, and psychosis/altered mental status and possible cognitive decline who relapsed on methamphetamine and is actively using cannabis who presents with recent aggressive behaviors after his relapse. 1. Continue current medications. Start a trial of Ritalin 5 mg p.o. twice daily. 2. Encourage, group and milieu therapies. 3. Continue every 15 minute checks for safety. 4. Encourage sober living treatment after discharge at the highest level of care to which he is willing to commit. 5. Patient did extremely poorly on his Kohan evaluation of living skills (MICKEY) 6. Given his poor functioning and diminished cognitive ability guardianship and likely placement is most appropriate intervention 7. Interrogatories for guardianship have been completed. Involuntary Hold Information 2 96 Hour Hold: 96 Hour Involuntary Admission: No 96 Hour Hold Ending Date: 0 05/25/23 96 Hour Hold Ending Time: 19:20 Attestations NPU 2 Medical Necessity Statement*: Inpatient hospitalization is medically necessary and the clinically appropriate intervention at this time. We will monitor medication to make changes as indicated. The patient's likely length of stay is 7-10 days. Coding Level of Care Code Acute Code for [facility] Fwd Diagnoses Schizoaffective disorder, depressive type F25.1 Hypoxemia R09.02 Substance use disorder F19.90 Pulmonary embolism I26.99 Methamphetamine use disorder, severe F15.20 Altered mental status R41.82
[2023-07-08] MEDS: nicotine 4 mg lozenge MUCOUS MEM ×2 (13:14→14:53)
[2023-07-08 14:00] VITALS: BP 98/67; PULSE 59; RESP 20; TEMP 36.8; O2SAT 97
[2023-07-08] MEDS: trazodone 50 mg Tablet PO ×2 (20:17→23:44)
[2023-07-08] MEDS: prazosin 1 mg Capsule 2 MG PO (20:17)
[2023-07-08] MEDS: ziprasidone hcl 20 mg Capsule PO (20:17)
[2023-07-08 20:21] VITALS: BP 105/71; PULSE 78; RESP 18; TEMP 36.6; O2SAT 95
[2023-07-08] MEDS: hyDROXYzine 25 mg Capsule 50 MG PO (23:44)
[2023-07-09 06:00] VITALS: BP 114/73; PULSE 64; RESP 18; O2SAT 98
[2023-07-09] MEDS: nicotine 2 mg Gum BUCCAL ×2 (06:44→21:21)
[2023-07-09] MEDS: risperiDONE 1 mg Tablet 2 MG PO ×2 (08:36→20:31)
[2023-07-09] MEDS: sennosides-docusate Tablet 1 TAB PO (08:36)
[2023-07-09] MEDS: topiramate 100 mg Tablet PO (08:36)
[2023-07-09] MEDS: haloperidol 5 mg Tablet PO (08:37)
[2023-07-09] MEDS: pantoprazole DR 40 mg Tablet PO (08:37)
[2023-07-09] MEDS: buPROPion XL (24 HR) 300 mg Tablet PO (08:37)
[2023-07-09] MEDS: BuSPIRONE 10 mg Tablet PO ×3 (08:37→20:30)
[2023-07-09] MEDS: ibuprofen 600 mg Tablet PO ×2 (08:37→21:26)
[2023-07-09] MEDS: buprenorphine-naloxone 4-1 mg Film 1 EACH SUBLINGUAL ×2 (08:37→20:30)
[2023-07-09] MEDS: methylphenidate 10 mg Tablet 5 MG PO ×2 (08:37→15:08)
[2023-07-09] MEDS: propranolol 20 mg Tablet 10 MG PO ×2 (08:37→15:07)
[2023-07-09] MEDS: benztropine 1 mg Tablet PO ×2 (08:42→20:30)
--- NOTE | 2023-07-09 09:44 | PC.NURSE ---
CONTINUES TO BE OBSERVED PACING HALLS AND TRYING TO EXCESSIVELY CLEAN THE NURSES STATION, DESPITE PT HAS BEEN EDUCATED THAT THE AREA HAS BEEN CLEANED. SHORT TERM MEMORY ISSUES CONTINUE. SPEECH IS EXCESSIVE AND PT RAMBLINGS AT THE NURSES STATION BEING INTRUSIVE AND WILL NOT LEAVE FOR ANY LONG PERIOD EXCEPT TO GET SOMETHING ELSE TO CLEAN WITH. DENIES SI/HI AND AVH AT THIS TIME. RATES DEPRESSION 10/10 AND ANXIETY 150/10. HALDOL 5MG WAS GIVEN FOR ANXIETY AND AGITATION ORDERED. ONE TO ONE OBSERVATION IS CONTINUED TO TO PTS IMPULSIVE NATURE AND WANDERING INTO OTHER PT ROOMS. PT IS ABLE TO BE REDIRECTED BUT FORGETS AND WILL CONTINUE THE SAME BEHAVIORS RESULTING IN STAFF REDIRECTING CONSTANTLY. REPORTS PAIN IN BACK 4/10 TYLENOL 650 MG WAS GIVEN ORDERED FOR PAIN. REPORTED TO RN THAT HE HAD NOT HAD A BM FOR SEVERAL DAYS. BS ACTIVE TIMES 4 IN ALL QUADRANTS. NEW ORDER RECEIVED FOR SENNA 1 TAB BID PRN CONSTIPATION. ALL QUESTIONS ANSWERED AND SUPPORT VOICED. PT IS PLEASANTLY CONFUSED AND HAS SHOWN NO AGGRESSION TOWARDS STAFF.
--- NOTE | 2023-07-09 12:35 | W.PM.NPUPNS ---
Subjective NPU Subjective: Patient presented today reporting that he is doing fine. He seems to be able to have more robust communication with the addition of the methylphenidate. However he continues to have conversations underlying his confusion especially later in the day. He continues to be on the 1 seems to be effective in keeping him from wandering per staff reports and direct observation. Otherwise he denies any issues and seems to understand the plan for guardianship and placement and denied any side effects to the medications. Mental Status Exam MSE Comments: This is an overweight older white male looking older than his stated age in hospital scrubs with adequate grooming and eye contact. No abnormal movements except for mild psychomotor retardation. Cooperative with exam in no acute distress. Speech was limited and decreased rate and volume. Mood described as OK. His affect was subdued and flat. Thought process was organized. Thought content: patient endorsed thoughts to hurt himself but denied homicidal ideation, there were no delusions reported or noted and he denied auditory or visual hallucinations currently. Attention and concentration appeared mostly intact and memory appeared mostly reliable but none were formally tested. He was alert and oriented to person and place. Insight and judgment appear limited at best and impulse control was limited versus impaired. Vitals/I&O/Wt Last Vital Signs Temp 98 F 07/08/23 20:21 Pulse 64 07/09/23 06:00 Resp 18 07/09/23 06:00 BP 114/73 07/09/23 06:00 Pulse Ox 98 07/09/23 06:00 O2 Del Method Room Air 07/09/23 06:00 Data NPU 06/30/23 12:41 06/30/23 12:41 A&P Assessment and plan (1) Schizoaffective disorder, depressive type: (2) Hypoxemia: (3) Substance use disorder: (4) Hypoxemia: (5) Pulmonary embolism: (6) Methamphetamine use disorder, severe: (7) Altered mental status: Plan This is a 57-year-old white male with a long history of addiction, and psychosis/altered mental status and possible cognitive decline who relapsed on methamphetamine and is actively using cannabis who presents with recent aggressive behaviors after his relapse. 1. Continue current medications. Start a trial of Ritalin 5 mg p.o. twice daily. 2. Encourage, group and milieu therapies. 3. Continue every 15 minute checks for safety. 4. Encourage sober living treatment after discharge at the highest level of care to which he is willing to commit. 5. Patient did extremely poorly on his Kohan evaluation of living skills (MICKEY) 6. Given his poor functioning and diminished cognitive ability guardianship and likely placement is most appropriate intervention 7. Interrogatories for guardianship have been completed. Involuntary Hold Information 96 Hour Hold: 96 Hour Involuntary Admission: No 96 Hour Hold Ending Date: 05/25/23 96 Hour Hold Ending Time: 19:20 Attestations NPU Medical Necessity Statement*: Inpatient hospitalization is medically necessary and the clinically appropriate intervention at this time. We will monitor medication to make changes as indicated. The patient's likely length of stay is 7-10 days. Coding Level of Care Code Acute Code for [facility] Fwd Diagnoses Schizoaffective disorder, depressive type F25.1 Hypoxemia R09.02 Substance use disorder F19.90 Pulmonary embolism I26.99 Methamphetamine use disorder, severe F15.20 Altered mental status R41.82
[2023-07-09 13:31] VITALS: BP 114/72; PULSE 59; RESP 16; TEMP 36.6; O2SAT 97
[2023-07-09] MEDS: nicotine 4 mg lozenge MUCOUS MEM (13:37)
[2023-07-09] MEDS: OLANZapine 5 mg ODT PO (15:08)
[2023-07-09] MEDS: hyDROXYzine 25 mg Capsule 50 MG PO (17:13)
[2023-07-09] MEDS: acetaminophen 325 mg Tablet 650 MG PO (17:13)
--- NOTE | 2023-07-09 18:51 | PC.NURSE ---
PT HAS RECEIVED PROPANOLOL 10 MG TIMES 2, HALDOL 5 MG AND VISTARIL 50 MG FOR INCREASED ANXIETY. PT HAS BEEN INCREASINGLY AGITATED AND RESTLESS THIS SHIFT. DR. COOL WAS NOTIFIED OF PT BEING SHORT TEMPERED MORE THAN USUAL. SUPPORT VOICED.
[2023-07-09 20:29] VITALS: BP 109/70; PULSE 61; RESP 18; TEMP 37.5; O2SAT 97
[2023-07-09] MEDS: prazosin 1 mg Capsule 2 MG PO (20:31)
[2023-07-09] MEDS: ziprasidone hcl 20 mg Capsule PO (20:31)
[2023-07-10 06:00] VITALS: BP 119/77; PULSE 64; RESP 18; TEMP 37.2; O2SAT 98
[2023-07-10] MEDS: methylphenidate 10 mg Tablet 5 MG PO ×2 (08:35→14:21)
[2023-07-10] MEDS: benztropine 1 mg Tablet PO ×2 (08:35→20:49)
[2023-07-10] MEDS: buPROPion XL (24 HR) 300 mg Tablet PO (08:35)
[2023-07-10] MEDS: BuSPIRONE 10 mg Tablet PO ×3 (08:36→20:49)
[2023-07-10] MEDS: pantoprazole DR 40 mg Tablet PO (08:36)
[2023-07-10] MEDS: nicotine 4 mg lozenge MUCOUS MEM (08:36)
[2023-07-10] MEDS: buprenorphine-naloxone 4-1 mg Film 1 EACH SUBLINGUAL ×2 (08:36→20:49)
[2023-07-10] MEDS: topiramate 100 mg Tablet PO (08:36)
[2023-07-10] MEDS: risperiDONE 1 mg Tablet 2 MG PO ×2 (08:36→20:49)
[2023-07-10] MEDS: nicotine 2 mg Gum BUCCAL ×4 (10:36→19:41)
--- NOTE | 2023-07-10 10:38 | PC.NURSE ---
PT CURRENTLY DENIES AH. PT CURRENTLY DENIES ANXIETY. PT CURRENTLY ENDORSES SI STATING YES, I DON'T KNOW I JUST AM. PT DOES NOT HAVE A CLEAR PLAN AT THIS TIME. PT ENDORSES HI STATING THAT HE DOES NOT HAVE ANYBODY SPECIFICALLY JUST FEELS LIKE HE COULD HURT SOMEONE. PT ENDORSES DEPRESSION BUT IS UNCLEAR OF THE RATING OR REASON. PT WAS COOPERATIVE WITH ASSESSMENT AND MEDICATIONS. PT CURRENT NEEDS ARE MET AT THIS TIME.
[2023-07-10] MEDS: hyDROXYzine 25 mg Capsule 50 MG PO ×2 (10:56→18:37)
[2023-07-10 13:56] VITALS: BP 109/70; PULSE 70; RESP 16; TEMP 36.6; O2SAT 96
--- NOTE | 2023-07-10 18:04 | P.NPUPN_ITS ---
Subjective NPU 2 Subjective: Patient presented today reporting that he is doing fine. He is doing much better in the one-to-one setting and is being more communicative but still having moments of extreme confusion. Moments that he is talking about things that are not even plausible. He does seem to understand that we are working on guardianship and placement. He denied any side effects to the medication. Mental Status Exam 2 MSE Comments: This is an overweight older white male looking older than his stated age in hospital scrubs with adequate grooming and eye contact. No abnormal movements except for mild psychomotor retardation. Cooperative with exam in no acute distress. Speech was limited and decreased rate and volume. Mood described as OK. His affect was subdued and flat. Thought process was organized. Thought content: patient endorsed thoughts to hurt himself but denied homicidal ideation, there were no delusions reported or noted and he denied auditory or visual hallucinations currently. Attention and concentration appeared mostly intact and memory appeared mostly reliable but none were formally tested. He was alert and oriented to person and place. Insight and judgment appear limited at best and impulse control was limited versus impaired. Vitals/I&O/Wt Last Vital Signs Temp 98.6 F 07/10/23 20:52 Pulse 71 07/10/23 20:52 Resp 16 07/10/23 20:52 BP 99/69 07/10/23 20:52 Pulse Ox 97 07/10/23 20:52 O2 Del Method Room Air 07/10/23 06:00 Weight last 48 hrs Weight 77.111 kg Data NPU 06/30/23 12:41 06/30/23 12:41 A&P Assessment and plan (1) Schizoaffective disorder, depressive type: (2) Hypoxemia: (3) Substance use disorder: (4) Hypoxemia: (5) Pulmonary embolism: (6) Methamphetamine use disorder, severe: (7) Altered mental status: Plan This is a 57-year-old white male with a long history of addiction, and psychosis/altered mental status and possible cognitive decline who relapsed on methamphetamine and is actively using cannabis who presents with recent aggressive behaviors after his relapse. 1. Continue current medications. Start a trial of Ritalin 5 mg p.o. twice daily. 2. Encourage, group and milieu therapies. 3. Continue on one-to-one for wandering behavior. Initiated 07/08/2023. 4. Encourage sober living treatment after discharge at the highest level of care to which he is willing to commit. 5. Patient did extremely poorly on his Kohan evaluation of living skills (MICKEY) 6. Given his poor functioning and diminished cognitive ability guardianship and likely placement is most appropriate intervention 7. Interrogatories for guardianship have been completed. Involuntary Hold Information 2 96 Hour Hold: 96 Hour Involuntary Admission: No 96 Hour Hold Ending Date: 0 05/25/23 96 Hour Hold Ending Time: 19:20 Attestations NPU 2 Medical Necessity Statement*: Inpatient hospitalization is medically necessary and the clinically appropriate intervention at this time. We will monitor medication to make changes as indicated. The patient's likely length of stay is 7-10 days. Coding Level of Care Code Acute Code for [facility] Fwd Diagnoses Schizoaffective disorder, depressive type F25.1 Hypoxemia R09.02 Substance use disorder F19.90 Pulmonary embolism I26.99 Methamphetamine use disorder, severe F15.20 Altered mental status R41.82
[2023-07-10] MEDS: trazodone 50 mg Tablet PO (20:48)
[2023-07-10] MEDS: propranolol 20 mg Tablet 10 MG PO (20:48)
[2023-07-10] MEDS: prazosin 1 mg Capsule 2 MG PO (20:49)
[2023-07-10 20:52] VITALS: BP 99/69; PULSE 71; RESP 18; TEMP 37; O2SAT 97
[2023-07-10] MEDS: ziprasidone hcl 20 mg Capsule PO (21:54)
[2023-07-10] MEDS: acetaminophen 325 mg Tablet 650 MG PO (22:12)
[2023-07-10] MEDS: OLANZapine 5 mg ODT PO (23:51)
[2023-07-11] MEDS: ibuprofen 600 mg Tablet PO ×3 (00:25→20:28)
[2023-07-11] MEDS: trazodone 50 mg Tablet PO ×2 (02:23→20:28)
[2023-07-11] MEDS: haloperidol 5 mg Tablet PO (02:23)
[2023-07-11 06:00] VITALS: RESP 16
--- NOTE | 2023-07-11 06:37 | PC.NURSE ---
pt has only been to sleep for 2 hour this shift. Charge Nurse didn't want pt woke up for vital signs. Respiration Rate 16
--- NOTE | 2023-07-11 07:11 | W.PM.NPUPNS ---
Subjective NPU Subjective: Patient presented today reporting that he is doing okay. He continues to seem more productive with his speech per staff report and direct observation since the initiation of methylphenidate. He continues however to have strange commentary that does not seem to have anything to do with anything and moments of confusion. We continue to address with him that we will discontinue the one-to-one once we see more predictable behavior. We discussed the possibility of increasing his methylphenidate soon. Otherwise he denied any side effects to medications. Mental Status Exam MSE Comments: This is an overweight older white male looking older than his stated age in hospital scrubs with adequate grooming and eye contact. No abnormal movements except for mild psychomotor retardation. Cooperative with exam in no acute distress. Speech was limited and decreased rate and volume. Mood described as fine. His affect was subdued and flat. Thought process was organized. Thought content: patient endorsed thoughts to hurt himself but denied homicidal ideation, there were no delusions reported or noted and he denied auditory or visual hallucinations currently. Attention and concentration appeared mostly intact and memory appeared mostly reliable but none were formally tested. He was alert and oriented to person and place. Insight and judgment appear limited at best and impulse control was limited versus impaired. Vitals/I&O/Wt Last Vital Signs Temp 98.6 F 07/10/23 20:52 Pulse 71 07/10/23 20:52 Resp 16 07/11/23 06:00 BP 99/69 07/10/23 20:52 Pulse Ox 97 07/10/23 20:52 O2 Del Method Room Air 07/10/23 06:00 Weight last 48 hrs Weight 77.111 kg Data NPU 06/30/23 12:41 06/30/23 12:41 A&P Assessment and plan (1) Schizoaffective disorder, depressive type: (2) Hypoxemia: (3) Substance use disorder: (4) Hypoxemia: (5) Pulmonary embolism: (6) Methamphetamine use disorder, severe: (7) Altered mental status: Plan This is a 57-year-old white male with a long history of addiction, and psychosis/altered mental status and possible cognitive decline who relapsed on methamphetamine and is actively using cannabis who presents with recent aggressive behaviors after his relapse. 1. Continue current medications. Started a trial of Ritalin 5 mg p.o. twice daily. Will consider increasing in a few days. 2. Encourage, group and milieu therapies. 3. Continue on one-to-one for wandering behavior. Initiated 07/08/2023. 4. Encourage sober living treatment after discharge at the highest level of care to which he is willing to commit. 5. Patient did extremely poorly on his Kohan evaluation of living skills (MICKEY) 6. Given his poor functioning and diminished cognitive ability guardianship and likely placement is most appropriate intervention 7. Interrogatories for guardianship have been completed. Finishing level 2 paperwork today. Involuntary Hold Information 96 Hour Hold: 96 Hour Involuntary Admission: No 96 Hour Hold Ending Date: 05/25/23 96 Hour Hold Ending Time: 19:20 Attestations NPU Medical Necessity Statement*: Inpatient hospitalization is medically necessary and the clinically appropriate intervention at this time. We will monitor medication to make changes as indicated. The patient's likely length of stay is 7-10 days. Coding Level of Care Code Acute Code for [facility] Diagnoses Schizoaffective disorder, depressive type F25.1 Hypoxemia R09.02 Substance use disorder F19.90 Pulmonary embolism I26.99 Methamphetamine use disorder, severe F15.20 Altered mental status R41.82
[2023-07-11] MEDS: buprenorphine-naloxone 4-1 mg Film 1 EACH SUBLINGUAL ×2 (08:30→21:40)
[2023-07-11] MEDS: benztropine 1 mg Tablet PO ×2 (08:30→21:40)
[2023-07-11] MEDS: risperiDONE 1 mg Tablet 2 MG PO ×2 (08:30→21:40)
[2023-07-11] MEDS: BuSPIRONE 10 mg Tablet PO ×3 (08:30→20:28)
[2023-07-11] MEDS: methylphenidate 10 mg Tablet 5 MG PO ×2 (08:30→15:52)
[2023-07-11] MEDS: pantoprazole DR 40 mg Tablet PO (08:30)
[2023-07-11] MEDS: topiramate 100 mg Tablet PO (08:30)
[2023-07-11] MEDS: buPROPion XL (24 HR) 300 mg Tablet PO (08:30)
[2023-07-11] MEDS: hyDROXYzine 25 mg Capsule 50 MG PO ×2 (08:51→20:28)
[2023-07-11] MEDS: nicotine 4 mg lozenge MUCOUS MEM ×3 (11:43→20:28)
[2023-07-11 14:00] VITALS: BP 103/67; PULSE 77; RESP 16; TEMP 37; O2SAT 96
[2023-07-11 19:33] VITALS: BP 110/75; PULSE 84; RESP 20; TEMP 36.9; O2SAT 96
[2023-07-11] MEDS: OLANZapine 5 mg ODT PO (20:28)
[2023-07-11] MEDS: propranolol 20 mg Tablet 10 MG PO (20:28)
[2023-07-11] MEDS: quetiapine 100 mg Tablet PO (20:29)
[2023-07-11] MEDS: prazosin 1 mg Capsule 2 MG PO (21:40)
[2023-07-12 06:00] VITALS: RESP 16
--- NOTE | 2023-07-12 06:34 | PC.NURSE ---
pt has not slept in 3 days. Charge Nurse did not want woke up. Respiration Rate 16.
[2023-07-12] MEDS: nicotine 4 mg lozenge MUCOUS MEM ×4 (07:32→21:01)
[2023-07-12] MEDS: benztropine 1 mg Tablet PO ×3 (08:08→21:01)
[2023-07-12] MEDS: risperiDONE 1 mg Tablet 2 MG PO ×2 (08:08→21:02)
[2023-07-12] MEDS: buprenorphine-naloxone 4-1 mg Film 1 EACH SUBLINGUAL ×2 (08:08→21:00)
[2023-07-12] MEDS: sennosides-docusate Tablet 1 TAB PO ×2 (08:08→21:01)
[2023-07-12] MEDS: pantoprazole DR 40 mg Tablet PO (08:08)
[2023-07-12] MEDS: methylphenidate 10 mg Tablet PO (08:08)
[2023-07-12] MEDS: buPROPion XL (24 HR) 300 mg Tablet PO (08:08)
[2023-07-12] MEDS: BuSPIRONE 10 mg Tablet PO ×3 (08:08→21:03)
[2023-07-12] MEDS: topiramate 100 mg Tablet PO (08:08)
[2023-07-12] MEDS: acetaminophen 325 mg Tablet 650 MG PO (13:56)
[2023-07-12 14:00] VITALS: BP 118/68; PULSE 88; RESP 20; TEMP 36.6; O2SAT 97
--- NOTE | 2023-07-12 14:46 | P.NPUPN_ITS ---
Subjective NPU 2 Subjective: Patient presented today continuing to report that he is doing all right. He continues to have moments of productive speech that is goal-directed and effective but generally that is juxtaposed very quickly by confusing talk that seems to have no relevance or even sense of why that subject matter is brought to the conversation. Otherwise he denies any side effects of the medication and reports that he did sleep better last night with the medication which is confirmed by staff as well. He denied any specific side effects of the medications. Mental Status Exam 2 MSE Comments: This is an overweight older white male looking older than his stated age in hospital scrubs with adequate grooming and eye contact. No abnormal movements except for mild psychomotor retardation. Cooperative with exam in no acute distress. Speech was limited and decreased rate and volume. Mood described as fine. His affect was subdued and flat. Thought process was organized. Thought content: patient denied suicidal or homicidal ideation, there were no delusions reported or noted and he denied auditory or visual hallucinations currently. Attention and concentration appeared mostly intact and memory appeared mostly reliable but none were formally tested. He was alert and oriented to person and place. Insight and judgment appear limited at best and impulse control was limited versus impaired. Vitals/I&O/Wt Last Vital Signs Temp 98.4 F 07/11/23 19:33 Pulse 84 07/11/23 19:33 Resp 16 07/12/23 06:00 BP 110/75 07/11/23 19:33 Pulse Ox 96 07/11/23 19:33 O2 Del Method Room Air 07/11/23 19:33 Data NPU 06/30/23 12:41 06/30/23 12:41 A&P Assessment and plan (1) Schizoaffective disorder, depressive type: (2) Hypoxemia: (3) Substance use disorder: (4) Hypoxemia: (5) Pulmonary embolism: (6) Methamphetamine use disorder, severe: (7) Altered mental status: Plan This is a 57-year-old white male with a long history of addiction, and psychosis/altered mental status and possible cognitive decline who relapsed on methamphetamine and is actively using cannabis who presents with recent aggressive behaviors after his relapse. 1. Continue current medications. Started a trial of Ritalin 5 mg p.o. twice daily. Change Ritalin to 10 mg p.o. every morning eliminating the later dose and added Seroquel 100 mg p.o. nightly for continued insomnia. 2. Encourage, group and milieu therapies. 3. Continue on one-to-one for wandering behavior. Initiated 07/08/2023. Will attempt to take off one-to-one today and monitor for management on every 15 minute checks. 4. Encourage sober living treatment after discharge at the highest level of care to which he is willing to commit. 5. Patient did extremely poorly on his Kohan evaluation of living skills (MICKEY) 6. Given his poor functioning and diminished cognitive ability guardianship and likely placement is most appropriate intervention 7. Interrogatories for guardianship have been completed. Finished level 2 paperwork and guardianship was supposed to be submitted today. Facility has already excepted him and so we just need to await the process. Involuntary Hold Information 2 96 Hour Hold: 96 Hour Involuntary Admission: No 96 Hour Hold Ending Date: 0 05/25/23 96 Hour Hold Ending Time: 19:20 Attestations NPU 2 Medical Necessity Statement*: Inpatient hospitalization is medically necessary and the clinically appropriate intervention at this time. We will monitor medication to make changes as indicated. The patient's likely length of stay is 7-10 days. Coding Level of Care Code Acute Code for [facility] Fwd Diagnoses Schizoaffective disorder, depressive type F25.1 Hypoxemia R09.02 Substance use disorder F19.90 Pulmonary embolism I26.99 Methamphetamine use disorder, severe F15.20 Altered mental status R41.82
[2023-07-12] MEDS: haloperidol 5 mg Tablet PO ×2 (17:19→22:26)
[2023-07-12] MEDS: hyDROXYzine 25 mg Capsule 50 MG PO ×2 (17:19→22:26)
[2023-07-12 20:00] VITALS: BP 113/59; PULSE 76; RESP 17; TEMP 37.4; O2SAT 95
[2023-07-12] MEDS: OLANZapine 5 mg ODT PO (21:00)
[2023-07-12] MEDS: prazosin 1 mg Capsule 2 MG PO (21:00)
[2023-07-12] MEDS: trazodone 50 mg Tablet PO ×2 (21:01→22:26)
[2023-07-12] MEDS: ibuprofen 600 mg Tablet PO (21:02)
[2023-07-12] MEDS: quetiapine 100 mg Tablet PO (21:03)
[2023-07-13] MEDS: hyDROXYzine 25 mg Capsule 50 MG PO ×2 (03:36→21:35)
[2023-07-13] MEDS: OLANZapine 5 mg ODT PO ×3 (03:36→21:35)
[2023-07-13 06:00] VITALS: RESP 17
[2023-07-13] MEDS: buprenorphine-naloxone 4-1 mg Film 1 EACH SUBLINGUAL ×2 (08:34→21:37)
[2023-07-13] MEDS: risperiDONE 1 mg Tablet 2 MG PO ×2 (08:34→21:35)
[2023-07-13] MEDS: buPROPion XL (24 HR) 300 mg Tablet PO (08:34)
[2023-07-13] MEDS: topiramate 100 mg Tablet PO (08:35)
[2023-07-13] MEDS: benztropine 1 mg Tablet PO ×2 (08:35→21:36)
[2023-07-13] MEDS: propranolol 20 mg Tablet 10 MG PO (08:35)
[2023-07-13] MEDS: acetaminophen 325 mg Tablet 650 MG PO (08:35)
[2023-07-13] MEDS: methylphenidate 10 mg Tablet PO (08:36)
[2023-07-13] MEDS: sennosides-docusate Tablet 1 TAB PO (08:36)
[2023-07-13] MEDS: BuSPIRONE 10 mg Tablet PO ×3 (08:36→21:36)
[2023-07-13] MEDS: pantoprazole DR 40 mg Tablet PO (08:36)
[2023-07-13] MEDS: nicotine 4 mg lozenge MUCOUS MEM ×4 (08:36→21:37)
--- NOTE | 2023-07-13 08:54 | PC.NURSE ---
CONTINUES TO HAVE BOUTS OF CONFUSION, WANDERS HALLS AND IS VERY INTRUSIVE AT THE NURSES STATION. PT REDIRECTED VERBALLY, BUT CONTINUES TO NEED CONSTANT REDIRECTION. DENIES SI/HI AND AVH AT THIS TIME. RATES BACK PAIN 8/10, MED NURSE TO GIVE MEDS. RATES ANXIETY AND DEPRESSION 8/10. MED NURSE NOTIFIED TO GIVE ANTI-ANXIETY MEDS ORDERED. PT IS IMPULSIVE AND OBSERVED BEING HYPER FOCUSED ON NURSING STAFF AND ASKIN BIZARRE QUESTIONS. ALL QUESTIONS ANSWERED AND SUPPORT VOICED.
[2023-07-13 14:00] VITALS: BP 132/87; PULSE 64; RESP 20; TEMP 36.8; O2SAT 95
--- NOTE | 2023-07-13 19:49 | P.NPUPN_ITS ---
Subjective NPU 2 Subjective: Patient presented today reporting that he is doing fine but continues to have moments of confusion and often speaking in sentences with good syntax but lacking any clarity about the point or what brought about the thoughts being discussed. We discussed the fact that we have identified a place that we will accept him once the guardianship process is complete but that we have no power over with [facility] to remove the hearing along. We discussed that we will called him and explained that any consideration would be appreciated given that that will not be the chain regulating step. He denied any side effects to medications. Mental Status Exam 2 MSE Comments: This is an overweight older white male looking older than his stated age in hospital scrubs with adequate grooming and eye contact. No abnormal movements except for mild psychomotor retardation. Cooperative with exam in no acute distress. Speech was limited and decreased rate and volume. Mood described as fine. His affect was subdued and flat. Thought process was organized. Thought content: patient denied suicidal or homicidal ideation, there were no delusions reported or noted and he denied auditory or visual hallucinations currently. Attention and concentration appeared mostly intact and memory appeared mostly reliable but none were formally tested. He was alert and oriented to person and place. Insight and judgment appear limited at best and impulse control was limited versus impaired. Vitals/I&O/Wt Last Vital Signs Temp 98.3 F 07/13/23 14:00 Pulse 64 07/13/23 14:00 Resp 20 H 07/13/23 14:00 BP 132/87 07/13/23 14:00 Pulse Ox 95 07/13/23 14:00 O2 Del Method Room Air 07/11/23 19:33 Data NPU 06/30/23 12:41 06/30/23 12:41 A&P Assessment and plan (1) Schizoaffective disorder, depressive type: (2) Hypoxemia: (3) Substance use disorder: (4) Hypoxemia: (5) Pulmonary embolism: (6) Methamphetamine use disorder, severe: (7) Altered mental status: Plan This is a 57-year-old white male with a long history of addiction, and psychosis/altered mental status and possible cognitive decline who relapsed on methamphetamine and is actively using cannabis who presents with recent aggressive behaviors after his relapse. 1. Continue current medications. Started a trial of Ritalin 5 mg p.o. twice daily. Change Ritalin to 10 mg p.o. every morning eliminating the later dose and added Seroquel 100 mg p.o. nightly for continued insomnia and mood stabilization. Consider increasing Seroquel to 150 mg. 2. Encourage, group and milieu therapies. 3. Continue on one-to-one for wandering behavior. Initiated 07/08/2023. Will attempt to take off one-to-one today and monitor for management on every 15 minute checks. 4. Encourage sober living treatment after discharge at the highest level of care to which he is willing to commit. 5. Patient did extremely poorly on his Kohan evaluation of living skills (MICKEY) 6. Given his poor functioning and diminished cognitive ability guardianship and likely placement is most appropriate intervention 7. Interrogatories for guardianship have been completed. Finished level 2 paperwork and guardianship was supposed to be submitted today. Facility has already excepted him and so we just need to await the process. Involuntary Hold Information 2 96 Hour Hold: 96 Hour Involuntary Admission: No 96 Hour Hold Ending Date: 0 05/25/23 96 Hour Hold Ending Time: 19:20 Attestations NPU 2 Medical Necessity Statement*: Inpatient hospitalization is medically necessary and the clinically appropriate intervention at this time. We will monitor medication to make changes as indicated. The patient's likely length of stay is 7-10 days. Coding Level of Care Code Acute Code for [facility] Diagnoses Schizoaffective disorder, depressive type F25.1 Hypoxemia R09.02 Substance use disorder F19.90 Pulmonary embolism I26.99 Methamphetamine use disorder, severe F15.20 Altered mental status R41.82
[2023-07-13 20:21] VITALS: BP 130/80; PULSE 66; RESP 18; TEMP 37.1; O2SAT 94
[2023-07-13] MEDS: prazosin 1 mg Capsule 2 MG PO (21:35)
[2023-07-13] MEDS: ibuprofen 600 mg Tablet PO (21:36)
[2023-07-13] MEDS: trazodone 50 mg Tablet PO (21:36)
[2023-07-13] MEDS: quetiapine 300 mg Tablet 150 MG PO (21:37)
[2023-07-14 06:00] VITALS: RESP 16
[2023-07-14] MEDS: topiramate 100 mg Tablet PO (09:56)
[2023-07-14] MEDS: methylphenidate 10 mg Tablet PO (09:56)
[2023-07-14] MEDS: buPROPion XL (24 HR) 300 mg Tablet PO (09:56)
[2023-07-14] MEDS: pantoprazole DR 40 mg Tablet PO (09:57)
[2023-07-14] MEDS: acetaminophen 325 mg Tablet 650 MG PO (09:57)
[2023-07-14] MEDS: BuSPIRONE 10 mg Tablet PO ×3 (09:57→20:10)
[2023-07-14] MEDS: benztropine 1 mg Tablet PO ×2 (09:57→20:12)
[2023-07-14] MEDS: risperiDONE 1 mg Tablet 2 MG PO ×2 (10:00→20:11)
[2023-07-14] MEDS: ibuprofen 600 mg Tablet PO (12:23)
--- NOTE | 2023-07-14 13:53 | W.PM.NPUPNS ---
Subjective NPU Subjective: Patient presented today reporting that he is doing all right. We discussed the fact that we are working on some strategies to try to get him out of here sooner rather than later and collaborating with [facility] judicial and reiterated that he already has a place to go so he is just waiting on some Ts being crossed in i's dotted. He continues to be with significant spontaneous speech but with very limited clarity behind the words that he uses. He reportedly had somewhat better sleep and we continued to endorse a plan to help with his sleep in hopes that that will help with his mental acuity and clarity. Mental Status Exam MSE Comments: This is an overweight older white male looking older than his stated age in hospital scrubs with adequate grooming and eye contact. No abnormal movements except for mild psychomotor retardation. Cooperative with exam in no acute distress. Speech was limited and decreased rate and volume. Mood described as fine. His affect was subdued and flat. Thought process was organized. Thought content: patient denied suicidal or homicidal ideation, there were no delusions reported or noted and he denied auditory or visual hallucinations currently. Attention and concentration appeared mostly intact and memory appeared mostly reliable but none were formally tested. He was alert and oriented to person and place. Insight and judgment appear limited at best and impulse control was limited versus impaired. Vitals/I&O/Wt Last Vital Signs Temp 98.8 F 07/13/23 20:21 Pulse 66 07/13/23 20:21 Resp 16 07/14/23 06:00 BP 130/80 07/13/23 20:21 Pulse Ox 94 07/13/23 20:21 O2 Del Method Room Air 07/11/23 19:33 Data NPU 06/30/23 12:41 06/30/23 12:41 A&P Assessment and plan (1) Schizoaffective disorder, depressive type: (2) Hypoxemia: (3) Substance use disorder: (4) Hypoxemia: (5) Pulmonary embolism: (6) Methamphetamine use disorder, severe: (7) Altered mental status: Plan This is a 57-year-old white male with a long history of addiction, and psychosis/altered mental status and possible cognitive decline who relapsed on methamphetamine and is actively using cannabis who presents with recent aggressive behaviors after his relapse. 1. Continue current medications. Started a trial of Ritalin 5 mg p.o. twice daily. Change Ritalin to 10 mg p.o. every morning eliminating the later dose and added Seroquel 100 mg p.o. nightly for continued insomnia and mood stabilization. Increased Seroquel to 150 mg. 2. Encourage, group and milieu therapies. 3. Continue on one-to-one for wandering behavior. Initiated 07/08/2023. Will attempt to take off one-to-one today and monitor for management on every 15 minute checks. 4. Encourage sober living treatment after discharge at the highest level of care to which he is willing to commit. 5. Patient did extremely poorly on his [facility] evaluation of living skills (MICKEY) 6. Given his poor functioning and diminished cognitive ability guardianship and likely placement is most appropriate intervention 7. Interrogatories for guardianship have been completed. Finished level 2 paperwork and guardianship was supposed to be submitted today. Facility has already excepted him and so we just need to await the process. Involuntary Hold Information 96 Hour Hold: 96 Hour Involuntary Admission: No 96 Hour Hold Ending Date: 05/25/23 96 Hour Hold Ending Time: 19:20 Attestations NPU Medical Necessity Statement*: Inpatient hospitalization is medically necessary and the clinically appropriate intervention at this time. We will monitor medication to make changes as indicated. The patient's likely length of stay is 7-10 days. Coding Level of Care Code Acute Code for [facility] Fwd Diagnoses Schizoaffective disorder, depressive type F25.1 Hypoxemia R09.02 Substance use disorder F19.90 Pulmonary embolism I26.99 Methamphetamine use disorder, severe F15.20 Altered mental status R41.82
[2023-07-14 14:00] VITALS: BP 115/74; PULSE 62; RESP 16; TEMP 37.1; O2SAT 95
[2023-07-14] MEDS: nicotine 2 mg Gum BUCCAL ×2 (16:37→18:49)
[2023-07-14] MEDS: hyDROXYzine 25 mg Capsule 50 MG PO (17:04)
[2023-07-14] MEDS: OLANZapine 5 mg ODT PO (18:22)
[2023-07-14] MEDS: prazosin 1 mg Capsule 2 MG PO (20:10)
[2023-07-14] MEDS: propranolol 20 mg Tablet 10 MG PO (20:11)
[2023-07-14] MEDS: quetiapine 300 mg Tablet 150 MG PO (20:13)
[2023-07-14 20:59] VITALS: BP 129/84; PULSE 79; RESP 18; TEMP 36.7; O2SAT 95
[2023-07-15 06:00] VITALS: BP 122/82; PULSE 70; RESP 17; TEMP 36.7; O2SAT 95
[2023-07-15] MEDS: buPROPion XL (24 HR) 300 mg Tablet PO (07:20)
[2023-07-15] MEDS: methylphenidate 10 mg Tablet PO (07:20)
[2023-07-15] MEDS: acetaminophen 325 mg Tablet 650 MG PO ×3 (07:20→16:39)
[2023-07-15] MEDS: topiramate 100 mg Tablet PO (07:20)
[2023-07-15] MEDS: pantoprazole DR 40 mg Tablet PO (07:20)
[2023-07-15] MEDS: risperiDONE 1 mg Tablet 2 MG PO ×2 (07:21→20:07)
[2023-07-15] MEDS: benztropine 1 mg Tablet PO ×2 (07:23→20:07)
[2023-07-15 07:38] LABS: Glucose Point of Care 181 mg/dL (70-110)
[2023-07-15] MEDS: nicotine 4 mg lozenge MUCOUS MEM ×3 (09:22→17:44)
[2023-07-15] MEDS: propranolol 20 mg Tablet 10 MG PO (13:36)
[2023-07-15 14:00] VITALS: BP 125/81; PULSE 87; RESP 16; TEMP 37.7; O2SAT 99
--- NOTE | 2023-07-15 14:35 | P.NPUPN_ITS ---
Subjective NPU 2 Subjective: Patient presented today reporting being a bit frustrated. He identified that the facility change their mind and was not taking him today. He was frustrated by the news and continued to ramble a bit about different things that were related to that frustration but not using the exact words and there is normal confused state. He denied any side effects of the medication. Mental Status Exam 2 MSE Comments: This is an overweight older white male looking older than his stated age in hospital scrubs with adequate grooming and eye contact. No abnormal movements except for mild psychomotor retardation. Cooperative with exam in no acute distress. Speech was limited and decreased rate and volume. Mood described as fine. His affect was subdued and flat. Thought process was organized. Thought content: patient denied suicidal or homicidal ideation, there were no delusions reported or noted and he denied auditory or visual hallucinations currently. Attention and concentration appeared mostly intact and memory appeared mostly reliable but none were formally tested. He was alert and oriented to person and place. Insight and judgment appear limited at best and impulse control was limited versus impaired. Vitals/I&O/Wt Last Vital Signs Temp 99.8 F H 07/15/23 14:00 Pulse 87 07/15/23 14:00 Resp 16 07/15/23 14:00 BP 125/81 07/15/23 14:00 Pulse Ox 99 07/15/23 14:00 O2 Del Method Room Air 07/15/23 14:00 Data NPU 06/30/23 12:41 06/30/23 12:41 A&P Assessment and plan (1) Schizoaffective disorder, depressive type: (2) Hypoxemia: (3) Substance use disorder: (4) Hypoxemia: (5) Pulmonary embolism: (6) Methamphetamine use disorder, severe: (7) Altered mental status: Plan This is a 57-year-old white male with a long history of addiction, and psychosis/altered mental status and possible cognitive decline who relapsed on methamphetamine and is actively using cannabis who presents with recent aggressive behaviors after his relapse. 1. Continue current medications. Started a trial of Ritalin 5 mg p.o. twice daily. Change Ritalin to 10 mg p.o. every morning eliminating the later dose and added Seroquel 100 mg p.o. nightly for continued insomnia and mood stabilization. Increased Seroquel to 150 mg. 2. Encourage, group and milieu therapies. 3. Continue on one-to-one for wandering behavior. Initiated 07/08/2023. Switched to every 15 minute checks. 4. Encourage sober living treatment after discharge at the highest level of care to which he is willing to commit. 5. Patient did extremely poorly on his [employer] evaluation of living skills (MICKEY) 6. Given his poor functioning and diminished cognitive ability guardianship and likely placement is most appropriate intervention 7. Interrogatories for guardianship have been completed. Finished level 2 paperwork and guardianship was submitted. Facility has already excepted him and so we just need to await the process. Involuntary Hold Information 2 96 Hour Hold: 96 Hour Involuntary Admission: No 96 Hour Hold Ending Date: 0 05/25/23 96 Hour Hold Ending Time: 19:20 Attestations NPU 2 Medical Necessity Statement*: Inpatient hospitalization is medically necessary and the clinically appropriate intervention at this time. We will monitor medication to make changes as indicated. The patient's likely length of stay is 7-10 days. Coding Level of Care Code Acute Code for [facility] Diagnoses Schizoaffective disorder, depressive type F25.1 Hypoxemia R09.02 Substance use disorder F19.90 Pulmonary embolism I26.99 Methamphetamine use disorder, severe F15.20 Altered mental status R41.82
[2023-07-15] MEDS: BuSPIRONE 10 mg Tablet PO ×2 (14:47→20:06)
[2023-07-15] MEDS: ibuprofen 600 mg Tablet PO (15:01)
[2023-07-15] MEDS: hyDROXYzine 25 mg Capsule 50 MG PO (17:11)
[2023-07-15] MEDS: haloperidol 5 mg Tablet PO (18:19)
--- NOTE | 2023-07-15 18:20 | PC.NURSE ---
Patient reports intrusive thoughts, this nurse administered haldol 5mg PO. Patient states that he is in a funk
--- NOTE | 2023-07-15 18:48 | PC.NURSE ---
Patient took this nurse aside and stated that he wants to kill himself. Patient states that this is because his family is and he has no friends on the outside. This nurse asked if patient had any plan to act on this, patient denied any plan. Patient states that he is in a funk . Will continue to closely monitor patient.
[2023-07-15 20:04] VITALS: BP 138/78; PULSE 69; RESP 18; TEMP 36.7; O2SAT 97
[2023-07-15] MEDS: quetiapine 300 mg Tablet 150 MG PO (20:06)
[2023-07-15] MEDS: prazosin 1 mg Capsule 2 MG PO (20:06)
[2023-07-15] MEDS: trazodone 50 mg Tablet PO (20:07)
[2023-07-15] MEDS: OLANZapine 5 mg ODT PO (20:32)
[2023-07-16] MEDS: ibuprofen 600 mg Tablet PO ×2 (05:08→13:53)
[2023-07-16 06:00] VITALS: RESP 16
[2023-07-16] MEDS: buPROPion XL (24 HR) 300 mg Tablet PO (08:05)
[2023-07-16] MEDS: topiramate 100 mg Tablet PO (08:05)
[2023-07-16] MEDS: risperiDONE 1 mg Tablet 2 MG PO ×2 (08:05→20:53)
[2023-07-16] MEDS: pantoprazole DR 40 mg Tablet PO (08:05)
[2023-07-16] MEDS: benztropine 1 mg Tablet PO ×2 (08:05→20:54)
[2023-07-16] MEDS: methylphenidate 10 mg Tablet PO (08:05)
[2023-07-16] MEDS: nicotine 4 mg lozenge MUCOUS MEM ×4 (08:05→15:14)
[2023-07-16] MEDS: BuSPIRONE 10 mg Tablet PO ×3 (08:06→20:53)
[2023-07-16] MEDS: sennosides-docusate Tablet 1 TAB PO (08:11)
[2023-07-16] MEDS: propranolol 20 mg Tablet 10 MG PO ×2 (08:11→20:54)
[2023-07-16] MEDS: OLANZapine 5 mg ODT PO ×2 (08:11→12:33)
--- NOTE | 2023-07-16 08:11 | P.NPUPN_ITS ---
Subjective NPU 2 Subjective: Patient presented to the session today continuing to be continuum at times but being open to the plan for discharge to guardianship. He was anxious and required as needed medications. He denied any side effects of the medication and continues to be unchanged in his presentation per staff reports and direct observation. Mental Status Exam 2 MSE Comments: This is an overweight older white male looking older than his stated age in hospital scrubs with adequate grooming and eye contact. No abnormal movements except for mild psychomotor retardation. Cooperative with exam in no acute distress. Speech was limited and decreased rate and volume. Mood described as fine. His affect was subdued and flat. Thought process was organized. Thought content: patient denied suicidal or homicidal ideation, there were no delusions reported or noted and he denied auditory or visual hallucinations currently. Attention and concentration appeared mostly intact and memory appeared mostly reliable but none were formally tested. He was alert and oriented to person and place. Insight and judgment appear limited at best and impulse control was limited versus impaired. Vitals/I&O/Wt Last Vital Signs Temp 98.1 F 07/15/23 20:04 Pulse 69 07/15/23 20:04 Resp 16 07/16/23 06:00 BP 138/78 07/15/23 20:04 Pulse Ox 97 07/15/23 20:04 O2 Del Method Room Air 07/15/23 20:04 Data NPU 06/30/23 12:41 06/30/23 12:41 A&P Assessment and plan (1) Schizoaffective disorder, depressive type: (2) Hypoxemia: (3) Substance use disorder: (4) Hypoxemia: (5) Pulmonary embolism: (6) Methamphetamine use disorder, severe: (7) Altered mental status: Plan This is a 57-year-old white male with a long history of addiction, and psychosis/altered mental status and possible cognitive decline who relapsed on methamphetamine and is actively using cannabis who presents with recent aggressive behaviors after his relapse. 1. Continue current medications. Started a trial of Ritalin 5 mg p.o. twice daily. Change Ritalin to 10 mg p.o. every morning eliminating the later dose and added Seroquel 100 mg p.o. nightly for continued insomnia and mood stabilization. Increased Seroquel to 150 mg. 2. Encourage, group and milieu therapies. 3. Continue on one-to-one for wandering behavior. Initiated 07/08/2023. Switched to every 15 minute checks. 4. Encourage sober living treatment after discharge at the highest level of care to which he is willing to commit. 5. Patient did extremely poorly on his [employer] evaluation of living skills (MICKEY) 6. Given his poor functioning and diminished cognitive ability guardianship and likely placement is most appropriate intervention 7. Interrogatories for guardianship have been completed. Finished level 2 paperwork and guardianship was submitted. Facility has already excepted him and so we just need to await the process. Involuntary Hold Information 2 96 Hour Hold: 96 Hour Involuntary Admission: No 96 Hour Hold Ending Date: 0 05/25/23 96 Hour Hold Ending Time: 19:20 Attestations NPU 2 Medical Necessity Statement*: Inpatient hospitalization is medically necessary and the clinically appropriate intervention at this time. We will monitor medication to make changes as indicated. The patient's likely length of stay is 7-10 days. Coding Level of Care Code Acute Code for [facility] Diagnoses Schizoaffective disorder, depressive type F25.1 Hypoxemia R09.02 Substance use disorder F19.90 Pulmonary embolism I26.99 Methamphetamine use disorder, severe F15.20 Altered mental status R41.82
--- NOTE | 2023-07-16 09:51 | PC.NURSE ---
UP AT NURSES STATION, CONTINUES TO BE INTRUSIVE, DEMANDING AND IMPULSIVE. PT REQUIRES CONSTANT VERBAL REDIRECTION. REMAINS CONFUSED, WANDERING HALLS. COMES TO NURSES STATION CONSTANTLY MAKING MULTIPLE REQUESTS THAT DO NOT MAKE SENSE. DENIES PAIN. RATES ANXIETY 7/10, PT WAS GIVEN PROPANOLOL 10 MG AND ZYDIS 5 MG ORDERED FOR INCREASED ANXIETY. RATES DEPRESSION /10. SPEECH IS EXCESSIVE AND RAMBLING. ALL QUESTIONS ANSWERED AND SUPPORT WAS VOICED.
[2023-07-16] MEDS: haloperidol 5 mg Tablet PO (10:11)
[2023-07-16] MEDS: acetaminophen 325 mg Tablet 650 MG PO (11:56)
[2023-07-16] MEDS: hyDROXYzine 25 mg Capsule 50 MG PO (11:56)
[2023-07-16 13:47] VITALS: BP 122/82; PULSE 75; RESP 18; TEMP 37.1; O2SAT 95
--- NOTE | 2023-07-16 15:26 | PC.NURSE ---
Pt presents to nurse's station talking to this tech at 1523. RN previously administered PO buspirone and nicotine lozenge at 1514. Pt complains of anxiety and jitteriness. This tech stated that the PO buspirone will take 30 minutes to take effect. Pt anxiously states I need to get something for this man, or I am afraid I am going to do something much worse. RN notified and relayed information to provider. Will continue to monitor.
[2023-07-16] MEDS: LORazepam 1 mg Tablet PO (15:50)
[2023-07-16] MEDS: diphenhydrAMINE 50 mg Capsule PO (15:50)
--- NOTE | 2023-07-16 16:06 | PC.NURSE ---
PT HAS RECEIVED SEVERAL PRN MEDICATIONS THIS SHIFT TO FOR REPORTS OF INCREASED ANXIETY. PT STATES I''M JUST REALLY JITTERY AND I CAN'T CALM DOWN, SEE SEE. PT PUTS HIS HANDS UP AND STARTS SHAKING HIS HANDS BACK AND FORTH. PT HAS RECEIVED ZYDIS 5 MG, PROPANOLOL 10 MG, HALDOL 5 MG AND SECOND DOSE OF ZYDIS 5 MG. PT STILL STATES NONE OF IT HAS WORKED. I NEED SOMETHING STRONGER. PT APPEARS VERY PANICKED AT TIMES, WANDERING UP AND DOWN HALLS. DR. COOL WAS NOTIFIED OF ALL THE ABOVE AND INCREASED ANXIETY NOT RELIEVED WITH MEDICATIONS. NEW ORDERS RECEIVED TO GIVEN ATIVAN 1 MG PO NOW WITH BENADRYL 50 MG PO NOW ONE TIME DOSE FOR INCREASED ANXIETY, AGITATION AND RESTLESSNESS. SHORTLY AFTER PT RECEIVED MEDICATIONS HE I S OBSERVED WITH CONTINUED ANXIETY, CONFUSED AND IMPULSIVENESS, RESTLESS AND AGITATION/SHORT TEMPERED. PT KEEPS SAYING WHEN WILL IT WORK WHEN WILL IT WORK. EDUCATION PROVIDED.
--- NOTE | 2023-07-16 17:31 | PC.NURSE ---
Patient presents to the nurse's station asking various questions about looking for children, needing clothes to give to children, and anxiously looking around for two girls. This tech tried to redirect the patient by asking him to look up and down the halls for the children. Patient proceeds to go toward south exit and attempt to open the door. Patient visually confused and proceeds to walk back to the dayroom. RN notified. Will continue to monitor.
[2023-07-16 20:12] VITALS: BP 131/87; PULSE 75; RESP 18; TEMP 36.7; O2SAT 96
[2023-07-16] MEDS: prazosin 1 mg Capsule 2 MG PO (20:53)
[2023-07-16] MEDS: trazodone 50 mg Tablet PO (20:53)
[2023-07-16] MEDS: quetiapine 300 mg Tablet 150 MG PO (20:54)
[2023-07-17 06:00] VITALS: RESP 15
[2023-07-17] MEDS: sennosides-docusate Tablet 1 TAB PO ×2 (07:49→16:10)
[2023-07-17] MEDS: risperiDONE 1 mg Tablet 2 MG PO ×2 (08:00→21:12)
[2023-07-17] MEDS: BuSPIRONE 10 mg Tablet PO ×3 (08:00→21:10)
[2023-07-17] MEDS: benztropine 1 mg Tablet PO ×2 (08:00→21:15)
[2023-07-17] MEDS: pantoprazole DR 40 mg Tablet PO (08:00)
[2023-07-17] MEDS: topiramate 100 mg Tablet PO (08:00)
[2023-07-17] MEDS: buPROPion XL (24 HR) 300 mg Tablet PO (08:00)
[2023-07-17] MEDS: methylphenidate 10 mg Tablet PO (08:01)
[2023-07-17] MEDS: OLANZapine 5 mg ODT PO ×3 (08:03→22:32)
[2023-07-17] MEDS: ibuprofen 600 mg Tablet PO ×2 (09:17→21:10)
[2023-07-17] MEDS: nicotine 4 mg lozenge MUCOUS MEM ×6 (11:48→23:28)
--- NOTE | 2023-07-17 12:02 | PC.NURSE ---
Paper sack full of snacks found in the top of patient's closet in his room. This RN confiscated the bag and educated the patient on only taking snacks he was going to eat, not storing them in his room, and to eat them outside of his room. Patient agreed, but is still fairly confused.
--- NOTE | 2023-07-17 12:20 | PC.NURSE ---
Nurses preformed room checks at lunchtime, no contraband was found.
[2023-07-17 14:00] VITALS: BP 127/88; PULSE 74; RESP 16; TEMP 36.9; O2SAT 96
[2023-07-17] MEDS: acetaminophen 325 mg Tablet 650 MG PO ×2 (14:06→23:24)
[2023-07-17] MEDS: haloperidol 5 mg Tablet PO ×2 (18:57→23:24)
--- NOTE | 2023-07-17 18:58 | PC.NURSE ---
Administered zyprexa zydis 5mg for pt experiencing anxiety and AH. 25 min later pt still experiencing same symptoms, administered 5mg Haldol po.
--- NOTE | 2023-07-17 19:12 | W.PM.NPUPNS ---
Subjective NPU Subjective: This is a 58-year-old white male with a long history of addiction, and psychosis/altered mental status and possible cognitive decline who relapsed on methamphetamine and is actively using cannabis who presents with recent aggressive behaviors after his relapse on methamphetamine. The patient continued to walk through the hallway repeatedly asking for help with managing his anxiety and appeared very confused as if the patient and the writer producer of this note had not spoken yet despite speaking to him several times throughout the day. He had remained confused on the unit and was unable to provide any clear reason for why he had come in the hospital. There was no acts of aggression. He had limited interaction with his peers and continued though at times to be intrusive while not appearing at times respectful to others boundaries on the unit. He was redirectable. Mental Status Exam MSE Comments: This is an overweight older white male looking older than his stated age in hospital scrubs with adequate grooming and eye contact. No abnormal movements except for mild psychomotor retardation. He was Cooperative with exam and appeared in no acute distress. His Speech was productive and normal in rate and volume. Mood described as anxious. His affect was flat. Thought process was organized. Thought content: patient denied suicidal or homicidal ideation, there were no delusions reported or noted and he denied auditory or visual hallucinations currently. Attention and concentration appeared poor. He did not endorse date, month, year or season. He was alert and oriented to person and place. Insight and judgment appear limited at best and impulse control was limited versus impaired. Vitals/I&O/Wt Last Vital Signs Temp 98.4 F 07/17/23 14:00 Pulse 74 07/17/23 14:00 Resp 16 07/17/23 14:00 BP 127/88 07/17/23 14:00 Pulse Ox 96 07/17/23 14:00 O2 Del Method Room Air 07/17/23 14:00 Weight last 48 hrs Weight 75.75 kg Data NPU 06/30/23 12:41 06/30/23 12:41 A&P Assessment and plan (1) Schizoaffective disorder, depressive type: (2) Hypoxemia: (3) Substance use disorder: (4) Hypoxemia: (5) Pulmonary embolism: (6) Methamphetamine use disorder, severe: (7) Altered mental status: Plan This is a 57-year-old white male with a long history of addiction, and psychosis/altered mental status and possible cognitive decline who relapsed on methamphetamine and is actively using cannabis who presents with recent aggressive behaviors after his relapse. 1. Continue current medications. Continue Ritalin to 10 mg p.o. every morning eliminating the later dose and Seroquel 150 mg at night along with Risperidone 2mg bid. Decrease topamax 50mg daily. 2. Encourage, group and milieu therapies. 3. Continue on one-to-one for wandering behavior. Initiated 07/08/2023. Switched to every 15 minute checks. 4. Encourage sober living treatment after discharge at the highest level of care to which he is willing to commit. 5. Patient did extremely poorly on his [facility] evaluation of living skills (MICKEY) 6. Given his poor functioning and diminished cognitive ability guardianship and likely placement is most appropriate intervention 7. Interrogatories for guardianship have been completed. Finished level 2 paperwork and guardianship was submitted. Facility has already excepted him and so we just need to await the process. Involuntary Hold Information 96 Hour Hold: 96 Hour Involuntary Admission: No 96 Hour Hold Ending Date: 05/25/23 96 Hour Hold Ending Time: 19:20 Attestations NPU Medical Necessity Statement*: Inpatient hospitalization is medically necessary and the clinically appropriate intervention at this time. We will monitor medication to make changes as indicated. The patient's likely length of stay is 7-10 days. Coding Level of Care Code Acute Code for [facility] Diagnoses Schizoaffective disorder, depressive type F25.1 Hypoxemia R09.02 Substance use disorder F19.90 Pulmonary embolism I26.99 Methamphetamine use disorder, severe F15.20 Altered mental status R41.82
[2023-07-17 20:57] VITALS: BP 143/91; PULSE 75; RESP 18; TEMP 37.1; O2SAT 97
[2023-07-17] MEDS: prazosin 1 mg Capsule 2 MG PO (21:10)
[2023-07-17] MEDS: hyDROXYzine 25 mg Capsule 50 MG PO (21:11)
[2023-07-17] MEDS: quetiapine 300 mg Tablet 150 MG PO (21:12)
[2023-07-17] MEDS: trazodone 50 mg Tablet PO ×2 (21:12→22:32)
[2023-07-17] MEDS: propranolol 20 mg Tablet 10 MG PO (21:13)
[2023-07-18 06:00] VITALS: RESP 16
--- NOTE | 2023-07-18 06:09 | PC.NURSE ---
Pt has not sleep well the last few nights. Charge nurse stated pt was not to be awoke but get respirations . Respiration Rate 16.
[2023-07-18] MEDS: acetaminophen 325 mg Tablet 650 MG PO (08:40)
[2023-07-18] MEDS: risperiDONE 1 mg Tablet 2 MG PO ×2 (08:41→21:17)
[2023-07-18] MEDS: methylphenidate 10 mg Tablet PO (08:41)
[2023-07-18] MEDS: sennosides-docusate Tablet 1 TAB PO ×2 (08:41→21:16)
[2023-07-18] MEDS: hyDROXYzine 25 mg Capsule 50 MG PO ×3 (08:41→22:32)
--- NOTE | 2023-07-18 08:41 | PC.NURSE ---
UP IN HALLWAYS WANDERING AROUND, CONFUSION CONTINUES, ABLE TO BE REDIRECTED. PT DOES REQUIRE CONSTANT REDIRECTION. RATES PAIN /, MED NURSE NOTIFIED TO GIVE TYLENOL. RATES ANXIETY AND DEPRESSION 12/21. MED NURSE NOTIFIED TO GIVE PRN ANTI ANXIETY MEDICATIONS. DENIES SI/HI AT THIS TIME. PT ENDORES HEARING VOICES AND SEEING THINGS THAT ARE NOT THERE. PT STATES HE SEES HIS MOTHER AND WHEN HE TRIES TO SPEAK TO HER SHE RUNS AWAY CAUSING PT AGGITATION AND FRUSTRATION. PT STATES HE SLEPT GOOD. PT CONTINUES TO BE OBSERVED BEING IMPULSIVE, DEMANDING AND INTRUSIVE, ALWAYS STAYING AT THE DESK. ALL QUESTIONS ANSWERED AND SUPPORT WAS VOICED
[2023-07-18] MEDS: BuSPIRONE 10 mg Tablet PO ×3 (08:42→21:15)
[2023-07-18] MEDS: topiramate 100 mg Tablet 50 MG PO (08:42)
[2023-07-18] MEDS: buPROPion XL (24 HR) 300 mg Tablet PO (08:42)
[2023-07-18] MEDS: pantoprazole DR 40 mg Tablet PO (08:42)
[2023-07-18] MEDS: benztropine 1 mg Tablet PO ×2 (08:44→21:17)
[2023-07-18] MEDS: nicotine 4 mg lozenge MUCOUS MEM ×5 (08:49→21:17)
[2023-07-18] MEDS: OLANZapine 5 mg ODT PO ×3 (11:08→22:32)
[2023-07-18] MEDS: haloperidol 5 mg Tablet PO ×2 (13:27→21:17)
[2023-07-18 14:00] VITALS: BP 127/88; PULSE 82; RESP 18; TEMP 37; O2SAT 96
--- NOTE | 2023-07-18 14:14 | PC.NURSE ---
PT AT DESK REQUESTING AMBIEN. PT KEEPS SAYING YOU KNOW YOU GAVE IT TO ME BEFORE. PT WAS EDUCATED THAT THIS RN GAVE HIM ATIVAN BEFORE BUT HE DOES NOT TAKE AMBIEN. PT CONTINUES TO BE DEMANDING, INTRUSIVE AND IMPULSIVE. REQUIRES CONSTANT REDIRECTION BY STAFF. PRN ANTI ANXIETY MEDICATIONS WAS GIVEN BY MED NURSE,PT HAS RECEIVED VISTARIL, ZYDIS AND HALDOL. SUPPORT VOICED.
--- NOTE | 2023-07-18 15:40 | P.NPUPN_ITS ---
Subjective NPU 2 Subjective: This is a 58-year-old white male with a long history of addiction, and psychosis/altered mental status and possible cognitive decline who relapsed on methamphetamine and is actively using cannabis who presents with recent aggressive behaviors after his relapse on methamphetamine. The patient stated that he understood that he would likely be living in a facility where his disability income would go towards paying for him to stay there. He had reported that he had had an accident with loss of consciousness greater than 9 months ago. He had reported having problems with being more forgetful. He had continued to minimize the significance of his substance use. He appeared confused and appeared to have significant difficulties with managing his own self-care. He did spend much of the day wandering through the hallways and was able to attend groups. He had met with a worker regarding the level 2 interview today. The patient was informed that he would likely be under guardianship. He had reported having problems with nerve pain. He had reported having problems with staying on task. He had been more irritable and reported feeling more anxious particularly in the morning after receiving his 10 mg of Ritalin. Mental Status Exam 2 MSE Comments: This is an overweight older white male looking older than his stated age in hospital scrubs with adequate grooming and eye contact. No abnormal movements except for mild psychomotor retardation. He was cooperative with exam and appeared in no acute distress. His speech was productive and normal in rate and volume. Mood described as worried. His affect was flat. Thought process was perseverative. Thought content: patient denied suicidal or homicidal ideation, there were no delusions reported or noted and he denied auditory or visual hallucinations currently. Attention and concentration appeared poor. He was unable to provide date or year. He was alert and oriented to person and place. Insight and judgment appear limited at best and impulse control was limited versus impaired. Vitals/I&O/Wt Last Vital Signs Temp 98.6 F 07/18/23 14:00 Pulse 82 07/18/23 14:00 Resp 18 07/18/23 14:00 BP 127/88 07/18/23 14:00 Pulse Ox 96 07/18/23 14:00 O2 Del Method Room Air 07/18/23 14:00 Weight last 48 hrs Weight 75.75 kg Data NPU 06/30/23 12:41 06/30/23 12:41 A&P Assessment and plan (1) Schizoaffective disorder, depressive type: (2) Hypoxemia: (3) Substance use disorder: (4) Hypoxemia: (5) Pulmonary embolism: (6) Methamphetamine use disorder, severe: (7) Altered mental status: Plan This is a 57-year-old white male with a long history of addiction, and psychosis/altered mental status and possible cognitive decline who relapsed on methamphetamine and is actively using cannabis who presents with recent aggressive behaviors after his relapse. 1. Continue current medications. Discontinue Ritalin and monitor for any improvement regarding anxiety. Continue Seroquel 150 mg at night along with Risperidone 2mg bid. Discontinue TOPAMAX. 2. Encourage, group and milieu therapies. 3. Continue on one-to-one for wandering behavior. Initiated 07/08/2023. Switched to every 15 minute checks. 4. Encourage sober living treatment after discharge at the highest level of care to which he is willing to commit. 5. Patient did extremely poorly on his [employer] evaluation of living skills (MICKEY) 6. Given his poor functioning and diminished cognitive ability guardianship and likely placement is most appropriate intervention 7. Interrogatories for guardianship have been completed. Finished level 2 paperwork and guardianship was submitted. Facility has already acccepted him and so we just need to await the process. Level 2 interview completed today. Involuntary Hold Information 2 96 Hour Hold: 96 Hour Involuntary Admission: No 96 Hour Hold Ending Date: 0 05/25/23 96 Hour Hold Ending Time: 19:20 Attestations NPU 2 Medical Necessity Statement*: Inpatient hospitalization is medically necessary and the clinically appropriate intervention at this time. We will monitor medication to make changes as indicated. The patient's likely length of stay is 7-10 days. Coding Level of Care Code Acute Code for [facility] Diagnoses Schizoaffective disorder, depressive type F25.1 Hypoxemia R09.02 Substance use disorder F19.90 Pulmonary embolism I26.99 Methamphetamine use disorder, severe F15.20 Altered mental status R41.82
--- NOTE | 2023-07-18 15:56 | PC.NURSE ---
PT UP TO NURSES STATION REQUESTING ATIVAN AND CONTINUES TO ASK FOR NARCOTIC PAIN MEDICATIONS. PT HAS BEEN EDUCATED ON PRN MEDICATIONS FOR ANXIETY AND INFORMED HE HAS TAKEN 4 DIFFERENT MEDICATIONS TO DECREASE ANXIETY SINCE 800 AM THIS MORNING. AFTER PT HEARD THIS INFORMATION PT KEPT GOING UP TO STAFF SAYING I'M JUST GOING TO KILL MYSELF, I'M NOT GOING TO BE HERE MUCH LONGER. THAT PLACE IS TAKING ALL MY MONEY AND NOW I CAN'T GET NO ATIVAN. DR. ZHU WAS NOTIFIED OF PT MAKING SUICIDAL STATEMENTS. NO NEW ORDERS WERE RECEIVED. DR. ZHU WAS ALSO NOTIFIED OF PT RECEIVING SEVERAL PRN MEDICATIONS FOR ANXIETY. DR. ZHU DID GIVE NEW ORDERS TO DISCONTINUE RITALIN 10 MG. [facility]. SUPPORT VOICED.
[2023-07-18 20:30] VITALS: BP 120/78; PULSE 93; RESP 18; TEMP 36.9; O2SAT 95
[2023-07-18] MEDS: prazosin 1 mg Capsule 2 MG PO (21:15)
[2023-07-18] MEDS: ibuprofen 600 mg Tablet PO (21:16)
[2023-07-18] MEDS: quetiapine 300 mg Tablet 150 MG PO (21:16)
[2023-07-18] MEDS: propranolol 20 mg Tablet 10 MG PO (21:17)
[2023-07-18] MEDS: trazodone 50 mg Tablet PO ×2 (21:17→22:32)
[2023-07-18] MEDS: ondansetron 4 MG Tablet PO (22:32)
[2023-07-19] MEDS: acetaminophen 325 mg Tablet 650 MG PO ×3 (00:06→11:52)
[2023-07-19] MEDS: nicotine 4 mg lozenge MUCOUS MEM ×5 (00:06→21:53)
[2023-07-19] MEDS: cyclobenzaprine 10 mg Tablet PO (02:12)
[2023-07-19] MEDS: haloperidol 5 mg Tablet PO ×2 (02:12→15:04)
[2023-07-19] MEDS: hyDROXYzine 25 mg Capsule 50 MG PO ×2 (05:03→16:38)
[2023-07-19 06:00] VITALS: BP 144/86; PULSE 68; RESP 18; TEMP 36.6; O2SAT 97
[2023-07-19] MEDS: pantoprazole DR 40 mg Tablet PO (07:53)
[2023-07-19] MEDS: risperiDONE 1 mg Tablet 2 MG PO ×2 (07:53→19:52)
[2023-07-19] MEDS: BuSPIRONE 10 mg Tablet PO ×3 (07:54→17:55)
[2023-07-19] MEDS: benztropine 1 mg Tablet PO ×2 (07:54→20:03)
[2023-07-19] MEDS: buPROPion XL (24 HR) 300 mg Tablet PO (07:54)
[2023-07-19] MEDS: ibuprofen 600 mg Tablet PO ×2 (08:18→14:39)
[2023-07-19 14:00] VITALS: BP 120/78; PULSE 72; RESP 20; TEMP 37.1; O2SAT 97
[2023-07-19] MEDS: propranolol 20 mg Tablet 10 MG PO (16:17)
--- NOTE | 2023-07-19 16:27 | P.NPUPN_ITS ---
Subjective NPU 2 Subjective: This is a 58-year-old white male with a long history of addiction, and psychosis/altered mental status and possible cognitive decline who relapsed on methamphetamine and is actively using cannabis who presents with recent aggressive behaviors after his relapse on methamphetamine. Patient continued to appear confused on the milieu often asking similar questions of the functional tester typewriters as if the patient had not spoken with them 5 minutes earlier. He had continued report having anxiety and reported having some nerve pain in his back. He he had reported previously taking Neurontin to help with his nerve pain. He had reported some difficulties with falling asleep. He had reported no cravings for opiates. He had reported that he continued to be worried about a guardianship hearing but he was again informed that he is here in the hospital awaiting a guardianship hearing at which time the patient may either leave or would be under someone's guardianship and would likely go to a [facility] or assisted care facility. He had reported having frequent mood swings and at times feeling suicidal. There was no evidence of aggression reported by staff. Mental Status Exam 2 MSE Comments: This is an overweight older white male looking older than his stated age in hospital scrubs with adequate grooming and eye contact. No abnormal movements except for mild psychomotor retardation. He was cooperative with exam and appeared in no mild to moderate distress. His speech was productive and normal in rate and volume. Mood described as worried. His affect was flat. Thought process was perseverative and illogical at times. Thought content: patient denied suicidal or homicidal ideation, there were no delusions reported or noted and he denied auditory or visual hallucinations currently. Attention and concentration appeared poor. He was unable to provide date or year. He was alert and oriented to person and place. Insight and judgment appear limited at best and impulse control was limited versus impaired. Recent memory was limited and remote memory appeared impaired. Vitals/I&O/Wt Last Vital Signs Temp 98.8 F 07/19/23 14:00 Pulse 72 07/19/23 14:00 Resp 20 H 07/19/23 14:00 BP 120/78 07/19/23 14:00 Pulse Ox 97 07/19/23 14:00 O2 Del Method Room Air 07/19/23 06:00 Data NPU 06/30/23 12:41 06/30/23 12:41 A&P Assessment and plan (1) Schizoaffective disorder, depressive type: (2) Hypoxemia: (3) Substance use disorder: (4) Hypoxemia: (5) Pulmonary embolism: (6) Methamphetamine use disorder, severe: (7) Altered mental status: Plan This is a 57-year-old white male with a long history of addiction, and psychosis/altered mental status and possible cognitive decline who relapsed on methamphetamine and is actively using cannabis who presents with recent aggressive behaviors after his relapse. 1. Decrease anxiety noted this am in absence of ritalin. Neurontin 100mg tid to target anxiety and neuropathic pain reported. Continue Seroquel 150 mg at night along with Risperidone 2mg bid. Discontinued TOPAMAX. 2. Encourage, group and milieu therapies. 3. Continue on one-to-one for wandering behavior. Initiated 07/08/2023. Switched to every 15 minute checks. 4. Encourage sober living treatment after discharge at the highest level of care to which he is willing to commit. 5. Patient did extremely poorly on his Kohan evaluation of living skills (MICKEY) 6. Given his poor functioning and diminished cognitive ability guardianship and likely placement is most appropriate intervention 7. Interrogatories for guardianship have been completed. Finished level 2 paperwork and guardianship was submitted. Facility has already acccepted him and so we just need to await the process. Level 2 interview completed today. Involuntary Hold Information 2 96 Hour Hold: 96 Hour Involuntary Admission: No 96 Hour Hold Ending Date: 0 05/25/23 96 Hour Hold Ending Time: 19:20 Attestations NPU 2 Medical Necessity Statement*: Inpatient hospitalization is medically necessary and the clinically appropriate intervention at this time. We will monitor medication to make changes as indicated. The patient's likely length of stay is 7-10 days. Coding Level of Care Code Acute Code for [facility] Diagnoses Schizoaffective disorder, depressive type F25.1 Hypoxemia R09.02 Substance use disorder F19.90 Pulmonary embolism I26.99 Methamphetamine use disorder, severe F15.20 Altered mental status R41.82
[2023-07-19] MEDS: sennosides-docusate Tablet 1 TAB PO (17:55)
[2023-07-19] MEDS: prazosin 1 mg Capsule 2 MG PO (19:52)
[2023-07-19] MEDS: gabapentin 100 mg Capsule PO (19:53)
[2023-07-19] MEDS: trazodone 50 mg Tablet PO ×2 (19:53→21:53)
[2023-07-19] MEDS: quetiapine 300 mg Tablet 150 MG PO (19:53)
[2023-07-19 20:06] VITALS: BP 123/79; PULSE 68; RESP 18; TEMP 36.9; O2SAT 96
[2023-07-20 06:00] VITALS: RESP 16
--- NOTE | 2023-07-20 06:12 | PC.NURSE ---
Due to patient not sleeping much this night, and that when this nurse began to get vital signs, Charge Nurse stated to not wake patient, but to let patient sleep and only obtain his respirations.
[2023-07-20] MEDS: nicotine 4 mg lozenge MUCOUS MEM ×5 (08:02→20:51)
[2023-07-20] MEDS: gabapentin 100 mg Capsule PO ×2 (08:02→14:50)
[2023-07-20] MEDS: sennosides-docusate Tablet 1 TAB PO (08:02)
[2023-07-20] MEDS: BuSPIRONE 10 mg Tablet PO ×2 (08:02→17:41)
[2023-07-20] MEDS: risperiDONE 1 mg Tablet 2 MG PO ×2 (08:02→20:01)
[2023-07-20] MEDS: buPROPion XL (24 HR) 300 mg Tablet PO (08:02)
[2023-07-20] MEDS: pantoprazole DR 40 mg Tablet PO (08:02)
[2023-07-20] MEDS: hyDROXYzine 25 mg Capsule 50 MG PO ×3 (08:04→23:46)
[2023-07-20] MEDS: benztropine 1 mg Tablet PO ×2 (08:04→20:01)
[2023-07-20] MEDS: polyethylene glycol 3350 Pkt 17 gm PO (09:47)
[2023-07-20] MEDS: propranolol 20 mg Tablet 10 MG PO (13:59)
[2023-07-20 14:00] VITALS: BP 127/86; PULSE 89; RESP 16; TEMP 36.8; O2SAT 96
[2023-07-20] MEDS: OLANZapine 5 mg ODT PO (15:49)
[2023-07-20] MEDS: acetaminophen 325 mg Tablet 650 MG PO (16:27)
--- NOTE | 2023-07-20 17:43 | W.PM.NPUPNS ---
Subjective NPU Subjective: This is a 58-year-old white male with a long history of addiction, and psychosis/altered mental status and possible cognitive decline who relapsed on methamphetamine and is actively using cannabis who presents with recent aggressive behaviors after his relapse on methamphetamine. No substantial changes were appreciated today. He had reported feeling better with the initiation of Neurontin and stated that he had been up to 2400 mg daily of this medication in the past to manage neuropathic pain. The patient had reported relief of constipation with as needed medications. Patient reported no worsening mood. He had been informed that he would be at a guardianship hearing tomorrow to decide his future. He had not been aggressive on the milieu. He had been compliant and cooperative but still remained at times intrusive. He had reported that his mood had been better. Mental Status Exam MSE Comments: This is an overweight older white male looking older than his stated age in hospital scrubs with adequate grooming and eye contact. He was pacing the unit. No abnormal involuntary motor movements appreciated. He was cooperative with exam and appeared in mild to moderate distress. His speech was productive and normal in rate and volume. Mood described as better. His affect was flat. Thought process was perseverative and illogical at times. Thought content: patient denied suicidal or homicidal ideation, there were no delusions reported or noted and he denied auditory or visual hallucinations currently. Attention and concentration appeared poor. He was unable to provide date or year. He was alert and oriented to person and place. Insight and judgment appear limited at best and impulse control was limited versus impaired. Recent memory was limited and remote memory appeared impaired. Vitals/I&O/Wt Last Vital Signs Temp 98.2 F 07/20/23 14:00 Pulse 89 07/20/23 14:00 Resp 16 07/20/23 14:00 BP 127/86 07/20/23 14:00 Pulse Ox 96 07/20/23 14:00 O2 Del Method Room Air 07/20/23 14:00 Data NPU 06/30/23 12:41 06/30/23 12:41 A&P Assessment and plan (1) Schizoaffective disorder, depressive type: (2) Hypoxemia: (3) Substance use disorder: (4) Hypoxemia: (5) Pulmonary embolism: (6) Methamphetamine use disorder, severe: (7) Altered mental status: Plan This is a 57-year-old white male with a long history of addiction, and psychosis/altered mental status and possible cognitive decline who relapsed on methamphetamine and is actively using cannabis who presents with recent aggressive behaviors after his relapse. 1. Increase Neurontin 300mg tid to target anxiety and neuropathic pain reported. Continue Seroquel 150 mg at night along with Risperidone 2mg bid. Discontinued TOPAMAX. 2. Encourage, group and milieu therapies. 3. Continue on one-to-one for wandering behavior. Initiated 07/08/2023. Switched to every 15 minute checks. 4. Encourage sober living treatment after discharge at the highest level of care to which he is willing to commit. 5. Patient did extremely poorly on his [facility] evaluation of living skills (MICKEY) 6. Given his poor functioning and diminished cognitive ability guardianship and likely placement is most appropriate intervention 7. Guardianshipo hearing scheduled tommorow. Placement in locked facililty likely soon after discharge. Level 2 interview complete but completion of document pending. Involuntary Hold Information 96 Hour Hold: 96 Hour Involuntary Admission: No 96 Hour Hold Ending Date: 05/25/23 96 Hour Hold Ending Time: 19:20 Attestations NPU Medical Necessity Statement*: Inpatient hospitalization is medically necessary and the clinically appropriate intervention at this time. We will monitor medication to make changes as indicated. The patient's likely length of stay is 7-10 days. Coding Level of Care Code Acute Code for [facility] Diagnoses Schizoaffective disorder, depressive type F25.1 Hypoxemia R09.02 Substance use disorder F19.90 Pulmonary embolism I26.99 Methamphetamine use disorder, severe F15.20 Altered mental status R41.82
--- NOTE | 2023-07-20 17:43 | PC.NURSE ---
PT RECEIVED PRN VISTARIL, PRN ZYPREXA, PRN PROPRANOLOL FOR ANXIETY. PT STATES THAT THE PROPRANOLOL DID NOT HELP HIM. PT DID NOT RECEIVE RELIEF FROM ZYPREXA. PT STATES SOME RELIEF FROM VISTARIL. THIS NURSE EDUCATED PT ON POSITIVE COPING SKILLS AND GAVE DIFFERENT WAYS TO MANAGE ANXIETY WITH EXAMPLES. PT PERFORMED TEACH BACK. PT CONTINUES TO NEED REDIRECTION WHEN HE BECOMES IRRITATED HOWEVER, IF REDIRECTED PT FOLLOWS DIRECTION AND WILL TAKE STEPS TO ATTEMPT TO SELF SOOTH.
--- NOTE | 2023-07-20 17:48 | PC.NURSE ---
PT RECEIVED PRN MIRALAX AND PRN SENNA FOR CONSTIPATION. PT ENDORSED HAVING A BOWEL MOVEMENT AND EXPRESSED RELIEF.
[2023-07-20 19:33] VITALS: BP 119/73; PULSE 86; RESP 18; TEMP 36.9; O2SAT 94
[2023-07-20] MEDS: prazosin 1 mg Capsule 2 MG PO (20:01)
[2023-07-20] MEDS: trazodone 50 mg Tablet PO ×2 (20:01→21:44)
[2023-07-20] MEDS: gabapentin 300 mg Capsule PO (20:01)
[2023-07-20] MEDS: quetiapine 300 mg Tablet 150 MG PO (20:01)
[2023-07-20] MEDS: haloperidol 5 mg Tablet PO (22:00)
--- NOTE | 2023-07-20 22:12 | PC.NURSE ---
Pt came up to nurses station stating that he needed something for the shakes that he is having. Nursing staff told pt that we have already given him Cogentin with his night medications. Pt became a little agitated with staff and stated if you dont give me something to help me calm down Im going to have one of my freak outs. Nursing staff asked pt if he would be willing to take Haldol and he agreed. Haldol 5mg PO was administered at 2200. Pt tolerated well and is now observed pacing up and down the hallway. Behavioral monitoring continues
[2023-07-21] MEDS: OLANZapine 5 mg ODT PO (01:44)
[2023-07-21 06:00] VITALS: BP 112/58; PULSE 60; RESP 16; TEMP 36.8; O2SAT 97
[2023-07-21] MEDS: risperiDONE 1 mg Tablet 2 MG PO ×2 (08:13→20:08)
[2023-07-21] MEDS: BuSPIRONE 10 mg Tablet PO (08:13)
[2023-07-21] MEDS: hyDROXYzine 25 mg Capsule 50 MG PO ×2 (08:13→16:15)
[2023-07-21] MEDS: propranolol 20 mg Tablet 10 MG PO ×2 (08:13→20:08)
[2023-07-21] MEDS: nicotine 4 mg lozenge MUCOUS MEM ×5 (08:13→20:23)
[2023-07-21] MEDS: gabapentin 300 mg Capsule PO ×3 (08:14→20:10)
[2023-07-21] MEDS: sennosides-docusate Tablet 1 TAB PO (08:14)
[2023-07-21] MEDS: pantoprazole DR 40 mg Tablet PO (08:14)
[2023-07-21] MEDS: ibuprofen 600 mg Tablet PO (08:14)
[2023-07-21] MEDS: buPROPion XL (24 HR) 300 mg Tablet PO (08:14)
[2023-07-21] MEDS: benztropine 1 mg Tablet PO ×2 (08:15→20:10)
--- NOTE | 2023-07-21 08:27 | PC.NURSE ---
UP IN HALLWAY PACING. PT CONTINUES TO BE INTRUSIVE AND IMPULSIVE, VOICES ANXIETY SYMPTOMS. PT INFORMED RN THAT HE NEED ALL OF MY PRN MEDICINE. I HAVE TO HAVE THEM ALL THE TIME OR MY ANXIETY WILL BE BAD. PT WAS GIVEN PROPANOLOL 10 MG AND VISTARIL 50 MG FOR ANXIETY. IBUPROFEN 600 MG WAS GIVEN FOR RIGHT KNEE PAIN 08/21. PT DENIES SI/HI AT THIS TIME. PT CONTINUES TO ENDORSE SEEING MY MOM, SHE LETS ME TALK TO HER NOW, SO I REALLY LIKE THAT. SHE USE TO RUN AWAY FROM ME. PT STATES THESE EXPERIENCES ARE POSITIVE AND MAKE HIM FEEL GOOD. PTS MOTHER HAS BEEN FOR MANY YEARS SO PT IS POSITIVE FOR [facility] AT THIS TIME. PT CONTINUES TO HAVE AN ANXIOUS MOOD AND IS DEMANDING. PT HAD BM YESTERDAY BUT CONTINUES TO INSIST HE NEEDS MEDICINE TO HELP ME POOP. PT WAS GIVEN SENNA S ORDERED. ALL QUESTIONS ANSWERED AND SUPPORT WAS VOICED.
[2023-07-21] MEDS: acetaminophen 325 mg Tablet 650 MG PO (11:12)
[2023-07-21] MEDS: haloperidol 5 mg Tablet PO (11:59)
[2023-07-21] MEDS: nicotine 2 mg Gum BUCCAL (13:27)
[2023-07-21 14:00] VITALS: BP 130/85; PULSE 60; RESP 17; TEMP 36.7; O2SAT 96
--- NOTE | 2023-07-21 16:28 | P.NPUPN_ITS ---
Subjective NPU 2 Subjective: This is a 58-year-old white male with a long history of addiction, and psychosis/altered mental status and possible cognitive decline who relapsed on methamphetamine and is actively using cannabis who presents with recent aggressive behaviors after his relapse on methamphetamine. The patient was placed under guardianship this morning. He had reported that he would like to leave here. He had reported some reduction in pain. He had continued to make numerous demands with staff but was redirectable with no episodes of aggression. He reported no cravings for opiates. He had continued to complain of anxiety. He reported having some difficulties with sleep continuity disruption. He had required some prompting for completion of activities of daily living. No side effects reported from his medication. Mental Status Exam 2 MSE Comments: This is an overweight older white male looking older than his stated age in hospital scrubs with adequate grooming and eye contact. He was pacing the unit. No abnormal involuntary motor movements appreciated. He was cooperative with exam and appeared in mild to moderate distress. His speech was productive and normal in rate and volume. Mood described as allright. His affect was flat. Thought process was more linear and logical. Thought content: patient denied suicidal or homicidal ideation, there were no delusions reported or noted and he denied auditory or visual hallucinations currently. Attention and concentration appeared poor. He was unable to provide date or year. He was alert and oriented to person and place. Insight and judgment appear limited at best and impulse control was limited versus impaired. Recent memory was limited and remote memory appeared impaired. Vitals/I&O/Wt Last Vital Signs Temp 98.2 F 07/21/23 06:00 Pulse 60 07/21/23 06:00 Resp 16 07/21/23 06:00 BP 112/58 07/21/23 06:00 Pulse Ox 97 07/21/23 06:00 O2 Del Method Room Air 07/21/23 06:00 Data NPU 06/30/23 12:41 06/30/23 12:41 A&P Assessment and plan (1) Schizoaffective disorder, depressive type: (2) Hypoxemia: (3) Substance use disorder: (4) Hypoxemia: (5) Pulmonary embolism: (6) Methamphetamine use disorder, severe: (7) Altered mental status: Plan This is a 57-year-old white male with a long history of addiction, and psychosis/altered mental status and possible cognitive decline who relapsed on methamphetamine and is actively using cannabis who presents with recent aggressive behaviors after his relapse. 1. Continue Neurontin 300mg tid to target anxiety and neuropathic pain reported. Continue Seroquel 150 mg at night along with Risperidone 2mg bid. Reduce Buspar to 5mg bid. 2. Encourage, group and milieu therapies. 3. Patietn on 15 minute checks. 4. Encourage sober living treatment after discharge at the highest level of care to which he is willing to commit. 5. Patient did extremely poorly on his Kohan evaluation of living skills (MICKEY) 6. Given his poor functioning and diminished cognitive ability guardianship and likely placement is most appropriate intervention 7. Guardianshipo hearing scheduled tommorow. Placement in locked facililty likely soon after discharge. Level 2 interview complete but completion of document pending. Involuntary Hold Information 2 96 Hour Hold: 96 Hour Involuntary Admission: No 96 Hour Hold Ending Date: 0 05/25/23 96 Hour Hold Ending Time: 19:20 Attestations NPU 2 Medical Necessity Statement*: Inpatient hospitalization is medically necessary and the clinically appropriate intervention at this time. We will monitor medication to make changes as indicated. The patient's likely length of stay is 7-10 days. Coding Level of Care Code Acute Code for [facility] Diagnoses Schizoaffective disorder, depressive type F25.1 Hypoxemia R09.02 Substance use disorder F19.90 Pulmonary embolism I26.99 Methamphetamine use disorder, severe F15.20 Altered mental status R41.82
[2023-07-21] MEDS: BuSPIRONE 10 mg Tablet 5 MG PO (17:51)
[2023-07-21 19:58] VITALS: BP 115/75; PULSE 65; RESP 18; TEMP 36.8; O2SAT 98
[2023-07-21] MEDS: ibuprofen 800 mg tablet PO (20:08)
[2023-07-21] MEDS: prazosin 1 mg Capsule 2 MG PO (20:08)
[2023-07-21] MEDS: quetiapine 300 mg Tablet 150 MG PO (20:09)
[2023-07-21] MEDS: trazodone 50 mg Tablet PO (20:10)
[2023-07-22] MEDS: acetaminophen 325 mg Tablet 650 MG PO ×4 (01:05→20:40)
[2023-07-22 06:00] VITALS: RESP 16
[2023-07-22] MEDS: BuSPIRONE 10 mg Tablet 5 MG PO (08:06)
[2023-07-22] MEDS: buPROPion XL (24 HR) 300 mg Tablet PO (08:06)
[2023-07-22] MEDS: risperiDONE 1 mg Tablet 2 MG PO ×2 (08:07→20:44)
[2023-07-22] MEDS: pantoprazole DR 40 mg Tablet PO (08:07)
[2023-07-22] MEDS: benztropine 1 mg Tablet PO ×2 (08:07→20:43)
[2023-07-22] MEDS: gabapentin 300 mg Capsule PO ×3 (08:07→20:43)
[2023-07-22] MEDS: nicotine 4 mg lozenge MUCOUS MEM ×7 (08:07→22:42)
[2023-07-22] MEDS: ibuprofen 800 mg tablet PO ×2 (08:13→18:14)
[2023-07-22] MEDS: propranolol 20 mg Tablet 10 MG PO ×3 (08:15→20:43)
[2023-07-22] MEDS: OLANZapine 5 mg ODT PO ×2 (10:45→18:14)
[2023-07-22] MEDS: polyethylene glycol 3350 Pkt 17 gm PO (11:21)
[2023-07-22] MEDS: hyDROXYzine 25 mg Capsule 50 MG PO ×2 (12:07→20:43)
--- NOTE | 2023-07-22 12:14 | PC.NURSE ---
Patient pacing hallway and appears to be anxious about the fact that his level II has not been approved yet for him to be able to discharge today. He asked this RN if I could give him something for sleep and was informed that we could not give medications to make him sleep during the day, but that he could be administered something for anxiety. Patient was agreeable to vistaril.
--- NOTE | 2023-07-22 13:54 | P.NPUPN_ITS ---
Subjective NPU 2 Subjective: This is a 58-year-old white male with a long history of addiction, and psychosis/altered mental status and possible cognitive decline who relapsed on methamphetamine and is actively using cannabis who presents with recent aggressive behaviors after his relapse on methamphetamine. Patient had no episodes of aggression on the unit. He continued to be somewhat demanding and asking for medications to manage his anxiety. He had reported having some difficulties with managing his pain. He reported adequate sleep. He reported no side effects from his current medication. He had reported some improvement with neck pain with the initiation of gabapentin. He had continued report knee pain. Patient had appeared to understand that he had been placed under guardianship for [facility] and now had a court appointed guardian. Patient had expressed desire to go to the new facility as soon as it became available. Mental Status Exam 2 MSE Comments: This is an overweight older white male looking older than his stated age in hospital scrubs with adequate grooming and eye contact. He was pacing the unit. No abnormal involuntary motor movements appreciated. He was cooperative with exam and appeared in mild to moderate distress. His speech was productive and normal in rate and volume. Mood described as okay. His affect was restricted. Thought process was linear but superficial. Thought content: patient denied suicidal or homicidal ideation, there were no delusions reported or noted and he denied auditory or visual hallucinations currently. Attention and concentration appeared poor. He was unable to provide date or year. He was alert and oriented to person and place. Insight and judgment appear limited at best and impulse control was limited versus impaired. Recent memory was limited. Remote memory was poor as well. Vitals/I&O/Wt Last Vital Signs Temp 98.3 F 07/21/23 19:58 Pulse 65 07/21/23 19:58 Resp 16 07/22/23 06:00 BP 115/75 07/21/23 19:58 Pulse Ox 98 07/21/23 19:58 O2 Del Method Room Air 07/21/23 06:00 Data NPU 06/30/23 12:41 06/30/23 12:41 A&P Assessment and plan (1) Schizoaffective disorder, depressive type: (2) Hypoxemia: (3) Substance use disorder: (4) Hypoxemia: (5) Pulmonary embolism: (6) Methamphetamine use disorder, severe: (7) Altered mental status: Plan This is a 57-year-old white male with a long history of addiction, and psychosis/altered mental status and possible cognitive decline who relapsed on methamphetamine and is actively using cannabis who presents with recent aggressive behaviors after his relapse. 1. Continue Neurontin 300mg tid to target anxiety and neuropathic pain reported. Continue Seroquel 150 mg at night along with Risperidone 2mg bid. D/C Buspar. 2. Encourage, group and milieu therapies. 3. Patietn on 15 minute checks. 4. Encourage sober living treatment after discharge at the highest level of care to which he is willing to commit. 5. Patient did extremely poorly on his [facility] evaluation of living skills (MICKEY)-Patient on guardianship after hearing yesterday, awaiting completion of level 2 at which time patient will leave to locked facility. 6. Given his poor functioning and diminished cognitive ability guardianship and likely placement is most appropriate intervention . Involuntary Hold Information 2 96 Hour Hold: 96 Hour Involuntary Admission: No 96 Hour Hold Ending Date: 0 05/25/23 96 Hour Hold Ending Time: 19:20 Attestations NPU 2 Medical Necessity Statement*: Inpatient hospitalization is medically necessary and the clinically appropriate intervention at this time. We will monitor medication to make changes as indicated. The patient's likely length of stay is 2-3 days. Coding Level of Care Code Acute Code for [facility] Diagnoses Schizoaffective disorder, depressive type F25.1 Hypoxemia R09.02 Substance use disorder F19.90 Pulmonary embolism I26.99 Methamphetamine use disorder, severe F15.20 Altered mental status R41.82
[2023-07-22 14:00] VITALS: BP 119/79; PULSE 64; RESP 20; TEMP 36.9; O2SAT 96
[2023-07-22 20:11] VITALS: BP 131/82; PULSE 82; RESP 18; TEMP 37.1; O2SAT 97
[2023-07-22] MEDS: haloperidol 5 mg Tablet PO (20:43)
[2023-07-22] MEDS: trazodone 50 mg Tablet PO ×2 (20:43→22:42)
[2023-07-22] MEDS: prazosin 1 mg Capsule 2 MG PO (20:44)
[2023-07-22] MEDS: quetiapine 300 mg Tablet 150 MG PO (20:44)
[2023-07-23] MEDS: acetaminophen 325 mg Tablet 650 MG PO ×4 (01:56→21:44)
[2023-07-23] MEDS: nicotine 4 mg lozenge MUCOUS MEM ×6 (02:45→22:41)
[2023-07-23] MEDS: hyDROXYzine 25 mg Capsule 50 MG PO ×2 (04:11→17:22)
[2023-07-23 06:00] VITALS: BP 141/93; PULSE 82; RESP 16; TEMP 37.1; O2SAT 97
--- NOTE | 2023-07-23 07:46 | PC.NURSE ---
During morning assessment, patient stated that his anxiety is pretty high . When asked about the cause, patient stated, I don't know . Patient endorses depression, with unknown reason, stating I can't figure it out. Patient states that he has been thinking about suicide, his reason being, doesn't everybody . Patient denies any plan. Patient reports occassional auditory hallucinations, hearing his mother's voice.
[2023-07-23] MEDS: gabapentin 300 mg Capsule PO ×3 (07:52→21:43)
[2023-07-23] MEDS: benztropine 1 mg Tablet PO ×2 (07:52→21:43)
[2023-07-23] MEDS: risperiDONE 1 mg Tablet 2 MG PO ×2 (07:52→21:43)
[2023-07-23] MEDS: pantoprazole DR 40 mg Tablet PO (07:52)
[2023-07-23] MEDS: buPROPion XL (24 HR) 300 mg Tablet PO (07:52)
--- NOTE | 2023-07-23 09:37 | XRR_ITS ---
PROCEDURE INFORMATION: Exam: XR Left Knee Exam date and time: 07/23/2023 1:24 PM Age: 58 years old Clinical indication: Pain; Knee; Left; Additional info: Pain for two weeks, constant TECHNIQUE: Imaging protocol: Radiologic exam of the left knee. Views: 3 views. COMPARISON: NM bone scan whole body* [id number] 09/25/2021 11:14 AM FINDINGS: Bones/joints: Moderate narrowing of the medial compartment. Mild arthritic changes left patellofemoral articulation. Otherwise, unremarkable. Soft tissues: Normal. XR/XR knee LT 3V* [id number] IMPRESSION: 1. No acute findings. 2. Additional details as above.
--- NOTE | 2023-07-23 10:27 | P.NPUPN_ITS ---
Subjective NPU 2 Subjective: This is a 58-year-old white male with a long history of addiction, and psychosis/altered mental status and possible cognitive decline who relapsed on methamphetamine and is actively using cannabis who presents with recent aggressive behaviors after his relapse on methamphetamine. The patient had reported left knee pain and had reported previous history of right knee surgery from playing hockey. The patient had reported improved energy but continue to report depressed mood. He had reported some improvement in pain with the increase in gabapentin to 300 mg 3 times a day. Patient reported no feelings of hopelessness. He had reported no sleep continuity disruption. He continued to pace the hallway and make numerous requests for medications and treatment regarding a myriad of chronic issues. He appeared to understand that he now had a court appointed guardian and would be placed in a facility once the level 2 was completed from a legal standpoint. Mental Status Exam 2 MSE Comments: This is an overweight older white male looking older than his stated age in hospital scrubs with adequate grooming and eye contact. He was pacing the unit. Antalgic gait noted. No abnormal involuntary motor movements appreciated. He was cooperative with exam and appeared in mild distress. His speech was productive and normal in rate and volume. Mood described as allright. His affect was restricted. Thought process was linear but superficial. Thought content: patient denied suicidal or homicidal ideation, there were no delusions reported or noted and he denied auditory or visual hallucinations currently. Attention and concentration appeared poor. He was unable to provide date or year. He was alert and oriented to person and place. Insight and judgment appear limited and impulse control was improving. Recent memory was limited. Remote memory was poor as well. Vitals/I&O/Wt Last Vital Signs Temp 98.8 F 07/23/23 06:00 Pulse 82 07/23/23 06:00 Resp 16 07/23/23 06:00 BP 141/93 07/23/23 06:00 Pulse Ox 97 07/23/23 06:00 O2 Del Method Room Air 07/21/23 06:00 Data NPU 06/30/23 12:41 06/30/23 12:41 A&P Assessment and plan (1) Schizoaffective disorder, depressive type: (2) Hypoxemia: (3) Substance use disorder: (4) Hypoxemia: (5) Pulmonary embolism: (6) Methamphetamine use disorder, severe: (7) Altered mental status: Plan This is a 57-year-old white male with a long history of addiction, and psychosis/altered mental status and possible cognitive decline who relapsed on methamphetamine and is actively using cannabis who presents with recent aggressive behaviors after his relapse. 1. Continue Neurontin 300mg tid to target anxiety as neuropathic pain reported. Continue Seroquel 150 mg at night along with Risperidone 2mg bid. X-ray of Left knee today. 2. Encourage, group and milieu therapies. 3. Patietn on 15 minute checks. 4. Encourage sober living treatment after discharge at the highest level of care to which he is willing to commit. 5. [facility])-Patient on guardianship after hearing yesterday, awaiting completion of level 2 at which time patient will leave to locked facility. 6. Given his poor functioning and diminished cognitive ability guardianship and likely placement on tuesday. . Involuntary Hold Information 2 96 Hour Hold: 96 Hour Involuntary Admission: No 96 Hour Hold Ending Date: 0 05/25/23 96 Hour Hold Ending Time: 19:20 Attestations NPU 2 Medical Necessity Statement*: Inpatient hospitalization is medically necessary and the clinically appropriate intervention at this time. We will monitor medication to make changes as indicated. The patient's likely length of stay is 2-3 days. Coding Level of Care Code Acute Code for [facility] Fwd Diagnoses Schizoaffective disorder, depressive type F25.1 Hypoxemia R09.02 Substance use disorder F19.90 Pulmonary embolism I26.99 Methamphetamine use disorder, severe F15.20 Altered mental status R41.82
[2023-07-23] MEDS: capsaicin 0.025% cream 60 gm 1 APPLIC TOPICAL ×3 (10:36→20:15)
[2023-07-23] MEDS: CELEcoxib 100 mg Capsule PO ×2 (11:22→17:22)
[2023-07-23] MEDS: propranolol 20 mg Tablet 10 MG PO ×2 (12:27→21:42)
[2023-07-23 14:00] VITALS: BP 124/80; PULSE 77; RESP 16; TEMP 36.8; O2SAT 97
[2023-07-23] MEDS: cetylpyridinium Lozenge 1 EACH MUCOUS MEM (19:54)
[2023-07-23 19:55] VITALS: BP 130/85; PULSE 73; RESP 18; TEMP 36.9; O2SAT 97
[2023-07-23] MEDS: quetiapine 300 mg Tablet 150 MG PO (21:41)
[2023-07-23] MEDS: prazosin 1 mg Capsule 2 MG PO (21:43)
[2023-07-23] MEDS: trazodone 50 mg Tablet PO ×2 (21:43→22:41)
[2023-07-23] MEDS: OLANZapine 5 mg ODT PO (21:45)
[2023-07-24] MEDS: hyDROXYzine 25 mg Capsule 50 MG PO ×3 (00:50→21:12)
[2023-07-24] MEDS: nicotine 4 mg lozenge MUCOUS MEM ×7 (00:51→21:13)
[2023-07-24] MEDS: cetylpyridinium Lozenge 1 EACH MUCOUS MEM ×5 (00:51→21:14)
[2023-07-24 06:00] VITALS: BP 120/81; PULSE 78; RESP 18; TEMP 36.8; O2SAT 96
[2023-07-24] MEDS: gabapentin 300 mg Capsule PO ×3 (08:19→21:10)
[2023-07-24] MEDS: pantoprazole DR 40 mg Tablet PO (08:19)
[2023-07-24] MEDS: CELEcoxib 100 mg Capsule PO ×2 (08:19→17:06)
[2023-07-24] MEDS: benztropine 1 mg Tablet PO ×2 (08:19→21:12)
[2023-07-24] MEDS: risperiDONE 1 mg Tablet 2 MG PO ×2 (08:20→21:10)
[2023-07-24] MEDS: buPROPion XL (24 HR) 300 mg Tablet PO (08:20)
[2023-07-24] MEDS: capsaicin 0.025% cream 60 gm 1 APPLIC TOPICAL ×2 (08:30→17:53)
[2023-07-24] MEDS: acetaminophen 325 mg Tablet 650 MG PO ×3 (08:48→21:13)
[2023-07-24] MEDS: propranolol 20 mg Tablet 10 MG PO ×2 (10:37→21:10)
[2023-07-24 14:00] VITALS: BP 120/78; PULSE 68; RESP 16; TEMP 36.9; O2SAT 96
--- NOTE | 2023-07-24 17:27 | P.NPUPN_ITS ---
Subjective NPU 2 Subjective: This is a 58-year-old white male with a long history of addiction, and psychosis/altered mental status and possible cognitive decline who relapsed on methamphetamine and is actively using cannabis who presents with recent aggressive behaviors after his relapse on methamphetamine. The patient continued to complain of pain but stated feeling a little less pain with the initiation of Celebrex. He had continued to ask for help and stated that he continued to feel anxious. He reported no change in sleep. He had continued to feel depressed but stated that he was ready to leave here. He had denied any hallucinations. He had been redirectable with no signs of aggression on the unit. He had reported no cravings for opiates nor did he report any cravings for methamphetamine. Mental Status Exam 2 MSE Comments: This is an overweight older white male looking older than his stated age in hospital scrubs with adequate grooming and eye contact. He was pacing the unit. Antalgic gait noted. No abnormal involuntary motor movements appreciated. He was cooperative with exam and appeared in mild distress. His speech was productive and normal in rate and volume. Mood described as depressed His affect was restricted. Thought process was linear but superficial. Thought content: patient denied suicidal or homicidal ideation, there were no delusions reported or noted and he denied auditory or visual hallucinations currently. Attention and concentration appeared poor. He was unable to provide date today. He was alert and oriented to person and place. Insight and judgment appear limited and impulse control was improving. Recent memory was limited. Remote memory was poor as well. Vitals/I&O/Wt Last Vital Signs Temp 98.4 F 07/24/23 14:00 Pulse 68 07/24/23 14:00 Resp 16 07/24/23 14:00 BP 120/78 07/24/23 14:00 Pulse Ox 96 07/24/23 14:00 O2 Del Method Room Air 07/24/23 14:00 Weight last 48 hrs Weight 75.387 kg Data NPU 06/30/23 12:41 06/30/23 12:41 A&P Assessment and plan (1) Schizoaffective disorder, depressive type: (2) Hypoxemia: (3) Substance use disorder: (4) Hypoxemia: (5) Pulmonary embolism: (6) Methamphetamine use disorder, severe: (7) Altered mental status: Plan This is a 57-year-old white male with a long history of addiction, and psychosis/altered mental status and possible cognitive decline who relapsed on methamphetamine and is actively using cannabis who presents with recent aggressive behaviors after his relapse. 1. Continue Neurontin 300mg tid to target anxiety as neuropathic pain reported. Continue Seroquel 150 mg at night along with Risperidone 2mg bid. X-ray of Left knee today. 2. Encourage, group and milieu therapies. 3. Patietn on 15 minute checks. 4. Encourage sober living treatment after discharge at the highest level of care to which he is willing to commit. 5. Patient did extremely poorly on his [facility] evaluation of living skills (MICKEY)-Patient on guardianship after hearing yesterday, awaiting completion of level 2 at which time patient will leave to locked facility. 6. Given his poor functioning and diminished cognitive ability guardianship and likely placement on tuesday in [facility] locked facility. Patient has legal guardian. . Involuntary Hold Information 2 96 Hour Hold: 96 Hour Involuntary Admission: No 96 Hour Hold Ending Date: 0 05/25/23 96 Hour Hold Ending Time: 19:20 Attestations NPU 2 Medical Necessity Statement*: Inpatient hospitalization is medically necessary and the clinically appropriate intervention at this time. We will monitor medication to make changes as indicated. The patient's likely length of stay is 2-3 days. Coding Level of Care Code Acute Code for [facility] Fwd Diagnoses Schizoaffective disorder, depressive type F25.1 Hypoxemia R09.02 Substance use disorder F19.90 Pulmonary embolism I26.99 Methamphetamine use disorder, severe F15.20 Altered mental status R41.82
[2023-07-24 19:55] VITALS: BP 124/81; PULSE 73; RESP 18; O2SAT 97
[2023-07-24] MEDS: prazosin 1 mg Capsule 2 MG PO (21:11)
[2023-07-24] MEDS: quetiapine 300 mg Tablet 150 MG PO (21:12)
[2023-07-24] MEDS: trazodone 50 mg Tablet PO ×2 (21:13→22:34)
[2023-07-24] MEDS: OLANZapine 5 mg ODT PO (22:58)
[2023-07-25] MEDS: nicotine 4 mg lozenge MUCOUS MEM ×7 (00:28→20:58)
[2023-07-25] MEDS: cetylpyridinium Lozenge 1 EACH MUCOUS MEM (01:45)
[2023-07-25] MEDS: OLANZapine 5 mg ODT PO ×2 (03:36→15:33)
[2023-07-25] MEDS: hyDROXYzine 25 mg Capsule 50 MG PO ×2 (03:36→14:31)
[2023-07-25] MEDS: haloperidol 5 mg Tablet PO (04:56)
[2023-07-25 06:00] VITALS: BP 127/86; PULSE 87; RESP 18; TEMP 36.9; O2SAT 95
[2023-07-25] MEDS: benztropine 1 mg Tablet PO ×2 (08:00→20:35)
[2023-07-25] MEDS: risperiDONE 1 mg Tablet 2 MG PO ×2 (08:00→20:35)
[2023-07-25] MEDS: CELEcoxib 100 mg Capsule PO ×2 (08:00→17:13)
[2023-07-25] MEDS: gabapentin 300 mg Capsule PO ×3 (08:00→20:35)
[2023-07-25] MEDS: buPROPion XL (24 HR) 300 mg Tablet PO (08:00)
[2023-07-25] MEDS: pantoprazole DR 40 mg Tablet PO (08:00)
[2023-07-25] MEDS: acetaminophen 325 mg Tablet 650 MG PO ×3 (08:16→18:35)
[2023-07-25 14:00] VITALS: BP 136/87; PULSE 84; RESP 20; TEMP 36.7; O2SAT 97
--- NOTE | 2023-07-25 15:34 | PC.NURSE ---
Patient anxious about being here and also about going to a new facility. Administered zyprexa 5mg ODT to patient. Patient now pacing the hallway. This nurse has talked with patient extinsively in an attempt to educate about coping skills.
--- NOTE | 2023-07-25 16:41 | P.NPUPN_ITS ---
Subjective NPU 2 Subjective: This is a 58-year-old white male with a long history of addiction, and psychosis/altered mental status and possible cognitive decline who relapsed on methamphetamine and is actively using cannabis who presents with recent aggressive behaviors after his relapse on methamphetamine. The patient reported no cravings for amphetamine or marijuana. He had continued to request all of his as needed medications for a myriad of complaints. He had reported feeling depressed and continues to report pain issues although he did appear to be more mobile. He had denied having any suicidal thoughts. He had remained hopeful about being able to leave to the extended residential placement. He had reported some pain relief with the Celebrex. There was no episodes of aggression and he was redirectable and able to complete routine activities of daily living. Mental Status Exam 2 MSE Comments: This is an overweight older white male looking older than his stated age in hospital scrubs with adequate grooming and eye contact. He was pacing the unit. No abnormal involuntary motor movements appreciated. He was cooperative with exam and appeared in mild distress. His speech was productive and normal in rate and volume. Mood described as allright His affect was slightly restricted. Thought process was mostly linear. He had several somatic complaints. Thought content: patient denied suicidal or homicidal ideation, there were no delusions reported or noted and he denied auditory or visual hallucinations currently. Attention and concentration appeared poor. He continued to not endorse date correctly. He was alert and oriented to person and place. Insight and judgment appear limited and impulse control was improving. Recent memory was limited. Remote memory was poor as well. Vitals/I&O/Wt Last Vital Signs Temp 98.1 F 07/25/23 14:00 Pulse 84 07/25/23 14:00 Resp 20 H 07/25/23 14:00 BP 136/87 07/25/23 14:00 Pulse Ox 97 07/25/23 14:00 O2 Del Method Room Air 07/24/23 14:00 Weight last 48 hrs Weight 75.387 kg Data NPU 06/30/23 12:41 06/30/23 12:41 A&P Assessment and plan (1) Schizoaffective disorder, depressive type: (2) Hypoxemia: (3) Substance use disorder: (4) Hypoxemia: (5) Pulmonary embolism: (6) Methamphetamine use disorder, severe: (7) Altered mental status: Plan This is a 57-year-old white male with a long history of addiction, and psychosis/altered mental status and possible cognitive decline who relapsed on methamphetamine and is actively using cannabis who presents with recent aggressive behaviors after his relapse. 1. Continue Neurontin 300mg tid to target anxiety as neuropathic pain reported. Continue Seroquel 150 mg at night along with Risperidone 2mg bid. X-ray of Left knee was negative. 2. Encourage, group and milieu therapies. 3. Patient on 15 minute checks. 4. Encourage sober living treatment after discharge at the highest level of care to which he is willing to commit. 5. Patient did extremely poorly on his [facility] evaluation of living skills (MICKEY)-Patient on guardianship after hearing , level 2 hearing completed. Patient will be transferred to locked intermediate frame tender facility. 6. Given his poor functioning and diminished cognitive ability guardianship and likely placement in 1-2 days to a intermediate frame tender locked facility. Patient has legal guardian. . Involuntary Hold Information 2 96 Hour Hold: 96 Hour Involuntary Admission: No 96 Hour Hold Ending Date: 0 05/25/23 96 Hour Hold Ending Time: 19:20 Attestations NPU 2 Medical Necessity Statement*: Inpatient hospitalization is medically necessary and the clinically appropriate intervention at this time. We will monitor medication to make changes as indicated. The patient's likely length of stay is 1-2 days. Coding Level of Care Code Acute Code for [facility] Fwd Diagnoses Schizoaffective disorder, depressive type F25.1 Hypoxemia R09.02 Substance use disorder F19.90 Pulmonary embolism I26.99 Methamphetamine use disorder, severe F15.20 Altered mental status R41.82
[2023-07-25] MEDS: trazodone 50 mg Tablet PO ×2 (20:35→23:48)
[2023-07-25] MEDS: prazosin 1 mg Capsule 2 MG PO (20:35)
[2023-07-25] MEDS: quetiapine 300 mg Tablet 150 MG PO (20:35)
[2023-07-25 22:00] VITALS: BP 130/82; PULSE 71; RESP 15; TEMP 36.8; O2SAT 95
[2023-07-26] MEDS: haloperidol 5 mg Tablet PO ×3 (01:02→20:35)
[2023-07-26 06:00] VITALS: BP 104/62; PULSE 79; RESP 16; TEMP 36.6; O2SAT 97
[2023-07-26] MEDS: acetaminophen 325 mg Tablet 650 MG PO ×3 (06:50→20:34)
[2023-07-26] MEDS: CELEcoxib 100 mg Capsule PO ×2 (08:20→17:54)
[2023-07-26] MEDS: risperiDONE 1 mg Tablet 2 MG PO ×2 (08:21→20:35)
[2023-07-26] MEDS: gabapentin 300 mg Capsule PO ×3 (08:21→20:35)
[2023-07-26] MEDS: nicotine 4 mg lozenge MUCOUS MEM ×6 (08:21→21:11)
[2023-07-26] MEDS: pantoprazole DR 40 mg Tablet PO (08:21)
[2023-07-26] MEDS: benztropine 1 mg Tablet PO ×2 (08:21→20:35)
[2023-07-26] MEDS: buPROPion XL (24 HR) 300 mg Tablet PO (08:21)
[2023-07-26] MEDS: hyDROXYzine 25 mg Capsule 50 MG PO ×2 (09:31→20:35)
[2023-07-26] MEDS: OLANZapine 5 mg ODT PO ×2 (12:02→23:07)
--- NOTE | 2023-07-26 12:02 | PC.NURSE ---
Patient anxious, states that anxiety is 8/10 and the cause is because the patient is no longer being accepted into [facility].
[2023-07-26] MEDS: capsaicin 0.025% cream 60 gm 1 APPLIC TOPICAL (12:52)
[2023-07-26] MEDS: cetylpyridinium Lozenge 1 EACH MUCOUS MEM ×2 (13:11→16:57)
--- NOTE | 2023-07-26 13:45 | PC.NURSE ---
Patient anxious, patient rates anxiety at a 7.5 to 8 out of 10. Patient states that nothing is helping him. This nurse administered haldol 5mg PO to patient.
[2023-07-26 14:00] VITALS: BP 130/83; PULSE 91; RESP 18; TEMP 36.6; O2SAT 96
--- NOTE | 2023-07-26 14:25 | P.NPUPN_ITS ---
Subjective NPU 2 Subjective: This is a 58-year-old white male with a long history of addiction, and psychosis/altered mental status and possible cognitive decline who relapsed on methamphetamine and is actively using cannabis who presents with recent aggressive behaviors after his relapse on methamphetamine. There were no appreciable changes noted in behavior. He had been informed that he was no longer going to the previous locked facility as they had apparently changed their mind about excepting the patient. Patient had reported continued depression. He reported no side effects from his medications. He had reported some pain relief with the Celebrex. He continued to report multiple somatic complaints. He had continued to appear to understand that he was under guardianship and would not be allowed to leave this unit without going to a locked facility. Mental Status Exam 2 MSE Comments: This is an overweight older white male looking older than his stated age in hospital scrubs with adequate grooming and eye contact. He was pacing the unit. No abnormal involuntary motor movements appreciated. He was cooperative with exam and appeared in mild distress. His speech was productive and normal in rate and volume. Mood described as okay. His affect was slightly restricted. Thought process was mostly linear. He had several somatic complaints. Thought content: patient denied suicidal or homicidal ideation, there were no delusions reported or noted and he denied auditory or visual hallucinations currently. Attention and concentration appeared poor. He continued to not endorse date correctly. He was alert and oriented to person and place. Insight and judgment appear limited and impulse control was improving. Recent memory was limited. Remote memory was poor as well. Vitals/I&O/Wt Last Vital Signs Temp 97.9 F 07/26/23 06:00 Pulse 79 07/26/23 06:00 Resp 16 07/26/23 06:00 BP 104/62 07/26/23 06:00 Pulse Ox 97 07/26/23 06:00 O2 Del Method Room Air 07/26/23 06:00 Data NPU 06/30/23 12:41 06/30/23 12:41 A&P Assessment and plan (1) Schizoaffective disorder, depressive type: (2) Hypoxemia: (3) Substance use disorder: (4) Hypoxemia: (5) Pulmonary embolism: (6) Methamphetamine use disorder, severe: (7) Altered mental status: Plan This is a 57-year-old white male with a long history of addiction, and psychosis/altered mental status and possible cognitive decline who relapsed on methamphetamine and is actively using cannabis who presents with recent aggressive behaviors after his relapse. 1. Continue Neurontin 300mg tid to target anxiety as neuropathic pain reported. Continue Seroquel 150 mg at night along with Risperidone 2mg bid. X-ray of Left knee was negative. 2. Encourage, group and milieu therapies. 3. Patient on 15 minute checks. 4. Encourage sober living treatment after discharge at the highest level of care to which he is willing to commit. 5. Patient did extremely poorly on his [facility] evaluation of living skills (MICKEY)-Patient on guardianship after hearing , level 2 hearing completed. Patient will be transferred to locked [facility] facility. 6. Given his poor functioning and diminished cognitive ability guardianship and now seeking placement again as previous accepting facility had rejected patient as candidate at their facility for unspecified reasons. Patient has legal guardian. Involuntary Hold Information 2 96 Hour Hold: 96 Hour Involuntary Admission: No 96 Hour Hold Ending Date: 0 05/25/23 96 Hour Hold Ending Time: 19:20 Attestations NPU 2 Medical Necessity Statement*: Inpatient hospitalization is medically necessary and the clinically appropriate intervention at this time. We will monitor medication to make changes as indicated. The patient's likely length of stay is 5-7 days. Coding Level of Care Code Acute Code for [facility] Fwd Diagnoses Schizoaffective disorder, depressive type F25.1 Hypoxemia R09.02 Substance use disorder F19.90 Pulmonary embolism I26.99 Methamphetamine use disorder, severe F15.20 Altered mental status R41.82
[2023-07-26] MEDS: propranolol 20 mg Tablet 10 MG PO (17:57)
[2023-07-26 20:18] VITALS: BP 124/79; PULSE 74; RESP 17; O2SAT 96
[2023-07-26] MEDS: quetiapine 300 mg Tablet 150 MG PO (20:34)
[2023-07-26] MEDS: prazosin 1 mg Capsule 2 MG PO (20:35)
[2023-07-26] MEDS: trazodone 50 mg Tablet PO ×2 (20:35→21:51)
[2023-07-27 06:00] VITALS: BP 125/80; PULSE 75; RESP 17; TEMP 36.9; O2SAT 96
[2023-07-27] MEDS: nicotine 4 mg lozenge MUCOUS MEM ×4 (06:39→20:13)
[2023-07-27] MEDS: gabapentin 300 mg Capsule PO (08:12)
[2023-07-27] MEDS: benztropine 1 mg Tablet PO ×2 (08:12→20:08)
[2023-07-27] MEDS: risperiDONE 1 mg Tablet 2 MG PO (08:12)
[2023-07-27] MEDS: buPROPion XL (24 HR) 300 mg Tablet PO (08:12)
[2023-07-27] MEDS: CELEcoxib 100 mg Capsule PO ×2 (08:12→17:05)
[2023-07-27] MEDS: pantoprazole DR 40 mg Tablet PO (08:12)
[2023-07-27] MEDS: propranolol 20 mg Tablet 10 MG PO (08:56)
[2023-07-27] MEDS: OLANZapine 5 mg ODT PO (10:39)
[2023-07-27] MEDS: nicotine 21 mg Patch 1 PATCH TRANSDERMA (10:40)
[2023-07-27] MEDS: acetaminophen 325 mg Tablet 650 MG PO (10:50)
[2023-07-27] MEDS: hyDROXYzine 25 mg Capsule 50 MG PO (12:58)
[2023-07-27 14:00] VITALS: BP 127/84; PULSE 87; RESP 16; TEMP 36.6; O2SAT 95
[2023-07-27] MEDS: gabapentin 400 mg Capsule PO ×2 (15:08→20:08)
--- NOTE | 2023-07-27 17:22 | P.NPUPN_ITS ---
Subjective NPU 2 Subjective: This is a 58-year-old white male with a long history of addiction, and psychosis/altered mental status and possible cognitive decline who relapsed on methamphetamine and is actively using cannabis who presents with recent aggressive behaviors after his relapse on methamphetamine. No aggressive behavior noted. He continued to complain over a myriad of problems including reporting having dribbling when he urinates. Patient had reported continued depression and anxiety. He reported at other times having chronic problems with pain. He did not report having thoughts of hurting himself. There had been no substantial changes noted from yesterday. Mental Status Exam 2 MSE Comments: This is an overweight older white male looking older than his stated age in hospital scrubs with adequate grooming and eye contact. He was pacing the unit. No abnormal involuntary motor movements appreciated. He was cooperative with exam and appeared in mild distress. His speech was productive and normal in rate and volume. Mood described as allright. His affect was restricted in range and flat. Thought process was mostly linear. He had several somatic complaints. Thought content: patient denied suicidal or homicidal ideation, there were no delusions reported or noted and he denied auditory or visual hallucinations currently. Attention and concentration appeared poor. He continued to not endorse date correctly. He was alert and oriented to person and place. Insight and judgment appear limited and impulse control was improving. Recent memory was limited. Remote memory was poor as well. Vitals/I&O/Wt Last Vital Signs Temp 97.9 F 07/27/23 14:00 Pulse 87 07/27/23 14:00 Resp 16 07/27/23 14:00 BP 127/84 07/27/23 14:00 Pulse Ox 95 07/27/23 14:00 O2 Del Method Room Air 07/26/23 06:00 Data NPU 06/30/23 12:41 06/30/23 12:41 A&P Assessment and plan (1) Schizoaffective disorder, depressive type: (2) Hypoxemia: (3) Substance use disorder: (4) Hypoxemia: (5) Pulmonary embolism: (6) Methamphetamine use disorder, severe: (7) Altered mental status: Plan This is a 57-year-old white male with a long history of addiction, and psychosis/altered mental status and possible cognitive decline who relapsed on methamphetamine and is actively using cannabis who presents with recent aggressive behaviors after his relapse. 1. Increase Neurontin 400mg tid to target anxiety as neuropathic pain reported. Continue Seroquel 150 mg at night along with Risperidone 2mg bid. X-ray of Left knee was negative. 2. Encourage, group and milieu therapies. 3. Patient on 15 minute checks. 4. Encourage sober living treatment after discharge at the highest level of care to which he is willing to commit. 5. Patient did extremely poorly on his [facility] evaluation of living skills (MICKEY)-Patient on guardianship after hearing , level 2 hearing completed. Patient will be transferred to locked [facility] facility. Currently attempting to find new placement. 6. Given his poor functioning and diminished cognitive ability guardianship and now seeking placement again as previous accepting facility had rejected patient as candidate at their facility for unspecified reasons. Patient has legal guardian. Involuntary Hold Information 2 96 Hour Hold: 96 Hour Involuntary Admission: No 96 Hour Hold Ending Date: 0 05/25/23 96 Hour Hold Ending Time: 19:20 Attestations NPU 2 Medical Necessity Statement*: Inpatient hospitalization is medically necessary and the clinically appropriate intervention at this time. We will monitor medication to make changes as indicated. The patient's likely length of stay is 5-7 days. Coding Level of Care Code Acute Code for [facility] Fwd Diagnoses Schizoaffective disorder, depressive type F25.1 Hypoxemia R09.02 Substance use disorder F19.90 Pulmonary embolism I26.99 Methamphetamine use disorder, severe F15.20 Altered mental status R41.82
[2023-07-27] MEDS: quetiapine 300 mg Tablet 150 MG PO (20:08)
[2023-07-27] MEDS: prazosin 1 mg Capsule 2 MG PO (20:08)
[2023-07-27] MEDS: trazodone 50 mg Tablet PO ×2 (20:13→21:10)
[2023-07-27 21:27] VITALS: BP 121/78; PULSE 76; RESP 17; TEMP 36.6; O2SAT 97
[2023-07-28] MEDS: hyDROXYzine 25 mg Capsule 50 MG PO ×4 (00:32→23:14)
[2023-07-28 06:00] VITALS: BP 121/84; PULSE 88; RESP 18; TEMP 36.7; O2SAT 94
[2023-07-28] MEDS: buPROPion XL (24 HR) 300 mg Tablet PO (08:26)
[2023-07-28] MEDS: benztropine 1 mg Tablet PO ×2 (08:26→20:34)
[2023-07-28] MEDS: pantoprazole DR 40 mg Tablet PO (08:26)
[2023-07-28] MEDS: propranolol 20 mg Tablet 10 MG PO ×2 (08:26→20:33)
[2023-07-28] MEDS: gabapentin 400 mg Capsule PO ×3 (08:26→20:34)
[2023-07-28] MEDS: risperiDONE 1 mg Tablet 2 MG PO ×2 (08:26→20:34)
[2023-07-28] MEDS: CELEcoxib 100 mg Capsule PO ×2 (08:26→17:14)
[2023-07-28] MEDS: acetaminophen 325 mg Tablet 650 MG PO (08:26)
[2023-07-28] MEDS: nicotine 4 mg lozenge MUCOUS MEM ×5 (08:26→20:33)
[2023-07-28] MEDS: sennosides-docusate Tablet 1 TAB PO (08:26)
--- NOTE | 2023-07-28 09:09 | PC.NURSE ---
PT CONTINUES TO PACE LEIGH, BOUTS OF CONFUSION OBSERVED. PT REMAINS INTRUSIVE, DEMANDING AND IMPULSIVE. DENIES SI/HI AT THIS TIME BUT PT STATES ITS STILL EARLY. DENIES AVH AT THIS TIME. RATES PAIN IN RIGHT KNEE 07/21 TYLENOL 650 MG GIVEN ORDERED FOR PAIN. RATES ANXIETY AND DEPRESSION 12/21. GOAL FOR THE DAY IS TO HOPEFULLY LEAVE HERE TODAY. ALL QUESTIONS ANSWERED AND SUPPORT VOICED.
[2023-07-28] MEDS: haloperidol 5 mg Tablet PO (11:49)
[2023-07-28 13:58] VITALS: BP 113/76; PULSE 75; RESP 16; TEMP 36.8; O2SAT 97
--- NOTE | 2023-07-28 14:58 | P.NPUPN_ITS ---
Subjective NPU 2 Subjective: This is a 58-year-old white male with a long history of addiction, and psychosis/altered mental status and possible cognitive decline who relapsed on methamphetamine and is actively using cannabis who presents with recent aggressive behaviors after his relapse on methamphetamine. Patient had reported frustration with being here as he had reported feeling depressed and anxious. He had continued to request multiple times for medications to manage his problems with mood and his near limitless physical complaints. He had reported some relief of pain with Celebrex. He did not complain of urinary retention today. He reported no sleep continuity disruption. He was reporting no side effects from the increase in Neurontin as well stating that it helped for his anxiety. Mental Status Exam 2 MSE Comments: This is an overweight older white male looking older than his stated age in hospital scrubs with adequate grooming and eye contact. He was pacing the unit. No abnormal involuntary motor movements appreciated. He was cooperative with exam and appeared in mild to moderate distress. His speech was productive and normal in rate and volume. Mood described as okay. His affect was flat. Thought process was mostly linear. He had several somatic complaints. Thought content: patient denied suicidal or homicidal ideation, there were no delusions reported or noted and he denied auditory or visual hallucinations currently. Attention and concentration appeared poor. He continued to not endorse date correctly. He was alert and oriented to person and place. Insight and judgment appear limited and impulse control was improving. Recent memory was limited. Remote memory was poor as well. Vitals/I&O/Wt Last Vital Signs Temp 98.3 F 07/28/23 13:58 Pulse 75 07/28/23 13:58 Resp 16 07/28/23 13:58 BP 113/76 07/28/23 13:58 Pulse Ox 97 07/28/23 13:58 O2 Del Method Room Air 07/26/23 06:00 Data NPU 06/30/23 12:41 06/30/23 12:41 A&P Assessment and plan (1) Schizoaffective disorder, depressive type: (2) Hypoxemia: (3) Substance use disorder: (4) Hypoxemia: (5) Pulmonary embolism: (6) Methamphetamine use disorder, severe: (7) Altered mental status: Plan This is a 57-year-old white male with a long history of addiction, and psychosis/altered mental status and possible cognitive decline who relapsed on methamphetamine and is actively using cannabis who presents with recent aggressive behaviors after his relapse. 1. Continue Neurontin 400mg tid to target anxiety as neuropathic pain reported. Continue Seroquel 150 mg at night along with Risperidone 2mg bid. X-ray of Left knee was negative. 2. Encourage, group and milieu therapies. 3. Patient on 15 minute checks. 4. Encourage sober living treatment after discharge at the highest level of care to which he is willing to commit. 5. [facility]Patient on guardianship after hearing , level 2 hearing completed. Patient will be transferred to locked [facility] facility. Currently attempting to find new placement, possibly [facility]. 6. Given his poor functioning and diminished cognitive ability guardianship and now seeking placement again as previous accepting facility had rejected patient as candidate at their facility for unspecified reasons. Patient has legal guardian. Involuntary Hold Information 2 96 Hour Hold: 96 Hour Involuntary Admission: No 96 Hour Hold Ending Date: 0 05/25/23 96 Hour Hold Ending Time: 19:20 Attestations NPU 2 Medical Necessity Statement*: Inpatient hospitalization is medically necessary and the clinically appropriate intervention at this time. We will monitor medication to make changes as indicated. The patient's likely length of stay is 5-7 days as we are awaiting direct placement into locked retirement. Coding Level of Care Code Acute Code for [facility] Diagnoses Schizoaffective disorder, depressive type F25.1 Hypoxemia R09.02 Substance use disorder F19.90 Pulmonary embolism I26.99 Methamphetamine use disorder, severe F15.20 Altered mental status R41.82
[2023-07-28] MEDS: cetylpyridinium Lozenge 1 EACH MUCOUS MEM ×2 (15:54→21:23)
[2023-07-28] MEDS: trazodone 50 mg Tablet PO ×2 (20:33→21:23)
[2023-07-28] MEDS: quetiapine 300 mg Tablet 150 MG PO (20:33)
[2023-07-28] MEDS: prazosin 1 mg Capsule 2 MG PO (20:34)
[2023-07-28 21:24] VITALS: BP 125/83; PULSE 76; RESP 18; TEMP 36.8; O2SAT 96
[2023-07-29 06:00] VITALS: BP 114/83; PULSE 78; RESP 17; TEMP 36.6; O2SAT 97
[2023-07-29] MEDS: nicotine 4 mg lozenge MUCOUS MEM ×8 (06:31→23:51)
[2023-07-29] MEDS: propranolol 20 mg Tablet 10 MG PO ×2 (08:07→17:02)
[2023-07-29] MEDS: hyDROXYzine 25 mg Capsule 50 MG PO ×2 (08:07→21:24)
[2023-07-29] MEDS: cetylpyridinium Lozenge 1 EACH MUCOUS MEM ×4 (08:07→23:51)
[2023-07-29] MEDS: risperiDONE 1 mg Tablet 2 MG PO ×2 (08:07→21:23)
[2023-07-29] MEDS: benztropine 1 mg Tablet PO ×2 (08:07→21:24)
[2023-07-29] MEDS: gabapentin 400 mg Capsule PO ×3 (08:07→21:24)
[2023-07-29] MEDS: CELEcoxib 100 mg Capsule PO ×2 (08:07→17:02)
[2023-07-29] MEDS: sennosides-docusate Tablet 1 TAB PO (08:07)
[2023-07-29] MEDS: buPROPion XL (24 HR) 300 mg Tablet PO (08:08)
[2023-07-29] MEDS: acetaminophen 325 mg Tablet 650 MG PO ×2 (08:08→12:26)
[2023-07-29] MEDS: pantoprazole DR 40 mg Tablet PO (08:08)
--- NOTE | 2023-07-29 09:03 | PC.NURSE ---
PT UP THIS AM, STATES HE DID NOT SLEEP MUCH. WHEN HE SEES RN HE STATES MAKE SURE YOU GIVE ME ALL THE MEDICINE YOU CAN FOR MY ANXIETY. PT WAS EDUCTED HE NEEDS TO USE HIS COPING SKILLS. PT RATED ANXIETY AND DEPRESSION 10/10 AND DID RECEIVE VISTARIL 50 MG AND PROPANONOL 10 MG FOR REPORTS OF INCREASED ANXIETY. DENIES SI/HI AT THIS TIME. CONTINUES TO REPORT SEEING MY MOM AND TALKING TO HER, SHES REALLY HAPPY I AM DOING GOOD. PT WAS GIVEN TYLENOL 650 MG FOR RIGHT KNEE PAIN RATED 8/10. PT GOAL FOR THE DAY IS TO KEEP MY COOL ANDKEEP MY EYE ON THE PRIZE. ALL QUESTIONS WERE ANSWERED AND SUPPORT WAS VOICED. PT DOES CONTINUE TO HAVE MOMENTS OF IMPULSIVENESS AND IS FREQUENTLY INTRUSIVE. ABLE TO BE REDIRECTED.
[2023-07-29] MEDS: capsaicin 0.025% cream 60 gm 1 APPLIC TOPICAL (11:37)
[2023-07-29 14:00] VITALS: BP 118/74; PULSE 82; RESP 20; TEMP 36.9; O2SAT 98
--- NOTE | 2023-07-29 16:51 | W.PM.NPUPNS ---
Subjective NPU Subjective: Patient presented today reporting that he has been doing okay. He seems to be fairly goal-directed today and focused on when they may find a place for him. He seemed to have some of his obscure references but seem to be improving on the purposeless nature of his speech. He did report not sleeping as well and we discussed the risks, benefits and alternatives of increasing his trazodone to 100 mg p.o. nightly and he understood and agreed to proceed as is documented in this note. He denied any side effects of the medication. Mental Status Exam MSE Comments: This is an overweight older white male looking older than his stated age in hospital scrubs with adequate grooming and eye contact. No abnormal involuntary motor movements appreciated. He was cooperative with exam and appeared in mild to moderate distress. His speech was productive and normal in rate and volume. Mood described as okay. His affect was flat. Thought process was mostly linear. He had several somatic complaints. Thought content: patient denied suicidal or homicidal ideation, there were no delusions reported or noted and he denied auditory or visual hallucinations currently. Attention and concentration appeared poor. He continued to not endorse date correctly. He was alert and oriented to person and place. Insight and judgment appear limited and impulse control was improving. Recent memory was limited. Remote memory was poor as well. Vitals/I&O/Wt Last Vital Signs Temp 98.4 F 07/29/23 14:00 Pulse 82 07/29/23 14:00 Resp 20 H 07/29/23 14:00 BP 118/74 07/29/23 14:00 Pulse Ox 98 07/29/23 14:00 O2 Del Method Room Air 07/26/23 06:00 Data NPU 06/30/23 12:41 06/30/23 12:41 A&P Assessment and plan (1) Schizoaffective disorder, depressive type: (2) Hypoxemia: (3) Substance use disorder: (4) Hypoxemia: (5) Pulmonary embolism: (6) Methamphetamine use disorder, severe: (7) Altered mental status: Plan This is a 57-year-old white male with a long history of addiction, and psychosis/altered mental status and possible cognitive decline who relapsed on methamphetamine and is actively using cannabis who presents with recent aggressive behaviors after his relapse. 1. Continue Neurontin 400mg tid to target anxiety as neuropathic pain reported. Continue Seroquel 150 mg at night along with Risperidone 2mg bid. X-ray of Left knee was negative. 2. Encourage, group and milieu therapies. 3. Patient on 15 minute checks. 4. Encourage sober living treatment after discharge at the highest level of care to which he is willing to commit. 5. Patient did extremely poorly on his [employer] evaluation of living skills (MICKEY)-Patient on guardianship after hearing , level 2 hearing completed. Patient will be transferred to locked terminal manager facility. Currently attempting to find new placement, possibly [facility]. 6. Given his poor functioning and diminished cognitive ability guardianship and now seeking placement again as previous accepting facility had rejected patient as candidate at their facility for unspecified reasons. Patient has legal guardian. Involuntary Hold Information 96 Hour Hold: 96 Hour Involuntary Admission: No 96 Hour Hold Ending Date: 05/25/23 96 Hour Hold Ending Time: 19:20 Attestations NPU Medical Necessity Statement*: Inpatient hospitalization is medically necessary and the clinically appropriate intervention at this time. We will monitor medication to make changes as indicated. The patient's likely length of stay is 5-7 days as we are awaiting direct placement into locked long term. Coding Level of Care Code Acute Code for [facility] Diagnoses Schizoaffective disorder, depressive type F25.1 Hypoxemia R09.02 Substance use disorder F19.90 Pulmonary embolism I26.99 Methamphetamine use disorder, severe F15.20 Altered mental status R41.82
[2023-07-29] MEDS: prazosin 1 mg Capsule 2 MG PO (21:23)
[2023-07-29] MEDS: quetiapine 300 mg Tablet 150 MG PO (21:23)
[2023-07-29] MEDS: trazodone 100 mg Tablet PO ×2 (21:24→22:25)
[2023-07-29 21:31] VITALS: BP 116/84; PULSE 70; RESP 18; TEMP 36.9; O2SAT 94
[2023-07-30] MEDS: OLANZapine 5 mg ODT PO ×2 (00:07→22:17)
[2023-07-30] MEDS: hyDROXYzine 25 mg Capsule 50 MG PO ×3 (03:37→20:12)
[2023-07-30] MEDS: cetylpyridinium Lozenge 1 EACH MUCOUS MEM ×3 (03:40→20:12)
[2023-07-30 06:00] VITALS: BP 121/83; PULSE 78; RESP 18; TEMP 36.8; O2SAT 94
[2023-07-30] MEDS: nicotine 4 mg lozenge MUCOUS MEM ×7 (06:00→20:41)
[2023-07-30] MEDS: acetaminophen 325 mg Tablet 650 MG PO ×3 (06:12→16:30)
--- NOTE | 2023-07-30 07:20 | P.NPUPN_ITS ---
Subjective NPU 2 Subjective: Patient presented today reporting that he is feeling fairly good. He is having greater clarity per staff reports and direct observation. Seeming to track conversations much better and did not have any ill placed or bizarre statements that interrupted normal conversation and train of thought. He noted this improvement and change himself as well. He identified the waiting process is being annoying but he understands is the situation that he has put himself in and is functioning and has led to. He denies any side effects to his medications. And reports that he had no problems with the increase in his trazodone. Mental Status Exam 2 MSE Comments: This is an overweight older white male looking older than his stated age in hospital scrubs with adequate grooming and eye contact. No abnormal involuntary motor movements appreciated. He was cooperative with exam and appeared in mild distress. His speech was productive and normal in rate and volume less dysarthria. Mood described as okay. His affect was flat, but brighter. Thought process was mostly linear and seeming more organized. Thought content: patient denied suicidal or homicidal ideation, there were no delusions reported or noted and he denied auditory or visual hallucinations currently. Attention and concentration appeared to be improving. He continued to not endorse date correctly. He was alert and oriented to person and place. Insight and judgment appear limited and impulse control was improving. Recent memory was limited. Remote memory was poor as well. Vitals/I&O/Wt Last Vital Signs Temp 98.2 F 07/30/23 06:00 Pulse 78 07/30/23 06:00 Resp 18 07/30/23 06:00 BP 121/83 07/30/23 06:00 Pulse Ox 94 07/30/23 06:00 O2 Del Method Room Air 07/30/23 06:00 Data NPU 06/30/23 12:41 06/30/23 12:41 A&P Assessment and plan (1) Schizoaffective disorder, depressive type: (2) Hypoxemia: (3) Substance use disorder: (4) Hypoxemia: (5) Pulmonary embolism: (6) Methamphetamine use disorder, severe: (7) Altered mental status: Plan This is a 57-year-old white male with a long history of addiction, and psychosis/altered mental status and possible cognitive decline who relapsed on methamphetamine and is actively using cannabis who presents with recent aggressive behaviors after his relapse. 1. Continue Neurontin 400mg tid to target anxiety as neuropathic pain reported. Continue Seroquel 150 mg at night along with Risperidone 2mg bid. X-ray of Left knee was negative. 2. Encourage, group and milieu therapies. 3. Patient on 15 minute checks. 4. Encourage sober living treatment after discharge at the highest level of care to which he is willing to commit. 5. Patient did extremely poorly on his [facility] evaluation of living skills (MICKEY)-Patient on guardianship after hearing , level 2 hearing completed. Patient will be transferred to locked [facility] facility. Currently attempting to find new placement, possibly [facility]. 6. Given his poor functioning and diminished cognitive ability guardianship and now seeking placement again as previous accepting facility had rejected patient as candidate at their facility for unspecified reasons. Patient has legal guardian. 7. Patient having signs of much higher functioning and clarity since last seen almost 2 weeks ago. Involuntary Hold Information 2 96 Hour Hold: 96 Hour Involuntary Admission: No 96 Hour Hold Ending Date: 0 05/25/23 96 Hour Hold Ending Time: 19:20 Attestations NPU 2 Medical Necessity Statement*: Inpatient hospitalization is medically necessary and the clinically appropriate intervention at this time. We will monitor medication to make changes as indicated. The patient's likely length of stay is 5-7 days as we are awaiting direct placement into locked skilled nursing. Coding Level of Care Code Acute Code for [facility] Diagnoses Schizoaffective disorder, depressive type F25.1 Hypoxemia R09.02 Substance use disorder F19.90 Pulmonary embolism I26.99 Methamphetamine use disorder, severe F15.20 Altered mental status R41.82
[2023-07-30] MEDS: CELEcoxib 100 mg Capsule PO ×2 (08:43→18:17)
[2023-07-30] MEDS: gabapentin 400 mg Capsule PO ×3 (08:43→20:13)
[2023-07-30] MEDS: risperiDONE 1 mg Tablet 2 MG PO ×2 (08:43→20:13)
[2023-07-30] MEDS: buPROPion XL (24 HR) 300 mg Tablet PO (08:43)
[2023-07-30] MEDS: pantoprazole DR 40 mg Tablet PO (08:43)
[2023-07-30] MEDS: benztropine 1 mg Tablet PO ×2 (08:43→20:12)
[2023-07-30 13:07] VITALS: BP 126/84; PULSE 86; RESP 20; TEMP 37.4; O2SAT 97
[2023-07-30] MEDS: propranolol 20 mg Tablet 10 MG PO (13:34)
[2023-07-30] MEDS: prazosin 1 mg Capsule 2 MG PO (20:12)
[2023-07-30] MEDS: trazodone 100 mg Tablet PO ×2 (20:12→21:13)
[2023-07-30] MEDS: quetiapine 300 mg Tablet 150 MG PO (20:13)
[2023-07-30 20:28] VITALS: BP 125/80; PULSE 74; RESP 18; TEMP 36.9; O2SAT 96
[2023-07-31] MEDS: cetylpyridinium Lozenge 1 EACH MUCOUS MEM (05:07)
[2023-07-31 06:00] VITALS: BP 123/86; PULSE 86; RESP 18; TEMP 36.8; O2SAT 93
[2023-07-31] MEDS: nicotine 4 mg lozenge MUCOUS MEM ×6 (06:00→21:19)
[2023-07-31] MEDS: gabapentin 400 mg Capsule PO ×3 (08:19→20:16)
[2023-07-31] MEDS: pantoprazole DR 40 mg Tablet PO (08:19)
[2023-07-31] MEDS: risperiDONE 1 mg Tablet 2 MG PO ×2 (08:19→20:16)
[2023-07-31] MEDS: buPROPion XL (24 HR) 300 mg Tablet PO (08:19)
[2023-07-31] MEDS: CELEcoxib 100 mg Capsule PO ×2 (08:19→17:58)
[2023-07-31] MEDS: benztropine 1 mg Tablet PO ×2 (08:19→20:16)
[2023-07-31] MEDS: propranolol 20 mg Tablet 10 MG PO ×3 (09:25→20:16)
--- NOTE | 2023-07-31 09:33 | PC.NURSE ---
Patient rates anxiety 7.5 out of 10. Patient requesting medication. Attempts to distract and redirect patient were unsuccessful. Administered propranolol 10mg PO to patient.
[2023-07-31] MEDS: capsaicin 0.025% cream 60 gm 1 APPLIC TOPICAL ×2 (09:37→13:30)
[2023-07-31] MEDS: hyDROXYzine 25 mg Capsule 50 MG PO (13:04)
--- NOTE | 2023-07-31 13:05 | PC.NURSE ---
patient rates anxiety 10/21. This nurse administered vistaril 50mg PO to patient, with encouragement to lay down and rest. Understanding verbalized.
[2023-07-31 13:50] VITALS: BP 128/82; PULSE 83; RESP 20; TEMP 37.4; O2SAT 97
--- NOTE | 2023-07-31 14:16 | W.PM.NPUPNS ---
Subjective NPU Subjective: Patient presented today reporting that he is doing okay. He continues to be much more goal-directed per staff reports and direct observation. He continued to be focused on his medications and where he might be going. He continued to have no episodes of strange ideas or thoughts inserted into the conversation at random places as he has or had in the past. We continue to discuss the uncertainty we have about his next destination but continues to send out referrals. We discussed working with the social work team on Tuesday to see if there were any responses that came been over the last couple of days. He denied any side effects to the medication but did endorse wanting to make sure he is on a few medications as possible. This journalists and other writers agreed to look at his medications but also stressed how well he has been doing in comparison to his presentation. Mental Status Exam MSE Comments: This is an overweight older white male looking older than his stated age in hospital scrubs with adequate grooming and eye contact. No abnormal involuntary motor movements appreciated. He was cooperative with exam and appeared in mild distress. His speech was productive and normal in rate and volume less dysarthria. Mood described as okay. His affect was flat, but brighter. Thought process was mostly linear and seeming more organized. Thought content: patient denied suicidal or homicidal ideation, there were no delusions reported or noted and he denied auditory or visual hallucinations currently. Attention and concentration appeared to be improving. He continued to not endorse date correctly. He was alert and oriented to person and place. Insight and judgment appear limited and impulse control was improving. Recent memory was limited. Remote memory was poor as well. Vitals/I&O/Wt Last Vital Signs Temp 99.4 F 07/31/23 13:50 Pulse 83 07/31/23 13:50 Resp 20 H 07/31/23 13:50 BP 128/82 07/31/23 13:50 Pulse Ox 97 07/31/23 13:50 O2 Del Method Room Air 07/31/23 06:00 Weight last 48 hrs Weight 77.224 kg Data NPU 06/30/23 12:41 06/30/23 12:41 A&P Assessment and plan (1) Schizoaffective disorder, depressive type: (2) Hypoxemia: (3) Substance use disorder: (4) Hypoxemia: (5) Pulmonary embolism: (6) Methamphetamine use disorder, severe: (7) Altered mental status: Plan This is a 57-year-old white male with a long history of addiction, and psychosis/altered mental status and possible cognitive decline who relapsed on methamphetamine and is actively using cannabis who presents with recent aggressive behaviors after his relapse. 1. Continue Neurontin 400mg tid to target anxiety as neuropathic pain reported. Continue Seroquel 150 mg at night along with Risperidone 2mg bid. X-ray of Left knee was negative. 2. Encourage, group and milieu therapies. 3. Patient on 15 minute checks. 4. Encourage sober living treatment after discharge at the highest level of care to which he is willing to commit. 5. Patient did extremely poorly on his [facility] evaluation of living skills (MICKEY)-Patient on guardianship after hearing , level 2 hearing completed. Patient will be transferred to locked longterm facility. Currently attempting to find new placement, possibly [facility]. 6. Given his poor functioning and diminished cognitive ability guardianship and now seeking placement again as previous accepting facility had rejected patient as candidate at their facility for unspecified reasons. Patient has legal guardian. 7. Patient having signs of much higher functioning and clarity since last seen almost 2 weeks ago. Involuntary Hold Information 96 Hour Hold: 96 Hour Involuntary Admission: No 96 Hour Hold Ending Date: 05/25/23 96 Hour Hold Ending Time: 19:20 Attestations NPU Medical Necessity Statement*: Inpatient hospitalization is medically necessary and the clinically appropriate intervention at this time. We will monitor medication to make changes as indicated. The patient's likely length of stay is 5-7 days as we are awaiting direct placement into locked residential. Coding Level of Care Code Acute Code for [facility] Diagnoses Schizoaffective disorder, depressive type F25.1 Hypoxemia R09.02 Substance use disorder F19.90 Pulmonary embolism I26.99 Methamphetamine use disorder, severe F15.20 Altered mental status R41.82
[2023-07-31] MEDS: nicotine 2 mg Gum BUCCAL (14:46)
[2023-07-31] MEDS: acetaminophen 325 mg Tablet 650 MG PO (18:08)
[2023-07-31] MEDS: prazosin 1 mg Capsule 2 MG PO (20:15)
[2023-07-31] MEDS: quetiapine 300 mg Tablet 150 MG PO (20:16)
[2023-07-31] MEDS: trazodone 100 mg Tablet PO ×2 (20:16→22:30)
[2023-07-31 20:26] VITALS: BP 117/81; PULSE 75; RESP 18; TEMP 36.6; O2SAT 97
[2023-08-01] MEDS: hyDROXYzine 25 mg Capsule 50 MG PO ×3 (01:54→14:48)
[2023-08-01 06:00] VITALS: RESP 15
[2023-08-01] MEDS: acetaminophen 325 mg Tablet 650 MG PO (08:18)
[2023-08-01] MEDS: risperiDONE 1 mg Tablet 2 MG PO ×2 (08:19→20:39)
[2023-08-01] MEDS: CELEcoxib 100 mg Capsule PO ×2 (08:19→18:38)
[2023-08-01] MEDS: buPROPion XL (24 HR) 300 mg Tablet PO (08:19)
[2023-08-01] MEDS: pantoprazole DR 40 mg Tablet PO (08:19)
[2023-08-01] MEDS: propranolol 20 mg Tablet 10 MG PO (08:19)
[2023-08-01] MEDS: nicotine 4 mg lozenge MUCOUS MEM ×5 (08:19→18:55)
[2023-08-01] MEDS: benztropine 1 mg Tablet PO ×2 (08:19→20:39)
[2023-08-01] MEDS: gabapentin 400 mg Capsule PO ×3 (08:19→20:39)
--- NOTE | 2023-08-01 08:57 | PC.NURSE ---
PT REPORTS RIGHT KNEE PAINN 10/21, TYLENOL 650 MG GIVEN ORDERED FOR PAIN. DENIES SI /HI BUT DOES REPORT SEEING AND HEARING MY MOM STILL AND I SEE HER SHOES TOO. I'VE BEEN HEARING HER FOR OVER A MONTH. BUT I LIKE SEEING HER. RATES ANXIETY 09/20 AND DEPRESSION 08/21.M PROPANOLOL 10 MG GIVEN FOR ANXIETY AND VISTARIL 50 MG WAS ALSO GIVEN. PT WAS EDUCATED ON DECREASNG HIS PRN ANXIETY MEDICATIONS TODAY AND PT AGREES. PT STATES GOAL FOR THE DAY TO KEEP ON SMILING. M ALL QUESTIONS ANSWERED AND SUPPORT WAS VOICED.
[2023-08-01 14:00] VITALS: BP 127/86; PULSE 76; RESP 16; TEMP 36.4; O2SAT 95
--- NOTE | 2023-08-01 18:02 | P.NPUPN_ITS ---
Subjective NPU 2 Subjective: Patient presented today reporting that he is doing okay. He spoke with Aubree and reports that she is seeing or identifying his improvement during the conversations and reported that it might be possible for him to return back to her place. We discussed continued concerns about that as an option given how things have turned out the last 2 times he has been discharged. Otherwise he continues to have much greater stability and cognitive awareness per staff reports and direct observation. Reports of decreasing use of as needed medications as well. He denies any side effects of medications. Mental Status Exam 2 MSE Comments: This is an overweight older white male looking older than his stated age in hospital scrubs with adequate grooming and eye contact. No abnormal involuntary motor movements appreciated. He was cooperative with exam and appeared in mild distress. His speech was productive and normal in rate and volume less dysarthria. Mood described as okay. His affect was flat, but brighter. Thought process was mostly linear and seeming more organized. Thought content: patient denied suicidal or homicidal ideation, there were no delusions reported or noted and he denied auditory or visual hallucinations currently. Attention and concentration appeared to be improving. He continued to not endorse date correctly. He was alert and oriented to person and place. Insight and judgment appear limited and impulse control was improving. Recent memory was limited. Remote memory was poor as well. Vitals/I&O/Wt Last Vital Signs Temp 97.6 F 08/01/23 14:00 Pulse 76 08/01/23 14:00 Resp 16 08/01/23 14:00 BP 127/86 08/01/23 14:00 Pulse Ox 95 08/01/23 14:00 O2 Del Method Room Air 07/31/23 06:00 Weight last 48 hrs Weight 77.224 kg Data NPU 06/30/23 12:41 06/30/23 12:41 A&P Assessment and plan (1) Schizoaffective disorder, depressive type: (2) Hypoxemia: (3) Substance use disorder: (4) Hypoxemia: (5) Pulmonary embolism: (6) Methamphetamine use disorder, severe: (7) Altered mental status: Plan This is a 57-year-old white male with a long history of addiction, and psychosis/altered mental status and possible cognitive decline who relapsed on methamphetamine and is actively using cannabis who presents with recent aggressive behaviors after his relapse. 1. Continue Neurontin 400mg tid to target anxiety as neuropathic pain reported. Continue Seroquel 150 mg at night along with Risperidone 2mg bid. X-ray of Left knee was negative. 2. Encourage, group and milieu therapies. 3. Patient on 15 minute checks. 4. Encourage sober living treatment after discharge at the highest level of care to which he is willing to commit. 5. Patient did extremely poorly on his [facility] evaluation of living skills (MICKEY)-Patient on guardianship after hearing , level 2 hearing completed. Patient will be transferred to locked skilled nursing facility. Currently attempting to find new placement, possibly [facility]. 6. Given his poor functioning and diminished cognitive ability guardianship and now seeking placement again as previous accepting facility had rejected patient as candidate at their facility for unspecified reasons. Patient has legal guardian. 7. Patient having signs of much higher functioning and clarity since last seen almost 2 weeks ago. Involuntary Hold Information 2 96 Hour Hold: 96 Hour Involuntary Admission: No 96 Hour Hold Ending Date: 0 05/25/23 96 Hour Hold Ending Time: 19:20 Attestations NPU 2 Medical Necessity Statement*: Inpatient hospitalization is medically necessary and the clinically appropriate intervention at this time. We will monitor medication to make changes as indicated. The patient's likely length of stay is 5-7 days as we are awaiting direct placement into locked assisted. Coding Level of Care Code Acute Code for [facility] Diagnoses Schizoaffective disorder, depressive type F25.1 Hypoxemia R09.02 Substance use disorder F19.90 Pulmonary embolism I26.99 Methamphetamine use disorder, severe F15.20 Altered mental status R41.82
[2023-08-01 20:39] VITALS: BP 121/78; PULSE 68; RESP 17; TEMP 37; O2SAT 96
[2023-08-01] MEDS: trazodone 100 mg Tablet PO ×2 (20:39→21:44)
[2023-08-01] MEDS: quetiapine 300 mg Tablet 150 MG PO (20:39)
[2023-08-01] MEDS: prazosin 1 mg Capsule 2 MG PO (20:39)
[2023-08-02] MEDS: hyDROXYzine 25 mg Capsule 50 MG PO (00:05)
[2023-08-02 06:00] VITALS: RESP 17
[2023-08-02] MEDS: gabapentin 400 mg Capsule PO ×2 (08:00→14:59)
[2023-08-02] MEDS: propranolol 20 mg Tablet 10 MG PO (08:00)
[2023-08-02] MEDS: buPROPion XL (24 HR) 300 mg Tablet PO (08:02)
[2023-08-02] MEDS: risperiDONE 1 mg Tablet 2 MG PO (08:02)
[2023-08-02] MEDS: pantoprazole DR 40 mg Tablet PO (08:02)
[2023-08-02] MEDS: CELEcoxib 100 mg Capsule PO ×2 (08:02→17:41)
[2023-08-02] MEDS: nicotine 4 mg lozenge MUCOUS MEM ×4 (08:06→17:41)
[2023-08-02] MEDS: benztropine 1 mg Tablet PO (08:39)
--- NOTE | 2023-08-02 13:39 | P.NPUDS_ITS ---
Diagnoses at Discharge Discharge Diagnosis (1) Schizoaffective disorder, depressive type: Status: Acute (2) Hypoxemia: Status: Resolved (3) Substance use disorder: Status: Inactive (4) Pulmonary embolism: Status: Inactive (5) Methamphetamine use disorder, severe: Status: Resolved (6) Altered mental status: Status: Resolved Reason for Visit Reason for Visit: SI Brief History: History of Present Illness Chriss Akers is a 58 year old male who presented to the emergency department with the following report: Chief Complaint: Psychiatric Symptoms Stated Complaint: SI Time Seen by Provider: 06/30/23 12:03 Source: patient Mode of arrival: ambulatory Limitations: no limitations History of Present Illness: 58-year-old male states he been having i ncreasing depression over the last 4 to 5 days he has been having suicidal thoughts. He has been admitted here before he states that he feels like he may harm himself and voluntarily wants to be admitted to get help. He denies any worsening improving factors denies any specific plans. Associated symptoms: Reports depression and suicidal ideation. He was admitted to the neuropsychiatric unit for definitive treatment of those issues. He presents today having relapsed on methamphetamine with a UDS positive for cannabis and amphetamines. While under the influence or under the recent use of methamphetamine he acted in a very aggressive way which led to his very supportive outpatient torres martinez to the man that he get active addiction treatments prior to him being able to return and if he is unable to return to this benefactor he would be stuck with essentially nowhere to go. He identified that he is open to continuing his medication and doing anything from a treatment perspective to be able to return to his current living arrangement. He did endorse feeling really bad about his recent behaviors and choices and having thoughts to hurt himself. He was agreeable to restarting/continuing his current medications after discussion of the risks, benefits and alternatives he understood and agreed to proceed as is documented in this note. He endorsed feeling shaky and we discussed the risk benefits and alternatives of a trial of propranolol and he understood and agreed to proceed with that treatment. We discussed him working with the treatment team for an inpatient rehab which he endorsed having a full commitment to that recovery plan. An excerpt from his last discharge summary is included below given there were no substantive changes outside of this recent relapse. Per his 05/26/2023 [facility] inpatient psychiatric discharge summary: Discharge Diagnosis (1) Schizoaffective disorder, depressive type: Status: Acute (2) Hypoxemia: Status: Resolved (3) Substance use disorder: Status: Inactive (4) Pulmonary embolism: Status: Inactive (5) Methamphetamine use disorder, severe : Status: Resolved (6) Altered mental status: Status: Resolved Reason for Visit Reason for Visit: SI Brief History: History of Present Illness Chriss Akers is a 58 year old male With a history of methamphetamine abuse, schizoaffective disorder bipolar type who presented to the emergency department with complaints of having suicidal thoughts with a plan to hang himself with reports that he does not feel like living any longer. Patient was admitted to the neuropsychiatric unit for further evaluation and treatment. He was unable to be questioned any further as he was asleep and was unwilling to wake up to speak any further. Previous records have been reviewed over the past few months from his outpatient providers who had reported that the patient had apparently been residing in a half-way and had been having some problems recently with periods of intense confusion and agitation that appear to be associated with a drop in his oxygen saturation. There had been reports of continued problems with managing his dizziness. The patient on a recent visit with his psychiatric provider ,Dr. Rosario, had endorsed to Dr. Brooke that he had been feeling unsteady on April 29, 2023. the patient initially when arriving to the floor had endorsed having suicidal thoughts with no clear plan to end his life. He had also endorsed having auditory and visual hallucinations. Like previous evaluations noted in the last few months, the patient had also appeared initially when evaluated by nurses to have been answering questions with statements that did not make any sense. His urine drug screen was negative for amphetamines or alcohol. Inpatient psychiatric history: 1 previous inpatient psychiatric hospitalization reported Most recently in April 2022 per records. Current medications: Suboxone 4 mg twice a day, Wellbutrin XL 450 mg daily, prazosin 2 mg at night, Risperdal 2 mg twice a day, trazodone 50 mg at night Excerpt from D/C summary from NPU on 04/26/22 History of Present Illness Chriss Akers is a 57 year old male who presented to the emergency department with the following report: Chief Complaint: Altered Mental Status Stated Complaint: AMS Time Seen by Provider: 05/10/22 22:46 Source: patient Mode of arrival: ambulatory Limitations: no limitations History of Present Illness: 57-year-old male seen earlier Present hallucinations he is in a sober living center is cleared by psych and he did not want to be admitted he went back to sober living center had brought him back up. He states that he has been talking to cats that are not there and is worsened hallucinations patient now does agree that he would be admitted and is able answer my questions appropriately but does have hallucinations here. Associated symptoms: Reports visual hallucinations He was admitted to the neuropsychiatric unit for definitive treatment of those issues. He presents today unlike previous admissions. Previously he has presented very goal-directed and with concerns for malingering often. Today he presents confused and a very poor historian. Much of his comments are partial thoughts merged with different partial thoughts that started 1 direction and ended in another and with almost no clarity as to what he is thinking or talking about. He will say something and then followed up with the you know what I need and there is $0.00 and what he is saying. Screen is negative and there are no clear signs of infection but he certainly appears delirious. He had been discharged from the emergency department initially and the level of confusion was noted at his supportive residence he situation leading to them sending him back with concerns of intoxication or something else. He reports taking his medication but it is unclear at this level of confusion if he could have been taking his medication appropriately or if he is getting enough assistance that that would have been the case. Per his 04/23/2022 [facility] inpatient discharge summary: Discharge Diagnosis (1) Compression fracture: Status: Acute Permanent problem details: t12 (2) Lytic bone lesion of hip: Status: Resolved (3) Hypoxemia: Status: Resolved (4) Pulmonary embolism: Status: Resolved (5) Leukocytosis: Status: Resolved (6) Substance use disorder: Status: Inactive (7) Hypoxemia: Status: Inactive (8) Pulmonary embolism: Status: Inactive (9) Methamphetamine use disorder, severe : Status: Resolved (10) Adjustment disorder with mixed dist urbance of emotions and conduct: Status: Acute (11) Depression: Status: Acute Reason for Visit Reason for Visit: SI Brief History: History of Present Illness Chriss Akers is a 57 year old male who presented to the emergency department with the following report: Chief Complaint: Psychiatric Symptoms Stated Complaint: SI Time Seen by Provider: 04/20/22 11:20 History of Present Illness: Mr. Akers is a 57-year-old gentleman with remote history of substance abuse, history of PE on anticoagulation, COPD, possibly schizoaffective disorder presented to the emergency department for suicidal ideation with a plan. He does have a history of depression and has been on medications however over the past few days reports that they do not seem to help. He feels depressed and increasingly hopeless. He walked downstairs earlier and saw a rope and thought of hanging himself. He does have a history of suicide attempt by hanging. Overall course of symptoms has worsened. Intensity is moderate to severe. He notes hopelessness and anxiety. No other specific changes in health, exacerbating, or alleviating factors identified. Onset (ago): day(s) Duration: getting worse History of same: Yes Relieving factors: none Exacerbating factors: none Associated psychiatric symptoms: depression and suicidal ideation If self harm: admits thoughts of self harm and has plan. He was admitted to the neuropsychiatric unit for definitive treatment of those issues. He presents today much like he did the last hospitalization reporting fairly mundane issues being problematic. He is currently staying at [facility] and reports that things are okay there. He reports that he has some guys there that he can hang out with that are nice. And he gets along with other people. He reports that he feels like he is being easily stressed and overwhelmed. Reports is been impacted from losses that he has had. He reports that he is looking for employment but has not been successful. He reports that he was on his way to what he thought was a job he was getting only to be told that he did not even have an interview like he had believed. He reports that that really sent him reeling and he started getting caught up in his negative thoughts. He reports that he has been doing well from the standpoint of his recovery and that that has not been an issue. We discussed the risk benefits and alternatives of increasing his BuSpar to 10 mg p.o. 3 times daily and he understood and agreed to proceed as is documented in this note. We also discussed the possibility of increasing his Risperdal prior to discharge. An excerpt of his last inpatient note is included below for context and history. Per his 09/24/2021 [facility] inpatient psychiatric evaluation: History of Present Illness Chriss Akers is a 56 year old male who presented to the emergency department with the following report: Stated complaint: same reason Time Seen by Provider: 09/22/21 17:33 History of Present Illness: Patient is a 56-year-old male with a history of former meth use, chronic hypoxemia on 3 L oxygen presenting to the emergency room for concerns of hypoxemia. Earlier patient was seen evaluated emergency room was diagnosed with possible nonocclusive pulmonary embolism. In addition, patient was found to have leukocytosis with no prior for comparison. Patient decided to go home so he could have a smoke. Patient's chose to sign out AMA earlier today and decided come back to the emergency room. Onset:unknown Duration:ongoing Location:home Severity:moderate Associated symptoms: Deny chest pain, dyspnea, nausea, rash, palpitations or vomiting. He reports that he presents secondary to breathing issues and suicidal ideation. He reports he just recently left the [facility] which he was in 3 times for 10 years each. He reports he has been psychiatrically hospitalized a few times and denies receiving outpatient services. He reports a pack of cigarettes a day, denies alcohol, reports marijuana occasionally, endorses methamphetamine and denies any other illicit drug use. He has never been to a rehab and received a DUI in 1998. He reports he was at [facility] when he started having issues with his breathing and increased suicidal ideation which is how he presents today. He reports he wants to leave as he feels information is being kept from him in regards to his health and what is going on. We discussed at length about addressing his medical issues and the safety concern that is presented given he is expressing suicidal ideation recently given there has been no change in his health conditions since he was admitted. He reports he has not been on suboxone [facility] and had an opiate use problem when he was younger. Psychiatric History: As above. Substance Abuse History: As above Family History: He denies mental health issues on either side of the family, addiction issues on his father?s side of the family and a suicide completion from his mother?s side of the family. Developmental History: He denies any issues with his or , learned to walk and talk and met his developmental standards on time, and denies any need for speech therapy, learning support, emotional support or special education classes. Psychosocial History: He reports his parents were together when he was born and remained together. He has 2 sisters and 2 brothers who are products of the same union. He described his childhood as great and denies any emotional, physical or sexual abuse. He reports truancy issues and was put in placement. He denies any other traumatic events. The highest grade he achieved was 11 th and he got his GED. He endorses being heterosexual with his longest relationship being 6 to 7 years. He has been once and , has 4 biological children, has never been in the and endorses being a gnosticism. He currently lives at [facility]. Legal History: He reports he has been in [facility] 10 times and [facility] 3 times at least. Medical History: Please see treatment team note for full details. Hospital Course Hospital Course He slowly acclimated to the individual, group and milieu therapies provided. He is staying with a supportive member of the community who endorses him having increased memory difficulties. We continued most of his medications but did decrease his Wellbutrin XL back to 300 mg p.o. every morning and his BuSpar back down to 10 mg p.o. twice daily. There do seem to be some continued difficulties with cognition. He worked with the social work team for appropriate aftercare and follow-up appointments. He had modest improvement and was able to contract for safety outside of the hospital prior to discharge. During the hospitalization, patient had routine laboratory studies which were within normal limits except for few outliers. Additionally there was a general medical evaluation which was also within normal limits and revealed no new acute processes. Discharge Summary: At the time of discharge, patient denied psychosis or lethality. Mood and anxiety were well managed. Patient endorsed a plan to avoid all drugs of abuse and follow-up with the aftercare recommendations of the treatment team. Patient was evaluated and deemed to be absent credible lethality, and had achieved the maximum benefit from an inpatient hospitalization, so was discharged. Involuntary Hold Information 96 Hour Hold: 96 Hour Involuntary Admission: No 96 Hour Hold Ending Date: 05/25/23 96 Hour Hold Ending Time: 19:20 Mental Status Exam MSE Comments: This is an overweight older white male looking older than his stated age in hospital scrubs with adequate grooming and eye contact. No abnormal involuntary motor movements appreciated. He was cooperative with exam and appeared in mild distress. His speech was productive and normal in rate and volume less dysarthria. Mood described as okay. His affect was flat, but brighter. Thought process was mostly linear and seeming more organized. Thought content: patient denied suicidal or homicidal ideation, there were no delusions reported or noted and he denied auditory or visual hallucinations currently. Attention and co ncentration appeared to be improving. He continued to not endorse date correctly. He was alert and oriented to person and place. Insight and judgment appear limited and impulse control was improving. Recent memory was limited. Remote memory was poor as well. Discharge Data Studies Completed and Pending: Completed Studies During Hospitalization Category Date Time Status XR knee LT 3V* [id number] Routine Exams 07/23/23 09:37 Completed Radiology Impressions Knee X-Ray 07/23/23 09:37 IMPRESSION: 1. No acute findings. 2. Additional details as above. Laboratory Results WBC 10.76 10^3/uL (3. 29-11.43) 06/30/23 12:41 RBC 4.72 10^6/uL (3.8 5-5.65) 06/30/23 12:41 Hgb 13.30 g/dL (11.27 -16.99) 06/30/23 12:41 Hct 39.3 % (37-53) 06/30/23 12:41 MCV 83.3 fl (82-101) 06/30/23 12:41 MCH 28.2 pg (27-33) 06/30/23 12:41 MCHC 33.8 g/dL (30-55) 06/30/23 12:41 RDW 13.4 % (12.1-15.1 ) 06/30/23 12:41 Plt Count 416 10^3/cmm (157 -399) H 06/30/23 12:41 MPV 8.4 fL (7.4-10.4) 06/30/23 12:41 Neut % (Auto) 71.4 % 06/30/23 12:41 Lymph % (Auto) 17.3 % 06/30/23 12:41 [place] % (Auto) 8.2 % 06/30/23 12:41 Eos % (Auto) 1.8 % 06/30/23 12:41 Baso % (Auto) 0.9 % 06/30/23 12:41 Neut # (Auto) 7.69 10^3/uL (1.8 -7.7) 06/30/23 12:41 Lymph # (Auto) 1.9 10^3/uL (0.8- 4.8) 06/30/23 12:41 [place] # (Auto) 0.9 10^3/uL (0.2- 0.9) 06/30/23 12:41 Eos # (Auto) 0.2 10^3/uL (0.0- 0.8) 06/30/23 12:41 Baso # (Auto) 0.1 10^3/uL (0.0- 0.1) 06/30/23 12:41 Nucleated RBC % (a uto) 0 % 06/30/23 12:41 Nucleated RBCs # 0.0 /100WBC 06/30/23 12:41 Sodium 136 mmol/L (136-1 45) 06/30/23 12:41 Potassium 3.8 mmol/L (3.5-5 .1) 06/30/23 12:41 Chloride 101 mmol/L (98-10 7) 06/30/23 12:41 Carbon Dioxide 22 mmol/L (22-29) 06/30/23 12:41 Anion Gap 16.8 (5-19) 06/30/23 12:41 BUN 9 mg/dL (6-20) 06/30/23 12:41 Creatinine 0.8 mg/dL (0.7-1. 2) 06/30/23 12:41 GFR Calculation 100.0 mL/min (90- 130) 06/30/23 12:41 Glucose 108 mg/dL (65-115 ) 06/30/23 12:41 POC Glucose 181 mg/dL (70-110 ) H 07/15/23 07:32 Calculated Osmolal ity 281 mOsm/kg (285- 295) L 06/30/23 12:41 Calcium 8.6 mg/dL (8.5-10 .5) 06/30/23 12:41 Total Bilirubin 0.3 mg/dL (0.15-1 .2) 06/30/23 12:41 AST 15 U/L (0-40) 06/30/23 12:41 ALT 17 U/L (0-41) 06/30/23 12:41 Alkaline Phosphata se 115 U/L (40-130) 06/30/23 12:41 Total Protein 7.1 g/dL (6.6-8.7 ) 06/30/23 12:41 Albumin 4.0 g/dL (3.5-5.2 ) 06/30/23 12:41 Globulin 3.1 g/dL (1.3-4.6 ) 06/30/23 12:41 Salicylates < 0.3 mg/dL (3-10 ) L 06/30/23 12:41 Urine Opiates Scre en Negative ng/mL (N egative) 06/30/23 12:25 Acetaminophen < 5.0 ug/mL (10-3 0) L 06/30/23 12:41 Ur Barbiturates Sc reen Negative ng/mL (N egative) 06/30/23 12:25 Ur Phencyclidine S crn Negative ng/mL (N egative) 06/30/23 12:25 Ur Amphetamines Sc reen Positive ng/mL (N egative) H 06/30/23 12:25 U Benzodiazepines Scrn Negative ng/mL (N egative) 06/30/23 12:25 Urine Cocaine Scre en Negative ng/mL (N egative) 06/30/23 12:25 U Marijuana (THC) Screen Positive ng/mL (N egative) H 06/30/23 12:25 Ethyl Alcohol < 10 mg/dL (0-10) 06/30/23 12:41 Vitals: Last Vital Signs Temp 98.6 F 08/01/23 20:39 Pulse 68 08/01/23 20:39 Resp 17 08/02/23 06:00 BP 121/78 08/01/23 20:39 Pulse Ox 96 08/01/23 20:39 O2 Del Method Room Air 07/31/23 06:00 Discharge Plan Discharge Patient Disposition: Home Condition: Stable Prescriptions: New trazodone 100 mg Tablet 100 mg PO BEDTIME PRN (Reason: Sleep) 30 Days Qty: 30 1RF risperidone 1 mg Tablet 2 mg PO 0900,2100 30 Days Qty: 120 1RF Wellbutrin XL 300 mg tablet extended release 24 hr 300 mg PO QAM 30 Days Qty: 30 1RF gabapentin 400 mg Capsule 400 mg PO TID 30 Days Qty: 90 1RF Seroquel 300 mg tablet 150 mg PO BEDTIME 30 Days Qty: 15 1RF propranolol 10 mg tablet 10 mg PO TID 30 Days Qty: 90 1RF celecoxib 100 mg capsule 100 mg PO BID 30 Days Qty: 60 1RF capsaicin 0.025 % cream 1 applic topical QID PRN (Reason: pain, moderate) 30 Days Qty: 60 1RF Rx Instructions: do not wash area for at least 30 min after application Continued omeprazole 40 mg capsule,delayed release(DR/EC) 40 mg PO QAM 30 Days Qty: 30 1RF benztropine 1 mg tablet 1 mg PO BID 30 Days Qty: 60 1RF prazosin 2 mg capsule 2 mg PO BEDTIME@21 30 Days Qty: 30 1RF Discontinued buprenorphine-naloxone 2-0.5 mg tablet, sublingual 2 tab sublingual BID Qty: 120 2RF albuterol sulfate [Ventolin HFA] 90 mcg/actuation HFA aerosol inhaler See Rx Instructions .ROUTE .COMPLEX Qty: 8.5 2RF Dose Instruction: INHALE 2 PUFFS BY MOUTH EVERY 4 HOURS NEEDED FOR FOR SHORTNESS OF BREATH OR WHEEZING Rx Instructions: INHALE 2 PUFFS BY MOUTH EVERY 4 HOURS NEEDED FOR FOR SHORTNESS OF BREATH OR WHEEZING topiramate 100 mg tablet 100 mg PO DAILY Qty: 30 2RF Symbicort 80-4.5 mcg/actuation HFA aerosol inhaler 2 inh inhalation BID Qty: 10.2 0RF bupropion HCl 150 mg Tablet Extended Release 24 Hr 300 mg PO DAILY@08 30 Days Qty: 60 1RF trazodone 50 mg tablet 50 mg PO BEDTIME PRN (Reason: Insomnia) buspirone 10 mg tablet 10 mg PO TID Discharge Orders: Discharge Order (Routine); Ordered 08/02/23 Ordered By: Maximiliano Jack Discharge Diet: Regular Discharge Activity: Resume usual activity Patient Instructions: Opioid Safety Discharge Attestations NPU Time Spent in Discharge Care*: greater than 30 min Specific Discharge Activities: Specific discharge activities: educating patient, discussing with nurse outreach case manager/social workers/dc planners, documenting/other paperwork and evaluating patient/reviewing data Coding Level of Care Code Acute Code for Chg Fwd Diagnoses Schizoaffective disorder, depressive type F25.1 Hypoxemia R09.02 Substance use disorder F19.90 Pulmonary embolism I26.99 Methamphetamine use disorder, severe F15.20 Altered mental status R41.82
[2023-08-02 14:00] VITALS: BP 118/80; PULSE 72; RESP 14; TEMP 36.8; O2SAT 96
[2023-08-02 14:23] VITALS: BP 118/80; PULSE 72; RESP 14; TEMP 36.8; O2SAT 96
--- NOTE | 2023-08-02 14:58 | PC.NURSE ---
CALLED REPORT TO CHARGE NURSE PEACE AT [facility] AT 1455. PHYSICIAN WHO IS ACCEPTING PT THERE IS DR. ZIMMERMAN.
[2023-08-02] MEDS: acetaminophen 325 mg Tablet 650 MG PO (15:56)
== END 2023-08-02 19:00 | disposition home or self-care (01) | DRG 885 ==
LOC: ER 12:21 → NP 12:35
PROVIDERS: Psychiatry & Neurology Psychiatry; Admitting Provider Psychiatry & Neurology Psychiatry; Emergency Provider Emergency Medicine; PCP Family Medicine; Visit Provider Psychiatry & Neurology Psychiatry
DX: F25.1 Schizoaffective disorder, depressive type (principal); F15.90 Other stimulant use, unspecified, uncomplicated; F41.9 Anxiety disorder, unspecified; G47.00 Insomnia, unspecified; M79.2 Neuralgia and neuritis, unspecified; F17.210 Nicotine dependence, cigarettes, uncomplicated; I10 Essential (primary) hypertension
CPT/HCPCS: 36415; 36416; 73562; 80053; 80306; 80307; 82962; 85025; 97150; 97165; 97167; 99285; J0573; Q0162; Q0163

== ENCOUNTER → 2024-01-05 10:31 | Outpatient (BNVA) | payer MEDICAID, SELFPAY ==
[2023-05-26 09:32] VITALS: BP 154/93; BMI 30.6
== END ==
PROVIDERS: PCP Family Medicine; Visit Provider Psychiatry & Neurology Neurology
DX: F03.90 Unspecified dementia, unspecified severity, without behavioral disturbance, psychotic disturbance, mood disturbance, and anxiety (principal); M54.2 Cervicalgia; G93.40 Encephalopathy, unspecified; R51.9 Headache, unspecified
CPT/HCPCS: 99212; 99213

== ENCOUNTER 2024-01-25 09:00 | Outpatient (CLI) | payer MEDICAID, SELFPAY ==
[2023-05-26 09:32] VITALS: BP 154/93; BMI 30.6
--- NOTE | 2024-01-25 09:30 | MR_ITS ---
WS: [id number] MRI HEAD WITH CONTRAST TECHNIQUE: Sagittal T1, T2 axial, T2 axial FLAIR, axial susceptibility weighted imaging, axial diffus ion weighted images, and coronal T2 images were obtained. Pre and post-T1 axial and post T1 coronal i mages. ADC and FSPGR images. CLINICAL INFORMATION: F03.90 - Unspecified dementia, unspecified severity, with... COMPARISON: CT 12/06/2022 FINDINGS: No evidence of restricted diffusion to suggest acute ischemia. Ventricular system and basal cisterns are patent. Mild small vessel changes. Moderate parenchymal volume loss worse in the parietal lobes. Small vessel changes in the tawny. No hemosiderin on susceptibly weighted images. Mild mucosal thicken ing in the paranasal sinuses. Mastoid air cells demonstrate mild mucosal thickening. Normal posterior nasopharynx. Normal vascular flow voids at the skull base. No hemosiderin on susceptibly weighted images. Normal optic chiasm and pituitary infundibulum. Tempor al lobes and hippocampal formations are normal in appearance. Normal optic chiasm and pituitary infun dibulum. No abnormal gadolinium enhancement. Normal dural venous sinuses. MR/MR head wo/w con [id number] IMPRESSION: 1. No evidence of restricted diffusion to suggest acute ischemia. 2. Mild small vessel changes with moderate parenchymal volume loss worse in th e parietal lobes. 3. Small vessel changes in the tawny. 4. Mesial temporal lobes and hippocampal formations are normal in appearance. 5. No hemosiderin on susceptibility-weighted images. 6. No abnormal gadolinium enhancement.
[2024-01-25] MEDS: gadobenate dimeglumine 20 mL vial IV (09:54)
== END 2024-01-25 09:01 | disposition home or self-care (01) ==
LOC: RAD 09:00
PROVIDERS: PCP Family Medicine; Visit Provider Psychiatry & Neurology Neurology
DX: G31.89 Other specified degenerative diseases of nervous system (principal); I67.89 Other cerebrovascular disease; F03.90 Unspecified dementia, unspecified severity, without behavioral disturbance, psychotic disturbance, mood disturbance, and anxiety; G93.40 Encephalopathy, unspecified; M54.2 Cervicalgia
CPT/HCPCS: 70553

== ENCOUNTER → 2024-05-10 10:45 | Outpatient (BNVA) | payer MEDICAID, SELFPAY ==
[2023-05-26 09:32] VITALS: BP 154/93; BMI 30.6
== END ==
PROVIDERS: PCP Family Medicine; Visit Provider Psychiatry & Neurology Neurology
DX: M54.2 Cervicalgia (principal); F03.90 Unspecified dementia, unspecified severity, without behavioral disturbance, psychotic disturbance, mood disturbance, and anxiety; G93.40 Encephalopathy, unspecified; R51.9 Headache, unspecified
CPT/HCPCS: 0346U; 36415; 82542; 83520; 99212

== ENCOUNTER → 2024-09-25 12:57 | Outpatient (BNVA) | payer MEDICAID, SELFPAY ==
[2023-05-26 09:32] VITALS: BP 154/93; BMI 30.6
== END ==
PROVIDERS: PCP Family Medicine; Visit Provider Psychiatry & Neurology Neurology
DX: R51.9 Headache, unspecified (principal); R41.3 Other amnesia; M54.2 Cervicalgia; G93.40 Encephalopathy, unspecified
CPT/HCPCS: 99212

== ENCOUNTER → 2024-10-01 10:15 | Outpatient (BNVA) | payer MEDICAID, SELFPAY ==
[2023-05-26 09:32] VITALS: BP 154/93; BMI 30.6
== END ==
PROVIDERS: PCP Internal Medicine; Visit Provider Anesthesiology Pain Medicine
DX: M54.2 Cervicalgia (principal); M47.812 Spondylosis without myelopathy or radiculopathy, cervical region
CPT/HCPCS: 72040; 99204

== ENCOUNTER → 2024-11-13 10:29 | Outpatient (BNVA) | payer MEDICAID, SELFPAY ==
[2023-05-26 09:32] VITALS: BP 154/93; BMI 30.6
== END ==
PROVIDERS: PCP Internal Medicine; Visit Provider Anesthesiology Pain Medicine
DX: M47.812 Spondylosis without myelopathy or radiculopathy, cervical region (principal); M54.9 Dorsalgia, unspecified; M47.816 Spondylosis without myelopathy or radiculopathy, lumbar region; M54.2 Cervicalgia
CPT/HCPCS: 64405; 72110; 99214; J1010; J3490

== ENCOUNTER → 2024-11-26 09:57 | Outpatient (BNVA) | payer MEDICAID, SELFPAY ==
[2023-05-26 09:32] VITALS: BP 154/93; BMI 30.6
== END ==
PROVIDERS: PCP Internal Medicine; Visit Provider Anesthesiology Pain Medicine
DX: M54.2 Cervicalgia (principal); M47.812 Spondylosis without myelopathy or radiculopathy, cervical region; M47.816 Spondylosis without myelopathy or radiculopathy, lumbar region; F17.210 Nicotine dependence, cigarettes, uncomplicated
CPT/HCPCS: 99214

== ENCOUNTER → 2025-02-20 09:46 | Outpatient (BNVA) | payer MEDICAID, SELFPAY ==
[2023-05-26 09:32] VITALS: BP 154/93; BMI 30.6
== END ==
PROVIDERS: PCP Internal Medicine; Visit Provider Anesthesiology Pain Medicine
DX: M47.812 Spondylosis without myelopathy or radiculopathy, cervical region (principal)
CPT/HCPCS: 64490; 64491; 64492; J3490; J9999

== ENCOUNTER → 2025-02-26 10:56 | Outpatient (BNVA) | payer MEDICAID, SELFPAY ==
[2023-05-26 09:32] VITALS: BP 154/93; BMI 30.6
== END ==
PROVIDERS: PCP Internal Medicine; Visit Provider Anesthesiology Pain Medicine
DX: M47.812 Spondylosis without myelopathy or radiculopathy, cervical region (principal); M47.816 Spondylosis without myelopathy or radiculopathy, lumbar region; F17.210 Nicotine dependence, cigarettes, uncomplicated
CPT/HCPCS: 99214